=== PATIENT | female | born 1995 | race Hispanic/Latino ===

== ENCOUNTER 2024-04-19 07:22 | Emergency (ER) | payer OTHER ==
[2024-04-19] MEDS: ONDANSETRON 4MG INJ ONE (07:49)
[2024-04-19 08:11] LABS: APPEARANCE,URINE CLEAR (CLEAR); BILIRUBIN,URINE NEGATIVE (NEGATIVE); COLOR,URINE YELLOW (YELLOW); GLUCOSE, URINE (UA) NEGATIVE (NEGATIVE); HCG,QUALITATIVE URINE NEGATIVE (NEGATIVE); KETONES,URINE NEGATIVE (NEGATIVE); LEUKOCYTE ESTERASE ,URINE NEGATIVE Leu/uL (NEGATIVE); NITRATE,URINE NEGATIVE (NEGATIVE); OCCULT BLOOD,URINE SMALL (NEGATIVE); PH,URINE 5.5 (5.0-8.0); PROTEIN,URINE 30 mg/dL (NEGATIVE); UROBILINOGEN,URINE 0.2 mg/dL (0.2-1.0)
[2024-04-19 08:16] LABS: BASOPHILS # (AUTO) 0.08 K/uL (0.00-0.20); BASOPHILS % (AUTO) 0.7 % (0.0-5.0); EOSINOPHILS # (AUTO) 0.52 K/uL (0.00-0.70); EOSINOPHILS % (AUTO) 4.3 % (0.0-8.0); HEMATOCRIT 41.9 % (36-48); IMMATURE GRANULOCYTE ABSOLUTE 0.04 K/uL (0-1); LYMPHOCYTES # (AUTO) 1.6 K/uL (1.0-4.8); LYMPHOCYTES % (AUTO) 13.1 % (21.0-51.0); MEAN CORPUSCULAR HEMOGLOBIN 32.1 pg (27.0-33.0); MEAN CORPUSCULAR HGB CONC 33.9 g/dL (32.0-36.0); MEAN CORPUSCULAR VOLUME 94.6 fL (79-99); MONOCYTES # (AUTO) 0.7 K/uL (0.1-1.0); MONOCYTES % (AUTO) 5.4 % (3.0-13.0); NEUTROPHILS # (AUTO) 9.2 K/uL (1.8-7.7); NEUTROPHILS % (AUTO) 76.2 % (40.0-77.0); PLATELET COUNT (AUTO) 231 K/uL (130-400); RED BLOOD CELL COUNT(AUTO) 4.43 MIL/uL (4.00-5.50); RED CELL DISTRIBUTION WIDTH 12.2 % (11.0-15.5)
[2024-04-19] MEDS: ONDANSETRON 4MG INJ IVP ONE (08:16)
[2024-04-19 08:17] LABS: ADD UA MICROSCOPIC YES
[2024-04-19 08:20] LABS: AMPHET/METH SCREEN,URINE NEGATIVE (NEGATIVE); BACTERIA,URINE FEW /HPF (None Seen); BARBITURATE SCREEN, URINE NEGATIVE (NEGATIVE); BENZODIAZEPINES SCREEN,URINE NEGATIVE (NEGATIVE); CANNABINOID SCREEN,URINE POSITIVE (NEGATIVE); COCAINE SCREEN,URINE NEGATIVE (NEGATIVE); MUCUS,URINE RARE LPF (None Seen); OPIATE SCREEN,URINE NEGATIVE (NEGATIVE); OTHER CASTS, URINE 6 /LPF (None Seen); PHENCYCLIDINE SCREEN,URINE NEGATIVE (NEGATIVE); SQUAMOUS EPITHELIAL CELL,UR FEW /HPF (0-2)
[2024-04-19 08:26] LABS: POTASSIUM 4.1 mmol/L (3.5-5.1)
[2024-04-19 08:35] LABS: ALBUMIN 3.6 g/dL (3.5-5.0); BILIRUBIN,TOTAL 0.3 mg/dL (0.2-1.0); TOTAL PROTEIN, SERUM 7.3 g/dL (6.0-8.3)
[2024-04-19] MEDS: LACTATED RINGERS 1000ML 1,000 ML IV ONE (09:21)
[2024-04-19 11:23] LABS: ACETAMINOPHEN 1 mcg/mL (10-30); SALICYLATE < 2.8 mg/dL (2.8-20.0)
[2024-04-19 15:51] VITALS: BP 110/70; PULSE 60; RESP 18; O2SAT 100
== END 2024-04-19 16:01 | disposition home or self-care (01) ==
LOC: EDH 07:22
DX: F12.929 Cannabis use, unspecified with intoxication, unspecified (principal)
CPT/HCPCS: 99285; 96374; 70450; 96361; 80053; 80305; 85025; 81025; 36415; 93005; 81001; G0481; J7120; J2405

== ENCOUNTER → 2024-09-10 | Outpatient (CLI) | payer OTHER | END | disposition home or self-care (01) | LOC: LAB 13:36 | PROVIDERS: ATTEND Hospitalist | DX: Z20.822 Contact with and (suspected) exposure to COVID-19 (principal); B97.29 Other coronavirus as the cause of diseases classified elsewhere | CPT/HCPCS: 87426 ==

== ENCOUNTER 2024-10-12 11:29 | Inpatient (IN) | payer OTHER, MEDICAID ==
--- NOTE | 2005-10-16 19:22 | NUR ---
please disregard note from sw 09/16 at 1100. wrong chart
[~2024-10-12] VITALS: Ht 162.6 cm; Wt 117.9 kg
--- NOTE | 2024-10-12 11:41 | NUR ---
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
[2024-10-12] MEDS: LACTATED RINGERS 1000ML 1,000 ML IV SCH (12:10)
[2024-10-12 12:17] LABS: BILIRUBIN,URINE NEGATIVE (NEGATIVE); COLOR,URINE LIGHT-YELLOW (YELLOW); GLUCOSE, URINE (UA) NEGATIVE (NEGATIVE); KETONES,URINE NEGATIVE (NEGATIVE); LEUKOCYTE ESTERASE ,URINE 500 Leu/uL (NEGATIVE); NITRATE,URINE NEGATIVE (NEGATIVE); OCCULT BLOOD,URINE SMALL (NEGATIVE); PH,URINE 6.5 (5.0-8.0); PROTEIN,URINE NEGATIVE (NEGATIVE); UROBILINOGEN,URINE 0.2 mg/dL (0.2-1.0)
[2024-10-12 12:22] LABS: APPEARANCE,URINE HAZY (CLEAR)
[2024-10-12 12:23] LABS: ADD UA MICROSCOPIC YES
[2024-10-12 12:24] LABS: BACTERIA,URINE FEW /HPF (None Seen); MUCUS,URINE RARE LPF (None Seen); SQUAMOUS EPITHELIAL CELL,UR MOD /HPF (0-2); WBC,URINE 51-100 /HPF (0-1)
--- NOTE | 2024-10-12 14:14 | HMCIMG ---
US OB >14 WEEKS REASON: WELL BEING COMPARISON: None TECHNIQUE: Routine OB sonogram was performed. FINDINGS: There is a single fetus in cephalic presentation with positive motion and heartbeat, 131 BPM. Estimated age is 18 weeks 0 days. Placenta is fundal and grade one. Amniotic fluid volume is 0. Estimated weight is 225 g. anatomy exam is limited by the absence of amniotic fluid. IMPRESSION: 1. Single fetus cephalic presentation composite gestational age 18 weeks 0 days. 2. Amniotic fluid volume is 0 consistent with premature rupture of membranes.
[2024-10-12] MEDS ORDERED: AMPICILLIN 2GM VIAL IV SCH (15:30)
[2024-10-12] MEDS: acetaMINOPHEN 500 MG TABLET PO PRN (15:53)
[2024-10-12 16:23] LABS: HEMATOCRIT 35.6 % (36-48); MEAN CORPUSCULAR HEMOGLOBIN 31.2 pg (27.0-33.0); MEAN CORPUSCULAR HGB CONC 33.4 g/dL (32.0-36.0); MEAN CORPUSCULAR VOLUME 93.2 fL (79-99); RED BLOOD CELL COUNT(AUTO) 3.82 MIL/uL (4.00-5.50); RED CELL DISTRIBUTION WIDTH 12.8 % (11.0-15.5); WHITE BLOOD COUNT (AUTO) 8.3 K/uL (4.8-10.8)
[2024-10-12 16:31] LABS: AMPHET/METH SCREEN,URINE NEGATIVE (NEGATIVE); BARBITURATE SCREEN, URINE NEGATIVE (NEGATIVE); BENZODIAZEPINES SCREEN,URINE NEGATIVE (NEGATIVE); CANNABINOID SCREEN,URINE NEGATIVE (NEGATIVE); COCAINE SCREEN,URINE NEGATIVE (NEGATIVE); OPIATE SCREEN,URINE NEGATIVE (NEGATIVE); PHENCYCLIDINE SCREEN,URINE NEGATIVE (NEGATIVE)
[2024-10-12] MEDS: AMPICILLIN 2GM VIAL IV SCH (16:31)
[2024-10-12] MEDS: ERYTHROMYCIN LACTOBIONATE 250 MG in 0.9%NACL 100ML 100 ML IV SCH (17:15)
[2024-10-12 18:27] LABS: HIV 1&2 ANTIBODY Non-Reactive (Negative); HIV-1 p24 Antigen Non-Reactive (Negative)
[2024-10-12] MEDS: PROMETHAZINE HCL 25 MG/ML 1ML AMPULE IM ONE (20:20)
[2024-10-12] MEDS: MEPERIDINE-PF 50 MG/ML SYG IVP ONE (20:21)
[2024-10-12] MEDS: AMPICILLIN 2GM+NS 100ML 100 ML IV ONE ×2 (20:29→22:39)
[2024-10-12] MEDS ORDERED: COMPOUND IV REFRIGERATED 1 EACH IVSOLN MISC PRN (23:30)
[2024-10-13 07:30] VITALS: BP 122/61; PULSE 89; RESP 18; TEMP 98.2
--- NOTE | 2024-10-13 08:45 | HMCIMG ---
US OB >14 WEEKS HISTORY: KINDRA COMPARISON: None TECHNIQUE: ultrasound study was performed. FINDINGS: There is single intrauterine gestation with estimated gestational age of 18 weeks. heart rate is 145 beats per minute. The fetus is in cephalic presentation with longitudinal lie. head appears be low-lying near cervix. weight is estimated to be 239 grams. Amniotic fluid volume is decreased at almost 0 centimeter. The placenta is located posteriorly. No evidence of placenta previa is seen. There is no evidence of nuchal cord. IMPRESSION: 1. There is single intrauterine gestation with estimated gestational age of 18 weeks. heart rate is 145 beats per minute. head is low lying near cervix. KINDRA is decreased .
[2024-10-13] MEDS: AMPICILLIN 2GM+NS 100ML 100 ML IV SCH (11:06)
[2024-10-13 11:11] VITALS: BP 124/70; PULSE 85; RESP 20; TEMP 97.9
[2024-10-13 13:23] LABS: RAPID PLASMA REAGIN NONREACTIVE (NONREACTIVE)
[2024-10-13] MEDS: MEPERIDINE-PF 50 MG/ML SYG IM ONE (14:32)
[2024-10-13] MEDS: PROMETHAZINE HCL 25 MG/ML 1ML AMPULE IM ONE (14:33)
[2024-10-13 15:45] VITALS: BP 99/49; PULSE 75; RESP 20; TEMP 97.9
--- NOTE | 2024-10-13 19:40 | NUR ---
after numerous attempts to try for fht, ultrasound called, fhr at 131 , with a tiny ammount of fluid.
[2024-10-13 19:54] VITALS: BP 120/65; PULSE 98; RESP 20; TEMP 98.7
--- NOTE | 2024-10-13 20:53 | HMCIMG ---
ULTRASOUND OB LIMITED INDICATION: Unable to find heart tones with Doppler or ultrasound transducer. TECHNIQUE: Real-time transabdominal approach ultrasound examination of the pelvis was performed by the restaurant crew, and images subsequently made available for review. COMPARISON: None FINDINGS/IMPRESSION: heart rate = 131 beats per minute. KINDRA = 0.6 cm.
[2024-10-13] MEDS ORDERED: MEPERIDINE-PF 50 MG/ML SYG IM PRN (22:30)
[2024-10-13 23:24] VITALS: BP 125/68; PULSE 93; RESP 20; TEMP 98.8
[2024-10-14] VITALS (20 sets, daily range): BP systolic 92–133; BP diastolic 44–91; PULSE 80–121; RESP 18–37; TEMP 98.4–100.5; O2SAT 98–99
[2024-10-14] MEDS: PROMETHAZINE HCL 25 MG/ML 1ML AMPULE IM PRN (00:58)
--- NOTE | 2024-10-14 01:08 | NUR ---
/Patient verbalizing pain / to abdomen dem/phen 50 mg /25 mg given IM pt tolerated well.
--- NOTE | 2024-10-14 03:22 | NUR ---
Sono done fhr 134 , approximately 3 mls of fluid, cervix closed.
--- NOTE | 2024-10-14 03:40 | NUR ---
pt with nausea vomiting pain to abdomen demerol 50 mg and phenergan 25 mg IM given for pain and nausea and vomiting.
[2024-10-14] MEDS: MEPERIDINE-PF 50 MG/ML SYG IM PRN (03:41)
--- NOTE | 2024-10-14 07:58 | HMCIMG ---
US OB KINDRA/POSITION HISTORY: KINDRA COMPARISON: None TECHNIQUE: Limited ultrasound study was performed. FINDINGS: There is single intrauterine gestation with heart rate of 134 bpm. KINDRA is decreased at 3 mm. Fetus is in cephalic presentation with longitudinal lie. Cervix appears to be closed on translabial ultrasound study. IMPRESSION: 1. There is single intrauterine gestation with heart rate of 134 bpm. KINDRA is decreased at 3 mm.
--- NOTE | 2024-10-14 08:34 | NUR ---
DR AYALA RETURNED CALL. INFORMED OF PTS C/O NAUSEA WITH VOMITING PRESENT. PROVIDER VERBALIZED UNDERSTANDING. ORDERS RECEIVED FOR SCHEDULE IV ANTIEMETICS. ORDERS READ BACK AND CORRECT.
[2024-10-14] MEDS: ondanSETRON 4MG INJ IVP SCH (08:39)
--- NOTE | 2024-10-14 09:00 | NUR ---
DR AYALA AT BEDSIDE DR AYALA AT BEDSIDE TO ASSESS PT AND DISCUSS PLAN OF CARE. PO ANTIBIOTICS WILL START TODAY PREVIOUSLY ORDERED. PT MAY SHOWER AND SIT IN CHAIR AT BEDSIDE TOLERATED DUE TO ULTRASOUND FINDINGS OF CLOSE AND THICK CERVIX. PT CONTENT WITH PLAN OF CARE. QUESTIONS INVITED TO PT AND S/O. QUESTIONS ANSWERED.
--- NOTE | 2024-10-14 09:23 | HMCIMG ---
US OB KINDRA/POSITION HISTORY: KINDRA COMPARISON: Same day ultrasound study TECHNIQUE: Limited ultrasound study was performed. FINDINGS: There is single intrauterine gestation with heart rate of 155 bpm. KINDRA is decreased at 1 cm. Cervix is closed measuring 4.2 cm. IMPRESSION: 1. There is single intrauterine gestation with heart rate of 155 bpm. KINDRA is decreased at 1 cm worse from previous study.
--- NOTE | 2024-10-14 10:30 | NUR ---
SHOWER PT ASSISTED TO BR BY NURSE AND TECHNICAL CLERK TO SHOWER PER PTS REQUEST. PT SHOWERED WITH NO ASSISTANCE. BED LINEN CHANGED. PT GIVEN NEW GOWN. PT TOLERATED SHOWER WELL. NO S/S OF DISTRESS. PT ASSISTED TO CHAIR AT BEDSIDE PER PTS REQUEST. CALL LIGHT IN REACH. S/O AT BEDSIDE.
[2024-10-14] MEDS: AMPICILLIN 2GM+NS 100ML 100 ML IV ONE (12:14)
--- NOTE | 2024-10-14 14:45 | NUR ---
BEDSIDE SONO IN PROGRESS
--- NOTE | 2024-10-14 15:55 | NUR ---
REPORT TO DR LUCY AYALA CALLED TO GIVE REPORT ON SONO. Addendum: 10/14/24 at 1741 by TREVON BURROWS RN RN INFORMED OF KINDRA 0. FHTS NOTED IN 106 BPM. CERVIX APPEARS TO BE OPEN. CERVICAL LENGTH DECREASED FROM 4.2 CM TO 2.4 CM. PROVIDER VERBALIZED UNDERSTANDING. ORDERS RECEIVED FOR EPIDURAL PRN. TRANSFER PT TO L&D. ORDERS READ BACK AND CORRECT.
--- NOTE | 2024-10-14 16:02 | HMCIMG ---
US OB KINDRA/POSITION HISTORY: KINDRA, CERVICAL LENGTH, TO DETERMINE IF FHTS ARE PRESENT COMPARISON: 11/03/2024 FINDINGS: Again demonstrated is a diaz intrauterine gestation. There is positive heart tones measuring 106 bpm and activity. There is no identified measurable amniotic fluid. Cervical length measures 2.4 cm and appears open. IMPRESSION: Diaz intrauterine gestation with positive heart tones, cephalic presentation minimal amniotic fluid and a open cervix with a cervical length 2.4 cm.
--- NOTE | 2024-10-14 16:08 | NUR ---
PT MOVED TO L&D ROOM 104
[2024-10-14] MEDS: FENTanyl CITRate PF 50 MCG/1 ML 2ML VIAL ONE ×2 (16:30→21:20)
[2024-10-14] MEDS: MIDAZOLAM HCL 1 MG/ML 2ML VIAL ONE (16:32)
[2024-10-14] MEDS ORDERED: ePHEDrine SULFate 50 MG/ML AMPULE IVP PRN (18:00)
[2024-10-14] MEDS ORDERED: LACTATED RINGERS 500 ML 500 ML IV PRN (18:00)
[2024-10-14] MEDS ORDERED: NALoxone HCL 0.4 MG/1 ML ML IV PRN (18:00)
[2024-10-14] MEDS ORDERED: 0.9%NACL 50ML IV SCH (19:00)
[2024-10-14] MEDS: VANCOMYCIN KIT 1 GM/250 ML IV.KIT IV SCH (19:00)
[2024-10-14] MEDS: LACTATED RINGERS 1000ML 1,000 ML IV SCH (19:00)
[2024-10-14 19:45] LABS: HEMATOCRIT 32.4 % (36-48); MEAN CORPUSCULAR HEMOGLOBIN 31.8 pg (27.0-33.0); MEAN CORPUSCULAR VOLUME 93.6 fL (79-99); NUCLEATED RED BLOOD CELLS 0.7 % (0.0-0.19); PLATELET COUNT (AUTO) 89 K/uL (130-400); RED BLOOD CELL COUNT(AUTO) 3.46 MIL/uL (4.00-5.50); RED CELL DISTRIBUTION WIDTH 12.8 % (11.0-15.5)
[2024-10-14 19:54] LABS: CREATININE 1.1 mg/dL (0.5-1.0); POTASSIUM 3.3 mmol/L (3.5-5.1)
[2024-10-14 19:59] LABS: ALBUMIN 2.3 g/dL (3.5-5.0); BILIRUBIN,TOTAL 0.7 mg/dL (0.2-1.0); TOTAL PROTEIN, SERUM 5.5 g/dL (6.0-8.3)
--- NOTE | 2024-10-14 20:02 | HP ---
[facility] HISTORY AND PHYSICAL Date of Service: Oct 14, 2024 Time of Service: 20:01 HISTORY OF PRESENT ILLNESS: [ ] REVIEW OF SYSTEMS CONSTITUTIONAL: Denies fevers, chills, or night sweats. No unintentional weight loss reported. NEUROLOGICAL: Denies headache, amaurosis fugax, motor weakness, sensory deficit, vertigo/spinning sensation, gait abnormalities, or tremors. ENT: No hearing loss, otalgia, otorrhea, rhinitis, rhinorrhea, hoarseness, or sore throat. CARDIOVASCULAR: Denies any exertional angina, dyspnea on exertion, orthopnea, paroxysmal nocturnal dyspnea, palpitations, life-threatening arrhythmias, claudication. PULMONARY: Denies any shortness of breath, cough, phlegm/sputum, hemoptysis, pleuritic chest pain. SLEEP: Denies morning headaches, daytime somnolence or napping. Denies difficulty falling asleep, staying asleep, waking from sleep. Denies knowledge of snoring. GASTROINTESTINAL: Denies any type of dysphagia to either liquids or solids. Denies nausea, vomiting, pyrosis, early satiety, abdominal pain, diarrhea, constipation, or changes in stool consistency or caliber. Denies coffee-ground emesis, hematemesis, hematochezia, or melanotic stools. GENITOURINARY: Denies frequency, urgency, nocturia, hematuria or incontinence (Storage/Irritative symptoms.) Low urinary stream, straining to void, urinary intermittency or hesitancy, splitting of the voiding stream, terminal dribbling. ENDOCRINOLOGIC: Denies polyuria, polydipsia, polyphagia or heat/cold intolerances. HEMATOLOGIC: Denies thrombophilia/previous clots, or coagulopathy/bleeding disorders. ONCOLOGIC: Denies personal history of malignancy. DERMATOLOGIC: Denies rashes or pruritus. PSYCHIATRIC: Denies any suicidal or homicidal ideation. Denies hallucinations. PAST MEDICAL HISTORY: [ ] PAST SURGICAL HISTORY: [ ] PAST SOCIAL HISTORY: [ ] FAMILY HISTORY: [ ] Coded Allergies: No Known Drug Allergies (Unverified Allergy, Unknown, 04/19/24) PHYSICAL EXAM GENERAL APPEARANCE: The patient is awake, alert, and oriented, in no acute cardiopulmonary distress. NEUROLOGICAL: Cranial nerves II-XII grossly intact. Motor is 5/5 in bilateral upper and lower extremities proximal to distal. No sensory deficits. HEENT: Face is symmetric. Pupils are equal and reactive. Extraocular movements are intact. NECK: Supple. No JVD. No thyromegaly. No submental, submandibular, pre- /postauricular, occipital or supraclavicular lymphadenopathy. CHEST: Normal chest expansion. No Telemetry. LUNGS: Absence of any rales, rhonchi or any wheezing. CARDIOVASCULAR: Regular. S1 and S2 normal. No appreciable rubs, murmurs or gallops. ABDOMEN: Soft, nontender, and nondistended. There is no rebound, voluntary guarding, or rigidity. : Deferred. No Gonsalez. EXTREMITIES: Non-edematous and not cyanotic. No clubbing. Good capillary ref ill. SKIN: No skin breakdown. Vital Sign (Last 24 Hours) 10/14/24 10/14/24 12:00 17:19 Temp 100.6 Pulse 80 Resp 18 B/P (MAP) 125/76 Pulse Ox 98 O2 Delivery Room Air Intake & Output (last 24hrs) 10/13/24 10/13/24 10/14/24 15:00 23:00 07:00 Intake Total 150.0 ml 300.0 ml Output Total 900 ml 700 ml 900 ml Balance -900 ml -550.0 ml -600.0 ml LABS: Laboratory: Test 10/14/24 19:28 10/14/24 19:20 Range/Units White Blood Count 3.0 L 4.8-10.8 K/uL Red Blood Count 3.46 L 4.00-5.50 MIL/uL Hemoglobin 11.0 L 12.0-16.0 g/dL Hematocrit 32.4 L 36-48 % Mean Corpuscular Volume 93.6 79-99 fL Mean Corpuscular Hemoglobin 31.8 27.0-33.0 pg Mean Corpuscular Hemoglobin Concent 34.0 32.0-36.0 g/dL Red Cell Distribution Width 12.8 11.0-15.5 % Platelet Count 89 #L 130-400 K/uL Mean Platelet Volume 11.1 H 7.5-10.5 fL Nucleated Red Blood Cells 0.7 H 0.0-0.19 % Lactic Acid Level 4.7 H 0.8-2.5 mmol/L Sodium Level 136 136-145 mmol/L Potassium Level 3.3 L 3.5-5.1 mmol/L Chloride Level 102 101-111 mmol/L Carbon Dioxide Level 21 21-32 mmol/L Blood Urea Nitrogen 8 7-18 mg/dL Creatinine 1.1 H 0.5-1.0 mg/dL Glomerular Filtration Rate Calc 70 >90 mL/min Random Glucose 70 70-105 mg/dL Total Calcium 8.4 L 8.5-10.1 mg/dL Total Bilirubin 0.7 0.2-1.0 mg/dL Aspartate Amino Transf (AST/SGOT) 18 10-37 U/L Alanine Aminotransferase (ALT/SGPT) 14 12-78 U/L Alkaline Phosphatase 85 50-136 U/L Total Protein 5.5 L 6.0-8.3 g/dL Albumin 2.3 L 3.5-5.0 g/dL Current Medications Medications (Trade) Dose Ordered Sig/Rosendo Route PRN Reason Start Time Stop Time Status Last Admin Dose Admin Acetaminophen (TYLenol 500MG TAB) 1,000 mg Q6H PRN PO MILD PAIN (1-3) 10/12/24 15:30 11/11/24 15:29 10/14/24 17:19 1,000 MG Amoxicillin (Amoxicillin 250mg Cap) 250 mg Q8H PO 10/14/24 23:00 10/14/24 19:05 DC Ampicillin Sodium 100 ml @ 200 mls/hr Q6H IV 10/13/24 11:00 10/14/24 10:59 DC 10/14/24 12:13 200 MLS/HR Ampicillin Sodium (Ampicillin 2gm Vial) 2 gm Q6H IV 10/12/24 15:30 10/12/24 15:19 DC Ampicillin Sodium (Ampicillin 2gm Vial) 2 gm Q6H IV 10/12/24 15:30 10/13/24 06:20 DC 10/13/24 04:40 2 GM Ephedrine Sulfate (ePHEDrine SULFate 50 MG/ML AMPULE) 10 mg Q2M PRN IVP FOR SBP BELOW 90 10/14/24 18:00 11/13/24 17:59 Erythromycin (Erythromycin) 250 mg Q8H6 PO 10/14/24 23:30 10/19/24 23:30 Erythromycin Lactobionate 250 mg/Sodium Chloride 100 ml @ 100 mls/hr Q6H IV 10/12/24 15:30 10/14/24 15:29 DC 10/14/24 08:47 100 MLS/HR Lactated Ringer's 500 ml @ 1,000 mls/hr AD PRN IV EPIDURAL PROTOCOL 10/14/24 18:00 11/13/24 17:59 Lactated Ringer's 1,000 ml @ 0 mls/hr PROTOCOL IV 10/12/24 12:00 10/14/24 19:02 DC 10/14/24 07:36 125 MLS/HR Lactated Ringer's 1,000 ml @ 150 mls/hr Q6H40M IV 10/14/24 19:00 11/13/24 18:59 Meperidine HCl (Demerol-Pf) 50 mg Q4H PRN IM SEVERE PAIN (7-10) 10/13/24 22:30 10/13/24 22:23 DC Meperidine HCl (Demerol-Pf) 50 mg Q4H PRN IM SEVERE PAIN (7-10) 10/13/24 22:30 10/20/24 22:29 10/14/24 13:35 50 MG Morphine Sulfate (morPHINE 10MG SYG) 10 mg Q8H6 PRN IVP SEVERE PAIN (7-10) 10/13/24 22:00 10/13/24 22:13 DC Morphine Sulfate (morPHINE 10MG SYG) 10 mg QID PRN IVP SEVERE PAIN (7-10) 10/13/24 22:00 10/13/24 22:00 DC Naloxone HCl (NARcan 0.4mg/1 mL) 0.1 mg Q10M PRN IV ITCHING OR URINARY RETENTION 10/14/24 18:00 11/13/24 17:59 Ondansetron HCl (zoFRAN 4MG INJ) 4 mg Q6H IVP 10/14/24 08:35 11/13/24 08:34 10/14/24 14:27 4 MG Piperacillin Sod/ Tazobactam Sod (Zosyn 3.375gm+NS 50ml) 3.375 gm Q8H IVPB 10/14/24 19:00 10/24/24 18:59 Promethazine HCl (Phenergan) 25 mg Q6H PRN IM NAUSEA/VOMITING 10/13/24 22:00 11/12/24 21:59 10/14/24 13:35 25 MG Ropivacaine (NARopin) 200 mg PROTOCOL EP 10/14/24 18:00 10/24/24 17:59 Sodium Chloride (NS 50ml) 50 ml AD IV 10/14/24 19:00 10/14/24 19:03 DC Vancomycin HCl (Vancomycin 1g/ 250ml Kit) 1 gm Q12H IV 10/14/24 19:00 10/24/24 18:59 DIAGNOSTICS / RADIOLOGY: [ ] ASSESSMENT: [ ] PLAN: [ ] MICHELL MATSONP Oct 14, 2024 20:02
[2024-10-14] MEDS: NOREPINEPHRIN 4MG/NS 250ML 250 ML IV ONE (20:03)
--- NOTE | 2024-10-14 20:05 | NUR ---
TRANSFER PT. TRANSFERRED TO ROOM 214 VIA L/D BED ACCOMPANIED BY L/D NURSE X 2, PERINATAL TECH, AND HS. RECEIVED BY LOCAL COORDINATOR. SETTLED IN ROOM. MONITORS APPLIED. SIGNIFICANT OTHER AT BEDSIDE.
[2024-10-14 20:20] LABS: BAND NEUTROPHILS % (MANUAL) 34 % (0-2); LYMPHOCYTES % (MANUAL) 10 % (22-44); MAN.DIFF COMMENT-IMPRESSION MANUAL DIFFERENTIAL; MONOCYTES % (MANUAL) 2 % (2-9); SEGMENTED NEUTROPHILS % 54 % (40-70); TOTAL CELLS COUNTED 100
[2024-10-14] MEDS: NOREPINEPHRIN 4MG/NS 250ML 250 ML IV SCH (20:20)
[2024-10-14 20:22] LABS: PLATELET MORPHOLOGY COMMENT LARGE PLTS PRESENT
--- NOTE | 2024-10-14 20:22 | CONS ---
[facility] CONSULTATION NOTE Date of Service: Oct 14, 2024 Reason for Consultation: [ MEDICAL MANAGEMENT ] Requesting Physician: [ ] PCP: Dr. Pretty HISTORY OF PRESENT ILLNESS: This is a 29-year-old female currently 19 weeks and 2 days with no pertinent medical history with a surgical history of right inguinal repair and right ovarian cyst removal who was admitted on 10/12 2024 in Labor and Delivery for active cramping under the care of .Patient started having fever around 5 pm today and patient was already started on zosyn and Vancomycin and blood pressure started going down SBP in the 80's despite of IV fluid resuscitation . Hospitalist was consulted for medical management .Patient immed iately transferred to ICU while receiving IV fluid resuscitation and Levophed drip to be started in ICU for close monitoring. Seen and examined patient in room 214,awake,alert and coherent.Patient denies chest pain,palpitation,cough,nausea &vomiting.Patient complained of mild shortness of breath.An ABG result showed 7.45, CO2 22, PO2 77, bicarb 15, saturation 95.8, excess -6.9 and Chest Xray result revealed upper limits of normal heart size .Will closely follow the patient in ICU for close monitoring. Addendum:On 10/14/24, while in the ICU, abdominal cramping continued and patient had a spontaneous delivery of a demise at 20:38. Placenta was retained . Dr Edwards was notified per ICU staff ,came and delivered placenta at 2118.Patient remained in ICU on Levophed drip. REVIEW OF SYSTEMS CONSTITUTIONAL: Denies fevers, chills, or night sweats. No unintentional weight loss reported. NEUROLOGICAL: Denies headache, amaurosis fugax, motor weakness, sensory deficit, vertigo/spinning sensation, gait abnormalities, or tremors. ENT: No hearing loss, otalgia, otorrhea, rhinitis, rhinorrhea, hoarseness, or sore throat. CARDIOVASCULAR: Denies any exertional angina, dyspnea on exertion, orthopnea, paroxysmal nocturnal dyspnea, palpitations, life-threatening arrhythmias, claudication. PULMONARY: Denies any shortness of breath, cough, phlegm/sputum, hemoptysis, pleuritic chest pain. SLEEP: Denies morning headaches, daytime somnolence or napping. Denies difficulty falling asleep, staying asleep, waking from sleep. Denies knowledge of snoring. GASTROINTESTINAL: Denies any type of dysphagia to either liquids or solids. Denies nausea, vomiting, pyrosis, early satiety, abdominal pain, diarrhea, constipation, or changes in stool consistency or caliber. Denies coffee-ground emesis, hematemesis, hematochezia, or melanotic stools. GENITOURINARY: Denies frequency, urgency, nocturia, hematuria or incontinence (Storage/Irritative symptoms.) Low urinary stream, straining to void, urinary intermittency or hesitancy, splitting of the voiding stream, terminal dribbling. ENDOCRINOLOGIC: Denies polyuria, polydipsia, polyphagia or heat/cold intolerances. HEMATOLOGIC: Denies thrombophilia/previous clots, or coagulopathy/bleeding disorders. ONCOLOGIC: Denies personal history of malignancy. DERMATOLOGIC: Denies rashes or pruritus. PSYCHIATRIC: Denies any suicidal or homicidal ideation. Denies hallucinations. PAST MEDICAL HISTORY: [No pertinent medical history ] PAST SURGICAL HISTORY: [ Right inguinal hernia repair right ovarian cyst ] PAST SOCIAL HISTORY: [ Patient lives with . Patient denies alcohol tobacco and recreational drug use. Patient states she used to smoke seven cigarettes per day ] FAMILY HISTORY: [Hypertension and diabetes ] Coded Allergies: No Known Drug Allergies (Unverified Allergy, Unknown, 04/19/24) PHYSICAL EXAM GENERAL APPEARANCE: The patient is awake, alert, and oriented, in no acute cardiopulmonary distress. NEUROLOGICAL: Cranial nerves II-XII grossly intact. Motor is 5/5 in bilateral upper and lower extremities proximal to distal. No sensory deficits. HEENT: Face is symmetric. Pupils are equal and reactive. Extraocular movements are intact. NECK: Supple. No JVD. No thyromegaly. No submental, submandibular, pre- /postauricular, occipital or supraclavicular lymphadenopathy. CHEST: Normal chest expansion. No Telemetry. LUNGS: Diminished breath sounds bilaterally on auscultation Absence of any rales, rhonchi or any wheezing. CARDIOVASCULAR: Tachycardic Regular. S1 and S2 normal. No appreciable rubs, murmurs or gallops. ABDOMEN: Soft, nontender, and nondistended. There is no rebound, voluntary guarding, or rigidity. : Deferred. No Gonsalez. EXTREMITIES: Non-edematous and not cyanotic. No clubbing. Good capillary refill. SKIN: No skin breakdown. Vital Sign (Last 24 Hours) 10/14/24 10/14/24 12:00 17:19 Temp 100.6 Pulse 80 Resp 18 B/P (MAP) 125/76 Pulse Ox 98 O2 Delivery Room Air Intake & Output (last 24hrs) 10/13/24 10/13/24 10/14/24 15:00 23:00 07:00 Intake Total 150.0 ml 300.0 ml Output Total 900 ml 700 ml 900 ml Balance -900 ml -550.0 ml -600.0 ml LABS: Laboratory: Test 10/14/24 19:28 10/14/24 19:20 Range/Units White Blood Count 3.0 L 4.8-10.8 K/uL Red Blood Count 3.46 L 4.00-5.50 MIL/uL Hemoglobin 11.0 L 12.0-16.0 g/dL Hematocrit 32.4 L 36-48 % Mean Corpuscular Volume 93.6 79-99 fL Mean Corpuscular Hemoglobin 31.8 27.0-33.0 pg Mean Corpuscular Hemoglobin Concent 34.0 32.0-36.0 g/dL Red Cell Distribution Width 12.8 11.0-15.5 % Platelet Count 89 #L 130-400 K/uL Mean Platelet Volume 11.1 H 7.5-10.5 fL Nucleated Red Blood Cells 0.7 H 0.0-0.19 % Lactic Acid Level 4.7 H 0.8-2.5 mmol/L Procalcitonin 35.36 H 0.05-0.5 ng/mL Sodium Level 136 136-145 mmol/L Potassium Level 3.3 L 3.5-5.1 mmol/L Chloride Level 102 101-111 mmol/L Carbon Dioxide Level 21 21-32 mmol/L Blood Urea Nitrogen 8 7-18 mg/dL Creatinine 1.1 H 0.5-1.0 mg/dL Glomerular Filtration Rate Calc 70 >90 mL/min Random Glucose 70 70-105 mg/dL Total Calcium 8.4 L 8.5-10.1 mg/dL Total Bilirubin 0.7 0.2-1.0 mg/dL Aspartate Amino Transf (AST/SGOT) 18 10-37 U/L Alanine Aminotransferase (ALT/SGPT) 14 12-78 U/L Alkaline Phosphatase 85 50-136 U/L Total Protein 5.5 L 6.0-8.3 g/dL Albumin 2.3 L 3.5-5.0 g/dL DIAGNOSTICS / RADIOLOGY: [ ] ASSESSMENT: 19 weeks and two days on active uterine cramping POA S/P Miscarriage at 19 week gestation and two days not POA -s/p vaginal delivery of demise on 10/14/2024 at 2037 -s/p placenta retention after delivery Acute urinary tract infection POA Septic shock requiring Levophed drip not POA Acute respiratory failure not POA Hypokalemia POA PLAN: We will transfer patient to ICU Start on Levophed drip for BP support to keep mm AP above 65 mmHg Continue IV fluids Continue Zosyn IV and vancomycin IV for broad-spectrum coverage Follow-up blood culture and urine culture result We will start on famotidine 20 mg IV b.i.d. for GI prophylaxis We will replace electrolytes as needed per protocol We will add p.r.n. medication for pain fever nausea and vomiting We will seek critical care consultation for critical care management OBGYN closely monitoring the patient and will follow recommendations We will check labs in a.m. Further recommendations to follow depending upon hospitalization course Case discussed with the attending MD and came up with the above treatment and plan of care ADVANCED CARE PLANNING 1. Which of the following were discussed? Hospice Care - No Therapeutic options - Yes Advance Directives - No Other discussions - 2. Discussed with who? Patient 3. Voluntary nature of this service was explained to the patient? Yes 4. Amount of time spent - _22 5. Reviewed by Physician? (if this service was performed by NPP) Yes Patient seen and examined by me. Agree with note by CONTRACTING ANALYST SEE ADDITIONAL ORDERS PER CHART DISCUSSED WITH NURSING STAFF MICHELL MATSONP Oct 14, 2024 20:22
[2024-10-14 20:25] LABS: ABG BASE EXCESS -6.9 mmol/L (-2.0-3.0); ABG HCO3 15.1 mmol/L (21.0-28.0); ABG OXYGEN SATURATION 95.8 % (94.0-98.0); ABG PCO2 22 mmHg (32-45); ABG PH 7.459 (7.350-7.450); CARBON MONOXIDE 0.3 % (0.5-1.5); DEVICE COMMENT RR RN; HHb 4.2; PO2, ARTERIAL BG 77.8 mmHg (83.0-108.0); VENT MODE, BG RA (ROOM AIR)
[2024-10-14 20:40] LABS: ABG BASE EXCESS -7.8 mmol/L (-2.0-3.0); ABG HCO3 15.2 mmol/L (21.0-28.0); ABG OXYGEN SATURATION 99.4 % (94.0-98.0); ABG PCO2 25 mmHg (32-45); ABG PH 7.408 (7.350-7.450); CARBON MONOXIDE 0.2 % (0.5-1.5); DEVICE COMMENT LR; HHb 0.6; PO2, ARTERIAL BG 316.9 mmHg (83.0-108.0); VENT MODE, BG NRB (ROOM AIR)
--- NOTE | 2024-10-14 20:46 | NUR ---
REPORT GIVE TO DR LUCY AYALA CALLED TO UPDATE PROVIDER. INFORMED OF SPONTANEOUS VAGINAL DELIVERY OF AT 2037. PLACENTA UNDELIVERED. PROVIDER VERBALIZED UNDERSTANDING. ORDERS RECEIVED TO ADMINISTER CYTOTEC 1000 MCG GA NOW. PROVIDER ON HIS WAY TO ASSESS PT.
[2024-10-14] MEDS: MISOPROSTOL 200 MCG TABLET ONE (20:49)
--- NOTE | 2024-10-14 20:52 | CONS ---
[facility] CONSULTATION NOTE Date Patient Seen: Oct 14, 2024 Time of Visit: 20:51 Supervising Physician: Dr. Acosta Reason for Consultation: Critical Care management Primary Care Physician: Attending: NICK Fine Outpatient Specialists: Inpatient Consults: [facility] [place] Critical Care Team PROBLEM LIST: Acute sepsis with septic shock, not responsive to fluid resuscitation, requiring pressor support Acute hypoxemic respiratory failure, not POA Miscarriage at 19 week gestation and two days -s/p vaginal delivery of demise on 10/14/2024 at 2037 -s/p placenta retention after delivery Acute complicated cystitis, POA Electrolyte derangement (hyponatremia, hypomagnesemia, hypocalcemia) Anemia Lactic acidosis Morbid obesity, BMI 44.6 HPI: Mrs Florence is a 29-year-old female currently 19 weeks and 2 days with history of morbid obesity who was admitted on 10/12/2024 in Labor and Delivery for active cramping under the care of NICK Fine. Per report the patient started having fever around 5 pm today on 10/14/24 and was started on Zosyn and Vancomycin. Per chart review on 10/14/24 around 15:55 Dr. Edwards was informed of sono report. KINDRA ). FHTs 106 BPM. Cervix appeared open. Later it was report that there was no heart tones and that Dr. Edwards was informed. The patient became hypotensive, SBP in the 80's despite of IV fluid resusc itation. Hospitalist was consulted for medical management. Patient immediately transferred to ICU while receiving IV fluid resuscitation. Levophed drip was started in ICU. [facility] team consulted [facility] [place] Critical Care team. I went to assess the patient at bedside in 214. The patient was awake, alert, oriented X4. Uncomfortable with contractions. The patient denies chest pain, palpitation, cough, &vomiting, but reported being a little nauseated. Patient also complained of mild shortness of breath earlier and was place on NRB. An ABG result showed 7.45, CO2 22, PO2 77, bicarb 15, saturation 95.8, excess -6.9 and Chest X-ray result revealed clear lungs. Upper limits of normal heart size. I informed significant other and patient of hypotension and need for Levophed, IV fluids along with electrolyte replacement. I also updated significant other and patient of the plan of care. They verbalized understanding and are in agreement with the plan. Plan and assessment are listed below. L&D RNs delivered the demise at 20:38 on 10/14/24. Placenta was retained. Dr. Gary was called, he arrived, and delivered the placenta at around 2117. Dr. Edwards ordered that L&D nurses come to ICU and assess the patient every 2 hours and for excessive vaginal bleed. I assessed and reassessed the patient. Corrected electrolytes and administered IV fluid boluses during the night for hypotension and increasing WBCs and lactic acid. ABGs were done and address throughout the night. BIS team we will continue monitoring the patient closely alongside of OBGYN team. PAST MEDICAL HX: see above PAST SURGICAL HX: Right inguinal hernia repair, right ovarian cyst removal SOCIAL HISTORY: No tobacco, ETOH, or illicit drug use Coded Allergies: No Known Drug Allergies (Unverified Allergy, Unknown, 04/19/24) REVIEW OF SYSTEMS: 12 point ROS reviewed with patient. Pertinent positives mentioned above. Otherwise negative. PHYSICAL EXAM: GENERAL: Alert, weak, awake oriented x 3 HEENT: EOMI, Sclera non icteric, moist mucosa NECK: Supple, no JVD, trachea midline LUNGS: Breathing was even and unlabored. Clear breath sounds bilaterally. No wheezes HEART: Tachycardic. Regular rate and rhythm. Normal S1 and S2, without murmurs ABD: Abdomen soft, nontender. Bowel sounds present EXT: No clubbing cyanosis or edema NEURO: Alert and oriented x3, follows commands Vital Signs (last 8hr) Date Time Temp Pulse Resp B/P (MAP) Pulse Ox O2 Delivery O2 Flow Rate FiO2 10/14/24 17:19 100.6 LABS: Hematology Labs: Test 10/14/24 19:28 Range/Units White Blood Count 3.0 L 4.8-10.8 K/uL Red Blood Count 3.46 L 4.00-5.50 MIL/uL Hemoglobin 11.0 L 12.0-16.0 g/dL Hematocrit 32.4 L 36-48 % Mean Corpuscular Volume 93.6 79-99 fL Mean Corpuscular Hemoglobin 31.8 27.0-33.0 pg Mean Corpuscular Hemoglobin Concent 34.0 32.0-36.0 g/dL Red Cell Distribution Width 12.8 11.0-15.5 % Platelet Count 89 #L 130-400 K/uL Mean Platelet Volume 11.1 H 7.5-10.5 fL Segmented Neutrophils % 54 40-70 % Band Neutrophils % 34 H 0-2 % Lymphocytes % (Manual) 10 L 22-44 % Monocytes % (Manual) 2 2-9 % Nucleated Red Blood Cells 0.7 H 0.0-0.19 % Differential Comment MANUAL DIFFERENTIAL White Cell Morphology Comment Platelet Morphology Comment LARGE PLTS PRESENT Red Blood Cell Morphology See comments Chemistry Labs: Test 10/14/24 19:28 10/14/24 19:20 Range/Units Lactic Acid Level 4.7 H 0.8-2.5 mmol/L Procalcitonin 35.36 H 0.05-0.5 ng/mL Sodium Level 136 136-145 mmol/L Potassium Level 3.3 L 3.5-5.1 mmol/L Chloride Level 102 101-111 mmol/L Carbon Dioxide Level 21 21-32 mmol/L Blood Urea Nitrogen 8 7-18 mg/dL Creatinine 1.1 H 0.5-1.0 mg/dL Glomerular Filtration Rate Calc 70 >90 mL/min Random Glucose 70 70-105 mg/dL Total Calcium 8.4 L 8.5-10.1 mg/dL Total Bilirubin 0.7 0.2-1.0 mg/dL Aspartate Amino Transf (AST/SGOT) 18 10-37 U/L Alanine Aminotransferase (ALT/SGPT) 14 12-78 U/L Alkaline Phosphatase 85 50-136 U/L Total Protein 5.5 L 6.0-8.3 g/dL Albumin 2.3 L 3.5-5.0 g/dL DIAGNOSTICS / RADIOLOGY RESULTS: [ ] PLAN Transferred to ICU with continuous cardiac monitoring and pulse oximetry monitoring. Monitor respiratory status closely. Monitor ABGs and chest x-ray. Keep SpO2 equal to greater than 92%. Start Levophed IV drip, titrate to keep map above 65. Continue IV fluids at 100 mL an hour. Continue vancomycin IV per pharmacy protocol. Change Zosyn to cefepime IV q.8 hours. Monitor for fluid overload. Monitor electrolytes and treat accordingly. Monitor urine and renal function. DVT and GI prophylaxis. Strict I&Os. Vital signs per ICU. Unlabored and delivery RNs are to monitor patient's for excessive vaginal bleed. Fundal massage L&D per protocol. Follow Dr. Edwards's recommendations. NEURO: Minimize central acting medications as possible. Fall Precautions. Well lighted room through the day and minimize interruptions through the night to prevent acute delirium. PULMONARY: Supplemental 02 as needed Titrate Fio2 to keep Spo2 > or = 90% DuoNebs and CPT as needed IS hourly while awake for pulmonary hygiene Out of bed to chair as tolerated VAP Bundle CARDIOVASCULAR: Follow hemodynamics. Titrate vasopressor to keep MAP >65 or systolic blood pressure >95mmHg GI & NUTRITION: Continue nutritional support Aspirations precautions Prokinetic agents and laxatives as needed KIDNEYS & ELECTROLYTES: Strict monitoring of intake and output Daily weights Avoid nephrotoxic agents Monitor electrolytes and replace as needed Goal urine output of 30mL/hr or 0.5mL/kg/hr ENDOCRINE: Maintain blood glucose between 100-180 at all times. Insulin sliding scale for blood glucose management INFECTIOUS DISEASE: Trend temperature. Daniels-culture if febrile. HEMATOLOGY & COAGULATION: Monitor H&H. Keep Hgb > 7 Transfuse 1 unit of PRBC for Hgb < 7 Transfuse 1 pack of platelets of platelets < 20, 000 Watch for any signs and symptoms of bleeding SKIN: Pressure ulcer prevention per facility protocol Rehab: PT/OT Code Status: Full Resuscitation Disposition: [Transferred to ICU ] SAEID RUIZ Oct 14, 2024 20:52
[2024-10-14] MEDS ORDERED: PoTASSium chloRIDE 20MEQ/100ML 100 ML IV PRN (21:00)
[2024-10-14] MEDS ORDERED: GLUCAGON 1MG KIT 1 MG ML IM PRN (21:00)
[2024-10-14] MEDS ORDERED: DEXTROSE 50%-WATER 50 ML DISP.SYRIN IV PRN (21:00)
[2024-10-14] MEDS ORDERED: PoTASSium chloRIDE 10MEQ/100ML 100 ML IV PRN (21:00)
[2024-10-14] MEDS: LIDOCAINE HCL-MPF 2% 5ML VIAL ONE (21:20)
--- NOTE | 2024-10-14 21:20 | NUR ---
PLACENTA EVACUATION BY DR AYALA SUCCESSFUL PLACENTA DELIVERY BY DR AYALA, PATIENT STABLE, NO DISTRESS NOTED, STILL CONT ON LEVOPHED, AND OXYTOXIN, MINIMAL VAGINAL BLEEDING AT THIS TIME, VITAL SIGNS STABLE, WILL CONT TO MONITOR
[2024-10-14] MEDS: MISOPROSTOL 200 MCG TABLET PR ONE (21:34)
--- NOTE | 2024-10-14 21:39 | HMCIMG ---
CHEST 1VW CLINICAL HISTORY: SEPTIC SHOCK COMPARISON: None TECHNIQUE: Single view of the chest was obtained. FINDINGS: Lungs are clear. Cardiac size is normal The bony structures are within normal limits. IMPRESSION: Upper limits of normal heart size.
[2024-10-14 21:47] LABS: BASOPHILS # (AUTO) 0.03 K/uL (0.00-0.20); BASOPHILS % (AUTO) 0.3 % (0.0-5.0); HEMATOCRIT 32.3 % (36-48); IMMATURE GRANULOCYTE ABSOLUTE 0.08 K/uL (0-1); LYMPHOCYTES # (AUTO) 0.6 K/uL (1.0-4.8); MEAN CORPUSCULAR HEMOGLOBIN 31.8 pg (27.0-33.0); MEAN CORPUSCULAR HGB CONC 33.7 g/dL (32.0-36.0); MEAN CORPUSCULAR VOLUME 94.2 fL (79-99); MONOCYTES # (AUTO) 0.1 K/uL (0.1-1.0); MONOCYTES % (AUTO) 0.6 % (3.0-13.0); NEUTROPHILS # (AUTO) 9.4 K/uL (1.8-7.7); NEUTROPHILS % (AUTO) 92.3 % (40.0-77.0); NUCLEATED RED BLOOD CELLS 0.7 % (0.0-0.19); PLATELET COUNT (AUTO) 98 K/uL (130-400); RED BLOOD CELL COUNT(AUTO) 3.43 MIL/uL (4.00-5.50); RED CELL DISTRIBUTION WIDTH 12.9 % (11.0-15.5); WHITE BLOOD COUNT (AUTO) 10.2 K/uL (4.8-10.8)
--- NOTE | 2024-10-14 21:57 | HMCIMG ---
US OB KINDRA/POSITION HISTORY: KINDRA, CERVICAL LENGTH, TO DETERMINE IF FHTS ARE PRESENT COMPARISON: None FINDINGS: There is a sarabia intrauterine gestation with no identified activity or heart tones. IMPRESSION: Findings most consistent with demise.
[2024-10-14 21:58] LABS: POTASSIUM 3.2 mmol/L (3.5-5.1)
[2024-10-14 21:59] LABS: INR 1.11 (0.85-1.15); PROTHROMBIN TIME 11.9 SEC (9.6-11.6)
[2024-10-14 22:00] LABS: PARTIAL THROMBOPLASTIN TIME 33.8 SEC (26.3-35.5)
[2024-10-14] MEDS: MAGNESIUM 2GM PREMIX 50ML 50 ML IV PRN (22:27)
[2024-10-14] MEDS: 0.9%NACL 1000ML 1,000 ML IV SCH ×2 (22:47)
[2024-10-14] MEDS: SODIUM CHLORIDE IRRIG SOLUTION 1,000 ML IRRIG.SOLN IR ONE (22:48)
[2024-10-14] MEDS: ZOSYN 3.375GM +NS 50ML IVPB SCH (22:49)
[2024-10-14] MEDS ORDERED: AMOXICILLIN 250MG CAP PO SCH (23:00)
[2024-10-14] MEDS: POTASSIUM CHLORIDE 10 MEQ/100 ML IV ONE (23:13)
[2024-10-14] MEDS ORDERED: ERYTHROMYCIN BASE 250 MG TABLET PO SCH (23:30)
[2024-10-15] VITALS (110 sets, daily range): BP systolic 60–168; BP diastolic 30–87; PULSE 75–118; RESP 4–104; TEMP 98.1–98.7; O2SAT 97–99
[2024-10-15 00:20] LABS: ABG BASE EXCESS -9.9 mmol/L (-2.0-3.0); ABG HCO3 14.5 mmol/L (21.0-28.0); ABG OXYGEN SATURATION 94.5 % (94.0-98.0); ABG PCO2 28 mmHg (32-45); ABG PH 7.332 (7.350-7.450); CARBON MONOXIDE 0 % (0.5-1.5); DEVICE COMMENT RL; HHb 5.5; PO2, ARTERIAL BG 74.5 mmHg (83.0-108.0); VENT MODE, BG NC (ROOM AIR)
[2024-10-15] MEDS: acetaMINOPHEN 1,000 MG/100 ML VIAL IVPB ONE (00:47)
[2024-10-15] MEDS: MAGNESIUM 2GM PREMIX 50ML 50 ML IV SCH (00:55)
[2024-10-15] MEDS: PoTASSium chloRIDE 20MEQ ER 20 MEQ ERTAB PO PRN (00:59)
[2024-10-15] MEDS ORDERED: 0.9%NACL 1000ML 1,000 ML IV ONE (02:00)
[2024-10-15] MEDS: 0.9% NACL 500ML IV.SOLN 500 ML IV SCH (03:49)
[2024-10-15 05:30] LABS: BASOPHILS % (AUTO) 0.3 % (0.0-5.0); EOSINOPHILS # (AUTO) 0.06 K/uL (0.00-0.70); EOSINOPHILS % (AUTO) 0.2 % (0.0-8.0); HEMATOCRIT 33.6 % (36-48); IMMATURE GRANULOCYTE ABSOLUTE 1.62 K/uL (0-1); LYMPHOCYTES # (AUTO) 0.6 K/uL (1.0-4.8); MEAN CORPUSCULAR HEMOGLOBIN 31.4 pg (27.0-33.0); MEAN CORPUSCULAR HGB CONC 33.3 g/dL (32.0-36.0); MEAN CORPUSCULAR VOLUME 94.1 fL (79-99); MONOCYTES # (AUTO) 1.1 K/uL (0.1-1.0); MONOCYTES % (AUTO) 3.5 % (3.0-13.0); NEUTROPHILS # (AUTO) 28.2 K/uL (1.8-7.7); NEUTROPHILS % (AUTO) 88.9 % (40.0-77.0); NUCLEATED RED BLOOD CELLS 0.1 % (0.0-0.19); PLATELET COUNT (AUTO) 99 K/uL (130-400); RED BLOOD CELL COUNT(AUTO) 3.57 MIL/uL (4.00-5.50)
[2024-10-15 05:42] LABS: ALBUMIN 2.1 g/dL (3.5-5.0); BILIRUBIN,TOTAL 0.7 mg/dL (0.2-1.0); CREATININE 0.8 mg/dL (0.5-1.0); MAGNESIUM 2.4 mg/dL (1.80-2.40); POTASSIUM 3.4 mmol/L (3.5-5.1); TOTAL PROTEIN, SERUM 5.4 g/dL (6.0-8.3)
[2024-10-15 05:54] LABS: WHITE BLOOD COUNT (AUTO) 31.7 K/uL (4.8-10.8)
--- NOTE | 2024-10-15 06:00 | NUR ---
DIFFICULT ENCOUNTER WITH FAMILY MEMBER AFTER CHANGING PATIENT POSITION, AT AROUND 2100, NOTICED THAT HER BLOOD PRESSURE DROPPED WITH A MAP OF 45-50 AND NOT IMPROVING, CONT TO TITRATE UP T'IL GOOD BLOOD PRESSOR AND MAP WERE FOUND, AROUND THAT TIME , PATIENT FAMILY MEMBER JOANIE AWAD WHO PER THE PATIENT IS A NURSE PRACTITIONER FROM [employer] AND IMMEDIATELY START TO COMPLAIN ABOUT WHY THE PATIENT DOESN'T HAVE AN "A-LINE", AFTER SHE REQUESTED ONE EARLIER DURING DAYTIME. WHILE TRYING TO EXPLAIN TO HER THAT THE A-LINE WASN'T INSERTED BECAUSE SHE HAD A CENTRAL LINE INSERTED AND BECAUSE OF ALL THE STRESSES SHE WAS GOING THRU, THEY'LL RATHER WAIT FOR ANOTHER DAY, BUT SHE WASN'T HAVING IT, " I WANT TO TALK TO THE CORRECTIONS CORPORAL, I NEED THE NAME OF THE SOFTWARE ENGINEER ADVISOR, AND THE NAME OF THE CHARGE NURSE ." TRYING TO REASON WITH BOTH SISTERS PROVED VERY DIFFICULT, WHILE I AM TRYING TO TITRATE MEDICATION, THEY WERE PUTTING PRESSURE ON ME TO GET OUT OF THE ROOM AND CONTACT WHOMEVER I CAN FOUND TO COME AND TALK TO THEM, AND WERE ALSO MENACING THE STAFFS," I WILL REPORT ALL THIS TO THE CNO, AND THE HIGHER UP OF HOW THINGS ARE DONE HERE," WHEN I WAS FINALLY ABLE TO GET A GOOD READING ON THE BLOOD PRESSURE, WITH ONE OF THE READING SHOWING SYSTOLIC 160, IMMEDIATELY BOTH OF THE SISTERS ASSAILED ME VERBALLY" YOU SEE IS BECAUSE OF THE HIGH LEVOPHED THAT SHE IS HAVING ALL THIS HEADACHES, IF ANYTHING HAPPENS TO HER YOU'LL PAY FOR THIS." I TOLD THE SISTERS THAT SHE IS BEEN HAVING THIS HEADACHE INTERMITTENTLY EVEN BEFORE THE LEVOPHED WAS STARTED. ALSO COMPLAIN OF THE IV LINES NOT HAVING CAPS ON THEM. I DID GET SOFTWARE ENGINEER ADVISOR INVOLVED THAT HAVE TO EXPLAIN TO THEM THAT THE REASON WHY THE CORRECTIONS CORPORAL COULDN'T COME RIGHT AWAY WAS BECAUSE SHE HAS 17 ADMISSIONS AND IT WILL TAKE A WHILE TO MAKE THAT HAPPENS. DURING MY EXTENSIVE CONVERSATION WITH THE PATIENT, THE , THE TWO SISTERS ABOUT THE PATIENT HISTORY, ON CRUCIAL REVELATION AROSE THAT SHE DOES HAVE A HISTORY OF DEBILITATING MIGRAINE AND WAS PRESCRIBED TOPIRAMATE 25 MG PO BID, AND ALSO PROPANOLOL, WENT AHEAD AND RELAY THIS INFO TO THE NURSE PRACTITIONER. THE REST OF THE NIGHT STARTING AT AROUND 2 AM WAS MORE FRIENDLIER ENCOUNTER. WILL CONT TO MONITOR
[2024-10-15] MEDS: ceFEPime HCL 1 GM VIAL IVPB SCH (06:16)
[2024-10-15] MEDS: 0.9%NACL 1000ML 1,000 ML IV SCH (06:19)
--- NOTE | 2024-10-15 06:50 | NUR ---
GRAM NEGATIVE RODS REPORT GIVEN TO CATHERINE LEAVITT WILL NOTIFY AND CONT TO MONITOR
--- NOTE | 2024-10-15 07:16 | EKG ---
[facility] Test Date: 2024-10-15 Test Time: 06:49:46 Pat Name: ALEXANDR COTTRELL Department: 2CV Room: 206 Gender: F X Ray Consultant: [id number] : 1995 Requested By: MIHCELL MATSON Order Number: [id number] Reading MD: Dorita Snow Measurements Intervals Dale Rate: 87 P: -86 AL: 131 QRS: -7 QRSD: 97 T: 49 QT: 392 QTc: 473 Interpretive Statements Sinus or ectopic atrial rhythm Low voltage, precordial leads Compared to ECG 04/19/2024 08:58:38 Ectopic atrial rhythm now present Low QRS voltage now present Sinus rhythm no longer present Electronically Signed On 10-15-2024 13:14:49 ALL ROUND BUTCHER by Dorita Snow Please click the below link to view image of tracing.
--- NOTE | 2024-10-15 08:00 | NUR ---
URVASHI BONDS NP CALLED AND NOTIFIED OF ABG, LABS, CXR RESULT,. NEW ORDERS RECEIVED AND NOTED.
[2024-10-15 08:11] LABS: ABG BASE EXCESS -10.8 mmol/L (-2.0-3.0); ABG HCO3 13.9 mmol/L (21.0-28.0); ABG OXYGEN SATURATION 96.4 % (94.0-98.0); ABG PCO2 28 mmHg (32-45); ABG PH 7.312 (7.350-7.450); CARBON MONOXIDE 0.4 % (0.5-1.5); DEVICE COMMENT RAQUE RN RR; HHb 3.6; PO2, ARTERIAL BG 87.4 mmHg (83.0-108.0); VENT MODE, BG 4L NC (ROOM AIR)
[2024-10-15] MEDS: SODIUM BICARB 50MEQ 50ML VIAL IV STA (08:25)
[2024-10-15] MEDS ORDERED: MEROPENEM 1 GM in 0.9%NACL 100ML 100 ML IVPB SCH (08:30)
--- NOTE | 2024-10-15 08:54 | HMCIMG ---
CHEST 1VW HISTORY: Shortness of breath COMPARISON: 10/14/2024 FINDINGS: A frontal projection of the chest was obtained. There are bilateral pulmonary infiltrates suggestive of pulmonary vascular congestion with possible superimposed pneumonitis. The heart is borderline enlarged. No evidence of aortic calcification is seen. IMPRESSION: 1. Bilateral pulmonary infiltrates are seen suggestive of pulmonary vascular congestion with possible superimposed pneumonitis.
--- NOTE | 2024-10-15 09:00 | NUR ---
CVC CENTRAL LINE TO RIGHT IJ PLACED BYMel BONDS NP, PATIENT TOLERATED WELL. CXR REVIEWED BY MD WALDEN TO USE. PT CONTINUES ON LEVOPHED DRIPS NOTED IN EMR. COMPLAINING OF SOB, PLACED ON BIPAP BUT DID NOT TOLERATE, PT STARTED ON PRECEDEX AND OXYMIZER AT 6 L, TOLERATING WELL.
--- NOTE | 2024-10-15 09:04 | NUR ---
IVETTE RN, DELIVERY NURSE AT BEDSIDE HELPING IVETTE ZARATE RN, AT BEDSIDE, HELPING PATIENT POST DELIVERY WILL CONT TO MONITOR
--- NOTE | 2024-10-15 09:30 | NUR ---
DR. ARNOLD COVERING FOR DR. AYALA AT BEDSIDE, US PELVIS COMPLETED AND MD REVIEWED IMAGES. FAMILY UPDATED AND ALL QUESTIONS ANSWERED.
[2024-10-15] MEDS: MEROPENEM 1 GM VIAL IVPB SCH (10:31)
[2024-10-15] MEDS: FAMOTIDINE 20MG VIAL IV SCH (10:31)
--- NOTE | 2024-10-15 10:55 | PRN ---
This is a procedure note. Procedure performed: 1. Central line insertion. 2. Intraoperative Ultrasound. Site: _ R-Internal Jugular vein. Description of procedure: Consent obtained. Consent waived, procedure performed emergently. Hand hygiene. Time out done. Chlorhexidine was used to prepare the skin. Intraoperative US guidance was used during the procedure to localize vein and confirm placement of guidewire inside the vein prior to dilatation using sterile sheath to cover transducer to ensure sterility at all times. Regular triple lumen inserted with Seldinger technique on site specified above. Line secured at the hub. Patient tolerated procedure well. No immediate complications. Post procedure Chest x ray was ordered. Procedure was performed by Sadia Buckley NP, with myself assisting under the direct supervision of Dr. Acosta. DIALLO SUTBBS Oct 15, 2024 10:54
--- NOTE | 2024-10-15 11:05 | NUR ---
please disregard note from SW . wrong chart
--- NOTE | 2024-10-15 11:20 | HMCIMG ---
US PELVIC NON-OB COMP HISTORY: Retained products of conception COMPARISON: None TECHNIQUE: Transabdominal pelvic ultrasound study was performed. FINDINGS: The uterus measures 4.9 x 7.7 x 6.9 cm. The right ovary is not visualized. The left ovary measures 2.8 x 2.1 x 2.4 cm. Endometrial thickness is thick and heterogeneous with irregular posterior endometrial lining. Complex fluid collection is seen within the endometrial canal measuring 6.2 x 3.1 x 1.7 cm may be related to hematoma with region product of conception not completely excluded. Free fluid is seen in the cul-de-sac. IMPRESSION: 1. No adnexal mass is seen. Complex fluid is seen within the endometrial canal with irregular endometrial lining may be related to hematoma. Possibility of retained products of conception cannot be completely.
--- NOTE | 2024-10-15 11:24 | HMCIMG ---
CHEST 1VW HISTORY: Line placement COMPARISON: 10/15/2024 FINDINGS: A frontal projection of the chest was obtained. There are bilateral pulmonary infiltrates suggestive of pulmonary vascular congestion with possible superimposed pneumonitis. The heart is enlarged. Right venous catheter is seen with distal tip in the plane of the superior vena cava. Degenerative changes are seen. IMPRESSION: 1. Bilateral pulmonary infiltrates are seen suggestive of pulmonary vascular congestion with possible superimposed pneumonitis.
[2024-10-15] MEDS: morPHINE 2 MG SYG IVP PRN (11:25)
--- NOTE | 2024-10-15 11:30 | PN ---
[facility] PROGRESS NOTE Date Patient Seen: Oct 15, 2024 Time of Visit: 11:14 Supervising Physician: Dr. Kaiser Acosta Primary Care Physician: Hospitalist Outpatient Specialists: JOHNY Inpatient Consults: Dr. Acosta, Dr. Hager PROBLEM LIST: Acute sepsis with septic shock requiring Levophed drip Gram-negative bacteremia Acute hypoxic respiratory failure Miscarriage at 19wks 2days gestation on 10/14/24 Acute complicated cystitis POA Electrolyte derangement ( hypocalcemia, hyponatremia, hypomagnesemia) Anemia Lactic acidosis Elevated procalcitonin Morbid obesity BMI 44.6 INTERVAL HISTORY: Patient is a 29 yr old female who is at 19 weeks and 2 days IUP, with no significant past medical history who presented to the emergency room with a 1 day history progressively worsening symptoms including of abdominal cramping and vaginal bleeding. The abdominal cramps was located in the lower pelvic area, described as dull and constant, with no specific aggravating or relieving factors. There was associated nausea and vomiting , but no diarrhea. Patient also noted vaginal bleeding and leakage of fluid which initially she thought was just urine. Vaginal bleeding consisted of large blood clots. Denies any vaginal discharge, dysuria, frequency or flank pain. Denies any recent travel, sick contacts or exposure to known infections. For this reason she decided to come to the ER for evaluation and treatment. In the emergency room patient was febrile and was started to IV Vancomycin and Zosyn. Patient's BP started dropping with systolic BP in the 80's despite IV fluid resuscitation. She was then transferred to ICU for further evaluation and management. Fluid resuscitation was continued and patient was started on Levophed drip. On 10/14/24, while in the ICU, abdominal cramping continued and patient had a spontaneous delivery of the fetus at 20:38. Placenta was retained . Dr Edwards was notified. Delivered placenta at 2117. 10/15/24: Lying in bed at the time of evaluation, alert and oriented. Patient is maintaining oxygen at 97% on 2L of oxygen, though she requested for neb treatment Mucomyst and higher oxygen support. We placed her on Oxymizer and she felt better. We will also start patient on low dose of Lasix 20 mg IV Q 12 hours for two days. Vital signs with P 88, R. 20, BP 109/69. Labs from this morning WBC is elevated at 31.7, Hb 11.2, Hct 33.6, Neutrophil 88.9, potassium 3.4, Lactic acid 4.3 trending down from 5.7 yesterday and Procalcitonin 56.6 from 35.36 yesterday. Patient had a central line inserted this morning which was well tolerated. Patient continues on Levophed at 0.18 mcg. Continue to wean as tolerated to keep map greater than 65. Continue current antibiotic with Meropenem 1g q8h, discontinue cefepime. Continue Vancomycin 1g q12h. I spoke with patient's family who is a nurse practitioner in [place]. Updated on status and questions answered. Keep in the ICU given vasopressor requirement. REVIEW OF SYSTEMS: 12 point ROS reviewed with patient. Pertinent positives mentioned above. Otherwise negative. PHYSICAL EXAM: GENERAL: alert, weak, awake oriented x 3 HEENT: EOMI, Sclera non icteric, moist mucosa NECK: Supple, no JVD, trachea midline LUNGS: Diminished breath sounds bilaterally. No wheezes HEART: Regular rate and rhythm. Normal S1 and S2, without murmurs ABD: Abdomen soft, nontender. Bowel sounds present EXT: No clubbing cyanosis or edema NEURO: Alert and oriented to person, follows commands Vital Signs (last 8hr) Date Time Temp Pulse Resp B/P (MAP) Pulse Ox O2 Delivery O2 Flow Rate FiO2 10/15/24 06:33 88 28 109/69 (82) 97 10/15/24 06:27 87 20 N/Cannula Low lpm 4.0 36 10/15/24 06:17 90 27 130/78 (95) 97 10/15/24 06:00 90 21 102/61 (75) 97 10/15/24 05:48 88 13 94/64 (74) 97 10/15/24 05:33 90 15 105/61 (76) 97 10/15/24 05:30 90 15 105/61 (76) 97 10/15/24 05:18 103 30 94/53 (67) 96 10/15/24 05:00 98.8 90 25 112/66 (81) 96 10/15/24 04:48 90 25 97/48 (64) 96 10/15/24 04:33 90 21 98/51 (67) 96 10/15/24 04:18 97 21 94/47 (63) 96 10/15/24 04:00 89 20 102/63 (76) 96 10/15/24 04:00 98 Nasal Cannula* 4 36 10/15/24 04:00 98.8 10/15/24 03:48 91 23 108/62 (77) 97 10/15/24 03:33 89 25 110/72 (85) 96 LABS: Hematology Labs: Test 10/15/24 04:56 10/14/24 19:28 Range/Units White Blood Count 31.7 #*H 4.8-10.8 K/uL Red Blood Count 3.57 L 4.00-5.50 MIL/uL Hemoglobin 11.2 L 12.0-16.0 g/dL Hematocrit 33.6 L 36-48 % Mean Corpuscular Volume 94.1 79-99 fL Mean Corpuscular Hemoglobin 31.4 27.0-33.0 pg Mean Corpuscular Hemoglobin Concent 33.3 32.0-36.0 g/dL Red Cell Distribution Width 13.0 11.0-15.5 % Platelet Count 99 L 130-400 K/uL Mean Platelet Volume 12.1 H 7.5-10.5 fL Immature Granulocyte % (Auto) 5.1 H 0-1 % Neutrophils (%) (Auto) 88.9 H 40.0-77.0 % Lymphocytes (%) (Auto) 2.0 L 21.0-51.0 % Monocytes (%) (Auto) 3.5 3.0-13.0 % Eosinophils (%) (Auto) 0.2 0.0-8.0 % Basophils (%) (Auto) 0.3 0.0-5.0 % Neutrophils # (Auto) 28.2 H 1.8-7.7 K/uL Lymphocytes # (Auto) 0.6 L 1.0-4.8 K/uL Monocytes # (Auto) 1.1 H 0.1-1.0 K/uL Eosinophils # (Auto) 0.06 0.00-0.70 K/uL Basophils # (Auto) 0.10 0.00-0.20 K/uL Absolute Immature Granulocyte (auto 1.62 H 0-1 K/uL Nucleated Red Blood Cells 0.1 0.0-0.19 % Segmented Neutrophils % 54 40-70 % Band Neutrophils % 34 H 0-2 % Lymphocytes % (Manual) 10 L 22-44 % Monocytes % (Manual) 2 2-9 % Differential Comment MANUAL DIFFERENTIAL White Cell Morphology Comment Platelet Morphology Comment LARGE PLTS PRESENT Red Blood Cell Morphology See comments Chemistry Labs: Test 10/15/24 08:39 10/15/24 04:56 10/15/24 04:33 Range/Units Whole Blood Ketones Quantitative 0.3 0.0-0.6 mmol/L Sodium Level 140 136-145 mmol/L Potassium Level 3.4 L 3.5-5.1 mmol/L Chloride Level 106 101-111 mmol/L Carbon Dioxide Level 17 L 21-32 mmol/L Blood Urea Nitrogen 7 7-18 mg/dL Creatinine 0.8 0.5-1.0 mg/dL Glomerular Filtration Rate Calc 102 >90 mL/min Random Glucose 74 70-105 mg/dL Lactic Acid Level 4.3 H 0.8-2.5 mmol/L Total Calcium 8.2 L 8.5-10.1 mg/dL Magnesium Level 2.40 1.80-2.40 mg/dL Total Bilirubin 0.7 0.2-1.0 mg/dL Aspartate Amino Transf (AST/SGOT) 30 10-37 U/L Alanine Aminotransferase (ALT/SGPT) 13 12-78 U/L Alkaline Phosphatase 53 # 50-136 U/L Total Protein 5.4 L 6.0-8.3 g/dL Albumin 2.1 L 3.5-5.0 g/dL Procalcitonin 56.60 H 0.05-0.5 ng/mL Whole Blood Glucose 88 70-110 MG/DL Coagulation Labs: Test 10/14/24 21:33 Range/Units Prothrombin Time 11.9 H 9.6-11.6 SEC Prothromb Time International Ratio 1.11 0.85-1.15 Activated Partial Thromboplast Time 33.8 26.3-35.5 SEC DIAGNOSTICS / RADIOLOGY RESULTS: PATIENT: ALEXANDR COTTRELL MR#: [id number] : 1995 SEX: F AGE: 29 LOCATION: 2BH ORDER 1024 STATUS: ADM IN REPORT#: [id number] SERVICE 1023 REASON: central line placement ORDERING PHYSICIAN: MATIAS AGUAYO CNP PROCEDURE: CXR1VW - CHEST 1VW CHEST 1VW HISTORY: Line placement COMPARISON: 10/15/2024 FINDINGS: A frontal projection of the chest was obtained. There are bilateral pulmonary infiltrates suggestive of pulmonary vascular congestion with possible superimposed pneumonitis. The heart is enlarged. Right venous catheter is seen with distal tip in the plane of the superior vena cava. Degenerative changes are seen. IMPRESSION: 1. Bilateral pulmonary infiltrates are seen suggestive of pulmonary vascular congestion with possible superimposed pneumonitis. DICTATED BY: KHUSHBOO GABRIEL MD DATE: 10/15/241117 PATIENT: ALEXANDR COTTRELL MR#: [id number] : 1995 SEX: F AGE: 29 LOCATION: [facility] ORDER 1020 STATUS: ADM IN REPORT#: [id number] SERVICE 1016 REASON: chevk for any retained membrane/placenta ORDERING PHYSICIAN: DALTON HARRIS MD PROCEDURE: PELVCOMP - US PELVIC NON-OB COMP US PELVIC NON-OB COMP HISTORY: Retained products of conception COMPARISON: None TECHNIQUE: Transabdominal pelvic ultrasound study was performed. FINDINGS: The uterus measures 4.9 x 7.7 x 6.9 cm. The right ovary is not visualized. The left ovary measures 2.8 x 2.1 x 2.4 cm. Endometrial thickness is thick and heterogeneous with irregular posterior endometrial lining. Complex fluid collection is seen within the endometrial canal measuring 6.2 x 3.1 x 1.7 cm may be related to hematoma with region product of conception not completely excluded. Free fluid is seen in the cul-de-sac. IMPRESSION: 1. No adnexal mass is seen. Complex fluid is seen within the endometrial canal with irregular endometrial lining may be related to hematoma. Possibility of retained products of conception cannot be completely. DICTATED BY: KHUSHBOO GABRIEL MD DATE: 10/15/24 111 ELECTRONICALLY SIGNED BY: KHUSHBOO GABRIEL MD DATE: 10/15/24 112 ELECTRONICALLY SIGNED BY: KHUSHBOO GABRIEL MD DATE: 10/15/24 112 PLAN NEURO: Minimize central acting medications as possible. Fall Precautions. Well lighted room through the day and minimize interruptions through the night to prevent acute delirium. PULMONARY: Supplemental 02 as needed Titrate Fio2 to keep Spo2 > or = 90% DuoNebs and CPT as needed IS hourly while awake for pulmonary hygiene Out of bed to chair as tolerated CARDIOVASCULAR: Follow hemodynamics. Titrate vasopressor to keep MAP >65 or systolic blood pressure >95mmHg LINES: Central line inserted this morning GI & NUTRITION: Continue nutritional support Aspirations precautions Prokinetic agents and laxatives as needed KIDNEYS & ELECTROLYTES: Strict monitoring of intake and output Daily weights Avoid nephrotoxic agents Monitor electrolytes and replace as needed Goal urine output of 30mL/hr or 0.5mL/kg/hr Urine output: [ ] Fluid Balance: [ ] ENDOCRINE: Maintain blood glucose between 100-180 at all times. Insulin sliding scale for blood glucose management INFECTIOUS DISEASE: Trend temperature. Daniels-culture if febrile. Micro: Blood cultures x2 positive for Gram negative rods Antibiotics: Continue with Meropenem 1g q8h, Cefepime 1g q8h and Keaxztjcbi0c q12h as ordered HEMATOLOGY & COAGULATION: Monitor H&H. Keep Hgb > 7 Transfuse 1 unit of PRBC for Hgb < 7 Transfuse 1 pack of platelets of platelets < 20, 000 Watch for any signs and symptoms of bleeding SKIN: Pressure ulcer prevention per facility protocol Rehab: PT/OT Prophylaxis: GI: Famotidine 20mg bid DVT: SCD's Code Status: Full Resuscitation Disposition: [ ] Other: Total patient care time exceeds 35 minutes excluding all procedures. Case was discussed and seen with my supervising physician. The above plan was formulated and agreed upon. JO BRIGGS MD Oct 15, 2024 11:30 MATIAS AGUAYO CNP Oct 15, 2024 20:00
[2024-10-15] MEDS: dexmedeTOMIDine 400MCG/NS100ML IV SCH (11:50)
[2024-10-15] MEDS: IpraTROPium/alBUTERol SULFATE 3 ML SOLUTION IH SCH (12:22)
--- NOTE | 2024-10-15 12:34 | PN ---
[facility] PROGRESS NOTE Date of Service: Oct 15, 2024 Time of Service: 12:34 SUBJECTIVE: [ ] The patient has been seen and examined today during my rounding, she is alert and oriented x3, remains on Levophed for blood pressure support, also on Precedex. She is getting IV antibiotics. She remains on supplemental oxygen via nasal cannula 4 L, currently saturating 97%. Multiple family members at bedside during my visit. REVIEW OF SYSTEMS CONSTITUTIONAL: Denies fevers, chills, or night sweats. No unintentional weight loss reported. NEUROLOGICAL: Denies headache, amaurosis fugax, motor weakness, sensory deficit, vertigo/spinning sensation, gait abnormalities, or tremors. ENT: No hearing loss, otalgia, otorrhea, rhinitis, rhinorrhea, hoarseness, or sore throat. CARDIOVASCULAR: Denies any exertional angina, dyspnea on exertion, orthopnea, paroxysmal nocturnal dyspnea, palpitations, life-threatening arrhythmias, claudication. PULMONARY: Denies any shortness of breath, cough, phlegm/sputum, hemoptysis, pleuritic chest pain. SLEEP: Denies morning headaches, daytime somnolence or napping. Denies diff iculty falling asleep, staying asleep, waking from sleep. Denies knowledge of snoring. GASTROINTESTINAL: Denies any type of dysphagia to either liquids or solids. Denies nausea, vomiting, pyrosis, early satiety, abdominal pain, diarrhea, constipation, or changes in stool consistency or caliber. Denies coffee-ground emesis, hematemesis, hematochezia, or melanotic stools. GENITOURINARY: Denies frequency, urgency, nocturia, hematuria or incontinence (Storage/Irritative symptoms.) Low urinary stream, straining to void, urinary intermittency or hesitancy, splitting of the voiding stream, terminal dribbling. ENDOCRINOLOGIC: Denies polyuria, polydipsia, polyphagia or heat/cold in tolerances. HEMATOLOGIC: Denies thrombophilia/previous clots, or coagulopathy/bleeding disorders. ONCOLOGIC: Denies personal history of malignancy. DERMATOLOGIC: Denies rashes or pruritus. PSYCHIATRIC: Denies any suicidal or homicidal ideation. Denies hallucinations. PHYSICAL EXAM GENERAL APPEARANCE: The patient is awake, alert, and oriented, in no acute cardiopulmonary distress. NEUROLOGICAL: Cranial nerves II-XII grossly intact. Motor is 5/5 in bilateral upper and lower extremities proximal to distal. No sensory deficits. HEENT: Face is symmetric. Pupils are equal and reactive. Extraocular movements are intact. NECK: Supple. No JVD. No thyromegaly. No submental, submandibular, pre- /postauricular, occipital or supraclavicular lymphadenopathy. CHEST: Normal chest expansion. No Telemetry. LUNGS: Diminished breath sounds bilaterally on auscultation Absence of any rales, rhonchi or any wheezing. CARDIOVASCULAR: Tachycardic Regular. S1 and S2 normal. No appreciable rubs, murmurs or gallops. ABDOMEN: Soft, nontender, and nondistended. There is no rebound, voluntary guarding, or rigidity. : Deferred. No Gonsalez. EXTREMITIES: Non-edematous and not cyanotic. No clubbing. Good capillary refill. SKIN: No skin breakdown. Vital Signs (last 8hr) Date Time Temp Pulse Resp B/P (MAP) Pulse Ox O2 Delivery O2 Flow Rate FiO2 10/15/24 12:22 97 20 10/15/24 12:18 96 18 N/Cannula Oximizer Hi LPM 5.0 40 10/15/24 06:33 88 28 109/69 (82) 97 10/15/24 06:27 87 20 N/Cannula Low lpm 4.0 36 10/15/24 06:17 90 27 130/78 (95) 97 10/15/24 06:00 90 21 102/61 (75) 97 10/15/24 05:48 88 13 94/64 (74) 97 10/15/24 05:33 90 15 105/61 (76) 97 10/15/24 05:30 90 15 105/61 (76) 97 10/15/24 05:18 103 30 94/53 (67) 96 10/15/24 05:00 98.8 90 25 112/66 (81) 96 10/15/24 04:48 90 25 97/48 (64) 96 LABS: Laboratory: Test 10/15/24 08:39 10/15/24 08:08 10/15/24 04:56 10/15/24 04:33 Range/Units Whole Blood Ketones Quantitative 0.3 0.0-0.6 mmol/L Blood Gas Specimen Type Arterial Arterial Blood pH 7.312 L 7.350-7.450 Arterial Blood Partial Pressure CO2 28 L 32-45 mmHg Arterial Blood Partial Pressure O2 87.4 83.0-108.0 mmHg Arterial Blood HCO3 13.9 L 21.0-28.0 mmol/L Arterial Blood Oxygen Saturation 96.4 94.0-98.0 % Arterial Blood Base Excess -10.8 L -2.0-3.0 mmol/L Hemoglobin (Blood Gas) 12.1 12.0-16.0 g/dL Sodium (Blood Gas) 135 L 136-145 MMOL/L Bedside Potassium (Blood Gas) 3.6 3.4-4.5 MMOL/L Bedside Chloride (Blood Gas) 108 H 98-107 MMOL/L Bedside Glucose (Blood Gas) 97 H 65-95 MG/DL Bedside Ionized Calcium (Blood Gas) 1.17 1.15-1.33 MMOL/L Bedside Lactic Acid (Blood Gas) 4.66 *H 0.36-0.75 MMOL/L Blood Gas Temperature 37.0 35.5-37.0 CELSIUS Blood Gas Flow-by 4.00 0.00-15.00 L/min Blood Gas Vent Mode 4L NC ROOM AIR FiO2 36.0 % Blood Gas Specimen Comment NAKUL RN RR White Blood Count 31.7 #*H 4.8-10.8 K/uL Red Blood Count 3.57 L 4.00-5.50 MIL/uL Hemoglobin 11.2 L 12.0-16.0 g/dL Hematocrit 33.6 L 36-48 % Mean Corpuscular Volume 94.1 79-99 fL Mean Corpuscular Hemoglobin 31.4 27.0-33.0 pg Mean Corpuscular Hemoglobin Concent 33.3 32.0-36.0 g/dL Red Cell Distribution Width 13.0 11.0-15.5 % Platelet Count 99 L 130-400 K/uL Mean Platelet Volume 12.1 H 7.5-10.5 fL Immature Granulocyte % (Auto) 5.1 H 0-1 % Neutrophils (%) (Auto) 88.9 H 40.0-77.0 % Lymphocytes (%) (Auto) 2.0 L 21.0-51.0 % Monocytes (%) (Auto) 3.5 3.0-13.0 % Eosinophils (%) (Auto) 0.2 0.0-8.0 % Basophils (%) (Auto) 0.3 0.0-5.0 % Neutrophils # (Auto) 28.2 H 1.8-7.7 K/uL Lymphocytes # (Auto) 0.6 L 1.0-4.8 K/uL Monocytes # (Auto) 1.1 H 0.1-1.0 K/uL Eosinophils # (Auto) 0.06 0.00-0.70 K/uL Basophils # (Auto) 0.10 0.00-0.20 K/uL Absolute Immature Granulocyte (auto 1.62 H 0-1 K/uL Nucleated Red Blood Cells 0.1 0.0-0.19 % Sodium Level 140 136-145 mmol/L Potassium Level 3.4 L 3.5-5.1 mmol/L Chloride Level 106 101-111 mmol/L Carbon Dioxide Level 17 L 21-32 mmol/L Blood Urea Nitrogen 7 7-18 mg/dL Creatinine 0.8 0.5-1.0 mg/dL Glomerular Filtration Rate Calc 102 >90 mL/min Random Glucose 74 70-105 mg/dL Lactic Acid Level 4.3 H 0.8-2.5 mmol/L Total Calcium 8.2 L 8.5-10.1 mg/dL Magnesium Level 2.40 1.80-2.40 mg/dL Total Bilirubin 0.7 0.2-1.0 mg/dL Aspartate Amino Transf (AST/SGOT) 30 10-37 U/L Alanine Aminotransferase (ALT/SGPT) 13 12-78 U/L Alkaline Phosphatase 53 # 50-136 U/L Total Protein 5.4 L 6.0-8.3 g/dL Albumin 2.1 L 3.5-5.0 g/dL Procalcitonin 56.60 H 0.05-0.5 ng/mL Whole Blood Glucose 88 70-110 MG/DL Test 10/14/24 21:33 10/14/24 19:28 Range/Units Prothrombin Time 11.9 H 9.6-11.6 SEC Prothromb Time International Ratio 1.11 0.85-1.15 Activated Partial Thromboplast Time 33.8 26.3-35.5 SEC Segmented Neutrophils % 54 40-70 % Band Neutrophils % 34 H 0-2 % Lymphocytes % (Manual) 10 L 22-44 % Monocytes % (Manual) 2 2-9 % Differential Comment MANUAL DIFFERENTIAL White Cell Morphology Comment Platelet Morphology Comment LARGE PLTS PRESENT Red Blood Cell Morphology See comments Current Medications Medications (Trade) Dose Ordered Sig/Rosendo Route PRN Reason Start Time Stop Time Status Last Admin Dose Admin Acetaminophen (TYLenol 500MG TAB) 1,000 mg Q6H PRN PO MILD PAIN (1-3) 10/12/24 15:30 11/11/24 15:29 10/15/24 00:09 1,000 MG Albuterol (DUOneb) 1 udvial [id number] IH 10/15/24 12:00 11/14/24 11:59 10/15/24 12:22 1 UDVIAL Amoxicillin (Amoxicillin 250mg Cap) 250 mg Q8H PO 10/14/24 23:00 10/14/24 19:05 DC Ampicillin Sodium 100 ml @ 200 mls/hr Q6H IV 10/13/24 11:00 10/14/24 10:59 DC 10/14/24 12:13 200 MLS/HR Ampicillin Sodium (Ampicillin 2gm Vial) 2 gm Q6H IV 10/12/24 15:30 10/12/24 15:19 DC Ampicillin Sodium (Ampicillin 2gm Vial) 2 gm Q6H IV 10/12/24 15:30 10/13/24 06:20 DC 10/13/24 04:40 2 GM Cefepime HCl (MAXipime 1 GM vial) 1 gm Q8H IVPB 10/15/24 06:15 10/15/24 08:34 DC 10/15/24 06:16 1 GM Dexmedetomidine/ Sodium Chloride (PRECEdex 400MCG/ 100ML-NS) 400 mcg PROTOCOL IV 10/15/24 11:00 11/14/24 10:59 10/15/24 11:50 400 MCG Dextrose (D50w) 50 ml AD PRN IV HYPOGLYCEMIA PROTOCOL 10/14/24 21:00 11/13/24 20:59 Ephedrine Sulfate (ePHEDrine SULFate 50 MG/ML AMPULE) 10 mg Q2M PRN IVP FOR SBP BELOW 90 10/14/24 18:00 11/13/24 17:59 Erythromycin (Erythromycin) 250 mg Q8H6 PO 10/14/24 23:30 10/15/24 00:48 DC Erythromycin Lactobionate 250 mg/Sodium Chloride 100 ml @ 100 mls/hr Q6H IV 10/12/24 15:30 10/14/24 15:29 DC 10/14/24 08:47 100 MLS/HR Famotidine (Pepcid 20mg Vial) 20 mg BID IV 10/15/24 09:00 11/14/24 08:59 10/15/24 10:31 20 MG Glucagon (Glucagon 1mg Kit) 1 mg AD PRN IM HYPOGLYCEMIA PROTOCOL 10/14/24 21:00 11/13/24 20:59 Lactated Ringer's 500 ml @ 1,000 mls/hr AD PRN IV EPIDURAL PROTOCOL 10/14/24 18:00 11/13/24 17:59 Lactated Ringer's 1,000 ml @ 0 mls/hr PROTOCOL IV 10/12/24 12:00 10/14/24 19:02 DC 10/14/24 07:36 125 MLS/HR Lactated Ringer's 1,000 ml @ 150 mls/hr Q6H40M IV 10/14/24 19:00 11/13/24 18:59 10/15/24 10:31 150 MLS/HR Magnesium Sulfate 50 ml @ 0 mls/hr PROTOCOL IV 10/14/24 22:30 11/13/24 22:29 10/15/24 02:52 25 MLS/HR Magnesium Sulfate 50 ml @ 0 mls/hr PROTOCOL PRN IV OTHER [SEE ORDER COMMENTS] 10/14/24 21:00 10/14/24 22:38 DC 10/14/24 22:27 25 MLS/HR Meperidine HCl (Demerol-Pf) 50 mg Q4H PRN IM SEVERE PAIN (7-10) 10/13/24 22:30 10/13/24 22:23 DC Meperidine HCl (Demerol-Pf) 50 mg Q4H PRN IM SEVERE PAIN (7-10) 10/13/24 22:30 10/20/24 22:29 10/15/24 05:10 50 MG Meropenem (Merrem) 1 gm Q8H IVPB 10/15/24 09:00 10/25/24 08:59 10/15/24 10:31 1 GM Meropenem 1 gm/ Sodium Chloride 100 ml @ 33.333 mls/ hr Q8H IVPB 10/15/24 08:30 10/15/24 08:53 DC Morphine Sulfate (morPHINE 10MG SYG) 10 mg Q8H6 PRN IVP SEVERE PAIN (7-10) 10/13/24 22:00 10/13/24 22:13 DC Morphine Sulfate (morPHINE 10MG SYG) 10 mg QID PRN IVP SEVERE PAIN (7-10) 10/13/24 22:00 10/13/24 22:00 DC Morphine Sulfate (morPHINE 2MG SYG) 2 mg Q4H PRN IVP SEVERE PAIN (7-10) 10/15/24 11:00 10/22/24 10:59 10/15/24 11:25 2 MG Naloxone HCl (NARcan 0.4mg/1 mL) 0.1 mg Q10M PRN IV ITCHING OR URINARY RETENTION 10/14/24 18:00 11/13/24 17:59 Norepinephrine 250 ml @ 0 mls/hr PROTOCOL IV 10/14/24 20:00 11/13/24 19:59 10/15/24 07:12 88.5 MLS/HR Ondansetron HCl (zoFRAN 4MG INJ) 4 mg Q6H IVP 10/14/24 08:35 11/13/24 08:34 10/15/24 11:25 4 MG Oxytocin/Lactated Ringer's 500 ml @ 0 mls/hr AD IV 10/14/24 20:30 11/13/24 20:29 10/14/24 21:37 4 MLS/HR Piperacillin Sod/ Tazobactam Sod (Zosyn 3.375gm+NS 50ml) 3.375 gm Q8H IVPB 10/14/24 19:00 10/15/24 06:07 DC 10/15/24 06:02 3.375 GM Potassium Chloride 100 ml @ 50 mls/hr AD PRN IV POTASSIUM PROTOCOL 10/14/24 21:00 10/14/24 20:58 DC Potassium Chloride 100 ml @ 100 mls/hr AD PRN IV POTASSIUM PROTOCOL 10/14/24 21:00 11/13/24 20:59 Potassium Chloride (K-Dur/Klor-Con 20meq) 20 meq AD PRN PO POTASSIUM PROTOCOL 10/15/24 01:00 11/14/24 00:59 10/15/24 03:56 20 MEQ Potassium Chloride (KCl 10% Elixir 20meq/15ml) 20 meq AD PRN PO POTASSIUM PROTOCOL 10/15/24 01:00 11/14/24 00:59 Promethazine HCl (Phenergan) 25 mg Q6H PRN IM NAUSEA/VOMITING 10/13/24 22:00 11/12/24 21:59 10/14/24 13:35 25 MG Ropivacaine (NARopin) 200 mg PROTOCOL EP 10/14/24 18:00 10/24/24 17:59 Sodium Bicarbonate (Sodium Bicarb 50meq 50ml Vial) 150 meq ONCE STAT IV 10/15/24 08:14 10/15/24 09:10 DC 10/15/24 08:25 150 MEQ Sodium Chloride 500 ml @ 0 mls/hr Q0M IV 10/15/24 03:30 11/14/24 03:29 10/15/24 03:49 999 MLS/HR Sodium Chloride 1,000 ml @ 0 mls/hr Q0M IV 10/14/24 22:30 11/13/24 22:29 10/14/24 22:47 999 MLS/HR Sodium Chloride 1,000 ml @ 0 mls/hr Q0M IV 10/15/24 06:30 10/15/24 09:11 DC 10/15/24 06:19 999 MLS/HR Sodium Chloride 1,000 ml @ 100 mls/hr Q10H IV 10/14/24 22:30 11/13/24 22:29 10/14/24 22:47 100 MLS/HR Sodium Chloride (NS 50ml) 50 ml AD IV 10/14/24 19:00 10/14/24 19:03 DC Vancomycin HCl (Vancomycin 1g/ 250ml Kit) 1 gm Q12H IV 10/14/24 19:00 10/24/24 18:59 10/15/24 10:31 1 GM DIAGNOSTICS / RADIOLOGY: [ ] ASSESSMENT: 19 weeks and two days POA Acute cute urinary tract infection POA Septic shock requiring Levophed drip Acute respiratory failure Hypokalemia PLAN: Patient remains admitted to the ICU Continue on Levophed drip for BP support to keep mm AP above 65 mmHg Continue the patient on Precedex Critical care consultation requested, continue to follow input and recommendation We will request Infectious Disease consultation Continue IV fluids Continue Zosyn IV and vancomycin IV for broad-spectrum coverage Follow results of septic workup Continue on famotidine 20 mg IV b.i.d. for GI prophylaxis Continue to replace electrolytes as needed per protocol Continue p.r.n. medication for pain fever nausea and vomiting Follow a.m. labs Further recommendations to follow depending upon hospitalization course Plan of action discussed with the family members at bedside, all questions answered, agreed and understood the information provided Total ICU time spent greater than 30 minutes PATRICIA CRAWFORD MD Oct 15, 2024 12:34
[2024-10-15 12:40] LABS: CREATININE 0.9 mg/dL (0.5-1.0); POTASSIUM 4.2 mmol/L (3.5-5.1)
[2024-10-15] MEDS ORDERED: acetylCYSTeine10% 4ML VIAL IH SCH (13:00)
[2024-10-15] MEDS ORDERED: hydroMORPHone 1 MG INJ IVP PRN (15:00)
[2024-10-15] MEDS: furoSEMIDE 20MG VIAL IV SCH (15:16)
[2024-10-15] MEDS: hydroMORPHone 0.5 MG SYG (0.5MG/0.5ML) IVP PRN (17:44)
[2024-10-15 18:07] LABS: SARS-CoV-2, RNA, NAAT NEGATIVE SARS CoV-2 (NEGATIVE)
[2024-10-15 18:11] LABS: INFLUENZA TYPE A Negative For Type A (NEGATIVE); INFLUENZA TYPE B Negative For Type B (NEGATIVE)
[2024-10-15] MEDS: NOREPINEPHRINE BITARTRATE 32 MG in 0.9% NACL 250ML 250 ML IV SCH (19:47)
--- NOTE | 2024-10-15 20:02 | PN ---
[facility] PROGRESS NOTE Date Patient Seen: Oct 15, 2024 Time of Visit: 12:00 Supervising Physician: Dr. Kaiser Acosta Primary Care Physician: Hospitalist Outpatient Specialists: JOHNY Inpatient Consults: Dr. Acosta, Dr. Hager PROBLEM LIST: Acute sepsis with septic shock requiring Levophed drip Gram-negative bacteremia Acute hypoxic respiratory failure Miscarriage at 19wks 2days gestation on 10/14/24 Acute complicated cystitis POA Electrolyte derangement ( hypocalcemia, hyponatremia, hypomagnesemia) Anemia Lactic acidosis Elevated procalcitonin Morbid obesity BMI 44.6 INTERVAL HISTORY: Patient is a 29 yr old female who is at 19 weeks and 2 days IUP, with no significant past medical history who presented to the emergency room with a 1 day history progressively worsening symptoms including of abdominal cramping and vaginal bleeding. The abdominal cramps was located in the lower pelvic area, described as dull and constant, with no specific aggravating or relieving factors. There was associated nausea and vomiting , but no diarrhea. Patient also noted vaginal bleeding and leakage of fluid which initially she thought was just urine. Vaginal bleeding consisted of large blood clots. Denies any vaginal discharge, dysuria, frequency or flank pain. Denies any recent travel, sick contacts or exposure to known infections. For this reason she decided to come to the ER for evaluation and treatment. In the emergency room patient was febrile and was started to IV Vancomycin and Zosyn. Patient's BP started dropping with systolic BP in the 80's despite IV fluid resuscitation. She was then transferred to ICU for further evaluation and management. Fluid resuscitation was continued and patient was started on Levophed drip. On 10/14/24, while in the ICU, abdominal cramping continued and patient had a spontaneous delivery of the fetus at 20:38. Placenta was retained . Dr Edwards was notified. Delivered placenta at 2117. 10/15/24: Lying in bed at the time of evaluation, alert and oriented. Patient is maintaining oxygen at 97% on 2L of oxygen, though she requested for neb treatment Mucomyst and higher oxygen support. We placed her on Oxymizer and she felt better. We will also start patient on low dose of Lasix 20 mg IV Q 12 hours for two days. Vital signs with P 88, R. 20, BP 109/69. Labs from this morning WBC is elevated at 31.7, Hb 11.2, Hct 33.6, Neutrophil 88.9, potassium 3.4, Lactic acid 4.3 trending down from 5.7 yesterday and Procalcitonin 56.6 from 35.36 yesterday. Patient had a central line inserted this morning which was well tolerated. Patient continues on Levophed at 0.18 mcg. Continue to wean as tolerated to keep map greater than 65. Blood cultures with GN bacteremia. Continue current antibiotic with Meropenem 1g q8h, discontinue cefepime. Continue Vancomycin 1g q12h. I spoke with patient's family who is a nurse practitioner in [place]. Updated on status and questions answered. Keep in the ICU given vasopressor requirement. REVIEW OF SYSTEMS: 12 point ROS reviewed with patient. Pertinent positives mentioned above. Otherwise negative. PHYSICAL EXAM: GENERAL: Alert, weak, awake oriented x 3 HEENT: EOMI, Sclera non icteric, moist mucosa NECK: Supple, no JVD, trachea midline LUNGS: Breathing was even and unlabored. Clear breath sounds bilaterally. No wheezes HEART: Tachycardic. Regular rate and rhythm. Normal S1 and S2, without murmurs ABD: Abdomen soft, nontender. Bowel sounds present EXT: No clubbing cyanosis or edema NEURO: Alert and oriented x3, follows commands Vital Signs (last 8hr) Date Time Temp Pulse Resp B/P (MAP) Pulse Ox O2 Delivery O2 Flow Rate FiO2 10/15/24 18:30 98 26 96/41 (59) 98 10/15/24 18:15 99 26 95/42 (59) 98 10/15/24 18:00 99 26 97/39 (58) 98 10/15/24 17:45 93 26 95/38 (57) 98 10/15/24 17:30 102/62 10/15/24 17:30 90 28 102/50 (67) 99 10/15/24 17:15 94 23 95/49 (64) 97 10/15/24 17:00 95 16 96/44 (61) 98 10/15/24 16:45 98 16 101/50 (67) 99 10/15/24 16:30 92 4 95/42 (59) 99 10/15/24 16:15 100 26 93/43 (60) 98 10/15/24 16:00 98.6 98 104 99/56 (70) 98 10/15/24 15:45 93 22 98/49 (65) 98 10/15/24 15:30 97 30 107/59 (75) 97 10/15/24 15:15 99 33 102/57 (72) 98 10/15/24 15:00 99 32 107/61 (76) 99 10/15/24 14:45 92 34 109/56 (73) 98 10/15/24 14:30 95 33 109/57 (74) 98 10/15/24 14:15 93 25 112/61 (78) 98 10/15/24 14:10 110/62 10/15/24 14:00 93 29 115/65 (82) 98 10/15/24 13:48 103 34 95/43 (60) 97 10/15/24 13:45 103 34 99/43 (61) 97 10/15/24 13:30 95 28 116/68 (84) 99 10/15/24 13:15 93 30 116/70 (85) 98 10/15/24 13:00 94 26 119/71 (87) 99 10/15/24 12:45 93 25 119/70 (86) 99 10/15/24 12:30 95 34 125/76 (92) 98 10/15/24 12:22 97 20 10/15/24 12:18 96 18 N/Cannula Oximizer Hi LPM 5.0 40 10/15/24 12:15 97 25 90/49 (63) 99 LABS: Hematology Labs: Test 10/15/24 15:51 10/15/24 04:56 10/14/24 19:28 Range/Units Hemoglobin 11.6 L 12.0-16.0 g/dL Hematocrit 34.0 L 36-48 % White Blood Count 31.7 #*H 4.8-10.8 K/uL Red Blood Count 3.57 L 4.00-5.50 MIL/uL Mean Corpuscular Volume 94.1 79-99 fL Mean Corpuscular Hemoglobin 31.4 27.0-33.0 pg Mean Corpuscular Hemoglobin Concent 33.3 32.0-36.0 g/dL Red Cell Distribution Width 13.0 11.0-15.5 % Platelet Count 99 L 130-400 K/uL Mean Platelet Volume 12.1 H 7.5-10.5 fL Immature Granulocyte % (Auto) 5.1 H 0-1 % Neutrophils (%) (Auto) 88.9 H 40.0-77.0 % Lymphocytes (%) (Auto) 2.0 L 21.0-51.0 % Monocytes (%) (Auto) 3.5 3.0-13.0 % Eosinophils (%) (Auto) 0.2 0.0-8.0 % Basophils (%) (Auto) 0.3 0.0-5.0 % Neutrophils # (Auto) 28.2 H 1.8-7.7 K/uL Lymphocytes # (Auto) 0.6 L 1.0-4.8 K/uL Monocytes # (Auto) 1.1 H 0.1-1.0 K/uL Eosinophils # (Auto) 0.06 0.00-0.70 K/uL Basophils # (Auto) 0.10 0.00-0.20 K/uL Absolute Immature Granulocyte (auto 1.62 H 0-1 K/uL Nucleated Red Blood Cells 0.1 0.0-0.19 % Segmented Neutrophils % 54 40-70 % Band Neutrophils % 34 H 0-2 % Lymphocytes % (Manual) 10 L 22-44 % Monocytes % (Manual) 2 2-9 % Differential Comment MANUAL DIFFERENTIAL White Cell Morphology Comment Platelet Morphology Comment LARGE PLTS PRESENT Red Blood Cell Morphology See comments Chemistry Labs: Test 10/15/24 17:35 10/15/24 15:51 10/15/24 12:20 10/15/24 08:39 Range/Units Lactic Acid Level 3.2 H 0.8-2.5 mmol/L Potassium Level 4.4 3.5-5.1 mmol/L Sodium Level 140 136-145 mmol/L Chloride Level 108 101-111 mmol/L Carbon Dioxide Level 20 L 21-32 mmol/L Blood Urea Nitrogen 7 7-18 mg/dL Creatinine 0.9 0.5-1.0 mg/dL Glomerular Filtration Rate Calc 89 >90 mL/min Random Glucose 93 70-105 mg/dL Total Calcium 8.1 L 8.5-10.1 mg/dL Whole Blood Ketones Quantitative 0.3 0.0-0.6 mmol/L Test 10/15/24 04:56 10/15/24 04:33 Range/Units Magnesium Level 2.40 1.80-2.40 mg/dL Total Bilirubin 0.7 0.2-1.0 mg/dL Aspartate Amino Transf (AST/SGOT) 30 10-37 U/L Alanine Aminotransferase (ALT/SGPT) 13 12-78 U/L Alkaline Phosphatase 53 # 50-136 U/L Total Protein 5.4 L 6.0-8.3 g/dL Albumin 2.1 L 3.5-5.0 g/dL Procalcitonin 56.60 H 0.05-0.5 ng/mL Whole Blood Glucose 88 70-110 MG/DL Coagulation Labs: Test 10/14/24 21:33 Range/Units Prothrombin Time 11.9 H 9.6-11.6 SEC Prothromb Time International Ratio 1.11 0.85-1.15 Activated Partial Thromboplast Time 33.8 26.3-35.5 SEC DIAGNOSTICS / RADIOLOGY RESULTS: [ ] PLAN NEURO: Minimize central acting medications as possible. Fall Precautions. Well lighted room through the day and minimize interruptions through the night to prevent acute delirium. PULMONARY: Supplemental 02 as needed Titrate Fio2 to keep Spo2 > or = 90% DuoNebs and CPT as needed IS hourly while awake for pulmonary hygiene Out of bed to chair as tolerated CARDIOVASCULAR: Follow hemodynamics. Titrate vasopressor to keep MAP >65 or systolic blood pressure >95mmHg LINES: Central line 10/15 GI & NUTRITION: Continue nutritional support Aspirations precautions Prokinetic agents and laxatives as needed KIDNEYS & ELECTROLYTES: Strict monitoring of intake and output Daily weights Avoid nephrotoxic agents Monitor electrolytes and replace as needed Goal urine output of 30mL/hr or 0.5mL/kg/hr ENDOCRINE: Maintain blood glucose between 100-180 at all times. Insulin sliding scale for blood glucose management INFECTIOUS DISEASE: Trend temperature. Daniels-culture if febrile. Micro: Blood cultures x2 positive for Gram negative rods Antibiotics: Continue with Meropenem 1g q8h, Pkyrsnauxn5o q12h as ordered HEMATOLOGY & COAGULATION: Monitor H&H. Keep Hgb > 7 Transfuse 1 unit of PRBC for Hgb < 7 Transfuse 1 pack of platelets of platelets < 20, 000 Watch for any signs and symptoms of bleeding SKIN: Pressure ulcer prevention per facility protocol Rehab: PT/OT Prophylaxis: GI: Famotidine 20mg bid DVT: SCD's Code Status: Full Resuscitation Disposition: ICU Other: Total patient care time exceeds 35 minutes excluding all procedures. Case was discussed and seen with my supervising physician. The above plan was formulated and agreed upon. MATIAS AGUAYO EXPERIMENTAL P[employer]ICS FABRICATOR Oct 15, 2024 20:02
[2024-10-16] VITALS (131 sets, daily range): BP systolic 74–125; BP diastolic 25–76; PULSE 75–123; RESP 9–33; TEMP 98–100.5; O2SAT 96–99
[2024-10-16 00:54] LABS: BASOPHILS # (AUTO) 0.16 K/uL (0.00-0.20); BASOPHILS % (AUTO) 0.6 % (0.0-5.0); EOSINOPHILS # (AUTO) 0.02 K/uL (0.00-0.70); EOSINOPHILS % (AUTO) 0.1 % (0.0-8.0); HEMATOCRIT 32.2 % (36-48); IMMATURE GRANULOCYTE ABSOLUTE 3.07 K/uL (0-1); LYMPHOCYTES # (AUTO) 0.8 K/uL (1.0-4.8); LYMPHOCYTES % (AUTO) 2.8 % (21.0-51.0); MEAN CORPUSCULAR HEMOGLOBIN 32.1 pg (27.0-33.0); MEAN CORPUSCULAR HGB CONC 34.2 g/dL (32.0-36.0); MEAN CORPUSCULAR VOLUME 93.9 fL (79-99); MONOCYTES # (AUTO) 1.1 K/uL (0.1-1.0); NEUTROPHILS # (AUTO) 23.1 K/uL (1.8-7.7); NEUTROPHILS % (AUTO) 81.7 % (40.0-77.0); PLATELET COUNT (AUTO) 90 K/uL (130-400); RED BLOOD CELL COUNT(AUTO) 3.43 MIL/uL (4.00-5.50); RED CELL DISTRIBUTION WIDTH 13.6 % (11.0-15.5); WHITE BLOOD COUNT (AUTO) 28.3 K/uL (4.8-10.8)
[2024-10-16 01:09] LABS: ALBUMIN 2.2 g/dL (3.5-5.0); BILIRUBIN,TOTAL 0.5 mg/dL (0.2-1.0); CREATININE 0.8 mg/dL (0.5-1.0); POTASSIUM 3.9 mmol/L (3.5-5.1); TOTAL PROTEIN, SERUM 5.6 g/dL (6.0-8.3)
[2024-10-16] MEDS: MAGNESIUM 2GM PREMIX 50ML 50 ML IV ONE (01:11)
[2024-10-16] MEDS: BUTALB/ACETAMINOPHEN/CAFFEINE 1 EACH TABLET PO SCH (01:12)
[2024-10-16] MEDS ORDERED: PROP40TA7 PO (02:08)
[2024-10-16] MEDS ORDERED: TOPI25CA12 PO (02:08)
--- NOTE | 2024-10-16 02:34 | NUR ---
FAMILY SUMMONED BY STAFF TO PT.S' ROOM PER FAMILY MEMBER REQUEST. SPOKE TO THE SISTER EARLIER IN THE EVENING. 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 [employer]. SHE WANTED TO REPORT THINGS THAT WERE WRONG THE MINUTE SHE WALKED IN THE ROOM--[facility] CAPS WERE NOT ON THE IV TUBING PORTS AND THE NURSE PRACTITIONER "REFUSED" TO COME AND TALK TO THEM. SHE WANTED ACCESS TO THE PATIENT'S CHART, WANTED TO KNOW THE NAME OF THE CONCRETE BOOM PUMP OPERATOR ON [employer] AND THEIR CREDENTIALS, "DON'T YOU HAVE A LIST OF THEIR CREDENTIALS?" "IF SHE'S TOO BUSY, THEN WHO DO YOU CALL IF THERE IS AN EMERGENCY?" THE NURSES DON'T EVEN KNOW WHAT GROUP SHE IS WITH." "WHY IS SHE GETTING LASIX WHEN SHE DOESN'T HAVE ANY IV'S RUNNING?" "I PUT IN CENTRAL LINES, ART LINES AND INTUBATE PATIENTS." I AM GOING TO INFORM MY UNIT MANAGER RN OF ALL THE THINGS THAT ARE WRONG!" SHE WENT ON TO SAY THAT SHE HAS BEEN DISSATISFIED WITH MANY THINGS THAT ARE/ARE NOT BEING DONE. I SPENT 30 MINUTES WITH HER AT THIS TIME. SHE WAS VERY CALM. I PRINTED SOME OF THE LAB RESULTS FOR HER TO HAVE (THE PATIENT'S SIGNIFICANT OTHER WAS HERE AND BOTH HE AND THE PATIENT WANTED THIS SISTER TO HAVE ACCESS TO THE PATIENT'S INFORMATION). I REVIEWED THE PROGRESS NOTE, SHARED THE X'RAY RESULTS, AND RECOMMENDED THAT SHE BE HERE AT 0800 TO VISIT WITH THE FIRE ALARM DISPATCHER. FAR CREDENTIALS GO, SHE COULD TALK TO ADMINISTRATIVE STAFF IN THE MORNING. SHE WANT TO KNOW WHY SHE ISN'T RECEIVING MUCOMIST IF THEY ARE TO BE DOING CPT. PT. NEVER RECEIVED IS TO USE (WAS A RECOMMENDATION IN THE PROGRESS NOTE).
[2024-10-16] MEDS: topIRAMate 25 MG TABLET PO ONE (04:39)
[2024-10-16] MEDS ORDERED: BUTALB/ACETAMINOPHEN/CAFFEINE 1 EACH TABLET PO SCH (06:00)
[2024-10-16] MEDS: ketOROlac 15MG/ML VIAL (15MG/ML) IV STA (08:09)
[2024-10-16] MEDS: metoCLOPRAmide 10 MG TABLET PO STA (08:09)
--- NOTE | 2024-10-16 08:47 | PN ---
[facility] PROGRESS NOTE Date Patient Seen: Oct 16, 2024 Time of Visit: 08:47 Supervising Physician: Richard Gamino MD Primary Care Physician: Hospitalist Outpatient Specialists: JOHNY Inpatient Consults: Dr. Acosta, Dr. Hager PROBLEM LIST: Acute sepsis with septic shock requiring Levophed drip Escherichia coli bacteremia, POA Acute hypoxic respiratory failure Miscarriage at 19wks 2days gestation on 10/14/24 Acute complicated cystitis POA +Escherichia coli Chorioamnionitis Electrolyte derangement ( hypocalcemia, hyponatremia, hypomagnesemia) Anemia Lactic acidosis Elevated procalcitonin Morbid obesity BMI 44.6 Suspected JODY undiagnosed and untreated POA INTERVAL HISTORY: Patient is a 29 yr old female who is at 19 weeks and 2 days IUP, with no significant past medical history who presented to the emergency room with a 1 day history progressively worsening symptoms including of abdominal cramping and vaginal bleeding. The abdominal cramps was located in the lower pelvic area, described as dull and constant, with no specific aggravating or relieving factors. There was associated nausea and vomiting , but no diarrhea. Patient also noted vaginal bleeding and leakage of fluid which initially she thought was just urine. Vaginal bleeding consisted of large blood clots. Denies any vaginal discharge, dysuria, frequency or flank pain. Denies any recent travel, sick contacts or exposure to known infections. For this reason she decided to come to the ER for evaluation and treatment. In the emergency room patient was febrile and was started to IV Vancomycin and Zosyn. Patient's BP started dropping with systolic BP in the 80's despite IV fluid resuscitation. She was then transferred to ICU for further evaluation and management. Fluid resuscitation was continued and patient was started on Levophed drip. On 10/14/24, while in the ICU, abdominal cramping continued and patient had a spontaneous delivery of the fetus at 20:38. Placenta was retained . Dr Edwards was notified. Delivered placenta at 2117. 10/15/24: Lying in bed at the time of evaluation, alert and oriented. Patient is maintaining oxygen at 97% on 2L of oxygen, though she requested for neb treatment Mucomyst and higher oxygen support. We placed her on Oxymizer and she felt better. We will also start patient on low dose of Lasix 20 mg IV Q 12 hours for two days. Vital signs with P 88, R. 20, BP 109/69. Labs from this morning WBC is elevated at 31.7, Hb 11.2, Hct 33.6, Neutrophil 88.9, potassium 3.4, Lactic acid 4.3 trending down from 5.7 yesterday and Procalcitonin 56.6 from 35.36 yesterday. Patient had a central line inserted this morning which was well tolerated. Patient continues on Levophed at 0.18 mcg. Continue to wean as tolerated to keep map greater than 65. Blood cultures with GN bacteremia. Continue current antibiotic with Meropenem 1g q8h, discontinue cefepime. Continue Vancomycin 1g q12h. I spoke with patient's family who is a nurse practitioner in [place]. Updated on status and questions answered. Keep in the ICU given vasopressor requirement. 10/16/24: Patient is awake alert and oriented x3 accompanied by significant other currently on 5 L via Oxymizer nasal cannula of O2. Saturating well 93%. Patient is in no apparent distress with only complain of headache as per patient has a history of migraines. Due to thrombocytopenia and pt reported headache to be severe we will rule out ICH with a CT head without contrast. Blood pressure is marginal 116/51 with a map of 77 on Levophed at 0.1 mcg per kg per minute via central line to right IJ. Heart rate in the 90s. Urine output 3.6 L with a I&O balance of- 1.3L. WBCs trended down to 9028.3 H&H 11/32.2 [place] [address]. Neutrophils 81.7 trending down. Chemistry creatinine is 0.8 GFR is 102 kidneys are doing well. Potassium 3.9. Liver enzymes normal albumin is 2.2 procalcitonin trending down today 31.51 no fevers in the last 24 hours. Lactic acid today 2.3. Chest x-ray with slight decrease pulmonary vascular congestion. Spoke to patient and family including her sister who is in the medical field and updated on current clinical findings and plan of care. Answered all their questions and on in agreement with POC. Dr. Ennis rounded with me later in the afternoon to see patient and updated her on current findings as well as the plan of care. We have changed antibiotics from meropenem to Rocephin since E coli sensitive to ceftriaxone. Vancomycin was discontinued. We can stop Lasix as well. 2D echo done at bedside with the EF of 60-65% and left ventricular diastolic function is normal. There is no pericardial effusion in the IVC is normal in size and collapses greater than 50% with inspiration. Ultrasound venous Doppler negative for DVT to bilateral lower extremities. Chest x-ray shows bilateral pulmonary infiltrates suggestive of pulmonary vascular congestion with possible superimposed pneumonitis. Head CT shows no acute intracranial bleed seen. REVIEW OF SYSTEMS: Const: [no fever, fatigue, or weight changes] Eyes:[ no recent vision problems] ENT: [No congestion, ear pain, or sore throat] C/V: [no chest pain, palpitations or edema] Resp: [No cough, congestion, wheezing , or Shortness of breath] GI: [No abdominal pain, nausea, vomiting, constipation, or diarrhea] : [No incontinence of or dyuria] M/S: [No joint or pain swelling] Skin: [No rash] Neuro: Yes to headache, no focal numbness, or weakness, dizziness or seizures] Psych: [no depression or anxiety] Heme: [no abnormal bruising or bleeding] Lymph: [no swollen glands] PHYSICAL EXAM: GENERAL: Alert, weak, awake oriented x 3 HEENT: EOMI, Sclera non icteric, moist mucosa NECK: Supple, no JVD, trachea midline LUNGS: Breathing was even and unlabored. Clear breath sounds bilaterally. No wheezes HEART: Regular rate and rhythm. Normal S1 and S2, without murmurs ABD: Abdomen soft, nontender. Bowel sounds present EXT: No clubbing cyanosis or edema NEURO: Alert and oriented x3, follows commands Vital Signs (last 8hr) Date Time Temp Pulse Resp B/P (MAP) Pulse Ox O2 Delivery O2 Flow Rate FiO2 10/16/24 06:56 90 20 10/16/24 06:52 90 20 N/Cannula Oximizer Hi LPM 5.0 40 10/16/24 02:55 99.5 LABS: Hematology Labs: Test 10/16/24 00:21 10/15/24 04:56 10/14/24 19:28 Range/Units White Blood Count 28.3 H 4.8-10.8 K/uL Red Blood Count 3.43 L 4.00-5.50 MIL/uL Hemoglobin 11.0 L 12.0-16.0 g/dL Hematocrit 32.2 L 36-48 % Mean Corpuscular Volume 93.9 79-99 fL Mean Corpuscular Hemoglobin 32.1 27.0-33.0 pg Mean Corpuscular Hemoglobin Concent 34.2 32.0-36.0 g/dL Red Cell Distribution Width 13.6 11.0-15.5 % Platelet Count 90 L 130-400 K/uL Mean Platelet Volume 12.3 H 7.5-10.5 fL Immature Granulocyte % (Auto) 10.8 H 0-1 % Neutrophils (%) (Auto) 81.7 H 40.0-77.0 % Lymphocytes (%) (Auto) 2.8 L 21.0-51.0 % Monocytes (%) (Auto) 4.0 3.0-13.0 % Eosinophils (%) (Auto) 0.1 0.0-8.0 % Basophils (%) (Auto) 0.6 0.0-5.0 % Neutrophils # (Auto) 23.1 H 1.8-7.7 K/uL Lymphocytes # (Auto) 0.8 L 1.0-4.8 K/uL Monocytes # (Auto) 1.1 H 0.1-1.0 K/uL Eosinophils # (Auto) 0.02 0.00-0.70 K/uL Basophils # (Auto) 0.16 0.00-0.20 K/uL Absolute Immature Granulocyte (auto 3.07 H 0-1 K/uL Nucleated Red Blood Cells 0.0 0.0-0.19 % Segmented Neutrophils % 54 40-70 % Band Neutrophils % 34 H 0-2 % Lymphocytes % (Manual) 10 L 22-44 % Monocytes % (Manual) 2 2-9 % Differential Comment MANUAL DIFFERENTIAL White Cell Morphology Comment Platelet Morphology Comment LARGE PLTS PRESENT Red Blood Cell Morphology See comments Chemistry Labs: Test 10/16/24 06:40 10/16/24 06:01 10/16/24 00:21 10/15/24 08:39 Range/Units Lactic Acid Level 2.3 0.8-2.5 mmol/L Magnesium Level 2.10 1.80-2.40 mg/dL Whole Blood Glucose 75 70-110 MG/DL Sodium Level 139 136-145 mmol/L Potassium Level 3.9 3.5-5.1 mmol/L Chloride Level 108 101-111 mmol/L Carbon Dioxide Level 23 21-32 mmol/L Blood Urea Nitrogen 8 7-18 mg/dL Creatinine 0.8 0.5-1.0 mg/dL Glomerular Filtration Rate Calc 102 >90 mL/min Random Glucose 92 70-105 mg/dL Total Calcium 8.5 8.5-10.1 mg/dL Total Bilirubin 0.5 # 0.2-1.0 mg/dL Aspartate Amino Transf (AST/SGOT) 31 10-37 U/L Alanine Aminotransferase (ALT/SGPT) 18 # 12-78 U/L Alkaline Phosphatase 59 50-136 U/L Total Protein 5.6 L 6.0-8.3 g/dL Albumin 2.2 L 3.5-5.0 g/dL Procalcitonin 31.51 H 0.05-0.5 ng/mL Whole Blood Ketones Quantitative 0.3 0.0-0.6 mmol/L Coagulation Labs: Test 10/14/24 21:33 Range/Units Prothrombin Time 11.9 H 9.6-11.6 SEC Prothromb Time International Ratio 1.11 0.85-1.15 Activated Partial Thromboplast Time 33.8 26.3-35.5 SEC DIAGNOSTICS / RADIOLOGY RESULTS: IMAGING REPORT Signed PATIENT: ALEXANDR COTTRELL MR#: [id number] : 1995 SEX: F AGE: 29 LOCATION: [facility] ORDER 0 STATUS: ADM IN REPORT#: [id number] SERVICE [id number] REASON: migraines ORDERING PHYSICIAN: ERICA SINCLAIR PROCEDURE: HEAD WO - CT HEAD/BRAIN W/O CONTRAST CT HEAD/BRAIN W/O CONTRAST HISTORY: Migraine COMPARISON: None TECHNIQUE: Multiple sequential axial images of the head were obtained from the base of the skull through vertex. Patient was not given contrast through intravenous route. FINDINGS: The ventricles and extraventricular CSF spaces are nondilated for patient's age. There is no midline shift, mass effect or herniation. No acute intracranial bleed is seen. Visualized portion of the paranasal sinuses are grossly within normal limits. IMPRESSION: 1. No acute intracranial bleed is seen. CT was performed with one or more following dose reduction techniques: automated exposure control, adjustment of the mA and kv according to patient's size, or use of a iterative reconstruction technique. DICTATED BY: KHUSHBOO GABRIEL MD DATE: 10/16/24945 ELECTRONICALLY SIGNED BY: KHUSHBOO GABRIEL MD DATE: 10/16/24947 PLAN NEURO: Minimize central acting medications as possible. Fall Precautions. Well lighted room through the day and minimize interruptions through the night to prevent acute delirium. CT of the head neg for acute findings 10/16/24 PULMONARY: Supplemental 02 as needed Titrate Fio2 to keep Spo2 > or = 90% DuoNebs and CPT as needed IS hourly while awake for pulmonary hygiene Out of bed to chair as tolerated Mucomyst nebs duonebs Wean O2 as tolerated CARDIOVASCULAR: Follow hemodynamics. Titrate vasopressor to keep MAP >65 or systolic blood pressure >95mmHg Telemetry monitoring LINES: Central line 10/15 GI & NUTRITION: Continue nutritional support Aspirations precautions Prokinetic agents and laxatives as needed Advance diet to bland KIDNEYS & ELECTROLYTES: Strict monitoring of intake and output Daily weights Avoid nephrotoxic agents Monitor electrolytes and replace as needed Goal urine output of 30mL/hr or 0.5mL/kg/hr ENDOCRINE: Maintain blood glucose between 100-180 at all times. Insulin sliding scale for blood glucose management INFECTIOUS DISEASE: Trend temperature. Daniels-culture if febrile. Micro: Blood cultures x2 positive for Gram negative rods Antibiotics: -M-r-q-t-i-n-u-e- -w-i-t-h- -X-m-h-k-c-x-n-e-m- -1-g- -q-8-h-,- - -C-d-m-c-b-s-u-r-z-n-1-g- -q--1-2-h- -a-s- -h-o-v-e-r-e-d- 10/16/24- Rocephin 2g q24hrs HEMATOLOGY & COAGULATION: Monitor H&H. Keep Hgb > 7 Transfuse 1 unit of PRBC for Hgb < 7 Transfuse 1 pack of platelets of platelets < 20, 000 Watch for any signs and symptoms of bleeding Hematology consult for thrombocytopenia coag studies SKIN: Pressure ulcer prevention per facility protocol Rehab: PT/OT Prophylaxis: GI: Famotidine 20mg bid DVT: SCD's, Lovenox Code Status: Full Resuscitation Disposition: ICU Other: Total patient care time exceeds 60 minutes excluding all procedures. Case was discussed and seen with my supervising physician. The above plan was formulated and agreed upon. ERICA SINCLAIR FITTER HAND Oct 16, 2024 08:47
[2024-10-16 09:24] LABS: INR 1.15 (0.85-1.15); PROTHROMBIN TIME 12.3 SEC (9.6-11.6)
--- NOTE | 2024-10-16 09:39 | HMCIMG ---
CHEST 1VW HISTORY: Respiratory failure COMPARISON: 10/15/2024 FINDINGS: A frontal projection of the chest was obtained. There are bilateral pulmonary infiltrates suggestive of pulmonary vascular congestion with possible superimposed pneumonitis. The heart is borderline enlarged. All the lines and tubes are again seen in place. No evidence of aortic calcification is seen. IMPRESSION: 1. Bilateral pulmonary infiltrates are seen suggestive of pulmonary vascular congestion with possible superimposed pneumonitis. No interval change is seen.
--- NOTE | 2024-10-16 09:48 | HMCIMG ---
CT HEAD/BRAIN W/O CONTRAST HISTORY: Migraine COMPARISON: None TECHNIQUE: Multiple sequential axial images of the head were obtained from the base of the skull through vertex. Patient was not given contrast through intravenous route. FINDINGS: The ventricles and extraventricular CSF spaces are nondilated for patient's age. There is no midline shift, mass effect or herniation. No acute intracranial bleed is seen. Visualized portion of the paranasal sinuses are grossly within normal limits. IMPRESSION: 1. No acute intracranial bleed is seen. CT was performed with one or more following dose reduction techniques: automated exposure control, adjustment of the mA and kv according to patient's size, or use of a iterative reconstruction technique.
--- NOTE | 2024-10-16 09:55 | NUR ---
EMOTIONAL SUPPORT/ ARRANGEMENTS Desi met with pt,FOGlenn Ashvin, and pt's sister. Pt states they think they have made decision on Venessa Ramirez for cremation services. Pt states it will cost $600 for services. Pt requesting sister and FOB's mother to view baby before it is taken by home. Desi spoke to Government Teacher who states this can not be done here, due to other bodies in [facility] as well. Family can arrange viewing at home. Sw informed pt and family voiced understanding. FOB requesting other prices from other home. Desi spoke to Saroj Argueta at [facility]. Cost would be $50, since baby was under 350grams, no certificate needed. Mr Argueta states viewing not possible either.CHRISTOPHER will need to come to home and sign consent for cremation. Desi spoke to FOGlenn. He will speak to pt and will call Saroj Argueta with further questions. Desi called Venessa Ramirez to clarify if certificate needed/ can be done at family request.
[2024-10-16] MEDS ORDERED: acetylCYSTeine 20% 200MG/ML 4ML VIAL IH SCH (10:00)
[2024-10-16 10:16] LABS: D-DIMER > 10000 ng/mL (0-500)
--- NOTE | 2024-10-16 11:03 | NUR ---
15yro with hx of harm to self Sw met with pt and her BF Frankie Gan Voninearam(15). This is first child for couple, son Frankie Gan Jr. Pt states they are both 9th graders at [employer] in [place]. Pt is currently homebound until medically cleared. Pt to return to school once medically cleared. FOB continues with classes. Parents transport couple as needed. Prior to delivery, pt was living with her mother Theresa De La Cruz [phone], step father and 10yro brother in a duplex. FOB lives with his parents, 2 sisters and 1 brother in apt. Couple plan to have pt stay with his family at discharge. Pt states they have car seat and basic items for baby. NB to remain in NICU for 2-3 weeks related to his premature at 33 weeks. Couple states their parents will be transporting them daily to come see baby. Couple reports strong family support for them and NB and deny their ability to care for baby. Parents work and will assist financially as well. Pt describes herself as a "problematic kid" prior to . "Always getting into to trouble, smoking marijuana". Pt states her attempt to harm herself was "just to get attention" "I didn't really want to hurt my self". Pt states her school require counseling and she did it for 30 days, then quit. Pt states "it did actually help me." Pt denies and dx, or psych care. Pt denies any issues with ideations or attempts since. States she is in a good place now. Pt denied need for resource, referral of intervention at this time. Per nurses, no concerns, pt and BF very involved and willing to do what is needed for good of pt and baby. Sw to follow and assist as needed Addendum: 10/16/24 at 1119 by AC INGRAM Amended: Ariane added. Addendum: 10/16/24 at 1137 by AC ECHEVERRIA WRONG PATIENT.. PLEASE DISREGARD NOTE
[2024-10-16] MEDS: acetylCYSTeine 20% 200MG/ML 4ML VIAL IH SCH (11:05)
[2024-10-16] MEDS: acetylCYSTeine 20% 200MG/ML 4ML VIAL ONE (11:09)
[2024-10-16] MEDS: miDODRine HCL 5 MG TABLET PO SCH (11:36)
[2024-10-16] MEDS: ENOXAPARIN SODIUM 40 MG/0.4 ML SYRINGE SQ ONE (11:36)
--- NOTE | 2024-10-16 11:37 | NUR ---
Venessa Ramirez f/u PERRY called Venessa Ramirez for f/u. Manager Android still with family and will return call when able. PERRY spoke to pt's sister who will inform pt and FOB.
--- NOTE | 2024-10-16 12:03 | PN ---
[facility] PROGRESS NOTE Date of Service: Oct 16, 2024 Time of Service: 12:03 SUBJECTIVE: [ ] The patient has been seen and examined today during my rounding, she is alert and oriented x3, remains on Levophed for blood pressure support, also on Precedex. She is getting IV antibiotics. She remains on supplemental oxygen via nasal cannula 4 L, currently saturating 97%. Multiple family members at bedside during my visit. 10/16 the patient has been seen and examined today during my rounding, she remains comfortably in bed, on supplemental oxygen via nasal cannula at 3 L, saturating 98%. She is alert oriented x3, remains on low-dose Levophed, off Precedex. Denied chest pain, no shortness a breath, nausea, no vomiting. Multiple family members at bedside during my visit. Updated. REVIEW OF SYSTEMS CONSTITUTIONAL: Denies fevers, chills, or night sweats. No unintentional weight loss reported. NEUROLOGICAL: Denies headache, amaurosis fugax, motor weakness, sensory deficit, vertigo/spinning sensation, gait abnormalities, or tremors. ENT: No hearing loss, otalgia, otorrhea, rhinitis, rhinorrhea, hoarseness, or sore throat. CARDIOVASCULAR: Denies any exertional angina, dyspnea on exertion, orthopnea, paroxysmal nocturnal dyspnea, palpitations, life-threatening arrhythmias, alaina dication. PULMONARY: Denies any shortness of breath, cough, phlegm/sputum, hemoptysis, pleuritic chest pain. SLEEP: Denies morning headaches, daytime somnolence or napping. Denies difficulty falling asleep, staying asleep, waking from sleep. Denies knowledge of snoring. GASTROINTESTINAL: Denies any type of dysphagia to either liquids or solids. Denies nausea, vomiting, pyrosis, early satiety, abdominal pain, diarrhea, constipation, or changes in stool consistency or caliber. Denies coffee-ground emesis, hematemesis, hematochezia, or melanotic stools. GENITOURINARY: Denies frequency, urgency, nocturia, hematuria or incontinence (Storage/Irritative symptoms.) Low urinary stream, straining to void, urinary intermittency or hesitancy, splitting of the voiding stream, terminal dribbling. ENDOCRINOLOGIC: Denies polyuria, polydipsia, polyphagia or heat/cold intolerances. HEMATOLOGIC: Denies thrombophilia/previous clots, or coagulopathy/bleeding disorders. ONCOLOGIC: Denies personal history of malignancy. DERMATOLOGIC: Denies rashes or pruritus. PSYCHIATRIC: Denies any suicidal or homicidal ideation. Denies hallucinations. PHYSICAL EXAM GENERAL APPEARANCE: The patient is awake, alert, and oriented, in no acute cardiopulmonary distress. NEUROLOGICAL: Cranial nerves II-XII grossly intact. Motor is 5/5 in bilateral upper and lower extremities proximal to distal. No sensory deficits. HEENT: Face is symmetric. Pupils are equal and reactive. Extraocular movements are intact. NECK: Supple. No JVD. No thyromegaly. No submental, submandibular, pre- /postauricular, occipital or supraclavicular lymphadenopathy. CHEST: Normal chest expansion. No Telemetry. LUNGS: Clear lungs bilaterally, no wheezing, no rhonchi, no rales CARDIOVASCULAR: Tachycardic Regular. S1 and S2 normal. No appreciable rubs, murmurs or gallops. ABDOMEN: Soft, nontender, and nondistended. There is no rebound, voluntary guarding, or rigidity. : Deferred. No Gonsalez. EXTREMITIES: Non-edematous and not cyanotic. No clubbing. Good capillary refill. SKIN: No skin breakdown. Vital Signs (last 8hr) Date Time Temp Pulse Resp B/P (MAP) Pulse Ox O2 Delivery O2 Flow Rate FiO2 10/16/24 11:11 82 20 10/16/24 11:10 82 20 N/Cannula Low lpm 4.0 32 10/16/24 09:06 91 21 116/51 (72) 97 10/16/24 09:03 92 21 90/48 (62) 98 10/16/24 08:51 98.8 10/16/24 08:48 94 21 92/44 (60) 97 10/16/24 08:45 97 21 98 10/16/24 08:33 90 19 90/46 (61) 98 10/16/24 08:30 90 17 97 10/16/24 08:20 98 Nasal Cannula* 3 32 10/16/24 08:18 91 21 91/51 (64) 97 10/16/24 08:15 91 21 97 10/16/24 08:03 92 18 103/53 (70) 97 10/16/24 08:00 102 21 98 10/16/24 07:48 100 23 101/51 (68) 97 10/16/24 07:45 100 23 98 10/16/24 07:33 97 15 102/46 (64) 98 10/16/24 07:30 97 19 99 10/16/24 07:16 96 23 111/49 (69) 100 10/16/24 07:15 107 16 98 10/16/24 07:00 103 19 98 10/16/24 06:56 90 20 10/16/24 06:52 90 20 N/Cannula Oximizer Hi LPM 5.0 40 10/16/24 06:30 88 21 115/47 (69) 94 10/16/24 06:00 88 21 115/47 (69) 94 10/16/24 05:32 98.8 87 28 111/42 (65) 96 10/16/24 05:17 85 18 111/48 (69) 96 10/16/24 05:00 83 22 112/53 (72) 99 10/16/24 04:47 83 19 113/47 (69) 96 10/16/24 04:32 88 20 118/48 (71) 95 10/16/24 04:17 85 22 115/43 (67) 96 LABS: Laboratory: Test 10/16/24 06:40 10/16/24 06:37 10/16/24 06:01 10/16/24 00:21 Range/Units Lactic Acid Level 2.3 0.8-2.5 mmol/L Magnesium Level 2.10 1.80-2.40 mg/dL Vancomycin Level Trough 5.8 L 10.0-20.0 UG/ML Prothrombin Time 12.3 H 9.6-11.6 SEC Prothromb Time International Ratio 1.15 0.85-1.15 Fibrinogen 691 *H 180-350 mg/dL D-Dimer Quantitative (PE/DVT) > 82811 *H 0-500 ng/mL Whole Blood Glucose 75 70-110 MG/DL White Blood Count 28.3 H 4.8-10.8 K/uL Red Blood Count 3.43 L 4.00-5.50 MIL/uL Hemoglobin 11.0 L 12.0-16.0 g/dL Hematocrit 32.2 L 36-48 % Mean Corpuscular Volume 93.9 79-99 fL Mean Corpuscular Hemoglobin 32.1 27.0-33.0 pg Mean Corpuscular Hemoglobin Concent 34.2 32.0-36.0 g/dL Red Cell Distribution Width 13.6 11.0-15.5 % Platelet Count 90 L 130-400 K/uL Mean Platelet Volume 12.3 H 7.5-10.5 fL Immature Granulocyte % (Auto) 10.8 H 0-1 % Neutrophils (%) (Auto) 81.7 H 40.0-77.0 % Lymphocytes (%) (Auto) 2.8 L 21.0-51.0 % Monocytes (%) (Auto) 4.0 3.0-13.0 % Eosinophils (%) (Auto) 0.1 0.0-8.0 % Basophils (%) (Auto) 0.6 0.0-5.0 % Neutrophils # (Auto) 23.1 H 1.8-7.7 K/uL Lymphocytes # (Auto) 0.8 L 1.0-4.8 K/uL Monocytes # (Auto) 1.1 H 0.1-1.0 K/uL Eosinophils # (Auto) 0.02 0.00-0.70 K/uL Basophils # (Auto) 0.16 0.00-0.20 K/uL Absolute Immature Granulocyte (auto 3.07 H 0-1 K/uL Nucleated Red Blood Cells 0.0 0.0-0.19 % Sodium Level 139 136-145 mmol/L Potassium Level 3.9 3.5-5.1 mmol/L Chloride Level 108 101-111 mmol/L Carbon Dioxide Level 23 21-32 mmol/L Blood Urea Nitrogen 8 7-18 mg/dL Creatinine 0.8 0.5-1.0 mg/dL Glomerular Filtration Rate Calc 102 >90 mL/min Random Glucose 92 70-105 mg/dL Total Calcium 8.5 8.5-10.1 mg/dL Total Bilirubin 0.5 # 0.2-1.0 mg/dL Aspartate Amino Transf (AST/SGOT) 31 10-37 U/L Alanine Aminotransferase (ALT/SGPT) 18 # 12-78 U/L Alkaline Phosphatase 59 50-136 U/L Total Protein 5.6 L 6.0-8.3 g/dL Albumin 2.2 L 3.5-5.0 g/dL Procalcitonin 31.51 H 0.05-0.5 ng/mL Test 10/15/24 17:35 10/15/24 08:39 10/15/24 08:08 10/15/24 04:56 Range/Units Influenza Type A Antigen Negative For Type A NEGATIVE Influenza Type B Antigen Negative For Type B NEGATIVE SARS-CoV-2, RNA, NAAT NEGATIVE SARS CoV-2 NEGATIVE Whole Blood Ketones Quantitative 0.3 0.0-0.6 mmol/L Blood Gas Specimen Type Arterial Arterial Blood pH 7.312 L 7.350-7.450 Arterial Blood Partial Pressure CO2 28 L 32-45 mmHg Arterial Blood Partial Pressure O2 87.4 83.0-108.0 mmHg Arterial Blood HCO3 13.9 L 21.0-28.0 mmol/L Arterial Blood Oxygen Saturation 96.4 94.0-98.0 % Arterial Blood Base Excess -10.8 L -2.0-3.0 mmol/L Hemoglobin (Blood Gas) 12.1 12.0-16.0 g/dL Sodium (Blood Gas) 135 L 136-145 MMOL/L Bedside Potassium (Blood Gas) 3.6 3.4-4.5 MMOL/L Bedside Chloride (Blood Gas) 108 H 98-107 MMOL/L Bedside Glucose (Blood Gas) 97 H 65-95 MG/DL Bedside Ionized Calcium (Blood Gas) 1.17 1.15-1.33 MMOL/L Bedside Lactic Acid (Blood Gas) 4.66 *H 0.36-0.75 MMOL/L Blood Gas Temperature 37.0 35.5-37.0 CELSIUS Blood Gas Flow-by 4.00 0.00-15.00 L/min Blood Gas Vent Mode 4L NC ROOM AIR FiO2 36.0 % Blood Gas Specimen Comment NAKUL LEAVITT RR Differential Pathologist's Review SEE SEPARATE REPORT Test 10/14/24 21:33 10/14/24 19:28 Range/Units Activated Partial Thromboplast Time 33.8 26.3-35.5 SEC Segmented Neutrophils % 54 40-70 % Band Neutrophils % 34 H 0-2 % Lymphocytes % (Manual) 10 L 22-44 % Monocytes % (Manual) 2 2-9 % Differential Comment MANUAL DIFFERENTIAL White Cell Morphology Comment Platelet Morphology Comment LARGE PLTS PRESENT Red Blood Cell Morphology See comments Current Medications Medications (Trade) Dose Ordered Sig/Rosendo Route PRN Reason Start Time Stop Time Status Last Admin Dose Admin Acetaminophen (TYLenol 500MG TAB) 1,000 mg Q6H PRN PO MILD PAIN (1-3) 10/12/24 15:30 11/11/24 15:29 10/16/24 04:20 1,000 MG Acetaminophen/ Butalbital/ Caffeine (Gedekyux-Tflbfqbrhspox-Exod Tb) 1 each Q6H PO 10/16/24 01:30 11/15/24 01:29 10/16/24 08:08 1 EACH Acetaminophen/ Butalbital/ Caffeine (Slsrywca-Ujgtbtcmpzrjc-Ebdq Tb) 1 each Q6H6 PO 10/16/24 06:00 10/16/24 01:06 DC Acetylcysteine (MUComyst 10% 4ML) 400 mg BID IH 10/15/24 13:00 10/15/24 14:54 DC Acetylcysteine (MUComyst 20% 4ML) 600mg = 3ml [id number] IH 10/16/24 10:00 10/16/24 10:29 DC Acetylcysteine (MUComyst 20% 4ML) 600mg = 3ml [id number] IH 10/16/24 12:00 11/15/24 09:59 10/16/24 11:05 800 MG Albuterol (DUOneb) 1 udvial [id number] IH 10/15/24 12:00 11/14/24 11:59 10/16/24 11:05 1 UDVIAL Amoxicillin (Amoxicillin 250mg Cap) 250 mg Q8H PO 10/14/24 23:00 10/14/24 19:05 DC Ampicillin Sodium 100 ml @ 200 mls/hr Q6H IV 10/13/24 11:00 10/14/24 10:59 DC 10/14/24 12:13 200 MLS/HR Ampicillin Sodium (Ampicillin 2gm Vial) 2 gm Q6H IV 10/12/24 15:30 10/12/24 15:19 DC Ampicillin Sodium (Ampicillin 2gm Vial) 2 gm Q6H IV 10/12/24 15:30 10/13/24 06:20 DC 10/13/24 04:40 2 GM Cefepime HCl (MAXipime 1 GM vial) 1 gm Q8H IVPB 10/15/24 06:15 10/15/24 08:34 DC 10/15/24 06:16 1 GM Dexmedetomidine/ Sodium Chloride (PRECEdex 400MCG/ 100ML-NS) 400 mcg PROTOCOL IV 10/15/24 11:00 10/16/24 08:46 DC 10/15/24 11:50 400 MCG Dextrose (D50w) 50 ml AD PRN IV HYPOGLYCEMIA PROTOCOL 10/14/24 21:00 11/13/24 20:59 Enoxaparin Sodium (Lovenox) 40 mg BID SQ 10/16/24 21:00 11/15/24 20:59 Ephedrine Sulfate (ePHEDrine SULFate 50 MG/ML AMPULE) 10 mg Q2M PRN IVP FOR SBP BELOW 90 10/14/24 18:00 11/13/24 17:59 Erythromycin (Erythromycin) 250 mg Q8H6 PO 10/14/24 23:30 10/15/24 00:48 DC Erythromycin Lactobionate 250 mg/Sodium Chloride 100 ml @ 100 mls/hr Q6H IV 10/12/24 15:30 10/14/24 15:29 DC 10/14/24 08:47 100 MLS/HR Famotidine (Pepcid 20mg Vial) 20 mg BID IV 10/15/24 09:00 11/14/24 08:59 10/16/24 08:08 20 MG Furosemide (LASix 20MG VIAL) 20 mg Q12H IV 10/15/24 15:00 10/17/24 14:59 10/16/24 02:01 20 MG Glucagon (Glucagon 1mg Kit) 1 mg AD PRN IM HYPOGLYCEMIA PROTOCOL 10/14/24 21:00 11/13/24 20:59 Hydromorphone HCl (DiLAUDid 0.5MG INJ) 0.5 mg Q4H PRN IVP SEVERE PAIN (7-10) 10/15/24 15:00 10/20/24 14:59 10/16/24 05:04 0.5 MG Hydromorphone HCl (DiLAUDid 1MG INJ) 1 mg Q4H PRN IVP SEVERE PAIN (7-10) 10/15/24 15:00 10/15/24 14:55 DC Ketorolac Tromethamine (toRADol) 15 mg ONCE STAT IV 10/16/24 07:51 10/16/24 07:59 DC 10/16/24 08:09 15 MG Lactated Ringer's 500 ml @ 1,000 mls/hr AD PRN IV EPIDURAL PROTOCOL 10/14/24 18:00 11/13/24 17:59 Lactated Ringer's 1,000 ml @ 0 mls/hr PROTOCOL IV 10/12/24 12:00 10/14/24 19:02 DC 10/14/24 07:36 125 MLS/HR Lactated Ringer's 1,000 ml @ 150 mls/hr Q6H40M IV 10/14/24 19:00 10/15/24 14:53 DC 10/15/24 10:31 150 MLS/HR Magnesium Sulfate 50 ml @ 0 mls/hr PROTOCOL IV 10/14/24 22:30 11/13/24 22:29 10/15/24 02:52 25 MLS/HR Magnesium Sulfate 50 ml @ 0 mls/hr PROTOCOL PRN IV OTHER [SEE ORDER COMMENTS] 10/14/24 21:00 10/14/24 22:38 DC 10/14/24 22:27 25 MLS/HR Meperidine HCl (Demerol-Pf) 50 mg Q4H PRN IM SEVERE PAIN (7-10) 10/13/24 22:30 10/13/24 22:23 DC Meperidine HCl (Demerol-Pf) 50 mg Q4H PRN IM SEVERE PAIN (7-10) 10/13/24 22:30 10/15/24 14:55 DC 10/15/24 05:10 50 MG Meropenem (Merrem) 1 gm Q8H IVPB 10/15/24 09:00 10/25/24 08:59 10/16/24 11:36 1 GM Meropenem 1 gm/ Sodium Chloride 100 ml @ 33.333 mls/ hr Q8H IVPB 10/15/24 08:30 10/15/24 08:53 DC Metoclopramide HCl (regLAN 10 MG TAB) 10 mg ONCE STAT PO 10/16/24 07:51 10/16/24 07:59 DC 10/16/24 08:09 10 MG Midodrine (PROAMatine 5 MG TABLET) 10 mg TID PO 10/16/24 11:00 11/15/24 10:59 10/16/24 11:36 10 MG Morphine Sulfate (morPHINE 10MG SYG) 10 mg Q8H6 PRN IVP SEVERE PAIN (7-10) 10/13/24 22:00 10/13/24 22:13 DC Morphine Sulfate (morPHINE 10MG SYG) 10 mg QID PRN IVP SEVERE PAIN (7-10) 10/13/24 22:00 10/13/24 22:00 DC Morphine Sulfate (morPHINE 2MG SYG) 2 mg Q4H PRN IVP MODERATE PAIN (4-6) 10/15/24 11:00 10/15/24 20:34 DC 10/15/24 20:08 2 MG Naloxone HCl (NARcan 0.4mg/1 mL) 0.1 mg Q10M PRN IV ITCHING OR URINARY RETENTION 10/14/24 18:00 11/13/24 17:59 Norepinephrine 250 ml @ 0 mls/hr PROTOCOL IV 10/14/24 20:00 10/15/24 18:20 DC 10/15/24 17:30 45 MLS/HR Norepinephrine Bitartrate 32 mg/ Sodium Chloride 250 ml @ 0 mls/hr PROTOCOL IV 10/15/24 18:30 11/14/24 18:29 10/15/24 19:47 11.05 MLS/HR Ondansetron HCl (zoFRAN 4MG INJ) 4 mg Q6H IVP 10/14/24 08:35 11/13/24 08:34 10/16/24 08:08 4 MG Oxytocin/Lactated Ringer's 500 ml @ 0 mls/hr AD IV 10/14/24 20:30 11/13/24 20:29 10/14/24 21:37 4 MLS/HR Piperacillin Sod/ Tazobactam Sod (Zosyn 3.375gm+NS 50ml) 3.375 gm Q8H IVPB 10/14/24 19:00 10/15/24 06:07 DC 10/15/24 06:02 3.375 GM Potassium Chloride 100 ml @ 50 mls/hr AD PRN IV POTASSIUM PROTOCOL 10/14/24 21:00 10/14/24 20:58 DC Potassium Chloride 100 ml @ 100 mls/hr AD PRN IV POTASSIUM PROTOCOL 10/14/24 21:00 11/13/24 20:59 Potassium Chloride (K-Dur/Klor-Con 20meq) 20 meq AD PRN PO POTASSIUM PROTOCOL 10/15/24 01:00 11/14/24 00:59 10/15/24 03:56 20 MEQ Potassium Chloride (KCl 10% Elixir 20meq/15ml) 20 meq AD PRN PO POTASSIUM PROTOCOL 10/15/24 01:00 11/14/24 00:59 Promethazine HCl (Phenergan) 25 mg Q6H PRN IM NAUSEA/VOMITING 10/13/24 22:00 11/12/24 21:59 10/15/24 21:34 25 MG Ropivacaine (NARopin) 200 mg PROTOCOL EP 10/14/24 18:00 10/24/24 17:59 Sodium Bicarbonate (Sodium Bicarb 50meq 50ml Vial) 150 meq ONCE STAT IV 10/15/24 08:14 10/15/24 09:10 DC 10/15/24 08:25 150 MEQ Sodium Chloride 500 ml @ 0 mls/hr Q0M IV 10/15/24 03:30 10/15/24 14:53 DC 10/15/24 03:49 999 MLS/HR Sodium Chloride 1,000 ml @ 0 mls/hr Q0M IV 10/14/24 22:30 11/13/24 22:29 10/14/24 22:47 999 MLS/HR Sodium Chloride 1,000 ml @ 0 mls/hr Q0M IV 10/15/24 06:30 10/15/24 09:11 DC 10/15/24 06:19 999 MLS/HR Sodium Chloride 1,000 ml @ 100 mls/hr Q10H IV 10/14/24 22:30 10/15/24 14:53 DC 10/14/24 22:47 100 MLS/HR Sodium Chloride (NS 50ml) 50 ml AD IV 10/14/24 19:00 10/14/24 19:03 DC Vancomycin HCl 250 ml @ 125 mls/hr Q12H IV 10/16/24 21:00 10/26/24 20:59 Vancomycin HCl (Vancomycin 1g/ 250ml Kit) 1 gm Q12H IV 10/14/24 19:00 10/16/24 08:07 DC 10/15/24 17:32 1 GM DIAGNOSTICS / RADIOLOGY: [ ] US VENOUS DOPPLER BILATERAL HISTORY: Swelling COMPARISON: None TECHNIQUE: Bilateral lower extremity venous Doppler ultrasound study was performed. FINDINGS: The common femoral, femoral, popliteal, and posterior tibial veins are visualized. Normal flow with augmentation and compressibilities are demonstrated. The greater saphenous veins are also seen and grossly patent. IMPRESSION: 1. No evidence of deep venous thrombosis is seen. ASSESSMENT: Septic shock, POA Gram-negative bacteremia, POA Acute hypoxemic respiratory failure, POA S/P Miscarriage at 19 week gestation and two days on 10/14/24 s/p vaginal delivery of demise on 10/14/2024 at 8 s/p placenta retention after delivery Acute urinary tract infection POA Hypokalemia POA Hypocalcemia Hypomagnesemia Hyponatremia Anemia Lactic acidosis Elevated procalcitonin level Elevated D-dimer Morbid obesity with BMI 44.6 Elevated fibrinogen level Thrombocytopenia PLAN: Patient remains admitted to the ICU Continue the patient on supplemental oxygen via nasal cannula 3 L to keep O2 sat greater than 92%, wean as tolerated Continue to follow critical care input and recommendation Continue the patient on Levophed, wean as tolerated Continue the patient on broad-spectrum IV antibiotics Infectious disease consultation requested, follow input and recommendation Results of ultrasound of the pelvis reviewed, discussed with the family members. Follow with industrial cafeteria manager input recommendation. Patient with the elevated D-dimer, Doppler of the lower extremities negative for DVT Echocardiogram ordered to evaluate ejection fraction Patient noted to have elevated fibrinogen and low platelet count, hematocrit consultation requested, follow input and recommendation Continue supportive care with IV fluids Replace electrolytes IV per protocol GI and DVT prophylaxis Plan of action discussed in detail with the patient and family members at bedside, all questions answered, agreed and understood the information provided. Total ICU time spent greater than 30 minutes. PATRICIA CRAWFORD MD Oct 16, 2024 12:03
--- NOTE | 2024-10-16 12:39 | NUR ---
D/C PLAN COBY performed chart review. Patient lives with nicholas. Plan to home. Patient remains on vasopressors. ID consulted for bacteremia and pending recs. Also pending hematology consult for thrombocytopenia. CM to f/u for any possible ocean transportation intermediary IV abx needs. Addendum: 10/16/24 at 1241 by KRISTY GILMORE CM Amended: Links added.
[2024-10-16 12:50] LABS: ABG BASE EXCESS -1.8 mmol/L (-2.0-3.0); ABG HCO3 22.1 mmol/L (21.0-28.0); ABG OXYGEN SATURATION 94.9 % (94.0-98.0); ABG PCO2 36 mmHg (32-45); ABG PH 7.413 (7.350-7.450); DEVICE COMMENT LR CARLA; PO2, ARTERIAL BG 72.8 mmHg (83.0-108.0); VENT MODE, BG 3LNC (ROOM AIR)
--- NOTE | 2024-10-16 13:19 | HMCIMG ---
US VENOUS DOPPLER BILATERAL HISTORY: Swelling COMPARISON: None TECHNIQUE: Bilateral lower extremity venous Doppler ultrasound study was performed. FINDINGS: The common femoral, femoral, popliteal, and posterior tibial veins are visualized. Normal flow with augmentation and compressibilities are demonstrated. The greater saphenous veins are also seen and grossly patent. IMPRESSION: 1. No evidence of deep venous thrombosis is seen.
--- NOTE | 2024-10-16 13:33 | NUR ---
pt aaox3. no distress noted, vitals as charted. report and care given to opal worrell. all questions answered.
[2024-10-16] MEDS ORDERED: levoFLOXacin 750 MG/D5W 150ML BAG IV SCH (14:00)
--- NOTE | 2024-10-16 15:25 | NUR ---
PT eval completed with Kwaku MORGAN present and 2 family members present. Per nurse maribel patient EOB and see how BP responds. Pt able to sit EOB and do ankle pumps and SAQ. Pt on room air for duration of treatments 02 sats 94-99%. Pt requests to stand. Pt stood with min assist x1 and stable BP. Bed was changed by myself and family. Pt sat EOBto rest. Pt wants to get up to recliner. Pt up to recliner, vitals stable. PT to follow for gait as vitals stabilize. Pt and family agreeable to plan of care.
[2024-10-16] MEDS: CEFTRIAXONE 2GM VIAL IVPB SCH (15:27)
--- NOTE | 2024-10-16 16:28 | NUR ---
SS f/u Sw re visited with pt and informed, I have still not recd call from Venessa Ramirez. Pt's family to contact home and see if they can get answers to their questions.
--- NOTE | 2024-10-16 18:39 | HMCSR ---
APPROVED REPORT EXAM: Two-dimensional and M-mode echocardiogram with Doppler and color Doppler. INDICATION ICD: Shortness of breath R06.02 2D Dimensions RVDd4.2 cmLVEF(%)48.6 (>50%)LVED Vol(simp.)131.0 mL IVSd0.8 (0.7-1.1cm)FS(%)25 %LVES Vol(simp.)49.6 mL LVDd4.9 (3.8-5.6cm)LA (2D)4.3 (1.6-4.0cm)LVEF(%, simp.)62 % PWd1.1 (0.7-1.1cm)Ao Root(2D)2.7 (2.0-3.7cm)LA ESV INDEX (4CH)29.50 mL/m2 IVSs1.0 cmLVOT diam2.2 (1.8-2.4cm)LA ESV INDEX (2CH)34.50 mL/m2 LVDs3.7 (2.5-4.0cm)LA ESV INDEX (BP)33.60 mL/m2 PWs1.5 cm M-Mode Dimensions EPSS0.8 cm LA (MM)4.3 (1.6-4.0cm) Ao Root(MM)2.7 (2.0-3.7cm) Aortic Valve AoV VTI0.3 mAo Mean GR6.0 mmHgLVOT VTI0.19 m HEATHER (VMAX)2.2 cm2AVA (VTI) 2.2 cm2 Mitral Valve MV E Vmax93.1 cm/sDECEL Gcmw976 ms MV A Vmax58.2 cm/sP 1/2 T45 ms E/A ratio1.6MVA (PHT)4.9 cm2 TDI E/E' Mcjhaz80.7E/E' Lateral9.6 Medial E' Peak V8.70 cm/sLateral E' Peak V9.70 cm/s Pulmonary Valve PV VTI0.22 mPV Mean GR3 mmHg Tricuspid Valve TR Vmax2.2 m/s TR Peak GR19.8 mmHg Left Ventricle Left ventricular cavity size is normal. There is normal LV segmental wall motion. There is normal lef t ventricular wall thickness. LVEF is 60-65%. The left ventricular diastolic function is normal. Right Ventricle The right ventricle is at upper normal in size 4.2 cm (normal to 4.1 cm). The right ventricular systo lic function is normal. Atria The left atrium size is normal with an LA ESV index of 34 mL/m. The right atrium size is normal. Aortic Valve The aortic valve is normal in structure. No aortic regurgitation is present. There is no aortic valvu lar stenosis. Mitral Valve The mitral valve is normal in structure. There is no mitral valve regurgitation noted. There is no mi tral valve stenosis. Tricuspid Valve The tricuspid valve is normal in structure. There is mild tricuspid valve regurgitation noted. Pulmonic Valve The pulmonary valve is normal in structure. There is no pulmonic valvular regurgitation. Great Vessels The aortic root is normal in size. The IVC is normal in size and collapses >50% with inspiration. Pericardium There is no pericardial effusion. Conclusion The left atrium size is normal with an LA ESV index of 34 mL/m. Left ventricular cavity size is normal. There is normal left ventricular wall thickness. There is normal LV segmental wall motion. LVEF is 60-65%. The left ventricular diastolic function is normal. The right ventricle is at upper normal in size 4.2 cm (normal to 4.1 cm). The aortic valve is normal in structure. There is no pericardial effusion.
[2024-10-16] MEDS: ENOXAPARIN SODIUM 30 MG/0.3 ML SQ SCH (20:02)
[2024-10-16] MEDS ORDERED: VANCOMYCIN 1.25 GM/250 ML BAG 250 ML IV SCH (21:00)
[2024-10-16] MEDS ORDERED: ENOXAPARIN SODIUM 40 MG/0.4 ML SYRINGE SQ SCH (21:00)
--- NOTE | 2024-10-16 21:45 | CONS ---
DATE OF SERVICE: 10/16/2024. INFECTIOUS DISEASE CONSULTATION NOTE REQUESTING PHYSICIAN: Dr. Morris. REASON FOR CONSULTATION: E. coli, sepsis. HISTORY OF PRESENT ILLNESS: This is a 29-year-old female with obesity, was admitted with sudden onset abdominal pain and cramping. The patient was 19 weeks . The patient found with spontaneous expulsion of fetus. The patient also found with fever, septic shock, was admitted to ICU. Blood culture grew E. coli. Vaginal drainage also grew E. coli. The patient at present on multiple antibiotics with meropenem and vancomycin. No cough, no hemoptysis or pleuritic pain. No rashes or itchiness. Procalcitonin was elevated. PAST MEDICAL HISTORY: Obesity. PAST SURGICAL HISTORY: * Right inguinal hernia repair. * Right ____ cystectomy. ALLERGIES: No known drug allergy. CURRENT MEDICATIONS: Reviewed, include: * Vancomycin. * Meropenem. * Tylenol. * IV fluids. * Zofran. SOCIAL HISTORY: No alcohol, tobacco or illicit drug use. FAMILY HISTORY: Positive for breast cancer in mother. REVIEW OF SYSTEMS: Greater than 10 systems were reviewed, negative except as documented above. PHYSICAL EXAMINATION: GENERAL: Young female, awake. VITAL SIGNS: Temperature 98.8, pulse 90, respiratory rate 20, and BP 110/62. EYES: No icterus. Pupils equal and reactive. HENT: No oral thrush seen. Dry oral mucosa. NECK: Supple, no JVD or thyromegaly. LUNGS: Good air entry. No rales, no rhonchi. CARDIOVASCULAR: S1, S2 regular. No murmur heard. ABDOMEN: Obese, soft, and nontender. Bowel sounds present. CENTRAL NERVOUS SYSTEM: Awake, alert and oriented x 3. No focal deficits. SKIN: No rashes, no itchiness. LYMPHATIC: No peripheral lymphadenopathy. BACK: No deformity, no pressure ulcer. HEMATOLOGIC: No bleeding or petechial lesions seen. MUSCULOSKELETAL: No joint swelling, erythema or tenderness. LABORATORY DATA: Procalcitonin 31.5. Sodium 135, potassium 3.9, BUN 8, and creatinine 0.8. WBC 20.3, hemoglobin 11.0, and platelet ____. Influenza antigen negative. Blood culture grew E. coli and urine culture grew E. coli. ASSESSMENT: A 29-year-old female admitted with fever, chills, and weakness. CURRENT PROBLEMS: Include: * Septic shock. * Escherichia coli bacteremia. * Chorioamnionitis. * Obesity. * Leukocytosis. PLAN: * Discontinue vancomycin. * Discontinue meropenem. * Start the patient on ceftriaxone. * Blood culture will be repeated. * Continue critical care support. * Continue pain management. * Monitor electrolytes. * The patient will follow up closely. Thank you for allowing me to participate in the care of this patient. TID: [id number] RECEIPT: [id number]
--- NOTE | 2024-10-16 21:59 | CONS ---
CONSULT NOTE: This is a 29-year-old female with obesity, was admitted with sudden onset abdominal pain and cramping. The patient was 19 weeks . The patient found with spontaneous expulsion of fetus. The patient also found with fever, septic shock, was admitted to ICU. Blood culture grew E. coli. Vaginal drainage also grew E. coli. The patient at present on multiple antibiotics with meropenem and vancomycin. No cough, no hemoptysis or pleuritic pain. No rashes or itchiness. Procalcitonin was elevated. I was consulted because this patient have leukocytosis, thrombocytopenia. Patient doing well. Patient feeling better now. PAST MEDICAL HISTORY: Obesity. PAST SURGICAL HISTORY: * Right inguinal hernia repair. * Right cystectomy. ALLERGIES: No known drug allergy. CURRENT MEDICATIONS: Reviewed, include: * Vancomycin. * Meropenem. * Tylenol. * IV fluids. * Zofran. SOCIAL HISTORY: No alcohol, tobacco or illicit drug use. FAMILY HISTORY: Positive for breast cancer in mother. REVIEW OF SYSTEMS: Greater than 10 systems were reviewed, negative except as documented above. PHYSICAL EXAMINATION: GENERAL: Young female, awake. VITAL SIGNS: Temperature 98.8, pulse 90, respiratory rate 20, and BP 110/62. EYES: No icterus. Pupils equal and reactive. HENT: No oral thrush seen. Dry oral mucosa. NECK: Supple, no JVD or thyromegaly. LUNGS: Good air entry. No rales, no rhonchi. CARDIOVASCULAR: S1, S2 regular. No murmur heard. ABDOMEN: Obese, soft, and nontender. Bowel sounds present. CENTRAL NERVOUS SYSTEM: Awake, alert and oriented x 3. No focal deficits. SKIN: No rashes, no itchiness. LYMPHATIC: No peripheral lymphadenopathy. BACK: No deformity, no pressure ulcer. HEMATOLOGIC: No bleeding or petechial lesions seen. MUSCULOSKELETAL: No joint swelling, erythema or tenderness. LABORATORY DATA: Influenza antigen negative. Blood culture grew E. coli and urine culture grew E. coli. ASSESSMENT: 1. Thrombocytopenia 2. Anemia 3. Leukocytosis 4. Septic shock. 5. Chorioamnionitis 6. Patient had probably bacteremia PLAN: 1. Peripheral blood smear showed red blood cells to be normocytic normochromic. There was no fragment cell or schistocyte. There is no teardrop cell. There is no rouleaux phenomena. There is no pelger-Huet cell. White blood cell with no blasts. Manual platelet count within normal. 2. There was hypersegmented neutrophils. This patient to be started on folic acid 1 mg p.o. daily and vitamin B12 1000 mcg p.o. daily. 3. The patient have increased neutrophils, bands with vacuolation consistent with infection. 4. Peripheral blood smear did not show any schistocytes or fragment cell. So this patient does not have TTP or DIC. 5. This patient will need oral iron every other day LAB RESULTS 10/16/24 12:48: Blood Gas Specimen Type Arterial, Arterial Blood pH 7.413, Arterial Blood Partial Pressure CO2 36, Arterial Blood Partial Pressure O2 72.8L, Arterial Blood HCO3 22.1, Arterial Blood Oxygen Saturation 94.9, Arterial Blood Base Excess -1.8, Blood Gas Temperature 37.0, Blood Gas Flow-by 3.00, Blood Gas Vent Mode 3LNC, FiO2 32.0, Blood Gas Specimen Comment LR DAE 10/16/24 06:40: Lactic Acid Level 2.3, Magnesium Level 2.10, Vancomycin Level Trough 5.8L 10/16/24 06:37: Prothrombin Time 12.3H, Prothromb Time International Ratio 1.15, Fibrinogen 691*H, D-Dimer Quantitative (PE/DVT) > 59127*H, VT-Okz-G-Type Natriuretic Peptide 3636H 10/16/24 06:01: Whole Blood Glucose 75 10/16/24 00:21: White Blood Count 28.3H, Red Blood Count 3.43L, Hemoglobin 11.0L, Hematocrit 32.2L, Mean Corpuscular Volume 93.9, Mean Corpuscular Hemoglobin 32.1, Mean Corpuscular Hemoglobin Concent 34.2, Red Cell Distribution Width 13.6, Platelet Count 90L, Mean Platelet Volume 12.3H, Immature Granulocyte % (Auto) 10.8H, Neutrophils (%) (Auto) 81.7H, Lymphocytes (%) (Auto) 2.8L, Monocytes (%) (Auto) 4.0, Eosinophils (%) (Auto) 0.1, Basophils (%) (Auto) 0.6, Neutrophils # (Auto) 23.1H, Lymphocytes # (Auto) 0.8L, Monocytes # (Auto) 1.1H, Eosinophils # (Auto) 0.02, Basophils # (Auto) 0.16, Absolute Immature Granulocyte (auto 3.07H, Nucleated Red Blood Cells 0.0, Sodium Level 139, Potassium Level 3.9, Chloride Level 108, Carbon Dioxide Level 23, Blood Urea Nitrogen 8, Creatinine 0.8, Glomerular Filtration Rate Calc 102, Random Glucose 92, Total Calcium 8.5, Total Bilirubin 0.5#, Aspartate Amino Transf (AST/SGOT) 31, Alanine Aminotransferase (ALT/SGPT) 18#, Alkaline Phosphatase 59, Total Protein 5.6L, Albumin 2.2L, Procalcitonin 31.51H 10/15/24 17:35: Influenza Type A Antigen Negative For Type A, Influenza Type B Antigen Negative For Type B, SARS-CoV-2, RNA, NAAT NEGATIVE SARS CoV-2 10/15/24 08:39: Whole Blood Ketones Quantitative 0.3 10/15/24 08:08: Hemoglobin (Blood Gas) 12.1, Sodium (Blood Gas) 135L, Bedside Potassium (Blood Gas) 3.6, Bedside Chloride (Blood Gas) 108H, Bedside Glucose (Blood Gas) 97H, Bedside Ionized Calcium (Blood Gas) 1.17, Bedside Lactic Acid (Blood Gas) 4.66*H 10/15/24 04:56: Differential Pathologist's Review SEE SEPARATE REPORT KAVITHA FLEMING MD Oct 16, 2024 21:59
[2024-10-17] VITALS (49 sets, daily range): BP systolic 95–126; BP diastolic 37–68; PULSE 68–110; RESP 8–31; TEMP 97.8–99.4; O2SAT 96–99
[2024-10-17] MEDS: 0.9%NACL 1000ML 1,000 ML IV SCH (00:02)
[2024-10-17 05:12] LABS: BASOPHILS # (AUTO) 0.13 K/uL (0.00-0.20); BASOPHILS % (AUTO) 0.5 % (0.0-5.0); EOSINOPHILS % (AUTO) 0.8 % (0.0-8.0); HEMATOCRIT 31.4 % (36-48); IMMATURE GRANULOCYTE ABSOLUTE 0.28 K/uL (0-1); LYMPHOCYTES # (AUTO) 2.2 K/uL (1.0-4.8); LYMPHOCYTES % (AUTO) 8.7 % (21.0-51.0); MEAN CORPUSCULAR HEMOGLOBIN 31.2 pg (27.0-33.0); MEAN CORPUSCULAR HGB CONC 33.1 g/dL (32.0-36.0); MEAN CORPUSCULAR VOLUME 94.3 fL (79-99); MONOCYTES # (AUTO) 0.9 K/uL (0.1-1.0); MONOCYTES % (AUTO) 3.7 % (3.0-13.0); NEUTROPHILS # (AUTO) 21.9 K/uL (1.8-7.7); NEUTROPHILS % (AUTO) 85.2 % (40.0-77.0); PLATELET COUNT (AUTO) 117 K/uL (130-400); RED BLOOD CELL COUNT(AUTO) 3.33 MIL/uL (4.00-5.50); RED CELL DISTRIBUTION WIDTH 13.3 % (11.0-15.5); WHITE BLOOD COUNT (AUTO) 25.6 K/uL (4.8-10.8)
[2024-10-17 05:56] LABS: ALBUMIN 2.2 g/dL (3.5-5.0); BILIRUBIN,TOTAL 0.2 mg/dL (0.2-1.0); CREATININE 0.8 mg/dL (0.5-1.0); POTASSIUM 3.5 mmol/L (3.5-5.1); TOTAL PROTEIN, SERUM 5.4 g/dL (6.0-8.3)
[2024-10-17] MEDS: PoTASSium chl 10% ELIXIR 20MEQ 20 MEQ/15 ML UDCUP PO PRN (09:36)
--- NOTE | 2024-10-17 09:39 | HMCIMG ---
US ABDOMINAL RUQ\E\LTD HISTORY: Elevated liver enzymes COMPARISON: None TECHNIQUE: Right upper quadrant abdominal ultrasound study was performed. FINDINGS: There is right pleural effusion. Liver measures 17 cm. The visualized portion of the pancreas is within normal limits. Liver is echogenic consistent with liver parenchymal disease. No gallstone is seen. Common duct measures 4 mm. No evidence of gallbladder wall thickening is seen. Right kidney measures 11 x 5 x 5 cm. No hydronephrosis is seen of the right kidney. IMPRESSION: 1. No gallstones or ductal dilatation is seen. Right pleural effusion. 2. No hydronephrosis is seen.
--- NOTE | 2024-10-17 10:24 | PN ---
[facility] PROGRESS NOTE Date Patient Seen: Oct 17, 2024 Time of Visit: 10:24 Supervising Physician: Glenn Richards MD Primary Care Physician: Hospitalist Outpatient Specialists: [facility] Inpatient Consults: Dr. Acosta, Dr. Hager PROBLEM LIST: Acute sepsis with septic shock requiring Levophed drip, resolved Escherichia coli bacteremia, POA Acute hypoxic respiratory failure, resolved Miscarriage at 19wks 2days gestation on 10/14/24 Acute complicated cystitis POA +Escherichia coli Chorioamnionitis Electrolyte derangement ( hypocalcemia, hyponatremia, hypomagnesemia) Anemia Lactic acidosis Elevated procalcitonin Morbid obesity BMI 44.6 Suspected JODY undiagnosed and untreated POA INTERVAL HISTORY: Patient is a 29 yr old female who is at 19 weeks and 2 days IUP, with no significant past medical history who presented to the emergency room with a 1 day history progressively worsening symptoms including of abdominal cramping a nd vaginal bleeding. The abdominal cramps was located in the lower pelvic area, described as dull and constant, with no specific aggravating or relieving factors. There was associated nausea and vomiting , but no diarrhea. Patient al so noted vaginal bleeding and leakage of fluid which initially she thought was just urine. Vaginal bleeding consisted of large blood clots. Denies any vaginal discharge, dysuria, frequency or flank pain. Denies any recent travel, sick contacts or exposure to known infections. For this reason she decided to come to the ER for evaluation and treatment. In the emergency room patient was febrile and was started to IV Vancomycin and Zosyn. Patient's BP started dropping with systolic BP in the 80's despite IV fluid resuscitation. She was then transferred to ICU for further evaluation and management. Fluid resuscitation was continued and patient was started on Levophed drip. On 10/14/24, while in the ICU, abdominal cramping continued and patient had a spontaneous delivery of the fetus at 20:38. Placenta was retained . Dr Edwards was notified. Delivered placenta at 2117. 10/15/24: Lying in bed at the time of evaluation, alert and oriented. Patient is maintaining oxygen at 97% on 2L of oxygen, though she requested for neb treatment Mucomyst and higher oxygen support. We placed her on Oxymizer and she felt better. We will also start patient on low dose of Lasix 20 mg IV Q 12 hours for two days. Vital signs with P 88, R. 20, BP 109/69. Labs from this morning WBC is elevated at 31.7, Hb 11.2, Hct 33.6, Neutrophil 88.9, potassium 3.4, Lactic acid 4.3 trending down from 5.7 yesterday and Procalcitonin 56.6 from 35.36 yesterday. Patient had a central line inserted this morning which was well tolerated. Patient continues on Levophed at 0.18 mcg. Continue to wean as tolerated to keep map greater than 65. Blood cultures with GN bacteremia. Continue current antibiotic with Meropenem 1g q8h, discontinue cefepime. Continue Vancomycin 1g q12h. I spoke with patient's family who is a nurse practitioner in [place]. U pdated on status and questions answered. Keep in the ICU given vasopressor requirement. 10/16/24: Patient is awake alert and oriented x3 accompanied by significant other currently on 5 L via Oxymizer nasal cannula of O2. Saturating well 93%. Patient is in no apparent distress with only complain of headache as per patient has a history of migraines. Due to thrombocytopenia and pt reported headache to be severe we will rule out ICH with a CT head without contrast. Blood pressure is marginal 116/51 with a map of 77 on Levophed at 0.1 mcg per kg per minute via central line to right IJ. Heart rate in the 90s. Urine output 3.6 L with a I&O balance of- 1.3L. WBCs trended down to 9028.3 H&H 11/32.[place] [address]. Neutrophils 81.7 trending down. Chemistry creatinine is 0.8 GFR is 102 kidneys are doing well. Potassium 3.9. Liver enzymes normal albumin is 2.2 procalcitonin trending down today 31.51 no fevers in the last 24 hours. Lactic acid today 2.3. Chest x-ray with slight decrease pulmonary vascular congestion. Spoke to patient and family including her sister who is in the medical field and updated on current clinical findings and plan of care. Answered all their questions and on in agreement with POC. Dr. Ennis rounded with me later in the afternoon to see patient and updated her on current findings as well as the plan of care. We have changed antibiotics from meropenem to Rocephin since E coli sensitive to ceftriaxone. Vancomycin was discontinued. We can stop Lasix as well. 2D echo done at bedside with the EF of 60-65% and left ventricular diastolic function is normal. There is no pericardial effusion in the IVC is normal in size and collapses greater than 50% with inspiration. Ultrasound venous Doppler negative for DVT to bilateral lower extremities. Chest x-ray shows bilateral pulmonary infiltrates suggestive of pulmonary vascular congestion with possible superimposed pneumonitis. Head CT shows no acute intracranial bleed seen. 10/17/24- Pt awake alert and oriented x3 she has been off Levophed since nine in the morning. Blood pressure currently 110/65 and a monitor with a heart rate in the 70s respiratory rate of 18 and unlabored saturating 93% on room air. Patient has a T-max of 100.6 last night. Per patient she states she was under the covers and was keeping warm does not believe visits through fever due to did not experience any chills or the other symptoms. She reports feeling improvement. Urine output 3.6 L in the last 24 hours, with a balance of-1 L. White count is 25.6 this morning trending down H&H is 10.4/31.4 platelet count is 818616 improving neutrophils 85.2 similar to yesterday. Chemistry kidneys are doing very well creatinine 0.8 GFR is 102 total protein 5.4 and albumin is 2.2 procalcitonin 33.9 similar to yesterday but slightly higher. Antibiotics per ID who is following. Patient is stable to be downgraded to the PCCU unit. From pulmonary standpoint patient is stable at this time. We will sign off. Patient will need to follow-up with pulmonary service of choice 2 weeks postdischarge. Fos sleep study. Please reach to us should the need arise. On behalf of [facility] we are thankful for your team to let us participate in the care of this patient. We will be available if assistance in pulmonary critical care needed. REVIEW OF SYSTEMS: Const: [no fever, fatigue, or weight changes] Eyes:[ no recent vision problems] ENT: [No congestion, ear pain, or sore throat] C/V: [no chest pain, palpitations or edema] Resp: [No cough, congestion, wheezing , or Shortness of breath] GI: [No abdominal pain, nausea, vomiting, constipation, or diarrhea] : [No incontinence of or dyuria] M/S: [No joint or pain swelling] Skin: [No rash] Neuro: no headache, no focal numbness, or weakness, dizziness or seizures] Psych: [no depression or anxiety] Heme: [no abnormal bruising or bleeding] Lymph: [no swollen glands] PHYSICAL EXAM: GENERAL: Alert, weak, awake oriented x 3 HEENT: EOMI, Sclera non icteric, moist mucosa NECK: Supple, no JVD, trachea midline LUNGS: Breathing was even and unlabored. Clear breath sounds bilaterally. No wheezes HEART: Regular rate and rhythm. Normal S1 and S2, without murmurs ABD: Abdomen soft, nontender. Bowel sounds present EXT: No clubbing cyanosis or edema NEURO: Alert and oriented x3, follows commands Vital Signs (last 8hr) Date Time Temp Pulse Resp B/P (MAP) Pulse Ox O2 Delivery O2 Flow Rate FiO2 10/17/24 06:59 90 20 N/A Room Air 21 10/17/24 06:56 100 20 10/17/24 06:33 86 24 107/58 96 10/17/24 06:18 88 28 100/55 96 10/17/24 06:03 111/56 10/17/24 05:48 68 21 100/65 96 10/17/24 05:33 87 13 111/53 93 10/17/24 05:18 77 31 107/57 93 10/17/24 05:04 77 25 106/63 89 10/17/24 04:48 76 8 95/56 94 10/17/24 04:33 74 20 114/66 94 10/17/24 04:18 88 23 117/63 96 10/17/24 04:03 73 20 115/67 95 10/17/24 04:00 99 Room Air* 0 21 10/17/24 04:00 98.2 10/17/24 03:48 85 22 111/56 93 10/17/24 03:33 78 18 106/57 93 10/17/24 03:18 89 21 97/37 92 10/17/24 03:03 80 20 104/61 94 10/17/24 02:48 77 16 123/65 94 10/17/24 02:33 86 23 108/52 94 10/17/24 02:33 86 23 108/52 (70) 94 LABS: Hematology Labs: Test 10/17/24 04:50 Range/Units White Blood Count 25.6 H 4.8-10.8 K/uL Red Blood Count 3.33 L 4.00-5.50 MIL/uL Hemoglobin 10.4 L 12.0-16.0 g/dL Hematocrit 31.4 L 36-48 % Mean Corpuscular Volume 94.3 79-99 fL Mean Corpuscular Hemoglobin 31.2 27.0-33.0 pg Mean Corpuscular Hemoglobin Concent 33.1 32.0-36.0 g/dL Red Cell Distribution Width 13.3 11.0-15.5 % Platelet Count 117 #L 130-400 K/uL Mean Platelet Volume 12.0 H 7.5-10.5 fL Immature Granulocyte % (Auto) 1.1 H 0-1 % Neutrophils (%) (Auto) 85.2 H 40.0-77.0 % Lymphocytes (%) (Auto) 8.7 L 21.0-51.0 % Monocytes (%) (Auto) 3.7 3.0-13.0 % Eosinophils (%) (Auto) 0.8 0.0-8.0 % Basophils (%) (Auto) 0.5 0.0-5.0 % Neutrophils # (Auto) 21.9 H 1.8-7.7 K/uL Lymphocytes # (Auto) 2.2 1.0-4.8 K/uL Monocytes # (Auto) 0.9 0.1-1.0 K/uL Eosinophils # (Auto) 0.20 0.00-0.70 K/uL Basophils # (Auto) 0.13 0.00-0.20 K/uL Absolute Immature Granulocyte (auto 0.28 0-1 K/uL Nucleated Red Blood Cells 0.0 0.0-0.19 % Chemistry Labs: Test 10/17/24 04:50 10/16/24 06:40 10/16/24 06:37 10/16/24 06:01 Range/Units Sodium Level 143 136-145 mmol/L Potassium Level 3.5 3.5-5.1 mmol/L Chloride Level 108 101-111 mmol/L Carbon Dioxide Level 25 21-32 mmol/L Blood Urea Nitrogen 9 7-18 mg/dL Creatinine 0.8 0.5-1.0 mg/dL Glomerular Filtration Rate Calc 102 >90 mL/min Random Glucose 74 70-105 mg/dL Total Calcium 8.6 8.5-10.1 mg/dL Total Bilirubin 0.2 0.2-1.0 mg/dL Aspartate Amino Transf (AST/SGOT) 31 10-37 U/L Alanine Aminotransferase (ALT/SGPT) 28 12-78 U/L Alkaline Phosphatase 90 50-136 U/L Total Protein 5.4 L 6.0-8.3 g/dL Albumin 2.2 L 3.5-5.0 g/dL Procalcitonin 33.98 H 0.05-0.5 ng/mL Lactic Acid Level 2.3 0.8-2.5 mmol/L Magnesium Level 2.10 1.80-2.40 mg/dL ET-Ixn-J-Type Natriuretic Peptide 3636 H 0-125 pg/mL Whole Blood Glucose 75 70-110 MG/DL Coagulation Labs: Test 10/16/24 06:37 Range/Units Prothrombin Time 12.3 H 9.6-11.6 SEC Prothromb Time International Ratio 1.15 0.85-1.15 Fibrinogen 691 *H 180-350 mg/dL D-Dimer Quantitative (PE/DVT) > 82852 *H 0-500 ng/mL DIAGNOSTICS / RADIOLOGY RESULTS: [ ] PLAN -Arrange outpatient pulmonology referral for sleep study, PFT and follow-up management upon discharge NEURO: Minimize central acting medications as possible. Fall Precautions. Well lighted room through the day and minimize interruptions through the night to prevent acute delirium. CT of the head neg for acute findings 10/16/24 PULMONARY: Supplemental 02 as needed Titrate Fio2 to keep Spo2 > or = 90% DuoNebs and CPT as needed IS hourly while awake for pulmonary hygiene Out of bed to chair as tolerated Mucomyst nebs duonebs Wean O2 as tolerated CARDIOVASCULAR: Follow hemodynamics. Titrate vasopressor to keep MAP >65 or systolic blood pressure >95mmHg Telemetry monitoring LINES: Central line 10/15 GI & NUTRITION: Continue nutritional support Aspirations precautions Prokinetic agents and laxatives as needed Advance diet to bland KIDNEYS & ELECTROLYTES: Strict monitoring of intake and output Daily weights Avoid nephrotoxic agents Monitor electrolytes and replace as needed Goal urine output of 30mL/hr or 0.5mL/kg/hr ENDOCRINE: Maintain blood glucose between 100-180 at all times. Insulin sliding scale for blood glucose management INFECTIOUS DISEASE: Trend temperature. Daniels-culture if febrile. Micro: Blood cultures x2 positive for Gram negative rods Antibiotics: -U-h-w-t-i-n-u-e- -w-i-t-h- -R-y-a-d-q-w-n-e-m- -1-g- -q-8-h-,- - -B-e-f-h-m-p-r-j-u-n-1-g- -q-1-2-h- -a-s- -f-u-g-e-r-e-d- 10/16/24- Rocephin 2g q24hrs HEMATOLOGY & COAGULATION: Monitor H&H. Keep Hgb > 7 Transfuse 1 unit of PRBC for Hgb < 7 Transfuse 1 pack of platelets of platelets < 20, 000 Watch for any signs and symptoms of bleeding Hematology consult for thrombocytopenia coag studies SKIN: Pressure ulcer prevention per facility protocol Rehab: PT/OT Prophylaxis: GI: Famotidine 20mg bid DVT: SCD's, Lovenox Code Status: Full Resuscitation Disposition: ICU Other: Total patient care time exceeds 60 minutes excluding all procedures. Case was discussed and seen with my supervising physician. The above plan was formulated and agreed upon. ERICA SINCLAIR DAT[employer]ASE ADMINISTRATION MANAGER Oct 17, 2024 10:24
--- NOTE | 2024-10-17 10:43 | PN ---
[facility] PROGRESS NOTE Date of Service: Oct 17, 2024 Time of Service: 10:42 SUBJECTIVE: [ ] The patient has been seen and examined today during my rounding, she is alert and oriented x3, remains on Levophed for blood pressure support, also on Precedex. She is getting IV antibiotics. She remains on supplemental oxygen via nasal cannula 4 L, currently saturating 97%. Multiple family members at bedside during my visit. 10/16 the patient has been seen and examined today during my rounding, she remains comfortably in bed, on supplemental oxygen via nasal cannula at 3 L, saturating 98%. She is alert oriented x3, remains on low-dose Levophed, off Precedex. Denied chest pain, no shortness a breath, nausea, no vomiting. Multiple family members at bedside during my visit. Updated. REVIEW OF SYSTEMS CONSTITUTIONAL: Denies fevers, chills, or night sweats. No unintentional weight loss reported. NEUROLOGICAL: Denies headache, amaurosis fugax, motor weakness, sensory deficit, vertigo/spinning sensation, gait abnormalities, or tremors. ENT: No hearing loss, otalgia, otorrhea, rhinitis, rhinorrhea, hoarseness, or sore throat. CARDIOVASCULAR: Denies any exertional angina, dyspnea on exertion, orthopnea, paroxysmal nocturnal dyspnea, palpitations, life-threatening arrhythmias, alaina dication. PULMONARY: Denies any shortness of breath, cough, phlegm/sputum, hemoptysis, pleuritic chest pain. SLEEP: Denies morning headaches, daytime somnolence or napping. Denies difficulty falling asleep, staying asleep, waking from sleep. Denies knowledge of snoring. GASTROINTESTINAL: Denies any type of dysphagia to either liquids or solids. Denies nausea, vomiting, pyrosis, early satiety, abdominal pain, diarrhea, constipation, or changes in stool consistency or caliber. Denies coffee-ground emesis, hematemesis, hematochezia, or melanotic stools. GENITOURINARY: Denies frequency, urgency, nocturia, hematuria or incontinence (Storage/Irritative symptoms.) Low urinary stream, straining to void, urinary intermittency or hesitancy, splitting of the voiding stream, terminal dribbling. ENDOCRINOLOGIC: Denies polyuria, polydipsia, polyphagia or heat/cold intolerances. HEMATOLOGIC: Denies thrombophilia/previous clots, or coagulopathy/bleeding disorders. ONCOLOGIC: Denies personal history of malignancy. DERMATOLOGIC: Denies rashes or pruritus. PSYCHIATRIC: Denies any suicidal or homicidal ideation. Denies hallucinations. PHYSICAL EXAM GENERAL APPEARANCE: The patient is awake, alert, and oriented, in no acute cardiopulmonary distress. NEUROLOGICAL: Cranial nerves II-XII grossly intact. Motor is 5/5 in bilateral upper and lower extremities proximal to distal. No sensory deficits. HEENT: Face is symmetric. Pupils are equal and reactive. Extraocular movements are intact. NECK: Supple. No JVD. No thyromegaly. No submental, submandibular, pre- /postauricular, occipital or supraclavicular lymphadenopathy. CHEST: Normal chest expansion. No Telemetry. LUNGS: Clear lungs bilaterally, no wheezing, no rhonchi, no rales CARDIOVASCULAR: Tachycardic Regular. S1 and S2 normal. No appreciable rubs, murmurs or gallops. ABDOMEN: Soft, nontender, and nondistended. There is no rebound, voluntary guarding, or rigidity. : Deferred. No Gonsalez. EXTREMITIES: Non-edematous and not cyanotic. No clubbing. Good capillary refill. SKIN: No skin breakdown. Vital Signs (last 8hr) Date Time Temp Pulse Resp B/P (MAP) Pulse Ox O2 Delivery O2 Flow Rate FiO2 10/17/24 09:33 74 27 97/57 (70) 92 10/17/24 09:03 86 27 100/64 (76) 93 10/17/24 08:34 97 29 111/68 (82) 96 10/17/24 08:01 104 28 108/66 (80) 96 10/17/24 07:33 97.9 100 28 104/54 (71) 96 10/17/24 07:04 104 15 110/52 (71) 95 10/17/24 06:59 90 20 N/A Room Air 21 10/17/24 06:56 100 20 10/17/24 06:33 86 24 107/58 96 10/17/24 06:18 88 28 100/55 96 10/17/24 06:03 111/56 10/17/24 05:48 68 21 100/65 96 10/17/24 05:33 87 13 111/53 93 10/17/24 05:18 77 31 107/57 93 10/17/24 05:04 77 25 106/63 89 10/17/24 04:48 76 8 95/56 94 10/17/24 04:33 74 20 114/66 94 10/17/24 04:18 88 23 117/63 96 10/17/24 04:03 73 20 115/67 95 10/17/24 04:00 99 Room Air* 0 21 10/17/24 04:00 98.2 10/17/24 03:48 85 22 111/56 93 10/17/24 03:33 78 18 106/57 93 10/17/24 03:18 89 21 97/37 92 10/17/24 03:03 80 20 104/61 94 10/17/24 02:48 77 16 123/65 94 LABS: Laboratory: Test 10/17/24 04:50 10/16/24 12:48 10/16/24 06:40 10/16/24 06:37 Range/Units White Blood Count 25.6 H 4.8-10.8 K/uL Red Blood Count 3.33 L 4.00-5.50 MIL/uL Hemoglobin 10.4 L 12.0-16.0 g/dL Hematocrit 31.4 L 36-48 % Mean Corpuscular Volume 94.3 79-99 fL Mean Corpuscular Hemoglobin 31.2 27.0-33.0 pg Mean Corpuscular Hemoglobin Concent 33.1 32.0-36.0 g/dL Red Cell Distribution Width 13.3 11.0-15.5 % Platelet Count 117 #L 130-400 K/uL Mean Platelet Volume 12.0 H 7.5-10.5 fL Immature Granulocyte % (Auto) 1.1 H 0-1 % Neutrophils (%) (Auto) 85.2 H 40.0-77.0 % Lymphocytes (%) (Auto) 8.7 L 21.0-51.0 % Monocytes (%) (Auto) 3.7 3.0-13.0 % Eosinophils (%) (Auto) 0.8 0.0-8.0 % Basophils (%) (Auto) 0.5 0.0-5.0 % Neutrophils # (Auto) 21.9 H 1.8-7.7 K/uL Lymphocytes # (Auto) 2.2 1.0-4.8 K/uL Monocytes # (Auto) 0.9 0.1-1.0 K/uL Eosinophils # (Auto) 0.20 0.00-0.70 K/uL Basophils # (Auto) 0.13 0.00-0.20 K/uL Absolute Immature Granulocyte (auto 0.28 0-1 K/uL Nucleated Red Blood Cells 0.0 0.0-0.19 % Sodium Level 143 136-145 mmol/L Potassium Level 3.5 3.5-5.1 mmol/L Chloride Level 108 101-111 mmol/L Carbon Dioxide Level 25 21-32 mmol/L Blood Urea Nitrogen 9 7-18 mg/dL Creatinine 0.8 0.5-1.0 mg/dL Glomerular Filtration Rate Calc 102 >90 mL/min Random Glucose 74 70-105 mg/dL Total Calcium 8.6 8.5-10.1 mg/dL Total Bilirubin 0.2 0.2-1.0 mg/dL Aspartate Amino Transf (AST/SGOT) 31 10-37 U/L Alanine Aminotransferase (ALT/SGPT) 28 12-78 U/L Alkaline Phosphatase 90 50-136 U/L Total Protein 5.4 L 6.0-8.3 g/dL Albumin 2.2 L 3.5-5.0 g/dL Procalcitonin 33.98 H 0.05-0.5 ng/mL Blood Gas Specimen Type Arterial Arterial Blood pH 7.413 7.350-7.450 Arterial Blood Partial Pressure CO2 36 32-45 mmHg Arterial Blood Partial Pressure O2 72.8 L 83.0-108.0 mmHg Arterial Blood HCO3 22.1 21.0-28.0 mmol/L Arterial Blood Oxygen Saturation 94.9 94.0-98.0 % Arterial Blood Base Excess -1.8 -2.0-3.0 mmol/L Blood Gas Temperature 37.0 35.5-37.0 CELSIUS Blood Gas Flow-by 3.00 0.00-15.00 L/min Blood Gas Vent Mode 3LNC ROOM AIR FiO2 32.0 % Blood Gas Specimen Comment LR DAE Lactic Acid Level 2.3 0.8-2.5 mmol/L Magnesium Level 2.10 1.80-2.40 mg/dL Vancomycin Level Trough 5.8 L 10.0-20.0 UG/ML Prothrombin Time 12.3 H 9.6-11.6 SEC Prothromb Time International Ratio 1.15 0.85-1.15 Fibrinogen 691 *H 180-350 mg/dL D-Dimer Quantitative (PE/DVT) > 63108 *H 0-500 ng/mL SL-[id number]-Type Natriuretic Peptide 3636 H 0-125 pg/mL Test 10/16/24 06:01 10/15/24 17:35 Range/Units Whole Blood Glucose 75 70-110 MG/DL Influenza Type A Antigen Negative For Type A NEGATIVE Influenza Type B Antigen Negative For Type B NEGATIVE SARS-CoV-2, RNA, NAAT NEGATIVE SARS CoV-2 NEGATIVE Current Medications Medications (Trade) Dose Ordered Sig/Rosendo Route PRN Reason Start Time Stop Time Status Last Admin Dose Admin Acetaminophen (TYLenol 500MG TAB) 1,000 mg Q6H PRN PO MILD PAIN (1-3) 10/12/24 15:30 11/11/24 15:29 10/17/24 00:40 1,000 MG Acetaminophen/ Butalbital/ Caffeine (Jjikghtn-Nqthminhfbtmo-Tqhq Tb) 1 each Q6H PO 10/16/24 01:30 11/15/24 01:29 10/17/24 08:11 1 EACH Acetaminophen/ Butalbital/ Caffeine (Bfosferk-Oaftsdgsgxgjk-Yseo Tb) 1 each Q6H6 PO 10/16/24 06:00 10/16/24 01:06 DC Acetylcysteine (MUComyst 10% 4ML) 400 mg BID 10/15/24 13:00 10/15/24 14:54 DC Acetylcysteine (MUComyst 20% 4ML) 600mg = 3ml [id number] IH 10/16/24 10:00 10/16/24 10:29 DC Acetylcysteine (MUComyst 20% 4ML) 600mg = 3ml [id number] IH 10/16/24 12:00 11/15/24 09:59 10/16/24 19:14 800 MG Albuterol (DUOneb) 1 udvial [id number] IH 10/15/24 12:00 11/14/24 11:59 10/17/24 06:56 1 UDVIAL Amoxicillin (Amoxicillin 250mg Cap) 250 mg Q8H PO 10/14/24 23:00 10/14/24 19:05 DC Ampicillin Sodium 100 ml @ 200 mls/hr Q6H IV 10/13/24 11:00 10/14/24 10:59 DC 10/14/24 12:13 200 MLS/HR Ampicillin Sodium (Ampicillin 2gm Vial) 2 gm Q6H IV 10/12/24 15:30 10/12/24 15:19 DC Ampicillin Sodium (Ampicillin 2gm Vial) 2 gm Q6H IV 10/12/24 15:30 10/13/24 06:20 DC 10/13/24 04:40 2 GM Cefepime HCl (MAXipime 1 GM vial) 1 gm Q8H IVPB 10/15/24 06:15 10/15/24 08:34 DC 10/15/24 06:16 1 GM Ceftriaxone Sodium (Rocephin 2gm Inj) 2 gm Q24H IVPB 10/16/24 15:00 10/26/24 14:59 10/16/24 15:27 2 GM Dexmedetomidine/ Sodium Chloride (PRECEdex 400MCG/ 100ML-NS) 400 mcg PROTOCOL IV 10/15/24 11:00 10/16/24 08:46 DC 10/15/24 11:50 400 MCG Dextrose (D50w) 50 ml AD PRN IV HYPOGLYCEMIA PROTOCOL 10/14/24 21:00 11/13/24 20:59 Enoxaparin Sodium (Lovenox) 30 mg BID SQ 10/16/24 21:00 11/15/24 20:59 10/17/24 08:10 30 MG Enoxaparin Sodium (Lovenox) 40 mg BID SQ 10/16/24 21:00 10/16/24 13:55 DC Ephedrine Sulfate (ePHEDrine SULFate 50 MG/ML AMPULE) 10 mg Q2M PRN IVP FOR SBP BELOW 90 10/14/24 18:00 11/13/24 17:59 Erythromycin (Erythromycin) 250 mg Q8H6 PO 10/14/24 23:30 10/15/24 00:48 DC Erythromycin Lactobionate 250 mg/Sodium Chloride 100 ml @ 100 mls/hr Q6H IV 10/12/24 15:30 10/14/24 15:29 DC 10/14/24 08:47 100 MLS/HR Famotidine (Pepcid 20mg Vial) 20 mg BID IV 10/15/24 09:00 11/14/24 08:59 10/17/24 08:10 20 MG Furosemide (LASix 20MG VIAL) 20 mg Q12H IV 10/15/24 15:00 10/16/24 13:54 DC 10/16/24 02:01 20 MG Glucagon (Glucagon 1mg Kit) 1 mg AD PRN IM HYPOGLYCEMIA PROTOCOL 10/14/24 21:00 11/13/24 20:59 Hydromorphone HCl (DiLAUDid 0.5MG INJ) 0.5 mg Q4H PRN IVP SEVERE PAIN (7-10) 10/15/24 15:00 10/20/24 14:59 10/16/24 21:54 0.5 MG Hydromorphone HCl (DiLAUDid 1MG INJ) 1 mg Q4H PRN IVP SEVERE PAIN (7-10) 10/15/24 15:00 10/15/24 14:55 DC Ketorolac Tromethamine (toRADol) 15 mg ONCE STAT IV 10/16/24 07:51 10/16/24 07:59 DC 10/16/24 08:09 15 MG Lactated Ringer's 500 ml @ 1,000 mls/hr AD PRN IV EPIDURAL PROTOCOL 10/14/24 18:00 11/13/24 17:59 Lactated Ringer's 1,000 ml @ 0 mls/hr PROTOCOL IV 10/12/24 12:00 10/14/24 19:02 DC 10/14/24 07:36 125 MLS/HR Lactated Ringer's 1,000 ml @ 150 mls/hr Q6H40M IV 10/14/24 19:00 10/15/24 14:53 DC 10/15/24 10:31 150 MLS/HR Levofloxacin/ Dextrose (LEvaquIN 750 MG/ D5W 150 ML) 750 mg Q24H IV 10/16/24 14:00 10/16/24 14:47 DC Magnesium Sulfate 50 ml @ 0 mls/hr PROTOCOL IV 10/14/24 22:30 11/13/24 22:29 10/15/24 02:52 25 MLS/HR Magnesium Sulfate 50 ml @ 0 mls/hr PROTOCOL PRN IV OTHER [SEE ORDER COMMENTS] 10/14/24 21:00 10/14/24 22:38 DC 10/14/24 22:27 25 MLS/HR Meperidine HCl (Demerol-Pf) 50 mg Q4H PRN IM SEVERE PAIN (7-10) 10/13/24 22:30 10/13/24 22:23 DC Meperidine HCl (Demerol-Pf) 50 mg Q4H PRN IM SEVERE PAIN (7-10) 10/13/24 22:30 10/15/24 14:55 DC 10/15/24 05:10 50 MG Meropenem (Merrem) 1 gm Q8H IVPB 10/15/24 09:00 10/16/24 13:54 DC 10/16/24 11:36 1 GM Meropenem 1 gm/ Sodium Chloride 100 ml @ 33.333 mls/ hr Q8H IVPB 10/15/24 08:30 10/15/24 08:53 DC Metoclopramide HCl (regLAN 10 MG TAB) 10 mg ONCE STAT PO 10/16/24 07:51 10/16/24 07:59 DC 10/16/24 08:09 10 MG Midodrine (PROAMatine 5 MG TABLET) 10 mg TID PO 10/16/24 11:00 11/15/24 10:59 10/17/24 08:11 10 MG Morphine Sulfate (morPHINE 10MG SYG) 10 mg Q8H6 PRN IVP SEVERE PAIN (7-10) 10/13/24 22:00 10/13/24 22:13 DC Morphine Sulfate (morPHINE 10MG SYG) 10 mg QID PRN IVP SEVERE PAIN (7-10) 10/13/24 22:00 10/13/24 22:00 DC Morphine Sulfate (morPHINE 2MG SYG) 2 mg Q4H PRN IVP MODERATE PAIN (4-6) 10/15/24 11:00 10/15/24 20:34 DC 10/15/24 20:08 2 MG Naloxone HCl (NARcan 0.4mg/1 mL) 0.1 mg Q10M PRN IV ITCHING OR URINARY RETENTION 10/14/24 18:00 11/13/24 17:59 Norepinephrine 250 ml @ 0 mls/hr PROTOCOL IV 10/14/24 20:00 10/15/24 18:20 DC 10/15/24 17:30 45 MLS/HR Norepinephrine Bitartrate 32 mg/ Sodium Chloride 250 ml @ 0 mls/hr PROTOCOL IV 10/15/24 18:30 11/14/24 18:29 10/15/24 19:47 11.05 MLS/HR Ondansetron HCl (zoFRAN 4MG INJ) 4 mg Q6H IVP 10/14/24 08:35 11/13/24 08:34 10/17/24 08:11 4 MG Oxytocin/Lactated Ringer's 500 ml @ 0 mls/hr AD IV 10/14/24 20:30 11/13/24 20:29 10/14/24 21:37 4 MLS/HR Piperacillin Sod/ Tazobactam Sod (Zosyn 3.375gm+NS 50ml) 3.375 gm Q8H IVPB 10/14/24 19:00 10/15/24 06:07 DC 10/15/24 06:02 3.375 GM Potassium Chloride 100 ml @ 50 mls/hr AD PRN IV POTASSIUM PROTOCOL 10/14/24 21:00 10/14/24 20:58 DC Potassium Chloride 100 ml @ 100 mls/hr AD PRN IV POTASSIUM PROTOCOL 10/14/24 21:00 11/13/24 20:59 Potassium Chloride (K-Dur/Klor-Con 20meq) 20 meq AD PRN PO POTASSIUM PROTOCOL 10/15/24 01:00 11/14/24 00:59 10/17/24 08:10 20 MEQ Potassium Chloride (KCl 10% Elixir 20meq/15ml) 20 meq AD PRN PO POTASSIUM PROTOCOL 10/15/24 01:00 11/14/24 00:59 10/17/24 09:36 20 MEQ Promethazine HCl (Phenergan) 25 mg Q6H PRN IM NAUSEA/VOMITING 10/13/24 22:00 11/12/24 21:59 10/15/24 21:34 25 MG Ropivacaine (NARopin) 200 mg PROTOCOL EP 10/14/24 18:00 10/24/24 17:59 Sodium Bicarbonate (Sodium Bicarb 50meq 50ml Vial) 150 meq ONCE STAT IV 10/15/24 08:14 10/15/24 09:10 DC 10/15/24 08:25 150 MEQ Sodium Chloride 500 ml @ 0 mls/hr Q0M IV 10/15/24 03:30 10/15/24 14:53 DC 10/15/24 03:49 999 MLS/HR Sodium Chloride 1,000 ml @ 0 mls/hr Q0M IV 10/14/24 22:30 10/16/24 22:53 DC 10/14/24 22:47 999 MLS/HR Sodium Chloride 1,000 ml @ 0 mls/hr Q0M IV 10/15/24 06:30 10/15/24 09:11 DC 10/15/24 06:19 999 MLS/HR Sodium Chloride 1,000 ml @ 75 mls/hr [id number] IV 10/16/24 23:00 10/17/24 10:23 DC 10/17/24 00:02 75 MLS/HR Sodium Chloride 1,000 ml @ 100 mls/hr Q10H IV 10/14/24 22:30 10/15/24 14:53 DC 10/14/24 22:47 100 MLS/HR Sodium Chloride (NS 50ml) 50 ml AD IV 10/14/24 19:00 10/14/24 19:03 DC Vancomycin HCl 250 ml @ 125 mls/hr Q12H IV 10/16/24 21:00 10/16/24 13:54 DC Vancomycin HCl (Vancomycin 1g/ 250ml Kit) 1 gm Q12H IV 10/14/24 19:00 10/16/24 08:07 DC 10/15/24 17:32 1 GM DIAGNOSTICS / RADIOLOGY: [ ] ASSESSMENT: Septic shock, POA Gram-negative bacteremia, POA Acute hypoxemic respiratory failure, POA S/P Miscarriage at 19 week gestation and two days on 10/14/24 s/p vaginal delivery of demise on 10/14/2024 at 2038 s/p placenta retention after delivery Acute urinary tract infection POA Hypokalemia POA Hypocalcemia Hypomagnesemia Hyponatremia Anemia Lactic acidosis Elevated procalcitonin level Elevated D-dimer Morbid obesity with BMI 44.6 Elevated fibrinogen level Thrombocytopenia PLAN: Patient remains admitted to the ICU Continue the patient on supplemental oxygen via nasal cannula 3 L to keep O2 sat greater than 92%, wean as tolerated Continue to follow critical care input and recommendation Continue the patient on Levophed, wean as tolerated Continue the patient on broad-spectrum IV antibiotics Infectious disease consultation requested, follow input and recommendation Results of ultrasound of the pelvis reviewed, discussed with the family members. Follow with furnace combustion tester input recommendation. Patient with the elevated D-dimer, Doppler of the lower extremities negative for DVT Echocardiogram ordered to evaluate ejection fraction Patient noted to have elevated fibrinogen and low platelet count, hematocrit consultation requested, follow input and recommendation Continue supportive care with IV fluids Replace electrolytes IV per protocol GI and DVT prophylaxis Plan of action discussed in detail with the patient and family members at bedside, all questions answered, agreed and understood the information provided. Total ICU time spent greater than 30 minutes. PATRICIA CRAWFORD MD Oct 17, 2024 10:42
--- NOTE | 2024-10-17 14:48 | PN ---
INFECTIOUS DISEASE PROGRESS NOTE Date of Service: Oct 17, 2024 SUBJECTIVE: This is a 29-year-old female patient who was admitted to the hospital for active abdominal cramping. An obstetrics ultrasound showed single fetus gestational age of 18 weeks and no amniotic fluid present which is consistent with premature rupture of membranes. On 10/14/2024 Patient developed fever and hypotension and was transferred to the ICU. Patient was started on vancomycin and Zosyn IV. An obstetric ultrasound was repeated with findings of demise. Today patient was seen and examined at bedside in room 206. Patient is awake, alert and oriented x 3. Patient is sitting up to the bedside chair. No difficulty breathing observe and saturating 92-96% on room air. Low-grade fever of 100.6 reported throughout the night but is afebrile this morning with temperature of 97.9. The WBC has trended down to 25.6 today from 28.3 yesterday. Patient was started on ceftriaxone 2 g IV every 24 hours yesterday. Patient is currently on oral midodrine and last BP reading was 97/57. Per report patient will remain in the ICU for observation for 24 more hours. Will continue to follow patient's care. PHYSICAL EXAM EYES: Anicteric. Pupils equal and reactive. HENT: No oral thrush seen, moist Oral mucosa. NECK: Supple, no JVD or thyromegaly. LUNGS: Good air entry. No rales, no rhonchi. CARDIOVASCULAR: S1, S2 regular. No murmur heard. ABDOMEN: Soft, non tender, bowel sounds present, no organomegaly. CENTRAL NERVOUS SYSTEM: Awake, alert, oriented x 3. SKIN: No rashes, no swelling. LYMPHATICS: No peripheral lymphadenopathy. MUSCULOSKELETAL: No joint swelling, erythema or tenderness. EXTREMITIES: No cyanosis or clubbing. BACK: No deformity, no pressure ulcer. GENITOURINARY: No dysuria or hematuria. Vital Sign (Last 12 Hours) 10/17/24 10/17/24 10/17/24 10/17/24 02:33 02:33 02:48 03:03 Pulse 86 86 77 80 Resp 23 23 16 20 B/P (MAP) 108/52 (70) 108/52 123/65 104/61 Pulse Ox 94 94 94 94 10/17/24 10/17/24 10/17/24 10/17/24 03:18 03:33 03:48 04:00 Temp 98.2 Pulse 89 78 85 Resp 21 18 22 B/P (MAP) 97/37 106/57 111/56 Pulse Ox 92 93 93 10/17/24 10/17/24 10/17/24 10/17/24 04:00 04:03 04:18 04:33 Pulse 73 88 74 Resp 20 23 20 B/P (MAP) 115/67 117/63 114/66 Pulse Ox 99 95 96 94 O2 Delivery Room Air* O2 Flow Rate 0 FiO2 21 10/17/24 10/17/24 10/17/24 10/17/24 04:48 05:04 05:18 05:33 Pulse 76 77 77 87 Resp 8 25 31 13 B/P (MAP) 95/56 106/63 107/57 111/53 Pulse Ox 94 89 93 93 10/17/24 10/17/24 10/17/24 10/17/24 05:48 06:03 06:18 06:33 Pulse 68 88 86 Resp 28 24 B/P (MAP) 100/65 111/56 100/55 107/58 Pulse Ox 96 96 96 10/17/24 10/17/24 10/17/24 10/17/24 06:56 06:59 07:04 07:33 Temp 97.9 Pulse 100 90 104 100 Resp 20 20 15 28 B/P (MAP) 110/52 (71) 104/54 (71) Pulse Ox 95 96 O2 Delivery N/A Room Air FiO2 21 10/17/24 10/17/24 10/17/24 10/17/24 08:01 08:34 09:03 09:33 Pulse 104 97 86 74 Resp 28 29 27 27 B/P (MAP) 108/66 (80) 111/68 (82) 100/64 (76) 97/57 (70) Pulse Ox 96 96 93 92 10/17/24 10/17/24 11:54 11:55 Pulse 75 70 Resp 18 20 Intake & Output (last 24hrs) 10/16/24 10/16/24 10/17/24 15:00 23:00 07:00 Intake Total 656.0 ml 1137.0 ml 765.0 ml Output Total 100 ml 2100 ml 1400 ml Balance 556.0 ml -963.0 ml -635.0 ml LABS: Laboratory: Test 10/17/24 04:50 12/3/24 12:48 10/16/24 06:40 10/16/24 06:37 Range/Units White Blood Count 25.6 H 4.8-10.8 K/uL Red Blood Count 3.33 L 4.00-5.50 MIL/uL Hemoglobin 10.4 L 12.0-16.0 g/dL Hematocrit 31.4 L 36-48 % Mean Corpuscular Volume 94.3 79-99 fL Mean Corpuscular Hemoglobin 31.2 27.0-33.0 pg Mean Corpuscular Hemoglobin Concent 33.1 32.0-36.0 g/dL Red Cell Distribution Width 13.3 11.0-15.5 % Platelet Count 117 #L 130-400 K/uL Mean Platelet Volume 12.0 H 7.5-10.5 fL Immature Granulocyte % (Auto) 1.1 H 0-1 % Neutrophils (%) (Auto) 85.2 H 40.0-77.0 % Lymphocytes (%) (Auto) 8.7 L 21.0-51.0 % Monocytes (%) (Auto) 3.7 3.0-13.0 % Eosinophils (%) (Auto) 0.8 0.0-8.0 % Basophils (%) (Auto) 0.5 0.0-5.0 % Neutrophils # (Auto) 21.9 H 1.8-7.7 K/uL Lymphocytes # (Auto) 2.2 1.0-4.8 K/uL Monocytes # (Auto) 0.9 0.1-1.0 K/uL Eosinophils # (Auto) 0.20 0.00-0.70 K/uL Basophils # (Auto) 0.13 0.00-0.20 K/uL Absolute Immature Granulocyte (auto 0.28 0-1 K/uL Nucleated Red Blood Cells 0.0 0.0-0.19 % Sodium Level 143 136-145 mmol/L Potassium Level 3.5 3.5-5.1 mmol/L Chloride Level 108 101-111 mmol/L Carbon Dioxide Level 25 21-32 mmol/L Blood Urea Nitrogen 9 7-18 mg/dL Creatinine 0.8 0.5-1.0 mg/dL Glomerular Filtration Rate Calc 102 >90 mL/min Random Glucose 74 70-105 mg/dL Total Calcium 8.6 8.5-10.1 mg/dL Total Bilirubin 0.2 0.2-1.0 mg/dL Aspartate Amino Transf (AST/SGOT) 31 10-37 U/L Alanine Aminotransferase (ALT/SGPT) 28 12-78 U/L Alkaline Phosphatase 90 50-136 U/L Total Protein 5.4 L 6.0-8.3 g/dL Albumin 2.2 L 3.5-5.0 g/dL Procalcitonin 33.98 H 0.05-0.5 ng/mL Blood Gas Specimen Type Arterial Arterial Blood pH 7.413 7.350-7.450 Arterial Blood Partial Pressure CO2 36 32-45 mmHg Arterial Blood Partial Pressure O2 72.8 L 83.0-108.0 mmHg Arterial Blood HCO3 22.1 21.0-28.0 mmol/L Arterial Blood Oxygen Saturation 94.9 94.0-98.0 % Arterial Blood Base Excess -1.8 -2.0-3.0 mmol/L Blood Gas Temperature 37.0 35.5-37.0 CELSIUS Blood Gas Flow-by 3.00 0.00-15.00 L/min Blood Gas Vent Mode 3LNC ROOM AIR FiO2 32.0 % Blood Gas Specimen Comment LR DAE Lactic Acid Level 2.3 0.8-2.5 mmol/L Magnesium Level 2.10 1.80-2.40 mg/dL Vancomycin Level Trough 5.8 L 10.0-20.0 UG/ML Prothrombin Time 12.3 H 9.6-11.6 SEC Prothromb Time International Ratio 1.15 0.85-1.15 Fibrinogen 691 *H 180-350 mg/dL D-Dimer Quantitative (PE/DVT) > 97077 *H 0-500 ng/mL [id number]-Type Natriuretic Peptide 3636 H 0-125 pg/mL Test 10/16/24 06:01 10/15/24 17:35 Range/Units Whole Blood Glucose 75 70-110 MG/DL Influenza Type A Antigen Negative For Type A NEGATIVE Influenza Type B Antigen Negative For Type B NEGATIVE SARS-CoV-2, RNA, NAAT NEGATIVE SARS CoV-2 NEGATIVE ASSESSMENT: E coli bacteremia. Chorioamnionitis. Septic shock. Leukocytosis. Miscarriage at 19 wks gestation on 10/14/24 PLAN: Continue ceftriaxone IV. Continue GI prophylaxis. Continue pain management. Continue with vasopressor support. We will monitor electrolytes. This case was reviewed and discussed with my supervising physician and the above assessment and plan was formulated and agreed upon. ATTESTATION BY PHYSICIAN I have seen and examined the patient. I reviewed the documentation, medical decision making, and treatment plan as noted by the mid-level provider above. I agree with the findings and plan of care. MARISEL RAZA MD, [facility] Oct 17, 2024 14:48
--- NOTE | 2024-10-17 14:55 | NUR ---
REPORT RECEIVED FROM DAGMAR HERRERA. PATIENT IS STABLE AND DENIES PAIN AT THIS TIME. SHE IS RESTING IN BED COMFORTABLY. CALL LIGHT WITHIN REACH.
[2024-10-17] MEDS: CYANOCOBALAMIN (VITAMIN B-12) 1,000 MCG TABLET PO SCH (15:39)
[2024-10-17] MEDS: FOLic ACID 1 MG TABLET PO SCH (15:39)
[2024-10-17] MEDS: CEFTRIAXONE 2GM VIAL IVPB SCH (16:49)
--- NOTE | 2024-10-17 19:57 | HMCIMG ---
CHEST 1VW HISTORY: Respiratory failure COMPARISON: 10/16/2024 FINDINGS: A frontal projection of the chest was obtained. Mild bilateral pulmonary infiltrates are seen may be related to mild pulmonary vascular congestion with possible superimposed pneumonitis. The heart is borderline enlarged. Right venous catheter is seen with distal tip in the plane of the superior vena cava. No evidence of aortic calcification is seen. IMPRESSION: 1. Mild bilateral pulmonary infiltrates are seen may be related to mild pulmonary vascular congestion with possible superimposed pneumonitis.
--- NOTE | 2024-10-17 22:33 | NUR ---
MIDLINE PLACEMENT 5FR 2 LUMEN MIDLINE LINE PLACED ON LEFT UPPER ARM BASILIC VEIN WITH ULTRASOUND GUIDANCE UNDER STERILE TECHNIQUE. PATIENT TOLERATED PROCEDURE WELL. CATHETER LEFT UNTRIMMED. INTERNAL LENGTH 14 CM, EXTERNAL LENGTH 1 CM. ARM CIRCUMFERENCE 35 CM. BLOOD RETURNED OBTAINED FROM BOTH LUMENS. MIDLINE CARE PERFORM HAND HYGIENE, DON GLOVES, SCRUB EACH HUB WITH ALCOHOL PREP PAD FOR 15 SECONDS EACH BEFORE EVERY ACCESS. FLUSH EACH PORT WITH 10 ML NS FLUSH, IF LINE IS NOT IN USE, AND CLAMP AFTER EACH ACCESS. CHANGE MIDLINE DRESSING EVERY 7 DAYS AND/OR PRN IF SOILED OR PEELING OFF USING STERILE TECHNIQUE. MIDLINE NOT FOR TPN USE.
[2024-10-18] VITALS (12 sets, daily range): BP systolic 109–124; BP diastolic 52–77; PULSE 76–95; RESP 16–20; TEMP 98.2–99.2; O2SAT 96–98
[2024-10-18 03:42] LABS: MEAN CORPUSCULAR HEMOGLOBIN 31.1 pg (27.0-33.0); MEAN CORPUSCULAR HGB CONC 32.8 g/dL (32.0-36.0); MEAN CORPUSCULAR VOLUME 94.7 fL (79-99); RED BLOOD CELL COUNT(AUTO) 3.38 MIL/uL (4.00-5.50); RED CELL DISTRIBUTION WIDTH 13.6 % (11.0-15.5); WHITE BLOOD COUNT (AUTO) 19.4 K/uL (4.8-10.8)
[2024-10-18 03:50] LABS: INR 0.96 (0.85-1.15); PROTHROMBIN TIME 10.4 SEC (9.6-11.6)
[2024-10-18 03:52] LABS: PARTIAL THROMBOPLASTIN TIME 30.5 SEC (26.3-35.5)
[2024-10-18 06:25] LABS: CREATININE 0.8 mg/dL (0.5-1.0); POTASSIUM 3.8 mmol/L (3.5-5.1)
--- NOTE | 2024-10-18 08:35 | PN ---
[facility] PROGRESS NOTE Date of Service: Oct 18, 2024 Time of Service: 08:35 SUBJECTIVE: [ ] The patient has been seen and examined today during my rounding, she is alert and oriented x3, remains on Levophed for blood pressure support, also on Precedex. She is getting IV antibiotics. She remains on supplemental oxygen via nasal cannula 4 L, currently saturating 97%. Multiple family members at bedside during my visit. 10/16 the patient has been seen and examined today during my rounding, she remains comfortably in bed, on supplemental oxygen via nasal cannula at 3 L, saturating 98%. She is alert oriented x3, remains on low-dose Levophed, off Precedex. Denied chest pain, no shortness a breath, nausea, no vomiting. Multiple family members at bedside during my visit. Updated. 10/18 the patient has been seen and examined during my rounding, successfully downgraded to the progressive care unit from the ICU, during my visit she is comfortably in bed, alert oriented x3, hemodynamically stable, afebrile, she is saturating normal on room air. Denied chest pain, shortness shortness for breath, no nausea, no vomiting, no abdominal discomfort. Patient has been updated on results of blood test. Family members bedside. REVIEW OF SYSTEMS CONSTITUTIONAL: Denies fevers, chills, or night sweats. No unintentional weight loss reported. NEUROLOGICAL: Denies headache, amaurosis fugax, motor weakness, sensory deficit, vertigo/spinning sensation, gait abnormalities, or tremors. ENT: No hearing loss, otalgia, otorrhea, rhinitis, rhinorrhea, hoarseness, or sore throat. CARDIOVASCULAR: Denies any exertional angina, dyspnea on exertion, orthopnea, paroxysmal nocturnal dyspnea, palpitations, life-threatening arrhythmias, claudication. PULMONARY: Denies any shortness of breath, cough, phlegm/sputum, hemoptysis, pleuritic chest pain. SLEEP: Denies morning headaches, daytime somnolence or napping. Denies difficulty falling asleep, staying asleep, waking from sleep. Denies knowledge of snoring. GASTROINTESTINAL: Denies any type of dysphagia to either liquids or solids. Denies nausea, vomiting, pyrosis, early satiety, abdominal pain, diarrhea, constipation, or changes in stool consistency or caliber. Denies coffee-ground emesis, hematemesis, hematochezia, or melanotic stools. GENITOURINARY: Denies frequency, urgency, nocturia, hematuria or incontinence (Storage/Irritative symptoms.) Low urinary stream, straining to void, urinary intermittency or hesitancy, splitting of the voiding stream, terminal dribbling. ENDOCRINOLOGIC: Denies polyuria, polydipsia, polyphagia or heat/cold intolerances. HEMATOLOGIC: Denies thrombophilia/previous clots, or coagulopathy/bleeding disorders. ONCOLOGIC: Denies personal history of malignancy. DERMATOLOGIC: Denies rashes or pruritus. PSYCHIATRIC: Denies any suicidal or homicidal ideation. Denies hallucinations. PHYSICAL EXAM GENERAL APPEARANCE: The patient is awake, alert, and oriented, in no acute cardiopulmonary distress. NEUROLOGICAL: Cranial nerves II-XII grossly intact. Motor is 5/5 in bilateral upper and lower extremities proximal to distal. No sensory deficits. HEENT: Face is symmetric. Pupils are equal and reactive. Extraocular movements are intact. NECK: Supple. No JVD. No thyromegaly. No submental, submandibular, pre-/ postauricular, occipital or supraclavicular lymphadenopathy. CHEST: Normal chest expansion. No Telemetry. LUNGS: Clear lungs bilaterally, no wheezing, no rhonchi, no rales CARDIOVASCULAR: Tachycardic Regular. S1 and S2 normal. No appreciable rubs, murmurs or gallops. ABDOMEN: Soft, nontender, and nondistended. There is no rebound, voluntary guarding, or rigidity. : Deferred. No Gonsalez. EXTREMITIES: Non-edematous and not cyanotic. No clubbing. Good capillary refill. SKIN: No skin breakdown. Vital Signs (last 8hr) Date Time Temp Pulse Resp B/P (MAP) Pulse Ox O2 Delivery O2 Flow Rate FiO2 10/18/24 06:30 85 18 10/18/24 03:36 98.8 76 18 112/52 96 Room Air LABS: Laboratory: Test 10/18/24 03:15 10/17/24 04:50 10/16/24 12:48 Range/Units White Blood Count 19.4 H 4.8-10.8 K/uL Red Blood Count 3.38 L 4.00-5.50 MIL/uL Hemoglobin 10.5 L 12.0-16.0 g/dL Hematocrit 32.0 L 36-48 % Mean Corpuscular Volume 94.7 79-99 fL Mean Corpuscular Hemoglobin 31.1 27.0-33.0 pg Mean Corpuscular Hemoglobin Concent 32.8 32.0-36.0 g/dL Red Cell Distribution Width 13.6 11.0-15.5 % Platelet Count 142 130-400 K/uL Mean Platelet Volume 11.1 H 7.5-10.5 fL Nucleated Red Blood Cells 0.0 0.0-0.19 % Prothrombin Time 10.4 9.6-11.6 SEC Prothromb Time International Ratio 0.96 0.85-1.15 Activated Partial Thromboplast Time 30.5 26.3-35.5 SEC Sodium Level 141 136-145 mmol/L Potassium Level 3.8 3.5-5.1 mmol/L Chloride Level 107 101-111 mmol/L Carbon Dioxide Level 22 21-32 mmol/L Blood Urea Nitrogen 9 7-18 mg/dL Creatinine 0.8 0.5-1.0 mg/dL Glomerular Filtration Rate Calc 102 >90 mL/min Random Glucose 60 L 70-105 mg/dL Total Calcium 8.8 8.5-10.1 mg/dL Procalcitonin 22.51 H 0.05-0.5 ng/mL Immature Granulocyte % (Auto) 1.1 H 0-1 % Neutrophils (%) (Auto) 85.2 H 40.0-77.0 % Lymphocytes (%) (Auto) 8.7 L 21.0-51.0 % Monocytes (%) (Auto) 3.7 3.0-13.0 % Eosinophils (%) (Auto) 0.8 0.0-8.0 % Basophils (%) (Auto) 0.5 0.0-5.0 % Neutrophils # (Auto) 21.9 H 1.8-7.7 K/uL Lymphocytes # (Auto) 2.2 1.0-4.8 K/uL Monocytes # (Auto) 0.9 0.1-1.0 K/uL Eosinophils # (Auto) 0.20 0.00-0.70 K/uL Basophils # (Auto) 0.13 0.00-0.20 K/uL Absolute Immature Granulocyte (auto 0.28 0-1 K/uL Total Bilirubin 0.2 0.2-1.0 mg/dL Aspartate Amino Transf (AST/SGOT) 31 10-37 U/L Alanine Aminotransferase (ALT/SGPT) 28 12-78 U/L Alkaline Phosphatase 90 50-136 U/L Total Protein 5.4 L 6.0-8.3 g/dL Albumin 2.2 L 3.5-5.0 g/dL Blood Gas Specimen Type Arterial Arterial Blood pH 7.413 7.350-7.450 Arterial Blood Partial Pressure CO2 36 32-45 mmHg Arterial Blood Partial Pressure O2 72.8 L 83.0-108.0 mmHg Arterial Blood HCO3 22.1 21.0-28.0 mmol/L Arterial Blood Oxygen Saturation 94.9 94.0-98.0 % Arterial Blood Base Excess -1.8 -2.0-3.0 mmol/L Blood Gas Temperature 37.0 35.5-37.0 CELSIUS Blood Gas Flow-by 3.00 0.00-15.00 L/min Blood Gas Vent Mode 3LNC ROOM AIR FiO2 32.0 % Blood Gas Specimen Comment LR DAE Current Medications Medications (Trade) Dose Ordered Sig/Rosendo Route PRN Reason Start Time Stop Time Status Last Admin Dose Admin Acetaminophen (TYLenol 500MG TAB) 1,000 mg Q6H PRN PO MILD PAIN (1-3) 10/12/24 15:30 11/11/24 15:29 10/17/24 00:40 1,000 MG Acetaminophen/ Butalbital/ Caffeine (Elxwfmcg-Qzezwvnelvpdl-Ffhz Tb) 1 each Q6H PO 10/16/24 01:30 11/15/24 01:29 10/17/24 19:25 1 EACH Acetaminophen/ Butalbital/ Caffeine (Ycrnjkvp-Staajkfptvavd-Ujtn Tb) 1 each Q6H6 PO 10/16/24 06:00 10/16/24 01:06 DC Acetylcysteine (MUComyst 10% 4ML) 400 mg BID IH 10/15/24 13:00 10/15/24 14:54 DC Acetylcysteine (MUComyst 20% 4ML) 600mg = 3ml [id number] IH 10/16/24 10:00 10/16/24 10:29 DC Acetylcysteine (MUComyst 20% 4ML) 600mg = 3ml [id number] IH 10/16/24 12:00 11/15/24 09:59 10/18/24 06:37 800 MG Albuterol (DUOneb) 1 udvial [id number] IH 10/15/24 12:00 11/14/24 11:59 10/18/24 06:37 1 UDVIAL Amoxicillin (Amoxicillin 250mg Cap) 250 mg Q8H PO 10/14/24 23:00 10/14/24 19:05 DC Ampicillin Sodium 100 ml @ 200 mls/hr Q6H IV 10/13/24 11:00 10/14/24 10:59 DC 10/14/24 12:13 200 MLS/HR Ampicillin Sodium (Ampicillin 2gm Vial) 2 gm Q6H IV 10/12/24 15:30 10/12/24 15:19 DC Ampicillin Sodium (Ampicillin 2gm Vial) 2 gm Q6H IV 10/12/24 15:30 10/13/24 06:20 DC 10/13/24 04:40 2 GM Cefepime HCl (MAXipime 1 GM vial) 1 gm Q8H IVPB 10/15/24 06:15 10/15/24 08:34 DC 10/15/24 06:16 1 GM Ceftriaxone Sodium (Rocephin 2gm Inj) 2 gm Q24H IVPB 10/16/24 15:00 10/17/24 15:52 DC 10/16/24 15:27 2 GM Ceftriaxone Sodium (Rocephin 2gm Inj) 2 gm Q24H IVPB 10/17/24 17:00 10/27/24 16:59 10/17/24 16:49 2 GM Dexmedetomidine/ Sodium Chloride (PRECEdex 400MCG/ 100ML-NS) 400 mcg PROTOCOL IV 10/15/24 11:00 10/16/24 08:46 DC 10/15/24 11:50 400 MCG Dextrose (D50w) 50 ml AD PRN IV HYPOGLYCEMIA PROTOCOL 10/14/24 21:00 11/13/24 20:59 Enoxaparin Sodium (Lovenox) 30 mg BID SQ 10/16/24 21:00 11/15/24 20:59 10/17/24 20:44 30 MG Enoxaparin Sodium (Lovenox) 40 mg BID SQ 10/16/24 21:00 10/16/24 13:55 DC Ephedrine Sulfate (ePHEDrine SULFate 50 MG/ML AMPULE) 10 mg Q2M PRN IVP FOR SBP BELOW 90 10/14/24 18:00 11/13/24 17:59 Erythromycin (Erythromycin) 250 mg Q8H6 PO 10/14/24 23:30 10/15/24 00:48 DC Erythromycin Lactobionate 250 mg/Sodium Chloride 100 ml @ 100 mls/hr Q6H IV 10/12/24 15:30 10/14/24 15:29 DC 10/14/24 08:47 100 MLS/HR Famotidine (Pepcid 20mg Vial) 20 mg BID IV 10/15/24 09:00 11/14/24 08:59 10/17/24 20:44 20 MG Folic Acid (FOLic ACID 1 MG TABLET) 1 mg DAILY PO 10/17/24 11:30 11/16/24 11:29 10/17/24 15:39 1 MG Furosemide (LASix 20MG VIAL) 20 mg Q12H IV 10/15/24 15:00 10/16/24 13:54 DC 10/16/24 02:01 20 MG Glucagon (Glucagon 1mg Kit) 1 mg AD PRN IM HYPOGLYCEMIA PROTOCOL 10/14/24 21:00 11/13/24 20:59 Hydromorphone HCl (DiLAUDid 0.5MG INJ) 0.5 mg Q4H PRN IVP SEVERE PAIN (7-10) 10/15/24 15:00 10/20/24 14:59 10/17/24 22:11 0.5 MG Hydromorphone HCl (DiLAUDid 1MG INJ) 1 mg Q4H PRN IVP SEVERE PAIN (7-10) 10/15/24 15:00 10/15/24 14:55 DC Ketorolac Tromethamine (toRADol) 15 mg ONCE STAT IV 10/16/24 07:51 10/16/24 07:59 DC 10/16/24 08:09 15 MG Lactated Ringer's 500 ml @ 1,000 mls/hr AD PRN IV EPIDURAL PROTOCOL 10/14/24 18:00 11/13/24 17:59 Lactated Ringer's 1,000 ml @ 0 mls/hr PROTOCOL IV 10/12/24 12:00 10/14/24 19:02 DC 10/14/24 07:36 125 MLS/HR Lactated Ringer's 1,000 ml @ 150 mls/hr Q6H40M IV 10/14/24 19:00 10/15/24 14:53 DC 10/15/24 10:31 150 MLS/HR Levofloxacin/ Dextrose (LEvaquIN 750 MG/ D5W 150 ML) 750 mg Q24H IV 10/16/24 14:00 10/16/24 14:47 DC Magnesium Sulfate 50 ml @ 0 mls/hr PROTOCOL IV 10/14/24 22:30 11/13/24 22:29 10/15/24 02:52 25 MLS/HR Magnesium Sulfate 50 ml @ 0 mls/hr PROTOCOL PRN IV OTHER [SEE ORDER COMMENTS] 10/14/24 21:00 10/14/24 22:38 DC 10/14/24 22:27 25 MLS/HR Meperidine HCl (Demerol-Pf) 50 mg Q4H PRN IM SEVERE PAIN (7-10) 10/13/24 22:30 10/13/24 22:23 DC Meperidine HCl (Demerol-Pf) 50 mg Q4H PRN IM SEVERE PAIN (7-10) 10/13/24 22:30 10/15/24 14:55 DC 10/15/24 05:10 50 MG Meropenem (Merrem) 1 gm Q8H IVPB 10/15/24 09:00 10/16/24 13:54 DC 10/16/24 11:36 1 GM Meropenem 1 gm/ Sodium Chloride 100 ml @ 33.333 mls/ hr Q8H IVPB 10/15/24 08:30 10/15/24 08:53 DC Metoclopramide HCl (regLAN 10 MG TAB) 10 mg ONCE STAT PO 10/16/24 07:51 10/16/24 07:59 DC 10/16/24 08:09 10 MG Midodrine (PROAMatine 5 MG TABLET) 10 mg TID PO 10/16/24 11:00 11/15/24 10:59 10/17/24 20:44 10 MG Morphine Sulfate (morPHINE 10MG SYG) 10 mg Q8H6 PRN IVP SEVERE PAIN (7-10) 10/13/24 22:00 10/13/24 22:13 DC Morphine Sulfate (morPHINE 10MG SYG) 10 mg QID PRN IVP SEVERE PAIN (7-10) 10/13/24 22:00 10/13/24 22:00 DC Morphine Sulfate (morPHINE 2MG SYG) 2 mg Q4H PRN IVP MODERATE PAIN (4-6) 10/15/24 11:00 10/15/24 20:34 DC 10/15/24 20:08 2 MG Naloxone HCl (NARcan 0.4mg/1 mL) 0.1 mg Q10M PRN IV ITCHING OR URINARY RETENTION 10/14/24 18:00 11/13/24 17:59 Norepinephrine 250 ml @ 0 mls/hr PROTOCOL IV 10/14/24 20:00 10/15/24 18:20 DC 10/15/24 17:30 45 MLS/HR Norepinephrine Bitartrate 32 mg/ Sodium Chloride 250 ml @ 0 mls/hr PROTOCOL IV 10/15/24 18:30 11/14/24 18:29 10/15/24 19:47 11.05 MLS/HR Ondansetron HCl (zoFRAN 4MG INJ) 4 mg Q6H IVP 10/14/24 08:35 11/13/24 08:34 10/18/24 06:09 4 MG Oxytocin/Lactated Ringer's 500 ml @ 0 mls/hr AD IV 10/14/24 20:30 11/13/24 20:29 10/14/24 21:37 4 MLS/HR Piperacillin Sod/ Tazobactam Sod (Zosyn 3.375gm+NS 50ml) 3.375 gm Q8H IVPB 10/14/24 19:00 10/15/24 06:07 DC 10/15/24 06:02 3.375 GM Potassium Chloride 100 ml @ 50 mls/hr AD PRN IV POTASSIUM PROTOCOL 10/14/24 21:00 10/14/24 20:58 DC Potassium Chloride 100 ml @ 100 mls/hr AD PRN IV POTASSIUM PROTOCOL 10/14/24 21:00 11/13/24 20:59 Potassium Chloride (K-Dur/Klor-Con 20meq) 20 meq AD PRN PO POTASSIUM PROTOCOL 10/15/24 01:00 11/14/24 00:59 10/17/24 08:10 20 MEQ Potassium Chloride (KCl 10% Elixir 20meq/15ml) 20 meq AD PRN PO POTASSIUM PROTOCOL 10/15/24 01:00 11/14/24 00:59 10/18/24 06:41 20 MEQ Promethazine HCl (Phenergan) 25 mg Q6H PRN IM NAUSEA/VOMITING 10/13/24 22:00 11/12/24 21:59 10/15/24 21:34 25 MG Ropivacaine (NARopin) 200 mg PROTOCOL EP 10/14/24 18:00 10/24/24 17:59 Simethicone (Mylicon) 80 mg PCHS PRN PO GI GAS 10/17/24 20:00 11/16/24 19:59 Sodium Bicarbonate (Sodium Bicarb 50meq 50ml Vial) 150 meq ONCE STAT IV 10/15/24 08:14 10/15/24 09:10 DC 10/15/24 08:25 150 MEQ Sodium Chloride 500 ml @ 0 mls/hr Q0M IV 10/15/24 03:30 10/15/24 14:53 DC 10/15/24 03:49 999 MLS/HR Sodium Chloride 1,000 ml @ 0 mls/hr Q0M IV 10/14/24 22:30 10/16/24 22:53 DC 10/14/24 22:47 999 MLS/HR Sodium Chloride 1,000 ml @ 0 mls/hr Q0M IV 10/15/24 06:30 10/15/24 09:11 DC 10/15/24 06:19 999 MLS/HR Sodium Chloride 1,000 ml @ 75 mls/hr [id number] IV 10/16/24 23:00 10/17/24 10:23 DC 10/17/24 00:02 75 MLS/HR Sodium Chloride 1,000 ml @ 100 mls/hr Q10H IV 10/14/24 22:30 10/15/24 14:53 DC 10/14/24 22:47 100 MLS/HR Sodium Chloride (NS 50ml) 50 ml AD IV 10/14/24 19:00 10/14/24 19:03 DC Vancomycin HCl 250 ml @ 125 mls/hr Q12H IV 10/16/24 21:00 10/16/24 13:54 DC Vancomycin HCl (Vancomycin 1g/ 250ml Kit) 1 gm Q12H IV 10/14/24 19:00 10/16/24 08:07 DC 10/15/24 17:32 1 GM Vitamin B Complex (Vitamin B-12) 1,000 mcg DAILY PO 10/17/24 11:30 11/16/24 11:29 10/17/24 15:39 1,000 MCG DIAGNOSTICS / RADIOLOGY: [ ] ASSESSMENT: Septic shock, POA Gram-negative bacteremia secondary to E coli, POA Acute hypoxemic respiratory failure, POA S/P Miscarriage at 19 week gestation and two days on 10/14/24 s/p vaginal delivery of demise on 10/14/2024 at 2037 s/p placenta retention after delivery Acute urinary tract infection POA Hypokalemia POA Hypocalcemia Hypomagnesemia Hyponatremia Anemia Lactic acidosis Elevated procalcitonin level Elevated D-dimer Morbid obesity with BMI 44.6 Elevated fibrinogen level Thrombocytopenia PLAN: Patient to be downgraded to the medical floor Continue the patient on broad-spectrum IV antibiotics Continue to follow infectious disease input and recommendation Continue to monitor WBC in a.m. Continue to follow CBC and transfuse as needed Continue to monitor platelet count in a.m. Continue to follow Hematology input and recommendation Continue folic acid 1 mg p.o. daily and vitamin B12 1000 mcg p.o. daily Continue to follow up procalcitonin level in a.m. Replace electrolytes IV per protocol Follow a.m. labs GI and DVT prophylaxis Disposition: Overall the patient is doing better, the patient to be downgraded to the medical floor. WBCs currently trending down, hemoglobin remains stable, platelet count back to normal level. Continue to follow Pulmonary, Infectious Disease and Hematology input and recommendations. Continue the patient on broad-spectrum IV antibiotics. Blood cultures 10/14/2024 positive for E coli, follow repeat two sets of blood cultures. Plan of action discussed with the patient, all questions answered, agreed and understood the information provided Total PCU time spent greater than 30 minutes. PATRICIA CRAWFORD MD Oct 18, 2024 08:35
--- NOTE | 2024-10-18 10:59 | PN ---
INFECTIOUS DISEASE PROGRESS NOTE Date of Service: Oct 18, 2024 SUBJECTIVE: This is a 29-year-old female patient who was admitted to the hospital for active abdominal cramping. An obstetrics ultrasound showed single fetus gestational age of 18 weeks and no amniotic fluid present which is consistent with premature rupture of membranes. On 10/14/2024 Patient developed fever and hypotension and was transferred to the ICU. Patient was started on vancomycin and Zosyn IV. An obstetric ultrasound was repeated with findings of demise. Patient was downgraded to PCCU and was seen and examined at bedside in room 221. Patient is awake, alert and oriented x 3. Patient is resting comfortable. The WBC has trended down to 19.4 Today from 25.6 yesterday. Platelet level improved to 142. No fever reported throughout the night, current temperature is 99.0. Continues on ceftriaxone 2 g IV. Family member visiting at bedside. Will continue to follow patient's care. PHYSICAL EXAM EYES: Anicteric. Pupils equal and reactive. HENT: No oral thrush seen, moist Oral mucosa. NECK: Supple, no JVD or thyromegaly. LUNGS: Good air entry. No rales, no rhonchi. CARDIOVASCULAR: S1, S2 regular. No murmur heard. ABDOMEN: Soft, non tender, bowel sounds present, no organomegaly. CENTRAL NERVOUS SYSTEM: Awake, alert, oriented x 3. SKIN: No rashes, no swelling. LYMPHATICS: No peripheral lymphadenopathy. MUSCULOSKELETAL: No joint swelling, erythema or tenderness. EXTREMITIES: No cyanosis or clubbing. BACK: No deformity, no pressure ulcer. GENITOURINARY: No dysuria or hematuria. Vital Sign (Last 12 Hours) 10/17/24 10/17/24 10/18/24 10/18/24 23:39 23:40 03:36 06:30 Temp 98.8 98.8 Pulse 96 97 76 85 Resp 18 18 18 18 B/P (MAP) 126/62 112/52 Pulse Ox 97 96 O2 Delivery Room Air Room Air 10/18/24 08:00 Temp 99.0 Pulse 86 Resp 16 B/P (MAP) 117/67 Pulse Ox 96 O2 Delivery Room Air Intake & Output (last 24hrs) 10/17/24 10/17/24 10/18/24 15:00 23:00 07:00 Intake Total 170.0 ml Output Total 200 ml 1400 ml Balance -30.0 ml -1400 ml LABS: Laboratory: Test 10/18/24 03:15 10/17/24 04:50 10/16/24 12:48 Range/Units White Blood Count 19.4 H 4.8-10.8 K/uL Red Blood Count 3.38 L 4.00-5.50 MIL/uL Hemoglobin 10.5 L 12.0-16.0 g/dL Hematocrit 32.0 L 36-48 % Mean Corpuscular Volume 94.7 79-99 fL Mean Corpuscular Hemoglobin 31.1 27.0-33.0 pg Mean Corpuscular Hemoglobin Concent 32.8 32.0-36.0 g/dL Red Cell Distribution Width 13.6 11.0-15.5 % Platelet Count 142 130-400 K/uL Mean Platelet Volume 11.1 H 7.5-10.5 fL Nucleated Red Blood Cells 0.0 0.0-0.19 % Prothrombin Time 10.4 9.6-11.6 SEC Prothromb Time International Ratio 0.96 0.85-1.15 Activated Partial Thromboplast Time 30.5 26.3-35.5 SEC Sodium Level 141 136-145 mmol/L Potassium Level 3.8 3.5-5.1 mmol/L Chloride Level 107 101-111 mmol/L Carbon Dioxide Level 22 21-32 mmol/L Blood Urea Nitrogen 9 7-18 mg/dL Creatinine 0.8 0.5-1.0 mg/dL Glomerular Filtration Rate Calc 102 >90 mL/min Random Glucose 60 L 70-105 mg/dL Total Calcium 8.8 8.5-10.1 mg/dL Procalcitonin 22.51 H 0.05-0.5 ng/mL Immature Granulocyte % (Auto) 1.1 H 0-1 % Neutrophils (%) (Auto) 85.2 H 40.0-77.0 % Lymphocytes (%) (Auto) 8.7 L 21.0-51.0 % Monocytes (%) (Auto) 3.7 3.0-13.0 % Eosinophils (%) (Auto) 0.8 0.0-8.0 % Basophils (%) (Auto) 0.5 0.0-5.0 % Neutrophils # (Auto) 21.9 H 1.8-7.7 K/uL Lymphocytes # (Auto) 2.2 1.0-4.8 K/uL Monocytes # (Auto) 0.9 0.1-1.0 K/uL Eosinophils # (Auto) 0.20 0.00-0.70 K/uL Basophils # (Auto) 0.13 0.00-0.20 K/uL Absolute Immature Granulocyte (auto 0.28 0-1 K/uL Total Bilirubin 0.2 0.2-1.0 mg/dL Aspartate Amino Transf (AST/SGOT) 31 10-37 U/L Alanine Aminotransferase (ALT/SGPT) 28 12-78 U/L Alkaline Phosphatase 90 50-136 U/L Total Protein 5.4 L 6.0-8.3 g/dL Albumin 2.2 L 3.5-5.0 g/dL Blood Gas Specimen Type Arterial Arterial Blood pH 7.413 7.350-7.450 Arterial Blood Partial Pressure CO2 36 32-45 mmHg Arterial Blood Partial Pressure O2 72.8 L 83.0-108.0 mmHg Arterial Blood HCO3 22.1 21.0-28.0 mmol/L Arterial Blood Oxygen Saturation 94.9 94.0-98.0 % Arterial Blood Base Excess -1.8 -2.0-3.0 mmol/L Blood Gas Temperature 37.0 35.5-37.0 CELSIUS Blood Gas Flow-by 3.00 0.00-15.00 L/min Blood Gas Vent Mode 3LNC ROOM AIR FiO2 32.0 % Blood Gas Specimen Comment LR DAE ASSESSMENT: E coli bacteremia. Chorioamnionitis. Septic shock. Leukocytosis. Miscarriage at 19 wks gestation on 10/14/24 PLAN: Continue ceftriaxone IV. Continue GI prophylaxis. Continue pain management. Continue with oral vasopressor support. We will monitor electrolytes. This case was reviewed and discussed with my supervising physician and the above assessment and plan was formulated and agreed upon. ATTESTATION BY PHYSICIAN I have seen and examined the patient. I reviewed the documentation, medical decision making, and treatment plan as noted by the mid-level provider above. I agree with the findings and plan of care. MARISEL RAZA MD, [facility] Oct 18, 2024 10:59
--- NOTE | 2024-10-18 13:50 | NUR ---
NOTE REPORT CALLED TO NURSE ARZATE. PATIENT AND FAMILY UPDATED AND TRANSFERRED WITH PATIENT TO 3RD FLOOR ROOM 319.
--- NOTE | 2024-10-18 14:00 | NUR ---
PATIENT INTO ROOM 319, ACCOMPANIED BY FAMILY. PATIENT STATES SHE FEELS PAIN TO CHAUNCEY LOWER EXTREMITIES, TYLENOL HAS BEEN ADMINISTERED AND PRIMARY TEAM HAS BEEN MADE AWARE. NEW ORDER FOR CHAUNCEY LOWER EXTREMITY ULTRASOUND. FAMILY AT HAD SOME CONCERNS ABOUT PATIENT'S SOB, PRIMARY TEAM MADE AWARE, NEW ORDERS FOR CHEST XRAY. PATIENT ALSO VOICED CONCERNS ABOUT HER URINE HAVING A LIGHT RED COLOR. PAGED DR SANTAMARIA WHO WAS COVERING FOR DR HARRIS, LET DR SANTAMARIA KNOW ABOUT PATIENT'S CONCERNS, DR STATED BLOOD IN URINE IS NORMAL AND PATIENT SHOULD REST. PATIENT HAS BEEN MADE AWARE AND VERBALIZES UNDERSTANDING. PLAN OF CARE ON GOING.
[2024-10-18 15:37] LABS: MEAN CORPUSCULAR HEMOGLOBIN 31.3 pg (27.0-33.0); MEAN CORPUSCULAR HGB CONC 33.4 g/dL (32.0-36.0); MEAN CORPUSCULAR VOLUME 93.6 fL (79-99); PLATELET COUNT (AUTO) 131 K/uL (130-400); RED BLOOD CELL COUNT(AUTO) 3.74 MIL/uL (4.00-5.50); RED CELL DISTRIBUTION WIDTH 13.6 % (11.0-15.5); WHITE BLOOD COUNT (AUTO) 15.9 K/uL (4.8-10.8)
--- NOTE | 2024-10-18 15:44 | HMCIMG ---
CHEST 1VW HISTORY: Shortness of breath COMPARISON: 10/17/2024 FINDINGS: A frontal projection of the chest was obtained. Mild bilateral pulmonary infiltrates are seen may be related to mild pulmonary vascular congestion with possible superimposed pneumonitis. The heart is normal in size. Degenerative changes are seen. No evidence of aortic calcification is seen. IMPRESSION: 1. Mild bilateral pulmonary infiltrates are seen may be related to mild pulmonary vascular congestion with possible superimposed pneumonitis.
[2024-10-18 15:45] LABS: CREATININE 0.8 mg/dL (0.5-1.0)
[2024-10-18 15:49] LABS: ALBUMIN 2.6 g/dL (3.5-5.0); BILIRUBIN,TOTAL 0.2 mg/dL (0.2-1.0); MAGNESIUM 1.6 mg/dL (1.80-2.40); TOTAL PROTEIN, SERUM 6.4 g/dL (6.0-8.3)
[2024-10-18] MEDS: HYDROcodone/APAP 5/325 1 TAB TABLET PO PRN (15:55)
[2024-10-18 16:01] LABS: BASOPHILS # (AUTO) 0.04 K/uL (0.00-0.20); BASOPHILS % (AUTO) 0.3 % (0.0-5.0); EOSINOPHILS # (AUTO) 0.32 K/uL (0.00-0.70); IMMATURE GRANULOCYTE ABSOLUTE 2.27 K/uL (0-1); LYMPHOCYTES # (AUTO) 2.4 K/uL (1.0-4.8); LYMPHOCYTES % (AUTO) 14.9 % (21.0-51.0); MONOCYTES # (AUTO) 1.1 K/uL (0.1-1.0); MONOCYTES % (AUTO) 6.6 % (3.0-13.0); NEUTROPHILS # (AUTO) 9.8 K/uL (1.8-7.7); NEUTROPHILS % (AUTO) 61.8 % (40.0-77.0)
[2024-10-18] MEDS: MAGNESIUM 2GM PREMIX 50ML 50 ML IV ONE (16:19)
[2024-10-18] MEDS: MAGNESIUM 2GM PREMIX 50ML 50 ML IV PRN (16:25)
--- NOTE | 2024-10-18 17:11 | PN ---
This is a 29-year-old female with obesity, was admitted with sudden onset abdominal pain and cramping. The patient was 19 weeks . The patient found with spontaneous expulsion of fetus. The patient also found with fever, septic shock, was admitted to ICU. Blood culture grew E. coli. Vaginal drainage also grew E. coli. The patient at present on multiple antibiotics with meropenem and vancomycin. No cough, no hemoptysis or pleuritic pain. No rashes or itchiness. Procalcitonin was elevated. I was consulted because this patient have leukocytosis, thrombocytopenia. Patient also with anemia. Her hemoglobin is 10.5 g/deciliter. Platelet count 1 42K. PHYSICAL EXAMINATION: GENERAL: Young female, awake. VITAL SIGNS: Temperature 98.8, pulse 90, respiratory rate 20, and BP 110/62. EYES: No icterus. Pupils equal and reactive. HENT: No oral thrush seen. Dry oral mucosa. NECK: Supple, no JVD or thyromegaly. LUNGS: Good air entry. No rales, no rhonchi. CARDIOVASCULAR: S1, S2 regular. No murmur heard. ABDOMEN: Obese, soft, and nontender. Bowel sounds present. CENTRAL NERVOUS SYSTEM: Awake, alert and oriented x 3. No focal deficits. SKIN: No rashes, no itchiness. LYMPHATIC: No peripheral lymphadenopathy. BACK: No deformity, no pressure ulcer. HEMATOLOGIC: No bleeding or petechial lesions seen. MUSCULOSKELETAL: No joint swelling, erythema or tenderness. ASSESSMENT: 1. Thrombocytopenia. Platelet count 1 42K. 2. Anemia. Hemoglobin level 10.5 g/deciliter 3. Leukocytosis 4. Septic shock. 5. Chorioamnionitis 6. Patient had probably bacteremia PLAN: 1. Peripheral blood smear showed red blood cells to be normocytic normochromic. There was no fragment cell or schistocyte. There is no teardrop cell. There is no rouleaux phenomena. There is no pelger-Huet cell. White blood cell with no blasts. Manual platelet count within normal. 2. There was hypersegmented neutrophils. This patient to be started on folic acid 1 mg p.o. daily and vitamin B12 1000 mcg p.o. daily. 3. The patient have increased neutrophils, bands with vacuolation consistent with infection.Continue antibiotic treatment as per infectious disease specialist 4. Peripheral blood smear did not show any schistocytes or fragment cell. So this patient does not have TTP or DIC. 5. This patient will need oral iron every other day For at least 6 months. This patient stable from my point review. With the patient could be discharged to follow-up with me in 6 weeks Vitals/Labs Vital Signs Date Time Temp Pulse Resp B/P (MAP) Pulse Ox O2 Delivery O2 Flow Rate FiO2 10/18/24 16:00 98.2 76 18 120/64 98 10/18/24 12:17 Room Air 10/18/24 08:00 0 21 Laboratory Tests 10/18/24 03:15 10/18/24 15:33 Medications Current Medications Lactated Ringer's 1,000 ml @ 0 mls/hr PROTOCOL IV Last administered on 10/14/24at 07:36; Start 10/12/24 at 12:00; Stop 10/14/24 at 19:02; Status DC Ampicillin Sodium 2 gm Q6H IV; Start 10/12/24 at 15:30; Stop 10/12/24 at 15:19; Status DC Erythromycin Lactobionate 250 mg/Sodium Chloride 100 ml @ 100 mls/hr Q6H IV Last administered on 10/14/24at 08:47; Start 10/12/24 at 15:30; Stop 10/14/24 at 15:29; Status DC Morphine Sulfate 10 mg ONCE ONCE SQ Last administered on 10/12/24at 16:02; Start 10/12/24 at 15:30; Stop 10/12/24 at 15:31; Status DC Acetaminophen 1,000 mg Q6H PRN PO Last administered on 10/18/24at 14:54; Start 10/12/24 at 15:30; Stop 11/11/24 at 15:29 Ampicillin Sodium 2 gm Q6H IV Last administered on 10/13/24at 04:40; Start 10/12/24 at 15:30; Stop 10/13/24 at 06:20; Status DC Ampicillin Sodium 100 ml @ As Directed STK-MED ONCE IV; Start 10/12/24 at 16:29; Stop 10/12/24 at 16:30; Status DC Meperidine HCl 50 mg ONCE ONCE IVP Last administered on 10/12/24at 20:21; Start 10/12/24 at 20:00; Stop 10/12/24 at 20:02; Status DC Promethazine HCl 25 mg ONCE ONCE IM Last administered on 10/12/24at 20:20; Start 10/12/24 at 20:00; Stop 10/12/24 at 20:02; Status DC Morphine Sulfate 10 mg ONCE ONCE SQ Last administered on 10/13/24at 08:52; Start 10/13/24 at 00:00; Stop 10/13/24 at 00:01; Status DC Ampicillin Sodium 100 ml @ As Directed STK-MED ONCE IV; Start 10/12/24 at 22:34; Stop 10/12/24 at 22:35; Status DC Ampicillin Sodium 100 ml @ 200 mls/hr Q6H IV Last administered on 10/14/24at 12:13; Start 10/13/24 at 11:00; Stop 10/14/24 at 10:59; Status DC Morphine Sulfate 10 mg STK-MED ONCE .ROUTE; Start 10/13/24 at 08:45; Stop 10/13/24 at 08:45; Status DC Erythromycin 250 mg Q8H6 PO; Start 10/14/24 at 23:30; Stop 10/15/24 at 00:48; Status DC Amoxicillin 250 mg Q8H PO; Start 10/14/24 at 23:00; Stop 10/14/24 at 19:05; Status DC Meperidine HCl 50 mg ONCE ONCE IM Last administered on 10/13/24at 14:32; Start 10/13/24 at 14:30; Stop 10/13/24 at 14:31; Status DC Promethazine HCl 25 mg ONCE ONCE IM Last administered on 10/13/24at 14:33; Start 10/13/24 at 14:30; Stop 10/13/24 at 14:31; Status DC Morphine Sulfate 10 mg ONCE ONCE IM; Start 10/13/24 at 19:00; Stop 10/13/24 at 19:01; Status DC Morphine Sulfate 10 mg STK-MED ONCE .ROUTE Last administered on 10/13/24at 18:57; Start 10/13/24 at 18:53; Stop 10/13/24 at 18:53; Status DC Promethazine HCl 25 mg Q6H PRN IM Last administered on 10/15/24at 21:34; Start 10/13/24 at 22:00; Stop 11/12/24 at 21:59 Morphine Sulfate 10 mg QID PRN IVP; Start 10/13/24 at 22:00; Stop 10/13/24 at 22:00; Status DC Morphine Sulfate 10 mg Q8H6 PRN IVP; Start 10/13/24 at 22:00; Stop 10/13/24 at 22:13; Status DC Meperidine HCl 50 mg Q4H PRN IM Last administered on 10/15/24at 05:10; Start 10/13/24 at 22:30; Stop 10/15/24 at 14:55; Status DC Meperidine HCl 50 mg Q4H PRN IM; Start 10/13/24 at 22:30; Stop 10/13/24 at 22:23; Status DC Ondansetron HCl 4 mg Q6H IVP Last administered on 10/18/24at 06:09; Start 10/14/24 at 08:35; Stop 11/13/24 at 08:34 Ampicillin Sodium 100 ml @ As Directed STK-MED ONCE IV; Start 10/14/24 at 12:11; Stop 10/14/24 at 12:12; Status DC Fentanyl Citrate 100 mcg STK-MED ONCE .ROUTE; Start 10/14/24 at 16:30; Stop 10/14/24 at 16:30; Status DC Midazolam HCl 2 mg STK-MED ONCE .ROUTE; Start 10/14/24 at 16:32; Stop 10/14/24 at 16:32; Status DC Ephedrine Sulfate 10 mg Q2M PRN IVP; Start 10/14/24 at 18:00; Stop 11/13/24 at 17:59 Lactated Ringer's 500 ml @ 1,000 mls/hr AD PRN IV; Start 10/14/24 at 18:00; Stop 11/13/24 at 17:59 Naloxone HCl 0.1 mg Q10M PRN IV; Start 10/14/24 at 18:00; Stop 11/13/24 at 17:59 Ropivacaine 200 mg PROTOCOL EP; Start 10/14/24 at 18:00; Stop 10/24/24 at 17:59 Lactated Ringer's 1,000 ml @ 150 mls/hr Q6H40M IV Last administered on 10/15/24at 10:31; Start 10/14/24 at 19:00; Stop 10/15/24 at 14:53; Status DC Piperacillin Sod/ Tazobactam Sod 3.375 gm Q8H IVPB Last administered on 10/15/24at 06:02; Start 10/14/24 at 19:00; Stop 10/15/24 at 06:07; Status DC Sodium Chloride 50 ml AD IV; Start 10/14/24 at 19:00; Stop 10/14/24 at 19:03; Status DC Vancomycin HCl 1 gm Q12H IV Last administered on 10/15/24at 17:32; Start 10/14/24 at 19:00; Stop 10/16/24 at 08:07; Status DC Norepinephrine 250 ml @ 0 mls/hr PROTOCOL IV Last administered on 10/15/24at 17:30; Start 10/14/24 at 20:00; Stop 10/15/24 at 18:20; Status DC Norepinephrine 250 ml @ As Directed STK-MED ONCE IV; Start 10/14/24 at 20:03; Stop 10/14/24 at 20:04; Status DC Oxytocin/Lactated Ringer's 500 ml @ 0 mls/hr AD IV Last administered on 10/14/24at 21:37; Start 10/14/24 at 20:30; Stop 11/13/24 at 20:29 Oxytocin/Lactated Ringer's 500 ml @ As Directed STK-MED ONCE IV Last administered on 10/14/24at 23:11; Start 10/14/24 at 20:05; Stop 10/14/24 at 20:06; Status DC Magnesium Sulfate 50 ml @ 0 mls/hr PROTOCOL PRN IV Last administered on 10/14/24at 22:27; Start 10/14/24 at 21:00; Stop 10/14/24 at 22:38; Status DC Potassium Chloride 100 ml @ 50 mls/hr AD PRN IV; Start 10/14/24 at 21:00; Stop 10/14/24 at 20:58; Status DC Potassium Chloride 200 ml @ As Directed STK-MED ONCE IV Last administered on 10/14/24at 23:13; Start 10/14/24 at 20:47; Stop 10/14/24 at 20:47; Status DC Misoprostol 200 mcg STK-MED ONCE .ROUTE; Start 10/14/24 at 20:49; Stop 10/14/24 at 20:49; Status DC Dextrose 50 ml AD PRN IV; Start 10/14/24 at 21:00; Stop 11/13/24 at 20:59 Glucagon 1 mg AD PRN IM; Start 10/14/24 at 21:00; Stop 11/13/24 at 20:59 Potassium Chloride 100 ml @ 100 mls/hr AD PRN IV; Start 10/14/24 at 21:00; Stop 11/13/24 at 20:59 Misoprostol 1,000 mcg STAT ONCE LA Last administered on 10/14/24at 21:34; Start 10/14/24 at 21:30; Stop 10/14/24 at 21:31; Status DC Fentanyl Citrate 100 mcg STK-MED ONCE .ROUTE Last administered on 10/14/24at 21:20; Start 10/14/24 at 21:14; Stop 10/14/24 at 21:14; Status DC Lidocaine HCl 1 ml STK-MED ONCE .ROUTE Last administered on 10/14/24at 21:20; Start 10/14/24 at 21:16; Stop 10/14/24 at 21:16; Status DC Sodium Chloride 1,000 ml ONCE ONCE IR; Start 10/14/24 at 22:00; Stop 10/14/24 at 22:05; Status DC Sodium Chloride 1,000 ml @ 100 mls/hr Q10H IV Last administered on 10/14/24at 22:47; Start 10/14/24 at 22:30; Stop 10/15/24 at 14:53; Status DC Sodium Chloride 1,000 ml @ 0 mls/hr Q0M IV Last administered on 10/14/24at 22:47; Start 10/14/24 at 22:30; Stop 10/16/24 at 22:53; Status DC Famotidine 20 mg BID IV Last administered on 10/18/24at 09:30; Start 10/15/24 at 09:00; Stop 11/14/24 at 08:59 Magnesium Sulfate 50 ml @ 0 mls/hr PROTOCOL IV Last administered on 10/15/24at 02:52; Start 10/14/24 at 22:30; Stop 10/18/24 at 16:18; Status DC Acetaminophen 1,000 mg ONCE ONCE IVPB Last administered on 10/15/24at 00:47; Start 10/15/24 at 01:00; Stop 10/15/24 at 09:10; Status DC Potassium Chloride 20 meq AD PRN PO Last administered on 10/18/24at 06:41; Start 10/15/24 at 01:00; Stop 11/14/24 at 00:59 Potassium Chloride 20 meq AD PRN PO Last administered on 10/17/24at 08:10; Start 10/15/24 at 01:00; Stop 11/14/24 at 00:59 Sodium Chloride 1,000 ml @ 0 mls/hr Q0M ONCE IV; Start 10/15/24 at 02:00; Stop 10/15/24 at 02:56; Status DC Sodium Chloride 500 ml @ 0 mls/hr Q0M IV Last administered on 10/15/24at 03:49; Start 10/15/24 at 03:30; Stop 10/15/24 at 14:53; Status DC Cefepime HCl 1 gm Q8H IVPB Last administered on 10/15/24at 06:16; Start 10/15/24 at 06:15; Stop 10/15/24 at 08:34; Status DC Sodium Chloride 1,000 ml @ 0 mls/hr Q0M IV Last administered on 10/15/24at 06:19; Start 10/15/24 at 06:30; Stop 10/15/24 at 09:11; Status DC Sodium Bicarbonate 150 meq ONCE STAT IV Last administered on 10/15/24at 08:25; Start 10/15/24 at 08:14; Stop 10/15/24 at 09:10; Status DC Meropenem 1 gm/ Sodium Chloride 100 ml @ 33.333 mls/ hr Q8H IVPB; Start 10/15/24 at 08:30; Stop 10/15/24 at 08:53; Status DC Albuterol 1 udvial [id number] IH Last administered on 10/18/24at 11:18; Start 10/15/24 at 12:00; Stop 11/14/24 at 11:59 Meropenem 1 gm Q8H IVPB Last administered on 10/16/24at 11:36; Start 10/15/24 at 09:00; Stop 10/16/24 at 13:54; Status DC Morphine Sulfate 2 mg Q4H PRN IVP Last administered on 10/15/24at 20:08; Start 10/15/24 at 11:00; Stop 10/15/24 at 20:34; Status DC Dexmedetomidine/ Sodium Chloride 400 mcg PROTOCOL IV Last administered on 10/15/24at 11:50; Start 10/15/24 at 11:00; Stop 10/16/24 at 08:46; Status DC Acetylcysteine 400 mg BID IH; Start 10/15/24 at 13:00; Stop 10/15/24 at 14:54; Status DC Furosemide 20 mg Q12H IV Last administered on 10/16/24at 02:01; Start 10/15/24 at 15:00; Stop 10/16/24 at 13:54; Status DC Hydromorphone HCl 1 mg Q4H PRN IVP; Start 10/15/24 at 15:00; Stop 10/15/24 at 14:55; Status DC Hydromorphone HCl 0.5 mg Q4H PRN IVP Last administered on 10/17/24at 22:11; Start 10/15/24 at 15:00; Stop 10/20/24 at 14:59 Norepinephrine Bitartrate 32 mg/ Sodium Chloride 250 ml @ 0 mls/hr PROTOCOL IV Last administered on 10/15/24at 19:47; Start 10/15/24 at 18:30; Stop 11/14/24 at 18:29 Acetaminophen/ Butalbital/ Caffeine 1 each Q6H6 PO; Start 10/16/24 at 06:00; Stop 10/16/24 at 01:06; Status DC Magnesium Sulfate 50 ml @ 0 mls/hr PROTOCOL ONCE IV Last administered on 10/16/24at 01:11; Start 10/16/24 at 01:00; Stop 10/16/24 at 01:02; Status DC Acetaminophen/ Butalbital/ Caffeine 1 each Q6H PO Last administered on 10/17/24at 19:25; Start 10/16/24 at 01:30; Stop 11/15/24 at 01:29 Topiramate 25 mg ONCE ONCE PO Last administered on 10/16/24at 04:39; Start 10/16/24 at 05:00; Stop 10/16/24 at 05:01; Status DC Ketorolac Tromethamine 15 mg ONCE STAT IV Last administered on 10/16/24at 08:09; Start 10/16/24 at 07:51; Stop 10/16/24 at 07:59; Status DC Metoclopramide HCl 10 mg ONCE STAT PO Last administered on 10/16/24at 08:09; Start 10/16/24 at 07:51; Stop 10/16/24 at 07:59; Status DC Vancomycin HCl 250 ml @ 125 mls/hr Q12H IV; Start 10/16/24 at 21:00; Stop 10/16/24 at 13:54; Status DC Acetylcysteine 600mg = 3ml [id number] IH; Start 10/16/24 at 10:00; Stop 10/16/24 at 10:29; Status DC Acetylcysteine 600mg = 3ml [id number] IH Last administered on 10/18/24at 11:18; Start 10/16/24 at 12:00; Stop 11/15/24 at 09:59 Acetylcysteine 800 mg STK-MED ONCE .ROUTE; Start 10/16/24 at 10:50; Stop 10/16/24 at 10:51; Status DC Enoxaparin Sodium 40 mg BID SQ; Start 10/16/24 at 21:00; Stop 10/16/24 at 13:55; Status DC Enoxaparin Sodium 40 mg ONCE ONCE SQ Last administered on 10/16/24at 11:36; Start 10/16/24 at 11:00; Stop 10/16/24 at 11:01; Status DC Midodrine 10 mg TID PO Last administered on 10/18/24at 09:32; Start 10/16/24 at 11:00; Stop 11/15/24 at 10:59 Levofloxacin/ Dextrose 750 mg Q24H IV; Start 10/16/24 at 14:00; Stop 10/16/24 at 14:47; Status DC Enoxaparin Sodium 30 mg BID SQ Last administered on 10/18/24at 09:35; Start 10/16/24 at 21:00; Stop 11/15/24 at 20:59 Ceftriaxone Sodium 2 gm Q24H IVPB Last administered on 10/16/24at 15:27; Start 10/16/24 at 15:00; Stop 10/17/24 at 15:52; Status DC Sodium Chloride 1,000 ml @ 75 mls/hr [id number] IV Last administered on 10/17/24at 00:02; Start 10/16/24 at 23:00; Stop 10/17/24 at 10:23; Status DC Vitamin B Complex 1,000 mcg DAILY PO Last administered on 10/18/24at 09:34; Start 10/17/24 at 11:30; Stop 11/16/24 at 11:29 Folic Acid 1 mg DAILY PO Last administered on 10/18/24at 09:33; Start 10/17/24 at 11:30; Stop 11/16/24 at 11:29 Ceftriaxone Sodium 2 gm Q24H IVPB Last administered on 10/17/24at 16:49; Start 10/17/24 at 17:00; Stop 10/27/24 at 16:59 Simethicone 80 mg PCHS PRN PO; Start 10/17/24 at 20:00; Stop 11/16/24 at 19:59 Acetaminophen/ Hydrocodone Bitart 1 tab Q4H PRN PO Last administered on 10/18/24at 15:55; Start 10/18/24 at 15:30; Stop 10/23/24 at 15:29 Magnesium Sulfate 50 ml @ As Directed STK-MED ONCE IV; Start 10/18/24 at 16:14; Stop 10/18/24 at 16:14; Status DC Magnesium Sulfate 50 ml @ 0 mls/hr PROTOCOL PRN IV Last administered on 10/18/24at 16:25; Start 10/18/24 at 16:30; Stop 11/17/24 at 16:29 KAVITHA FLEMING MD Oct 18, 2024 17:11
[2024-10-18] MEDS: LIDOCAINE 4% ADH..PATCH TP ONE (21:35)
[2024-10-18] MEDS: SIMETHICONE 80 MG TAB.CHEW PO PRN (21:59)
--- NOTE | 2024-10-18 22:00 | NUR ---
PAIN Patient states aches and pain to bilateral legs. Order received from Taylor manzo NP for lidocaine patch to bilateral legs. Lidocaine patches applied to bilateral lower legs.
--- NOTE | 2024-10-18 22:21 | HMCIMG ---
US VENOUS DOPPLER BILATERAL HISTORY: Leg pain COMPARISON: None TECHNIQUE: Bilateral lower extremity venous Doppler ultrasound study was performed. FINDINGS: The common femoral, femoral, popliteal, and posterior tibial veins are visualized. Normal flow with augmentation and compressibilities are demonstrated. The greater saphenous veins are also seen and grossly patent. IMPRESSION: 1. No evidence of deep venous thrombosis is seen.
[2024-10-19] VITALS (8 sets, daily range): BP systolic 91–131; BP diastolic 43–67; PULSE 69–88; RESP 16–19; TEMP 97.7–98.7; O2SAT 93–98
--- NOTE | 2024-10-19 | NUR ---
Patient reports a small blood clot passed vaginally. Labor & delivery nurse Chana in to assess. No other bleeding reported by patient.
--- NOTE | 2024-10-19 03:00 | NUR ---
MEDS Scheduled pain medication and antiemetic not administered. Denies nausea. States only nauseated in the mornings and rarely having headaches anymore.
[2024-10-19 05:28] LABS: HEMATOCRIT 33.6 % (36-48); MEAN CORPUSCULAR HEMOGLOBIN 30.8 pg (27.0-33.0); MEAN CORPUSCULAR HGB CONC 32.4 g/dL (32.0-36.0); MEAN CORPUSCULAR VOLUME 94.9 fL (79-99); NUCLEATED RED BLOOD CELLS 0.4 % (0.0-0.19); RED BLOOD CELL COUNT(AUTO) 3.54 MIL/uL (4.00-5.50); RED CELL DISTRIBUTION WIDTH 13.5 % (11.0-15.5)
[2024-10-19 05:49] LABS: ALBUMIN 2.4 g/dL (3.5-5.0); BILIRUBIN,TOTAL 0.2 mg/dL (0.2-1.0); CREATININE 0.8 mg/dL (0.5-1.0); MAGNESIUM 1.6 mg/dL (1.80-2.40); POTASSIUM 3.6 mmol/L (3.5-5.1); TOTAL PROTEIN, SERUM 5.8 g/dL (6.0-8.3)
--- NOTE | 2024-10-19 09:10 | NUR ---
AM MEDS: ADMINISTER MEDS, PT COMPLIANT, SISTER AT BEDSIDE ASKING FOR LAB RESULTS, SHE MENTION IF WBCS DOWN FROM YEST RESULT WHICH WAS XYZ, NURSE INFORMED YES, SHE WANTED A #, NURSE PROVIDE INFORMATION ASKING PT AT BEDSIDE IF OK TO PROVIDE RESULTS SINCE PT PRESENT, PT OK TO GIVE RESULTS TO SISTER AT BEDSIDE; FATHER OF PT ALSO PRESENT.
--- NOTE | 2024-10-19 10:25 | PN ---
[facility] PROGRESS NOTE Date of Service: Oct 19, 2024 Time of Service: 10:25 SUBJECTIVE: [ ] The patient has been seen and examined today during my rounding, she is alert and oriented x3, remains on Levophed for blood pressure support, also on Precedex. She is getting IV antibiotics. She remains on supplemental oxygen via nasal cannula 4 L, currently saturating 97%. Multiple family members at bedside during my visit. 10/16 the patient has been seen and examined today during my rounding, she remains comfortably in bed, on supplemental oxygen via nasal cannula at 3 L, saturating 98%. She is alert oriented x3, remains on low-dose Levophed, off Precedex. Denied chest pain, no shortness a breath, nausea, no vomiting. Multiple family members at bedside during my visit. Updated. 10/18 the patient has been seen and examined during my rounding, successfully downgraded to the progressive care unit from the ICU, during my visit she is comfortably in bed, alert oriented x3, hemodynamically stable, afebrile, she is saturating normal on room air. Denied chest pain, shortness shortness for breath, no nausea, no vomiting, no abdominal discomfort. Patient has been updated on results of blood test. Family members bedside. 10/19 the patient has been seen and examined during my rounding, downgraded to the medical floor, during my visit she is sitting comfortable in the bed, hemodynamically stable, alert oriented x3, saturating normal on room air. Patient was having bloody vaginal spotting yesterday, she past a few cm blood c lot yesterday. No more spotting after that. Denies nausea, no vomiting, no abdominal pain. Tolerating diet. Family at bedside, updated. All questions answered. REVIEW OF SYSTEMS CONSTITUTIONAL: Denies fevers, chills, or night sweats. No unintentional weight loss reported. NEUROLOGICAL: Denies headache, amaurosis fugax, motor weakness, sensory deficit, vertigo/spinning sensation, gait abnormalities, or tremors. ENT: No hearing loss, otalgia, otorrhea, rhinitis, rhinorrhea, hoarseness, or sore throat. CARDIOVASCULAR: Denies any exertional angina, dyspnea on exertion, orthopnea, paroxysmal nocturnal dyspnea, palpitations, life-threatening arrhythmias, claudication. PULMONARY: Denies any shortness of breath, cough, phlegm/sputum, hemoptysis, pleuritic chest pain. SLEEP: Denies morning headaches, daytime somnolence or napping. Denies di fficulty falling asleep, staying asleep, waking from sleep. Denies knowledge of snoring. GASTROINTESTINAL: Denies any type of dysphagia to either liquids or solids. Denies nausea, vomiting, pyrosis, early satiety, abdominal pain, diarrhea, constipation, or changes in stool consistency or caliber. Denies coffee-ground emesis, hematemesis, hematochezia, or melanotic stools. GENITOURINARY: Denies frequency, urgency, nocturia, hematuria or incontinence (Storage/Irritative symptoms.) Low urinary stream, straining to void, urinary intermittency or hesitancy, splitting of the voiding stream, terminal dribbling. ENDOCRINOLOGIC: Denies polyuria, polydipsia, polyphagia or heat/cold intolerances. HEMATOLOGIC: Denies thrombophilia/previous clots, or coagulopathy/bleeding disorders. ONCOLOGIC: Denies personal history of malignancy. DERMATOLOGIC: Denies rashes or pruritus. PSYCHIATRIC: Denies any suicidal or homicidal ideation. Denies hallucinations. PHYSICAL EXAM GENERAL APPEARANCE: The patient is awake, alert, and oriented, in no acute cardiopulmonary distress. NEUROLOGICAL: Cranial nerves II-XII grossly intact. Motor is 5/5 in bilateral upper and lower extremities proximal to distal. No sensory deficits. HEENT: Face is symmetric. Pupils are equal and reactive. Extraocular movements are intact. NECK: Supple. No JVD. No thyromegaly. No submental, submandibular, pre- /postauricular, occipital or supraclavicular lymphadenopathy. CHEST: Normal chest expansion. No Telemetry. LUNGS: Clear lungs bilaterally, no wheezing, no rhonchi, no rales CARDIOVASCULAR: Tachycardic Regular. S1 and S2 normal. No appreciable rubs, murmurs or gallops. ABDOMEN: Soft, nontender, and nondistended. There is no rebound, voluntary guarding, or rigidity. : Deferred. No Gonsalez. EXTREMITIES: Non-edematous and not cyanotic. No clubbing. Good capillary refill. SKIN: No skin breakdown. Vital Signs (last 8hr) Date Time Temp Pulse Resp B/P (MAP) Pulse Ox O2 Delivery O2 Flow Rate FiO2 10/19/24 08:44 98.1 69 16 91/45 93 10/19/24 07:20 88 19 N/A Room Air 21 10/19/24 04:00 98.6 82 18 123/64 94 Room Air LABS: Laboratory: Test 10/19/24 05:17 10/19/24 05:09 10/18/24 15:33 10/18/24 03:15 Range/Units White Blood Count 12.0 H 4.8-10.8 K/uL Red Blood Count 3.54 L 4.00-5.50 MIL/uL Hemoglobin 10.9 L 12.0-16.0 g/dL Hematocrit 33.6 L 36-48 % Mean Corpuscular Volume 94.9 79-99 fL Mean Corpuscular Hemoglobin 30.8 27.0-33.0 pg Mean Corpuscular Hemoglobin Concent 32.4 32.0-36.0 g/dL Red Cell Distribution Width 13.5 11.0-15.5 % Platelet Count 141 130-400 K/uL Mean Platelet Volume 11.0 H 7.5-10.5 fL Nucleated Red Blood Cells 0.4 H 0.0-0.19 % Sodium Level 144 136-145 mmol/L Potassium Level 3.6 3.5-5.1 mmol/L Chloride Level 108 101-111 mmol/L Carbon Dioxide Level 26 21-32 mmol/L Blood Urea Nitrogen 12 7-18 mg/dL Creatinine 0.8 0.5-1.0 mg/dL Glomerular Filtration Rate Calc 102 >90 mL/min Random Glucose 81 70-105 mg/dL Total Calcium 8.7 8.5-10.1 mg/dL Magnesium Level 1.60 L 1.80-2.40 mg/dL Total Bilirubin 0.2 0.2-1.0 mg/dL Aspartate Amino Transf (AST/SGOT) 18 10-37 U/L Alanine Aminotransferase (ALT/SGPT) 31 12-78 U/L Alkaline Phosphatase 102 50-136 U/L Total Protein 5.8 L 6.0-8.3 g/dL Albumin 2.4 L 3.5-5.0 g/dL Whole Blood Glucose 75 70-110 MG/DL Immature Granulocyte % (Auto) 14.4 H 0-1 % Neutrophils (%) (Auto) 61.8 40.0-77.0 % Lymphocytes (%) (Auto) 14.9 L 21.0-51.0 % Monocytes (%) (Auto) 6.6 3.0-13.0 % Eosinophils (%) (Auto) 2.0 0.0-8.0 % Basophils (%) (Auto) 0.3 0.0-5.0 % Neutrophils # (Auto) 9.8 H 1.8-7.7 K/uL Lymphocytes # (Auto) 2.4 1.0-4.8 K/uL Monocytes # (Auto) 1.1 H 0.1-1.0 K/uL Eosinophils # (Auto) 0.32 0.00-0.70 K/uL Basophils # (Auto) 0.04 0.00-0.20 K/uL Absolute Immature Granulocyte (auto 2.27 H 0-1 K/uL Prothrombin Time 10.4 9.6-11.6 SEC Prothromb Time International Ratio 0.96 0.85-1.15 Activated Partial Thromboplast Time 30.5 26.3-35.5 SEC Procalcitonin 22.51 H 0.05-0.5 ng/mL Current Medications Medications (Trade) Dose Ordered Sig/Rosendo Route PRN Reason Start Time Stop Time Status Last Admin Dose Admin Acetaminophen (TYLenol 500MG TAB) 1,000 mg Q6H PRN PO MILD PAIN (1-3) 10/12/24 15:30 11/11/24 15:29 10/18/24 14:54 1,000 MG Acetaminophen/ Butalbital/ Caffeine (Aumefmnl-Nmaykuofbpdic-Jkfc Tb) 1 each Q6H PO 10/16/24 01:30 11/15/24 01:29 10/19/24 05:28 1 EACH Acetaminophen/ Butalbital/ Caffeine (Akzmdguq-Abrlcibrxldpa-Ciru Tb) 1 each Q6H6 PO 10/16/24 06:00 10/16/24 01:06 DC Acetaminophen/ Hydrocodone Bitart (NORco 5/325MG) 1 tab Q4H PRN PO MODERATE PAIN (4-6) 10/18/24 15:30 10/23/24 15:29 10/18/24 15:55 1 TAB Acetylcysteine (MUComyst 10% 4ML) 400 mg BID IH 10/15/24 13:00 10/15/24 14:54 DC Acetylcysteine (MUComyst 20% 4ML) 600mg = 3ml [id number] IH 10/16/24 10:00 10/16/24 10:29 DC Acetylcysteine (MUComyst 20% 4ML) 600mg = 3ml [id number] IH 10/16/24 12:00 11/15/24 09:59 10/18/24 18:22 800 MG Albuterol (DUOneb) 1 udvial [id number] IH 10/15/24 12:00 11/14/24 11:59 10/18/24 18:23 1 UDVIAL Amoxicillin (Amoxicillin 250mg Cap) 250 mg Q8H PO 10/14/24 23:00 10/14/24 19:05 DC Ampicillin Sodium 100 ml @ 200 mls/hr Q6H IV 10/13/24 11:00 10/14/24 10:59 DC 10/14/24 12:13 200 MLS/HR Ampicillin Sodium (Ampicillin 2gm Vial) 2 gm Q6H IV 10/12/24 15:30 10/12/24 15:19 DC Ampicillin Sodium (Ampicillin 2gm Vial) 2 gm Q6H IV 10/12/24 15:30 10/13/24 06:20 DC 10/13/24 04:40 2 GM Cefepime HCl (MAXipime 1 GM vial) 1 gm Q8H IVPB 10/15/24 06:15 10/15/24 08:34 DC 10/15/24 06:16 1 GM Ceftriaxone Sodium (Rocephin 2gm Inj) 2 gm Q24H IVPB 10/16/24 15:00 10/17/24 15:52 DC 10/16/24 15:27 2 GM Ceftriaxone Sodium (Rocephin 2gm Inj) 2 gm Q24H IVPB 10/17/24 17:00 10/27/24 16:59 10/18/24 17:41 2 GM Dexmedetomidine/ Sodium Chloride (PRECEdex 400MCG/ 100ML-NS) 400 mcg PROTOCOL IV 10/15/24 11:00 10/16/24 08:46 DC 10/15/24 11:50 400 MCG Dextrose (D50w) 50 ml AD PRN IV HYPOGLYCEMIA PROTOCOL 10/14/24 21:00 11/13/24 20:59 Enoxaparin Sodium (Lovenox) 30 mg BID SQ 10/16/24 21:00 11/15/24 20:59 10/19/24 09:05 30 MG Enoxaparin Sodium (Lovenox) 40 mg BID SQ 10/16/24 21:00 10/16/24 13:55 DC Ephedrine Sulfate (ePHEDrine SULFate 50 MG/ML AMPULE) 10 mg Q2M PRN IVP FOR SBP BELOW 90 10/14/24 18:00 11/13/24 17:59 Erythromycin (Erythromycin) 250 mg Q8H6 PO 10/14/24 23:30 10/15/24 00:48 DC Erythromycin Lactobionate 250 mg/Sodium Chloride 100 ml @ 100 mls/hr Q6H IV 10/12/24 15:30 10/14/24 15:29 DC 10/14/24 08:47 100 MLS/HR Famotidine (Pepcid 20mg Vial) 20 mg BID IV 10/15/24 09:00 11/14/24 08:59 10/19/24 09:05 20 MG Folic Acid (FOLic ACID 1 MG TABLET) 1 mg DAILY PO 10/17/24 11:30 11/16/24 11:29 10/19/24 09:05 1 MG Furosemide (LASix 20MG VIAL) 20 mg Q12H IV 10/15/24 15:00 10/16/24 13:54 DC 10/16/24 02:01 20 MG Glucagon (Glucagon 1mg Kit) 1 mg AD PRN IM HYPOGLYCEMIA PROTOCOL 10/14/24 21:00 11/13/24 20:59 Hydromorphone HCl (DiLAUDid 0.5MG INJ) 0.5 mg Q4H PRN IVP SEVERE PAIN (7-10) 10/15/24 15:00 10/20/24 14:59 10/19/24 06:20 0.5 MG Hydromorphone HCl (DiLAUDid 1MG INJ) 1 mg Q4H PRN IVP SEVERE PAIN (7-10) 10/15/24 15:00 10/15/24 14:55 DC Ketorolac Tromethamine (toRADol) 15 mg ONCE STAT IV 10/16/24 07:51 10/16/24 07:59 DC 10/16/24 08:09 15 MG Lactated Ringer's 500 ml @ 1,000 mls/hr AD PRN IV EPIDURAL PROTOCOL 10/14/24 18:00 11/13/24 17:59 Lactated Ringer's 1,000 ml @ 0 mls/hr PROTOCOL IV 10/12/24 12:00 10/14/24 19:02 DC 10/14/24 07:36 125 MLS/HR Lactated Ringer's 1,000 ml @ 150 mls/hr Q6H40M IV 10/14/24 19:00 10/15/24 14:53 DC 10/15/24 10:31 150 MLS/HR Levofloxacin/ Dextrose (LEvaquIN 750 MG/ D5W 150 ML) 750 mg Q24H IV 10/16/24 14:00 10/16/24 14:47 DC Magnesium Sulfate 50 ml @ 0 mls/hr PROTOCOL IV 10/14/24 22:30 10/18/24 16:18 DC 10/15/24 02:52 25 MLS/HR Magnesium Sulfate 50 ml @ 0 mls/hr PROTOCOL PRN IV OTHER [SEE ORDER COMMENTS] 10/14/24 21:00 10/14/24 22:38 DC 10/14/24 22:27 25 MLS/HR Magnesium Sulfate 50 ml @ 0 mls/hr PROTOCOL PRN IV MAGNESIUM 10/18/24 16:30 11/17/24 16:29 10/19/24 06:07 25 MLS/HR Meperidine HCl (Demerol-Pf) 50 mg Q4H PRN IM SEVERE PAIN (7-10) 10/13/24 22:30 10/13/24 22:23 DC Meperidine HCl (Demerol-Pf) 50 mg Q4H PRN IM SEVERE PAIN (7-10) 10/13/24 22:30 10/15/24 14:55 DC 10/15/24 05:10 50 MG Meropenem (Merrem) 1 gm Q8H IVPB 10/15/24 09:00 10/16/24 13:54 DC 10/16/24 11:36 1 GM Meropenem 1 gm/ Sodium Chloride 100 ml @ 33.333 mls/ hr Q8H IVPB 10/15/24 08:30 10/15/24 08:53 DC Metoclopramide HCl (regLAN 10 MG TAB) 10 mg ONCE STAT PO 10/16/24 07:51 10/16/24 07:59 DC 10/16/24 08:09 10 MG Midodrine (PROAMatine 5 MG TABLET) 10 mg TID PO 10/16/24 11:00 11/15/24 10:59 10/19/24 09:04 10 MG Morphine Sulfate (morPHINE 10MG SYG) 10 mg Q8H6 PRN IVP SEVERE PAIN (7-10) 10/13/24 22:00 10/13/24 22:13 DC Morphine Sulfate (morPHINE 10MG SYG) 10 mg QID PRN IVP SEVERE PAIN (7-10) 10/13/24 22:00 10/13/24 22:00 DC Morphine Sulfate (morPHINE 2MG SYG) 2 mg Q4H PRN IVP MODERATE PAIN (4-6) 10/15/24 11:00 10/15/24 20:34 DC 10/15/24 20:08 2 MG Naloxone HCl (NARcan 0.4mg/1 mL) 0.1 mg Q10M PRN IV ITCHING OR URINARY RETENTION 10/14/24 18:00 11/13/24 17:59 Norepinephrine 250 ml @ 0 mls/hr PROTOCOL IV 10/14/24 20:00 10/15/24 18:20 DC 10/15/24 17:30 45 MLS/HR Norepinephrine Bitartrate 32 mg/ Sodium Chloride 250 ml @ 0 mls/hr PROTOCOL IV 10/15/24 18:30 11/14/24 18:29 10/15/24 19:47 11.05 MLS/HR Ondansetron HCl (zoFRAN 4MG INJ) 4 mg Q6H IVP 10/14/24 08:35 11/13/24 08:34 10/19/24 06:06 4 MG Oxytocin/Lactated Ringer's 500 ml @ 0 mls/hr AD IV 10/14/24 20:30 11/13/24 20:29 10/14/24 21:37 4 MLS/HR Piperacillin Sod/ Tazobactam Sod (Zosyn 3.375gm+NS 50ml) 3.375 gm Q8H IVPB 10/14/24 19:00 10/15/24 06:07 DC 10/15/24 06:02 3.375 GM Potassium Chloride 100 ml @ 50 mls/hr AD PRN IV POTASSIUM PROTOCOL 10/14/24 21:00 10/14/24 20:58 DC Potassium Chloride 100 ml @ 100 mls/hr AD PRN IV POTASSIUM PROTOCOL 10/14/24 21:00 11/13/24 20:59 Potassium Chloride (K-Dur/Klor-Con 20meq) 20 meq AD PRN PO POTASSIUM PROTOCOL 10/15/24 01:00 11/14/24 00:59 10/17/24 08:10 20 MEQ Potassium Chloride (KCl 10% Elixir 20meq/15ml) 20 meq AD PRN PO POTASSIUM PROTOCOL 10/15/24 01:00 11/14/24 00:59 10/19/24 06:06 20 MEQ Promethazine HCl (Phenergan) 25 mg Q6H PRN IM NAUSEA/VOMITING 10/13/24 22:00 11/12/24 21:59 10/15/24 21:34 25 MG Ropivacaine (NARopin) 200 mg PROTOCOL EP 10/14/24 18:00 10/24/24 17:59 Simethicone (Mylicon) 80 mg PCHS PRN PO GI GAS 10/17/24 20:00 11/16/24 19:59 10/18/24 21:59 80 MG Sodium Bicarbonate (Sodium Bicarb 50meq 50ml Vial) 150 meq ONCE STAT IV 10/15/24 08:14 10/15/24 09:10 DC 10/15/24 08:25 150 MEQ Sodium Chloride 500 ml @ 0 mls/hr Q0M IV 10/15/24 03:30 10/15/24 14:53 DC 10/15/24 03:49 999 MLS/HR Sodium Chloride 1,000 ml @ 0 mls/hr Q0M IV 10/14/24 22:30 10/16/24 22:53 DC 10/14/24 22:47 999 MLS/HR Sodium Chloride 1,000 ml @ 0 mls/hr Q0M IV 10/15/24 06:30 10/15/24 09:11 DC 10/15/24 06:19 999 MLS/HR Sodium Chloride 1,000 ml @ 75 mls/hr [id number] IV 10/16/24 23:00 10/17/24 10:23 DC 10/17/24 00:02 75 MLS/HR Sodium Chloride 1,000 ml @ 100 mls/hr Q10H IV 10/14/24 22:30 10/15/24 14:53 DC 10/14/24 22:47 100 MLS/HR Sodium Chloride (NS 50ml) 50 ml AD IV 10/14/24 19:00 10/14/24 19:03 DC Vancomycin HCl 250 ml @ 125 mls/hr Q12H IV 10/16/24 21:00 10/16/24 13:54 DC Vancomycin HCl (Vancomycin 1g/ 250ml Kit) 1 gm Q12H IV 10/14/24 19:00 10/16/24 08:07 DC 10/15/24 17:32 1 GM Vitamin B Complex (Vitamin B-12) 1,000 mcg DAILY PO 10/17/24 11:30 11/16/24 11:29 10/19/24 09:05 1,000 MCG DIAGNOSTICS / RADIOLOGY: [ ] ASSESSMENT: Septic shock, POA Gram-negative bacteremia secondary to E coli, POA Acute hypoxemic respiratory failure, POA S/P Miscarriage at 19 week gestation and two days on 10/14/24 s/p vaginal delivery of demise on 10/14/2024 at 2038 s/p placenta retention after delivery Acute urinary tract infection POA Hypokalemia POA Hypocalcemia Hypomagnesemia Hyponatremia Anemia Lactic acidosis Elevated procalcitonin level Elevated D-dimer Morbid obesity with BMI 44.6 Elevated fibrinogen level Thrombocytopenia PLAN: Patient has been downgraded to the medical floor Continue the patient on broad-spectrum IV antibiotics Continue to follow infectious disease input and recommendation Continue to monitor WBC in a.m. Continue to follow CBC and transfuse as needed Continue to monitor platelet count in a.m. Continue to follow Hematology input and recommendation Continue folic acid 1 mg p.o. daily and vitamin B12 1000 mcg p.o. daily Continue to follow up procalcitonin level in a.m. Replace electrolytes IV per protocol Follow a.m. labs GI and DVT prophylaxis Disposition: Patient doing well, downgraded to the medical floor. Remains on midodrine. Encouraged to ambulate once electrolytes corrected, to taper down m idodrine. Continue antibiotics and monitor WBC in a.m.. Continue current antibiotics, follow ID input and recommendations. Repeat blood culture so far negative. Continue to follow CBC transfuse as needed, monitor platelet count, Hematology input noted and appreciated. Home once off midodrine and blood pressure stable. 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 We will check phosphorus, replace accordingly per protocols, we will recheck electrolytes again once they are replaced. Plan of action discussed with the patient, all questions answered, agreed and understood the information provided Total time spent greater than 30 minutes. PATRICIA CRAWFORD MD Oct 19, 2024 10:25
[2024-10-19] MEDS ORDERED: TOPI50CA5 PO (12:40)
--- NOTE | 2024-10-19 13:34 | PN ---
This is a 29-year-old female with obesity, was admitted with sudden onset abdominal pain and cramping. The patient was 19 weeks . The patient found with spontaneous expulsion of fetus. The patient also found with fever, septic shock, was admitted to ICU. Blood culture grew E. coli. Vaginal drainage also grew E. coli. The patient at present on multiple antibiotics with meropenem and vancomycin. No cough, no hemoptysis or pleuritic pain. No rashes or itchiness. Procalcitonin was elevated. I was consulted because this patient have leukocytosis, thrombocytopenia. Patient also with anemia. Her hemoglobin is 10.9 g/deciliter. Platelet count 1 42K. PHYSICAL EXAMINATION: GENERAL: Young female, awake. VITAL SIGNS: Temperature 98.8, pulse 90, respiratory rate 20, and BP 110/62. EYES: No icterus. Pupils equal and reactive. HENT: No oral thrush seen. Dry oral mucosa. NECK: Supple, no JVD or thyromegaly. LUNGS: Good air entry. No rales, no rhonchi. CARDIOVASCULAR: S1, S2 regular. No murmur heard. ABDOMEN: Obese, soft, and nontender. Bowel sounds present. CENTRAL NERVOUS SYSTEM: Awake, alert and oriented x 3. No focal deficits. SKIN: No rashes, no itchiness. LYMPHATIC: No peripheral lymphadenopathy. BACK: No deformity, no pressure ulcer. HEMATOLOGIC: No bleeding or petechial lesions seen. MUSCULOSKELETAL: No joint swelling, erythema or tenderness. ASSESSMENT: 1. Thrombocytopenia. Platelet count 1 42K. 2. Anemia. Hemoglobin level 10.9 g/deciliter 3. Leukocytosis 4. Septic shock. 5. Chorioamnionitis 6. Patient had probably bacteremia PLAN: 1. Peripheral blood smear showed red blood cells to be normocytic normochromic. There was no fragment cell or schistocyte. There is no teardrop cell. There is no rouleaux phenomena. There is no pelger-Huet cell. White blood cell with no blasts. Manual platelet count within normal. 2. There was hypersegmented neutrophils. This patient to be started on folic acid 1 mg p.o. daily and vitamin B12 1000 mcg p.o. daily. 3. The patient have increased neutrophils, bands with vacuolation consistent with infection.Continue antibiotic treatment as per infectious disease specialist 4. Peripheral blood smear did not show any schistocytes or fragment cell. So this patient does not have TTP or DIC. 5. This patient will need oral iron every other day For at least 6 months. This patient stable from my point review. With the patient could be discharged to follow-up with me in 6 weeks I will sign off this case at this time Vitals/Labs Vital Signs Date Time Temp Pulse Resp B/P (MAP) Pulse Ox O2 Delivery O2 Flow Rate FiO2 10/19/24 12:23 97.7 79 16 109/67 98 10/19/24 07:20 N/A Room Air 21 10/18/24 21:00 0 Laboratory Tests 10/18/24 15:33 10/19/24 05:17 Medications Current Medications Lactated Ringer's 1,000 ml @ 0 mls/hr PROTOCOL IV Last administered on 10/14/24at 07:36; Start 10/12/24 at 12:00; Stop 10/14/24 at 19:02; Status DC Ampicillin Sodium 2 gm Q6H IV; Start 10/12/24 at 15:30; Stop 10/12/24 at 15:19; Status DC Erythromycin Lactobionate 250 mg/Sodium Chloride 100 ml @ 100 mls/hr Q6H IV Last administered on 10/14/24at 08:47; Start 10/12/24 at 15:30; Stop 10/14/24 at 15:29; Status DC Morphine Sulfate 10 mg ONCE ONCE SQ Last administered on 10/12/24at 16:02; Start 10/12/24 at 15:30; Stop 10/12/24 at 15:31; Status DC Acetaminophen 1,000 mg Q6H PRN PO Last administered on 10/18/24at 14:54; Start 10/12/24 at 15:30; Stop 10/19/24 at 12:41; Status DC Ampicillin Sodium 2 gm Q6H IV Last administered on 10/13/24at 04:40; Start 10/12/24 at 15:30; Stop 10/13/24 at 06:20; Status DC Ampicillin Sodium 100 ml @ As Directed STK-MED ONCE IV; Start 10/12/24 at 16:29; Stop 10/12/24 at 16:30; Status DC Meperidine HCl 50 mg ONCE ONCE IVP Last administered on 10/12/24at 20:21; Start 10/12/24 at 20:00; Stop 10/12/24 at 20:02; Status DC Promethazine HCl 25 mg ONCE ONCE IM Last administered on 10/12/24at 20:20; Start 10/12/24 at 20:00; Stop 10/12/24 at 20:02; Status DC Morphine Sulfate 10 mg ONCE ONCE SQ Last administered on 10/13/24at 08:52; Start 10/13/24 at 00:00; Stop 10/13/24 at 00:01; Status DC Ampicillin Sodium 100 ml @ As Directed STK-MED ONCE IV; Start 10/12/24 at 22:34; Stop 10/12/24 at 22:35; Status DC Ampicillin Sodium 100 ml @ 200 mls/hr Q6H IV Last administered on 10/14/24at 12:13; Start 10/13/24 at 11:00; Stop 10/14/24 at 10:59; Status DC Morphine Sulfate 10 mg STK-MED ONCE .ROUTE; Start 10/13/24 at 08:45; Stop 10/13/24 at 08:45; Status DC Erythromycin 250 mg Q8H6 PO; Start 10/14/24 at 23:30; Stop 10/15/24 at 00:48; Status DC Amoxicillin 250 mg Q8H PO; Start 10/14/24 at 23:00; Stop 10/14/24 at 19:05; Status DC Meperidine HCl 50 mg ONCE ONCE IM Last administered on 10/13/24at 14:32; Start 10/13/24 at 14:30; Stop 10/13/24 at 14:31; Status DC Promethazine HCl 25 mg ONCE ONCE IM Last administered on 10/13/24at 14:33; Start 10/13/24 at 14:30; Stop 10/13/24 at 14:31; Status DC Morphine Sulfate 10 mg ONCE ONCE IM; Start 10/13/24 at 19:00; Stop 10/13/24 at 19:01; Status DC Morphine Sulfate 10 mg STK-MED ONCE .ROUTE Last administered on 10/13/24at 18:57; Start 10/13/24 at 18:53; Stop 10/13/24 at 18:53; Status DC Promethazine HCl 25 mg Q6H PRN IM Last administered on 10/15/24at 21:34; Start 10/13/24 at 22:00; Stop 11/12/24 at 21:59 Morphine Sulfate 10 mg QID PRN IVP; Start 10/13/24 at 22:00; Stop 10/13/24 at 22:00; Status DC Morphine Sulfate 10 mg Q8H6 PRN IVP; Start 10/13/24 at 22:00; Stop 10/13/24 at 22:13; Status DC Meperidine HCl 50 mg Q4H PRN IM Last administered on 10/15/24at 05:10; Start 10/13/24 at 22:30; Stop 10/15/24 at 14:55; Status DC Meperidine HCl 50 mg Q4H PRN IM; Start 10/13/24 at 22:30; Stop 10/13/24 at 22:23; Status DC Ondansetron HCl 4 mg Q6H IVP Last administered on 10/19/24at 13:02; Start 10/14/24 at 08:35; Stop 11/13/24 at 08:34 Ampicillin Sodium 100 ml @ As Directed STK-MED ONCE IV; Start 10/14/24 at 12:11; Stop 10/14/24 at 12:12; Status DC Fentanyl Citrate 100 mcg STK-MED ONCE .ROUTE; Start 10/14/24 at 16:30; Stop 10/14/24 at 16:30; Status DC Midazolam HCl 2 mg STK-MED ONCE .ROUTE; Start 10/14/24 at 16:32; Stop 10/14/24 at 16:32; Status DC Ephedrine Sulfate 10 mg Q2M PRN IVP; Start 10/14/24 at 18:00; Stop 10/19/24 at 12:41; Status DC Lactated Ringer's 500 ml @ 1,000 mls/hr AD PRN IV; Start 10/14/24 at 18:00; Stop 10/19/24 at 12:41; Status DC Naloxone HCl 0.1 mg Q10M PRN IV; Start 10/14/24 at 18:00; Stop 10/19/24 at 12:41; Status DC Ropivacaine 200 mg PROTOCOL EP; Start 10/14/24 at 18:00; Stop 10/19/24 at 12:41; Status DC Lactated Ringer's 1,000 ml @ 150 mls/hr Q6H40M IV Last administered on 10/15/24at 10:31; Start 10/14/24 at 19:00; Stop 10/15/24 at 14:53; Status DC Piperacillin Sod/ Tazobactam Sod 3.375 gm Q8H IVPB Last administered on 10/15/24at 06:02; Start 10/14/24 at 19:00; Stop 10/15/24 at 06:07; Status DC Sodium Chloride 50 ml AD IV; Start 10/14/24 at 19:00; Stop 10/14/24 at 19:03; Status DC Vancomycin HCl 1 gm Q12H IV Last administered on 10/15/24at 17:32; Start 10/14/24 at 19:00; Stop 10/16/24 at 08:07; Status DC Norepinephrine 250 ml @ 0 mls/hr PROTOCOL IV Last administered on 10/15/24at 17:30; Start 10/14/24 at 20:00; Stop 10/15/24 at 18:20; Status DC Norepinephrine 250 ml @ As Directed STK-MED ONCE IV; Start 10/14/24 at 20:03; Stop 10/14/24 at 20:04; Status DC Oxytocin/Lactated Ringer's 500 ml @ 0 mls/hr AD IV Last administered on 10/14/24at 21:37; Start 10/14/24 at 20:30; Stop 10/19/24 at 12:41; Status DC Oxytocin/Lactated Ringer's 500 ml @ As Directed STK-MED ONCE IV Last administered on 10/14/24at 23:11; Start 10/14/24 at 20:05; Stop 10/14/24 at 20:06; Status DC Magnesium Sulfate 50 ml @ 0 mls/hr PROTOCOL PRN IV Last administered on 10/14/24at 22:27; Start 10/14/24 at 21:00; Stop 10/14/24 at 22:38; Status DC Potassium Chloride 100 ml @ 50 mls/hr AD PRN IV; Start 10/14/24 at 21:00; Stop 10/14/24 at 20:58; Status DC Potassium Chloride 200 ml @ As Directed STK-MED ONCE IV Last administered on 10/14/24at 23:13; Start 10/14/24 at 20:47; Stop 10/14/24 at 20:47; Status DC Misoprostol 200 mcg STK-MED ONCE .ROUTE; Start 10/14/24 at 20:49; Stop 10/14/24 at 20:49; Status DC Dextrose 50 ml AD PRN IV; Start 10/14/24 at 21:00; Stop 11/13/24 at 20:59 Glucagon 1 mg AD PRN IM; Start 10/14/24 at 21:00; Stop 11/13/24 at 20:59 Potassium Chloride 100 ml @ 100 mls/hr AD PRN IV; Start 10/14/24 at 21:00; Stop 11/13/24 at 20:59 Misoprostol 1,000 mcg STAT ONCE WI Last administered on 10/14/24at 21:34; Start 10/14/24 at 21:30; Stop 10/14/24 at 21:31; Status DC Fentanyl Citrate 100 mcg STK-MED ONCE .ROUTE Last administered on 10/14/24at 21:20; Start 10/14/24 at 21:14; Stop 10/14/24 at 21:14; Status DC Lidocaine HCl 1 ml STK-MED ONCE .ROUTE Last administered on 10/14/24at 21:20; Start 10/14/24 at 21:16; Stop 10/14/24 at 21:16; Status DC Sodium Chloride 1,000 ml ONCE ONCE IR; Start 10/14/24 at 22:00; Stop 10/14/24 at 22:05; Status DC Sodium Chloride 1,000 ml @ 100 mls/hr Q10H IV Last administered on 10/14/24at 22:47; Start 10/14/24 at 22:30; Stop 10/15/24 at 14:53; Status DC Sodium Chloride 1,000 ml @ 0 mls/hr Q0M IV Last administered on 10/14/24at 22:47; Start 10/14/24 at 22:30; Stop 10/16/24 at 22:53; Status DC Famotidine 20 mg BID IV Last administered on 10/19/24at 09:05; Start 10/15/24 at 09:00; Stop 10/19/24 at 12:41; Status DC Magnesium Sulfate 50 ml @ 0 mls/hr PROTOCOL IV Last administered on 10/15/24at 02:52; Start 10/14/24 at 22:30; Stop 10/18/24 at 16:18; Status DC Acetaminophen 1,000 mg ONCE ONCE IVPB Last administered on 10/15/24at 00:47; Start 10/15/24 at 01:00; Stop 10/15/24 at 09:10; Status DC Potassium Chloride 20 meq AD PRN PO Last administered on 10/19/24at 06:06; Start 10/15/24 at 01:00; Stop 11/14/24 at 00:59 Potassium Chloride 20 meq AD PRN PO Last administered on 10/17/24at 08:10; Start 10/15/24 at 01:00; Stop 11/14/24 at 00:59 Sodium Chloride 1,000 ml @ 0 mls/hr Q0M ONCE IV; Start 10/15/24 at 02:00; Stop 10/15/24 at 02:56; Status DC Sodium Chloride 500 ml @ 0 mls/hr Q0M IV Last administered on 10/15/24at 03:49; Start 10/15/24 at 03:30; Stop 10/15/24 at 14:53; Status DC Cefepime HCl 1 gm Q8H IVPB Last administered on 10/15/24at 06:16; Start 10/15/24 at 06:15; Stop 10/15/24 at 08:34; Status DC Sodium Chloride 1,000 ml @ 0 mls/hr Q0M IV Last administered on 10/15/24at 06:19; Start 10/15/24 at 06:30; Stop 10/15/24 at 09:11; Status DC Sodium Bicarbonate 150 meq ONCE STAT IV Last administered on 10/15/24at 08:25; Start 10/15/24 at 08:14; Stop 10/15/24 at 09:10; Status DC Meropenem 1 gm/ Sodium Chloride 100 ml @ 33.333 mls/ hr Q8H IVPB; Start 10/15/24 at 08:30; Stop 10/15/24 at 08:53; Status DC Albuterol 1 udvial [id number] IH Last administered on 10/18/24at 18:23; Start 10/15/24 at 12:00; Stop 11/14/24 at 11:59 Meropenem 1 gm Q8H IVPB Last administered on 10/16/24at 11:36; Start 10/15/24 at 09:00; Stop 10/16/24 at 13:54; Status DC Morphine Sulfate 2 mg Q4H PRN IVP Last administered on 10/15/24at 20:08; Start 10/15/24 at 11:00; Stop 10/15/24 at 20:34; Status DC Dexmedetomidine/ Sodium Chloride 400 mcg PROTOCOL IV Last administered on 10/15/24at 11:50; Start 10/15/24 at 11:00; Stop 10/16/24 at 08:46; Status DC Acetylcysteine 400 mg BID IH; Start 10/15/24 at 13:00; Stop 10/15/24 at 14:54; Status DC Furosemide 20 mg Q12H IV Last administered on 10/16/24at 02:01; Start 10/15/24 at 15:00; Stop 10/16/24 at 13:54; Status DC Hydromorphone HCl 1 mg Q4H PRN IVP; Start 10/15/24 at 15:00; Stop 10/15/24 at 14:55; Status DC Hydromorphone HCl 0.5 mg Q4H PRN IVP Last administered on 10/19/24at 06:20; Start 10/15/24 at 15:00; Stop 10/19/24 at 12:41; Status DC Norepinephrine Bitartrate 32 mg/ Sodium Chloride 250 ml @ 0 mls/hr PROTOCOL IV Last administered on 10/15/24at 19:47; Start 10/15/24 at 18:30; Stop 10/19/24 at 12:41; Status DC Acetaminophen/ Butalbital/ Caffeine 1 each Q6H6 PO; Start 10/16/24 at 06:00; Stop 10/16/24 at 01:06; Status DC Magnesium Sulfate 50 ml @ 0 mls/hr PROTOCOL ONCE IV Last administered on 10/16/24at 01:11; Start 10/16/24 at 01:00; Stop 10/16/24 at 01:02; Status DC Acetaminophen/ Butalbital/ Caffeine 1 each Q6H PO Last administered on 10/19/24at 05:28; Start 10/16/24 at 01:30; Stop 10/19/24 at 12:41; Status DC Topiramate 25 mg ONCE ONCE PO Last administered on 10/16/24at 04:39; Start 10/16/24 at 05:00; Stop 10/16/24 at 05:01; Status DC Ketorolac Tromethamine 15 mg ONCE STAT IV Last administered on 10/16/24at 08:09; Start 10/16/24 at 07:51; Stop 10/16/24 at 07:59; Status DC Metoclopramide HCl 10 mg ONCE STAT PO Last administered on 10/16/24at 08:09; Start 10/16/24 at 07:51; Stop 10/16/24 at 07:59; Status DC Vancomycin HCl 250 ml @ 125 mls/hr Q12H IV; Start 10/16/24 at 21:00; Stop 10/16/24 at 13:54; Status DC Acetylcysteine 600mg = 3ml [id number] IH; Start 10/16/24 at 10:00; Stop 10/16/24 at 10:29; Status DC Acetylcysteine 600mg = 3ml [id number] IH Last administered on 10/18/24at 18:22; Start 10/16/24 at 12:00; Stop 11/15/24 at 09:59 Acetylcysteine 800 mg STK-MED ONCE .ROUTE; Start 10/16/24 at 10:50; Stop 10/16/24 at 10:51; Status DC Enoxaparin Sodium 40 mg BID SQ; Start 10/16/24 at 21:00; Stop 10/16/24 at 13:55; Status DC Enoxaparin Sodium 40 mg ONCE ONCE SQ Last administered on 10/16/24at 11:36; Start 10/16/24 at 11:00; Stop 10/16/24 at 11:01; Status DC Midodrine 10 mg TID PO Last administered on 10/19/24at 13:02; Start 10/16/24 at 11:00; Stop 11/15/24 at 10:59 Levofloxacin/ Dextrose 750 mg Q24H IV; Start 10/16/24 at 14:00; Stop 10/16/24 at 14:47; Status DC Enoxaparin Sodium 30 mg BID SQ Last administered on 10/19/24at 09:05; Start 10/16/24 at 21:00; Stop 11/15/24 at 20:59 Ceftriaxone Sodium 2 gm Q24H IVPB Last administered on 10/16/24at 15:27; Start 10/16/24 at 15:00; Stop 10/17/24 at 15:52; Status DC Sodium Chloride 1,000 ml @ 75 mls/hr [id number] IV Last administered on 10/17/24at 00:02; Start 10/16/24 at 23:00; Stop 10/17/24 at 10:23; Status DC Vitamin B Complex 1,000 mcg DAILY PO Last administered on 10/19/24at 09:05; Start 10/17/24 at 11:30; Stop 11/16/24 at 11:29 Folic Acid 1 mg DAILY PO Last administered on 10/19/24at 09:05; Start 10/17/24 at 11:30; Stop 11/16/24 at 11:29 Ceftriaxone Sodium 2 gm Q24H IVPB Last administered on 10/18/24at 17:41; Start 10/17/24 at 17:00; Stop 10/27/24 at 16:59 Simethicone 80 mg PCHS PRN PO Last administered on 10/18/24at 21:59; Start 10/17/24 at 20:00; Stop 11/16/24 at 19:59 Acetaminophen/ Hydrocodone Bitart 1 tab Q4H PRN PO Last administered on 10/18/24at 15:55; Start 10/18/24 at 15:30; Stop 10/19/24 at 12:41; Status DC Magnesium Sulfate 50 ml @ As Directed STK-MED ONCE IV; Start 10/18/24 at 16:14; Stop 10/18/24 at 16:14; Status DC Magnesium Sulfate 50 ml @ 0 mls/hr PROTOCOL PRN IV Last administered on 10/19/24at 12:54; Start 10/18/24 at 16:30; Stop 11/17/24 at 16:29 Lidocaine 1 each ONCE ONCE TP Last administered on 10/18/24at 21:35; Start 10/18/24 at 21:30; Stop 10/18/24 at 21:31; Status DC Topiramate 25 mg BID PO; Start 10/19/24 at 21:00; Stop 11/18/24 at 20:59 Home Med (Topiramate (Topiramate ER) 50 MG) BID PO; Start 10/19/24 at 21:00; Stop 1/5/25 at 20:59 KAVITHA FLEMING MD Oct 19, 2024 13:34
--- NOTE | 2024-10-19 15:59 | NUR ---
patient is up showering on her own with family present. she walks with no assist or AD with no LOB. Patient is cleared by PT she has been endorsed to nursing Addendum: 10/19/24 at 1601 by WAYLON STEARNS PTA PT Amended: Links added.
--- NOTE | 2024-10-19 18:00 | NUR ---
SISTER UPSET: SISTER UPSET DUE TO DEMANDING RESULTS FOR LABS DRAWN PREVIOUS, SISTER ASKING FOR INFORMATION IN HALLWAY. NURSE INFORMED SISTER CAN NOT GIVE RESULTS UNTIL MD DISCUSS INFORMATION, ALSO DUE TO OTHER PEOPLE PRESENT & PT WAS NOT PRESENT OUTSIDE OF HALLWAY, PT IN BED IN ROOM. SISTER UPSET STATE WILL REPORT DUE TO HIPPA VIOLATION DUE TO NURSE PROVIDE INFO PREVIOUSLY ON WBC AND REFUSE TO PROVIDE NEW LAB VALUES. NURSE WENT INSIDE ROOM, ASK THE SISTER TO CALM, WILL PROVIDE INFO IF PT APPROVES IN ROOM AT BEDSIDE WITH DOOR CLOSE. PT GAVE PERMISSION TO PROVIDE INFORMATION TO SISTER .... PLEASE ASK PT IF OK TO GIVE INFORMATION TO SISTER AT BEGINNING OF SHIFT, IF APPLICABLE.
[2024-10-19] MEDS: topIRAMate 25 MG TABLET PO ONE (18:11)
[2024-10-19] MEDS ORDERED: PoTASSium chloRIDE 20MEQ ER 20 MEQ ERTAB PO ONE (20:00)
[2024-10-19] MEDS: PoTASSium chl 10% ELIXIR 20MEQ 20 MEQ/15 ML UDCUP PO ONE (20:01)
--- NOTE | 2024-10-19 20:23 | PN ---
INFECTIOUS DISEASE PROGRESS NOTE Date of Service: Oct 19, 2024 SUBJECTIVE: This is a 29-year-old female patient who was admitted to the hospital for active abdominal cramping. An obstetrics ultrasound showed single fetus gestational age of 18 weeks and no amniotic fluid present which is consistent with premature rupture of membranes. On 10/14/2024 Patient developed fever and hypotension and was transferred to the ICU. Patient was started on vancomycin and Zosyn IV. An obstetric ultrasound was repeated with findings of demise. Patient was downgraded to PCCU and was seen and examined at bedside in room 221. Patient is awake, alert and oriented x 3. The WBC has trended down to 12.0 today. No fever Continues on ceftriaxone 2 g IV. Family member visiting at bedside. Will continue to follow patient's care. PHYSICAL EXAM EYES: Anicteric. Pupils equal and reactive. HENT: No oral thrush seen, moist Oral mucosa. NECK: Supple, no JVD or thyromegaly. LUNGS: Good air entry. No rales, no rhonchi. CARDIOVASCULAR: S1, S2 regular. No murmur heard. ABDOMEN: Soft, non tender, bowel sounds present, no organomegaly. CENTRAL NERVOUS SYSTEM: Awake, alert, oriented x 3. SKIN: No rashes, no swelling. LYMPHATICS: No peripheral lymphadenopathy. MUSCULOSKELETAL: No joint swelling, erythema or tenderness. EXTREMITIES: No cyanosis or clubbing. BACK: No deformity, no pressure ulcer. GENITOURINARY: No dysuria or hematuria. Vital Sign (Last 12 Hours) 10/19/24 10/19/24 10/19/24 10/19/24 08:44 12:23 16:00 18:54 Temp 98.1 97.7 98.8 Pulse 69 79 83 78 Resp 16 16 18 19 B/P (MAP) 91/45 109/67 131/43 Pulse Ox 93 98 96 O2 Delivery N/A Room Air FiO2 21 LABS: Laboratory: Test 10/19/24 19:39 10/19/24 05:17 10/18/24 15:33 10/18/24 03:15 Range/Units Whole Blood Glucose 72 70-110 MG/DL White Blood Count 12.0 H 4.8-10.8 K/uL Red Blood Count 3.54 L 4.00-5.50 MIL/uL Hemoglobin 10.9 L 12.0-16.0 g/dL Hematocrit 33.6 L 36-48 % Mean Corpuscular Volume 94.9 79-99 fL Mean Corpuscular Hemoglobin 30.8 27.0-33.0 pg Mean Corpuscular Hemoglobin Concent 32.4 32.0-36.0 g/dL Red Cell Distribution Width 13.5 11.0-15.5 % Platelet Count 141 130-400 K/uL Mean Platelet Volume 11.0 H 7.5-10.5 fL Nucleated Red Blood Cells 0.4 H 0.0-0.19 % Sodium Level 144 136-145 mmol/L Potassium Level 3.6 3.5-5.1 mmol/L Chloride Level 108 101-111 mmol/L Carbon Dioxide Level 26 21-32 mmol/L Blood Urea Nitrogen 12 7-18 mg/dL Creatinine 0.8 0.5-1.0 mg/dL Glomerular Filtration Rate Calc 102 >90 mL/min Random Glucose 81 70-105 mg/dL Total Calcium 8.7 8.5-10.1 mg/dL Phosphorus Level 7.1 H 2.5-4.9 mg/dL Magnesium Level 1.60 L 1.80-2.40 mg/dL Total Bilirubin 0.2 0.2-1.0 mg/dL Aspartate Amino Transf (AST/SGOT) 18 10-37 U/L Alanine Aminotransferase (ALT/SGPT) 31 12-78 U/L Alkaline Phosphatase 102 50-136 U/L Total Protein 5.8 L 6.0-8.3 g/dL Albumin 2.4 L 3.5-5.0 g/dL Immature Granulocyte % (Auto) 14.4 H 0-1 % Neutrophils (%) (Auto) 61.8 40.0-77.0 % Lymphocytes (%) (Auto) 14.9 L 21.0-51.0 % Monocytes (%) (Auto) 6.6 3.0-13.0 % Eosinophils (%) (Auto) 2.0 0.0-8.0 % Basophils (%) (Auto) 0.3 0.0-5.0 % Neutrophils # (Auto) 9.8 H 1.8-7.7 K/uL Lymphocytes # (Auto) 2.4 1.0-4.8 K/uL Monocytes # (Auto) 1.1 H 0.1-1.0 K/uL Eosinophils # (Auto) 0.32 0.00-0.70 K/uL Basophils # (Auto) 0.04 0.00-0.20 K/uL Absolute Immature Granulocyte (auto 2.27 H 0-1 K/uL Prothrombin Time 10.4 9.6-11.6 SEC Prothromb Time International Ratio 0.96 0.85-1.15 Activated Partial Thromboplast Time 30.5 26.3-35.5 SEC Procalcitonin 22.51 H 0.05-0.5 ng/mL ASSESSMENT: E coli bacteremia. Chorioamnionitis. Septic shock. Leukocytosis. Miscarriage at 19 wks gestation on 10/14/24 PLAN: Continue ceftriaxone IV. Continue GI prophylaxis. Continue pain management. Continue with oral vasopressor support. We will monitor electrolytes. This case was reviewed and discussed with my supervising physician and the above assessment and plan was formulated and agreed upon. ATTESTATION BY PHYSICIAN I have seen and examined the patient. I reviewed the documentation, medical decision making, and treatment plan as noted by the mid-level provider above. I agree with the findings and plan of care. MARISEL RAZA MD, M[facility] Oct 19, 2024 20:23
[2024-10-19] MEDS: TOPIRAMATE 50 MG PO SCH (21:00)
[2024-10-19] MEDS: topIRAMate 25 MG TABLET PO SCH (21:00)
[2024-10-19] MEDS: acetaMINOPHEN WITH coDEINE 1 TAB TAB PO ONE (21:45)
[2024-10-19 22:54] LABS: MAGNESIUM 2.1 mg/dL (1.80-2.40); POTASSIUM 4.7 mmol/L (3.5-5.1)
[2024-10-20] VITALS (10 sets, daily range): BP systolic 97–124; BP diastolic 50–79; PULSE 62–85; RESP 16–20; TEMP 97.9–98.6; O2SAT 95–98
[2024-10-20 05:02] LABS: HEMATOCRIT 37.3 % (36-48); MEAN CORPUSCULAR HEMOGLOBIN 31.1 pg (27.0-33.0); MEAN CORPUSCULAR VOLUME 94.4 fL (79-99); NUCLEATED RED BLOOD CELLS 0.6 % (0.0-0.19); RED BLOOD CELL COUNT(AUTO) 3.95 MIL/uL (4.00-5.50); RED CELL DISTRIBUTION WIDTH 13.2 % (11.0-15.5); WHITE BLOOD COUNT (AUTO) 13.8 K/uL (4.8-10.8)
[2024-10-20 05:29] LABS: ALBUMIN 2.9 g/dL (3.5-5.0); BILIRUBIN,TOTAL 0.2 mg/dL (0.2-1.0); CREATININE 0.8 mg/dL (0.5-1.0); MAGNESIUM 1.9 mg/dL (1.80-2.40); POTASSIUM 4.4 mmol/L (3.5-5.1); TOTAL PROTEIN, SERUM 6.8 g/dL (6.0-8.3)
--- NOTE | 2024-10-20 09:07 | PN ---
[facility] PROGRESS NOTE Date of Service: Oct 20, 2024 Time of Service: 09:06 SUBJECTIVE: [ ] The patient has been seen and examined today during my rounding, she is alert and oriented x3, remains on Levophed for blood pressure support, also on Precedex. She is getting IV antibiotics. She remains on supplemental oxygen via nasal cannula 4 L, currently saturating 97%. Multiple family members at bedside during my visit. 10/16 the patient has been seen and examined today during my rounding, she remains comfortably in bed, on supplemental oxygen via nasal cannula at 3 L, saturating 98%. She is alert oriented x3, remains on low-dose Levophed, off Precedex. Denied chest pain, no shortness a breath, nausea, no vomiting. Multiple family members at bedside during my visit. Updated. 10/18 the patient has been seen and examined during my rounding, successfully downgraded to the progressive care unit from the ICU, during my visit she is comfortably in bed, alert oriented x3, hemodynamically stable, afebrile, she is saturating normal on room air. Denied chest pain, shortness shortness for breath, no nausea, no vomiting, no abdominal discomfort. Patient has been updated on results of blood test. Family members bedside. 10/19 the patient has been seen and examined during my rounding, downgraded to the medical floor, during my visit she is sitting comfortable in the bed, hemodynamically stable, alert oriented x3, saturating normal on room air. Patient was having bloody vaginal spotting yesterday, she past a few cm blood c lot yesterday. No more spotting after that. Denies nausea, no vomiting, no abdominal pain. Tolerating diet. Family at bedside, updated. All questions answered. 10/20 patient has been seen and examined earlier this morning during my rounding, eating breakfast, tolerating well, no nausea, vomiting, no abdominal discomfort, BP 101/63, afebrile, saturating normal on room air, denied chest, no shortness a breath. Results of blood work reviewed, discussed in detail with the patient. No family members bedside during my visit. REVIEW OF SYSTEMS CONSTITUTIONAL: Denies fevers, chills, or night sweats. No unintentional weight loss reported. NEUROLOGICAL: Denies headache, amaurosis fugax, motor weakness, sensory deficit, vertigo/spinning sensation, gait abnormalities, or tremors. ENT: No hearing loss, otalgia, otorrhea, rhinitis, rhinorrhea, hoarseness, or sore throat. CARDIOVASCULAR: Denies any exertional angina, dyspnea on exertion, orthopnea, paroxysmal nocturnal dyspnea, palpitations, life-threatening arrhythmias, c laudication. PULMONARY: Denies any shortness of breath, cough, phlegm/sputum, hemoptysis, pleuritic chest pain. SLEEP: Denies morning headaches, daytime somnolence or napping. Denies difficulty falling asleep, staying asleep, waking from sleep. Denies knowledge of snoring. GASTROINTESTINAL: Denies any type of dysphagia to either liquids or solids. Denies nausea, vomiting, pyrosis, early satiety, abdominal pain, diarrhea, cons tipation, or changes in stool consistency or caliber. Denies coffee-ground emesis, hematemesis, hematochezia, or melanotic stools. GENITOURINARY: Denies frequency, urgency, nocturia, hematuria or incontinence (Storage/Irritative symptoms.) Low urinary stream, straining to void, urinary intermittency or hesitancy, splitting of the voiding stream, terminal dribbling. ENDOCRINOLOGIC: Denies polyuria, polydipsia, polyphagia or heat/cold intolerances. HEMATOLOGIC: Denies thrombophilia/previous clots, or coagulopathy/bleeding disorders. ONCOLOGIC: Denies personal history of malignancy. DERMATOLOGIC: Denies rashes or pruritus. PSYCHIATRIC: Denies any suicidal or homicidal ideation. Denies hallucinations. PHYSICAL EXAM GENERAL APPEARANCE: The patient is awake, alert, and oriented, in no acute cardiopulmonary distress. NEUROLOGICAL: Cranial nerves II-XII grossly intact. Motor is 5/5 in bilateral upper and lower extremities proximal to distal. No sensory deficits. HEENT: Face is symmetric. Pupils are equal and reactive. Extraocular movements are intact. NECK: Supple. No JVD. No thyromegaly. No submental, submandibular, pre- /postauricular, occipital or supraclavicular lymphadenopathy. CHEST: Normal chest expansion. No Telemetry. LUNGS: Clear lungs bilaterally, no wheezing, no rhonchi, no rales CARDIOVASCULAR: Tachycardic Regular. S1 and S2 normal. No appreciable rubs, murmurs or gallops. ABDOMEN: Soft, nontender, and nondistended. There is no rebound, voluntary guarding, or rigidity. : Deferred. No Gonsalez. EXTREMITIES: Non-edematous and not cyanotic. No clubbing. Good capillary refill. SKIN: No skin breakdown. Vital Signs (last 8hr) Date Time Temp Pulse Resp B/P (MAP) Pulse Ox O2 Delivery O2 Flow Rate FiO2 10/20/24 08:00 98.2 78 16 101/63 95 Room Air 10/20/24 07:51 79 19 N/A Room Air 10/20/24 04:45 82 18 96 Room Air 10/20/24 04:00 97.9 75 18 97/54 90 Room Air LABS: Laboratory: Test 10/20/24 05:28 10/20/24 04:43 10/19/24 22:32 10/18/24 15:33 Range/Units Whole Blood Glucose 78 70-110 MG/DL White Blood Count 13.8 H 4.8-10.8 K/uL Red Blood Count 3.95 L 4.00-5.50 MIL/uL Hemoglobin 12.3 12.0-16.0 g/dL Hematocrit 37.3 36-48 % Mean Corpuscular Volume 94.4 79-99 fL Mean Corpuscular Hemoglobin 31.1 27.0-33.0 pg Mean Corpuscular Hemoglobin Concent 33.0 32.0-36.0 g/dL Red Cell Distribution Width 13.2 11.0-15.5 % Platelet Count 177 # 130-400 K/uL Mean Platelet Volume 11.0 H 7.5-10.5 fL Nucleated Red Blood Cells 0.6 H 0.0-0.19 % Sodium Level 141 136-145 mmol/L Potassium Level 4.4 3.5-5.1 mmol/L Chloride Level 107 101-111 mmol/L Carbon Dioxide Level 23 21-32 mmol/L Blood Urea Nitrogen 14 7-18 mg/dL Creatinine 0.8 0.5-1.0 mg/dL Glomerular Filtration Rate Calc 102 >90 mL/min Random Glucose 74 70-105 mg/dL Total Calcium 8.9 8.5-10.1 mg/dL Magnesium Level 1.90 1.80-2.40 mg/dL Total Bilirubin 0.2 0.2-1.0 mg/dL Aspartate Amino Transf (AST/SGOT) 34 10-37 U/L Alanine Aminotransferase (ALT/SGPT) 38 # 12-78 U/L Alkaline Phosphatase 98 50-136 U/L Total Protein 6.8 6.0-8.3 g/dL Albumin 2.9 #L 3.5-5.0 g/dL Phosphorus Level 5.0 #H 2.5-4.9 mg/dL Immature Granulocyte % (Auto) 14.4 H 0-1 % Neutrophils (%) (Auto) 61.8 40.0-77.0 % Lymphocytes (%) (Auto) 14.9 L 21.0-51.0 % Monocytes (%) (Auto) 6.6 3.0-13.0 % Eosinophils (%) (Auto) 2.0 0.0-8.0 % Basophils (%) (Auto) 0.3 0.0-5.0 % Neutrophils # (Auto) 9.8 H 1.8-7.7 K/uL Lymphocytes # (Auto) 2.4 1.0-4.8 K/uL Monocytes # (Auto) 1.1 H 0.1-1.0 K/uL Eosinophils # (Auto) 0.32 0.00-0.70 K/uL Basophils # (Auto) 0.04 0.00-0.20 K/uL Absolute Immature Granulocyte (auto 2.27 H 0-1 K/uL Current Medications Medications (Trade) Dose Ordered Sig/Rosendo Route PRN Reason Start Time Stop Time Status Last Admin Dose Admin Acetaminophen (TYLenol 500MG TAB) 1,000 mg Q6H PRN PO MILD PAIN (1-3) 10/12/24 15:30 10/19/24 12:41 DC 10/18/24 14:54 1,000 MG Acetaminophen/ Butalbital/ Caffeine (Yakzssmu-Kqfkseufjxetn-Puuw Tb) 1 each Q6H PO 10/16/24 01:30 10/19/24 12:41 DC 10/19/24 05:28 1 EACH Acetaminophen/ Butalbital/ Caffeine (Qncxwimu-Lmdznlssdktbh-Knby Tb) 1 each Q6H6 PO 10/16/24 06:00 10/16/24 01:06 DC Acetaminophen/ Codeine Phosphate (TYLenol-coDEINE TAB) 1 tab Q4H PRN PO MODERATE PAIN (4-6) 10/20/24 08:30 11/19/24 08:29 Acetaminophen/ Hydrocodone Bitart (NORco 5/325MG) 1 tab Q4H PRN PO MODERATE PAIN (4-6) 10/18/24 15:30 10/19/24 12:41 DC 10/18/24 15:55 1 TAB Acetylcysteine (MUComyst 10% 4ML) 400 mg BID IH 10/15/24 13:00 10/15/24 14:54 DC Acetylcysteine (MUComyst 20% 4ML) 600mg = 3ml [id number] IH 10/16/24 10:00 10/16/24 10:29 DC Acetylcysteine (MUComyst 20% 4ML) 600mg = 3ml [id number] IH 10/16/24 12:00 10/20/24 08:19 DC 10/18/24 18:22 800 MG Albuterol (DUOneb) 1 udvial [id number] IH 10/15/24 12:00 10/20/24 08:19 DC 10/18/24 18:23 1 UDVIAL Amoxicillin (Amoxicillin 250mg Cap) 250 mg Q8H PO 10/14/24 23:00 10/14/24 19:05 DC Ampicillin Sodium 100 ml @ 200 mls/hr Q6H IV 10/13/24 11:00 10/14/24 10:59 DC 10/14/24 12:13 200 MLS/HR Ampicillin Sodium (Ampicillin 2gm Vial) 2 gm Q6H IV 10/12/24 15:30 10/12/24 15:19 DC Ampicillin Sodium (Ampicillin 2gm Vial) 2 gm Q6H IV 10/12/24 15:30 10/13/24 06:20 DC 10/13/24 04:40 2 GM Cefepime HCl (MAXipime 1 GM vial) 1 gm Q8H IVPB 10/15/24 06:15 10/15/24 08:34 DC 10/15/24 06:16 1 GM Ceftriaxone Sodium (Rocephin 2gm Inj) 2 gm Q24H IVPB 10/16/24 15:00 10/17/24 15:52 DC 10/16/24 15:27 2 GM Ceftriaxone Sodium (Rocephin 2gm Inj) 2 gm Q24H IVPB 10/17/24 17:00 10/27/24 16:59 10/19/24 18:11 2 GM Dexmedetomidine/ Sodium Chloride (PRECEdex 400MCG/ 100ML-NS) 400 mcg PROTOCOL IV 10/15/24 11:00 10/16/24 08:46 DC 10/15/24 11:50 400 MCG Dextrose (D50w) 50 ml AD PRN IV HYPOGLYCEMIA PROTOCOL 10/14/24 21:00 11/13/24 20:59 Enoxaparin Sodium (Lovenox) 30 mg BID SQ 10/16/24 21:00 11/15/24 20:59 10/19/24 21:45 30 MG Enoxaparin Sodium (Lovenox) 40 mg BID SQ 10/16/24 21:00 10/16/24 13:55 DC Ephedrine Sulfate (ePHEDrine SULFate 50 MG/ML AMPULE) 10 mg Q2M PRN IVP FOR SBP BELOW 90 10/14/24 18:00 10/19/24 12:41 DC Erythromycin (Erythromycin) 250 mg Q8H6 PO 10/14/24 23:30 10/15/24 00:48 DC Erythromycin Lactobionate 250 mg/Sodium Chloride 100 ml @ 100 mls/hr Q6H IV 10/12/24 15:30 10/14/24 15:29 DC 10/14/24 08:47 100 MLS/HR Famotidine (Pepcid 20mg Vial) 20 mg BID IV 10/15/24 09:00 10/19/24 12:41 DC 10/19/24 09:05 20 MG Folic Acid (FOLic ACID 1 MG TABLET) 1 mg DAILY PO 10/17/24 11:30 11/16/24 11:29 10/19/24 09:05 1 MG Furosemide (LASix 20MG VIAL) 20 mg Q12H IV 10/15/24 15:00 10/16/24 13:54 DC 10/16/24 02:01 20 MG Glucagon (Glucagon 1mg Kit) 1 mg AD PRN IM HYPOGLYCEMIA PROTOCOL 10/14/24 21:00 11/13/24 20:59 Home Med (Home Medication) (Topiramate (Topiramate ER) 50 MG) BID PO 10/19/24 21:00 10/20/24 08:09 DC Hydromorphone HCl (DiLAUDid 0.5MG INJ) 0.5 mg Q4H PRN IVP SEVERE PAIN (7-10) 10/15/24 15:00 10/19/24 12:41 DC 10/19/24 06:20 0.5 MG Hydromorphone HCl (DiLAUDid 1MG INJ) 1 mg Q4H PRN IVP SEVERE PAIN (7-10) 10/15/24 15:00 10/15/24 14:55 DC Ketorolac Tromethamine (toRADol) 15 mg ONCE STAT IV 10/16/24 07:51 10/16/24 07:59 DC 10/16/24 08:09 15 MG Lactated Ringer's 500 ml @ 1,000 mls/hr AD PRN IV EPIDURAL PROTOCOL 10/14/24 18:00 10/19/24 12:41 DC Lactated Ringer's 1,000 ml @ 0 mls/hr PROTOCOL IV 10/12/24 12:00 10/14/24 19:02 DC 10/14/24 07:36 125 MLS/HR Lactated Ringer's 1,000 ml @ 150 mls/hr Q6H40M IV 10/14/24 19:00 10/15/24 14:53 DC 10/15/24 10:31 150 MLS/HR Levofloxacin/ Dextrose (LEvaquIN 750 MG/ D5W 150 ML) 750 mg Q24H IV 10/16/24 14:00 10/16/24 14:47 DC Magnesium Sulfate 50 ml @ 0 mls/hr PROTOCOL IV 10/14/24 22:30 10/18/24 16:18 DC 10/15/24 02:52 25 MLS/HR Magnesium Sulfate 50 ml @ 0 mls/hr PROTOCOL PRN IV OTHER [SEE ORDER COMMENTS] 10/14/24 21:00 10/14/24 22:38 DC 10/14/24 22:27 25 MLS/HR Magnesium Sulfate 50 ml @ 0 mls/hr PROTOCOL PRN IV MAGNESIUM 10/18/24 16:30 11/17/24 16:29 10/19/24 12:54 25 MLS/HR Meperidine HCl (Demerol-Pf) 50 mg Q4H PRN IM SEVERE PAIN (7-10) 10/13/24 22:30 10/13/24 22:23 DC Meperidine HCl (Demerol-Pf) 50 mg Q4H PRN IM SEVERE PAIN (7-10) 10/13/24 22:30 10/15/24 14:55 DC 10/15/24 05:10 50 MG Meropenem (Merrem) 1 gm Q8H IVPB 10/15/24 09:00 10/16/24 13:54 DC 10/16/24 11:36 1 GM Meropenem 1 gm/ Sodium Chloride 100 ml @ 33.333 mls/ hr Q8H IVPB 10/15/24 08:30 10/15/24 08:53 DC Metoclopramide HCl (regLAN 10 MG TAB) 10 mg ONCE STAT PO 10/16/24 07:51 10/16/24 07:59 DC 10/16/24 08:09 10 MG Midodrine (PROAMatine 5 MG TABLET) 10 mg TID PO 10/16/24 11:00 11/15/24 10:59 10/19/24 21:45 10 MG Morphine Sulfate (morPHINE 10MG SYG) 10 mg Q8H6 PRN IVP SEVERE PAIN (7-10) 10/13/24 22:00 10/13/24 22:13 DC Morphine Sulfate (morPHINE 10MG SYG) 10 mg QID PRN IVP SEVERE PAIN (7-10) 10/13/24 22:00 10/13/24 22:00 DC Morphine Sulfate (morPHINE 2MG SYG) 2 mg Q4H PRN IVP MODERATE PAIN (4-6) 10/15/24 11:00 10/15/24 20:34 DC 10/15/24 20:08 2 MG Naloxone HCl (NARcan 0.4mg/1 mL) 0.1 mg Q10M PRN IV ITCHING OR URINARY RETENTION 10/14/24 18:00 10/19/24 12:41 DC Norepinephrine 250 ml @ 0 mls/hr PROTOCOL IV 10/14/24 20:00 10/15/24 18:20 DC 10/15/24 17:30 45 MLS/HR Norepinephrine Bitartrate 32 mg/ Sodium Chloride 250 ml @ 0 mls/hr PROTOCOL IV 10/15/24 18:30 10/19/24 12:41 DC 10/15/24 19:47 11.05 MLS/HR Ondansetron HCl (zoFRAN 4MG INJ) 4 mg Q6H IVP 10/14/24 08:35 11/13/24 08:34 10/19/24 18:12 4 MG Oxytocin/Lactated Ringer's 500 ml @ 0 mls/hr AD IV 10/14/24 20:30 10/19/24 12:41 DC 10/14/24 21:37 4 MLS/HR Piperacillin Sod/ Tazobactam Sod (Zosyn 3.375gm+NS 50ml) 3.375 gm Q8H IVPB 10/14/24 19:00 10/15/24 06:07 DC 10/15/24 06:02 3.375 GM Potassium Chloride 100 ml @ 50 mls/hr AD PRN IV POTASSIUM PROTOCOL 10/14/24 21:00 10/14/24 20:58 DC Potassium Chloride 100 ml @ 100 mls/hr AD PRN IV POTASSIUM PROTOCOL 10/14/24 21:00 11/13/24 20:59 Potassium Chloride (K-Dur/Klor-Con 20meq) 20 meq AD PRN PO POTASSIUM PROTOCOL 10/15/24 01:00 11/14/24 00:59 10/17/24 08:10 20 MEQ Potassium Chloride (KCl 10% Elixir 20meq/15ml) 20 meq AD PRN PO POTASSIUM PROTOCOL 10/15/24 01:00 11/14/24 00:59 10/19/24 06:06 20 MEQ Promethazine HCl (Phenergan) 25 mg Q6H PRN IM NAUSEA/VOMITING 10/13/24 22:00 11/12/24 21:59 10/15/24 21:34 25 MG Ropivacaine (NARopin) 200 mg PROTOCOL EP 10/14/24 18:00 10/19/24 12:41 DC Simethicone (Mylicon) 80 mg PCHS PRN PO GI GAS 10/17/24 20:00 11/16/24 19:59 10/18/24 21:59 80 MG Sodium Bicarbonate (Sodium Bicarb 50meq 50ml Vial) 150 meq ONCE STAT IV 10/15/24 08:14 10/15/24 09:10 DC 10/15/24 08:25 150 MEQ Sodium Chloride 500 ml @ 0 mls/hr Q0M IV 10/15/24 03:30 10/15/24 14:53 DC 10/15/24 03:49 999 MLS/HR Sodium Chloride 1,000 ml @ 0 mls/hr Q0M IV 10/14/24 22:30 10/16/24 22:53 DC 10/14/24 22:47 999 MLS/HR Sodium Chloride 1,000 ml @ 0 mls/hr Q0M IV 10/15/24 06:30 10/15/24 09:11 DC 10/15/24 06:19 999 MLS/HR Sodium Chloride 1,000 ml @ 75 mls/hr [id number] IV 10/16/24 23:00 10/17/24 10:23 DC 10/17/24 00:02 75 MLS/HR Sodium Chloride 1,000 ml @ 100 mls/hr Q10H IV 10/14/24 22:30 10/15/24 14:53 DC 10/14/24 22:47 100 MLS/HR Sodium Chloride (NS 50ml) 50 ml AD IV 10/14/24 19:00 10/14/24 19:03 DC Topiramate (TopaMAX) 25 mg BID PO 10/19/24 21:00 10/20/24 08:09 DC Topiramate (TopaMAX) 50 mg BID PO 10/20/24 09:00 11/19/24 08:59 Vancomycin HCl 250 ml @ 125 mls/hr Q12H IV 10/16/24 21:00 10/16/24 13:54 DC Vancomycin HCl (Vancomycin 1g/ 250ml Kit) 1 gm Q12H IV 10/14/24 19:00 10/16/24 08:07 DC 10/15/24 17:32 1 GM Vitamin B Complex (Vitamin B-12) 1,000 mcg DAILY PO 10/17/24 11:30 11/16/24 11:29 10/19/24 09:05 1,000 MCG DIAGNOSTICS / RADIOLOGY: [ ] ASSESSMENT: Septic shock, POA Gram-negative bacteremia secondary to E coli, POA Acute hypoxemic respiratory failure, POA S/P Miscarriage at 19 week gestation and two days on 10/14/24 s/p vaginal delivery of demise on 10/14/2024 at 2038 s/p placenta retention after delivery Acute urinary tract infection POA Hypokalemia POA Hypocalcemia Hypomagnesemia Hyponatremia Anemia Lactic acidosis Elevated procalcitonin level Elevated D-dimer Morbid obesity with BMI 44.6 Elevated fibrinogen level Thrombocytopenia PLAN: Patient has been downgraded to the medical floor Continue the patient on broad-spectrum IV antibiotics Continue to follow infectious disease input and recommendation Continue to monitor WBC in a.m. Continue to follow CBC and transfuse as needed Continue to monitor platelet count in a.m. Continue to follow Hematology input and recommendation Continue folic acid 1 mg p.o. daily and vitamin B12 1000 mcg p.o. daily Continue to follow up procalcitonin level in a.m. Replace electrolytes IV per protocol Follow a.m. labs GI and DVT prophylaxis Disposition: Patient doing well, downgraded to the medical floor. Remains on midodrine. Encouraged to ambulate once electrolytes corrected, to taper down midodrine. Continue antibiotics and monitor WBC in a.m.. Continue current antibiotics, follow ID input and recommendations. Repeat blood culture so far negative. Continue to follow CBC transfuse as needed, monitor platelet count, Hematology input noted and appreciated. Home once off midodrine and blood pressure stable. Plan of action discussed with the patient, all questions answered, agreed and understood the information provided Total time spent greater than 30 minutes. PATRICIA CRAWFORD MD Oct 20, 2024 09:07
[2024-10-20] MEDS: topIRAMate 25 MG TABLET PO SCH (09:40)
[2024-10-20] MEDS: acetaMINOPHEN WITH coDEINE 1 TAB TAB PO PRN (10:55)
[2024-10-20 17:33] LABS: MAGNESIUM 1.8 mg/dL (1.80-2.40); POTASSIUM 4.2 mmol/L (3.5-5.1)
[2024-10-20] MEDS: MAGNESIUM OXIDE 400 MG TABLET PO ONE (19:39)
--- NOTE | 2024-10-20 19:58 | NUR ---
BLOOD CLOTS: PT STATE AT 1830, SHE HAD PASS A LARGE BLOOD CLOT SIZE ABOUT 2 IN WIDE. NURSE ASK IF THIS WAS THE 1ST TIME, PT STATE IN THE LAST 24 HOUR. NURSE ASKED WHEN LAST BLOOD CLOT WAS. PT STATE PASS ONE BLOOD CLOT 30 MIN AGO AND 2ND BLOOD CLOT, JUST NOW. CALLED, PAGED & SEND MESSAGE TO TO INFORMED PT PASS TWO BLOOD CLOTS IN THE PAST 24 HOURS. PT STATE ALSO, AFTER AMBULATION HER LEGS STARTED SHAKING. CONTACTED , LABS ORDERED K+, MAG, PHOS. ALSO ORDER ONE TIME DOSE OF MAG OX 400MG, MED ADMINISTER. NO REPLACEMENT FOR K+ OR MAG ORDERED AT THE MOMENT.
--- NOTE | 2024-10-20 22:47 | PN ---
DATE OF SERVICE: 10/20/2024. INFECTIOUS DISEASE FOLLOWUP NOTE SUBJECTIVE: The patient has no fever and chills. No nausea or vomiting. No sore throat or rhinorrhea. No headache. No depression. No suicidal or joint pain. No bleeding tendency. No dysuria or hematuria. No neck pain or neck swelling. Repeat blood cultures showed no growth for 48 hours. PHYSICAL EXAMINATION: VITAL SIGNS: Temperature 98.4. EYES: No icterus. Pupils equal and reactive. HENT: No oral thrush seen. Moist oral mucosa. NECK: Supple, no JVD or thyromegaly. LUNGS: Good air entry. No rales, no rhonchi. CARDIOVASCULAR: S1, S2 regular. No murmur heard. ABDOMEN: Obese, soft, and nontender. Bowel sounds present. CENTRAL NERVOUS SYSTEM: Awake, alert, and oriented x 3. No focal deficits. SKIN: No rashes, no itchiness. LYMPHATIC: No peripheral lymphadenopathy. BACK: No deformity, no pressure ulcer. ASSESSMENT: An unfortunate 29-year-old female admitted with abdominal pain. CURRENT PROBLEMS: Include: * Septic shock, which has resolved. * Chorioamnionitis. * Gram-negative sepsis. * Escherichia coli bacteremia. * Obesity. PLAN: * Continue ceftriaxone. * Correct electrolyte imbalance. * Follow up cultures. * Continue pain management. * Continue antiemetic. * Continue nutritional support. TID: [id number] RECEIPT: [id number] [facility]
--- NOTE | 2024-10-20 23:42 | NUR ---
NURSING NOTE LATE ENTRY: 2004 PRESCRIPTION BENEFIT SPECIALIST PHYSICIAN MAKING ROUNDS ON UNIT INFORMED HER THAT BOTH NURSING STAFF WERE PRESENT IN PATIENT BEDROOM DOING BEDSIDE ROUNDS AND ASKED PATIENT CLARIFY ABOUT THE PASSING OF BLOOD CLOTS AND THAT PATIENT STATED SO FAR ON THE MEDICAL SURGICAL UNIT SHE HAS PASSED 2 BLOOD CLOTS. THE FIRST BEING ABOUT 3 INCHES ON 10/19/24 AT CHANGE OF SHIFT AND THE 2ND BEING ABOUT 2 INCHES THIS EVENING ALSO AT CHANGE OF SHIFT. PRESCRIPTION BENEFIT SPECIALIST PHYSICIAN RECOMMENDING TO MONITOR FOR NOW NO NEW ORDERS RECEIVED. ALSO INFORMED HER ABOUT PATIENT'S BP BEING 124/[address] CRAWFORD'S RECOMMENDATION TO TRY AND WEAN PATIENT OFF OF MIDODRINE. PRESCRIPTION BENEFIT SPECIALIST PHYSICIAN RECOMMENDED TO HOLD MIDODRINE FOR NOW AND REEVALUATE PATIENT BP ON NEXT SET OF VS CHECKS
--- NOTE | 2024-10-20 23:49 | NUR ---
NURSING NOTE LATE ENTRY: 2126 PAIN MEDICATION ADMINISTERED REQUESTED BY PATIENT 2226 PATIENT LYING IN BED AWAKE WATCHING TV, SIGNIFICANT OTHER AT BEDSIDE, REACCESSED PATIENT'S PAIN LEVEL, PATIENT WITHOUT ANY PAIN AT THIS TIME. ASKED IF PATIENT HAS PASSED ANY MORE BLOOD CLOTS THIS EVENING, PATIENT DENIES HAVING PASSED ANY MORE BLOOD CLOTS AT THIS TIME.
--- NOTE | 2024-10-20 23:53 | NUR ---
BEDSIDE ROUNDS 2334 ROUNDS MADE WITH RN QUALITY FOR UNIT VS CHECKS, PATIENT AWAKE ALERT AND ORIENTED X 3, NO NAUSEA NOR VOMITING (N/V) AT THIS TIME, PATIENT LYING IN BED WATCHING TV, SIGNIFICANT OTHER REMAINS AT BEDSIDE, BP NOTED TO DECREASE, MIDODRINE ADMINISTERED, ASKED PATIENT IF SHE PASSED ANY NEW BLOOD CLOTS, PATIENT DENIED HAVING PASSED ANY NEW BLOOD CLOTS AT THIS TIME, ALSO REEVALUATED PATIENT'S PAIN AT THIS TIME, PATIENT DENIES HAVING ANY PAIN, INFORMED PATIENT OF 0230 DOSE OF SCHEDULED ZOFRAN FOR N/V PATIENT REQUESTED TO SKIP DOSE AND LET HER REST COMFORTABLY IN ROOM. BED LOCKED IN LOWEST POSITION, SIDE RAILS UP X 2, CALL LIGHT AND PATIENT BELONGINGS LEFT WITHIN REACH
[2024-10-21 03:39] VITALS: BP 95/52; PULSE 79; RESP 18; TEMP 98.1
--- NOTE | 2024-10-21 04:20 | NUR ---
BEDSIDE ROUNDS 0339 ROUNDS MADE WITH MOLD MACHINE OPERATOR FOR UNIT VS CHECKS, PATIENT AWAKE ALERT AND ORIENTED X 3, NO PAIN NOR NAUSEA NOR VOMITING (N/V) AT THIS TIME, WHEN ASKED IF PATIENT HAD ANY MORE PASSING OF BLOOD CLOTS, PATIENT DENIED, INFORMED PATIENT TO LET NURSING STAFF KNOW WHEN AND IF SHE HAS ANY MORE PASSING OF BLOOD CLOTS, PATIENT VERBALIZED UNDERSTANDING, BED LOCKED IN LOWEST POSITION, SIDE RAILS UP X 2, CALL LIGHT LEFT WITHIN REACH
[2024-10-21 04:56] LABS: HEMATOCRIT 39.2 % (36-48); MEAN CORPUSCULAR HEMOGLOBIN 31.2 pg (27.0-33.0); MEAN CORPUSCULAR HGB CONC 33.4 g/dL (32.0-36.0); MEAN CORPUSCULAR VOLUME 93.3 fL (79-99); NUCLEATED RED BLOOD CELLS 0.2 % (0.0-0.19); RED BLOOD CELL COUNT(AUTO) 4.2 MIL/uL (4.00-5.50); RED CELL DISTRIBUTION WIDTH 13.1 % (11.0-15.5); WHITE BLOOD COUNT (AUTO) 12.3 K/uL (4.8-10.8)
[2024-10-21 05:39] LABS: ALBUMIN 3.1 g/dL (3.5-5.0); BILIRUBIN,TOTAL 0.2 mg/dL (0.2-1.0); CREATININE 0.9 mg/dL (0.5-1.0); MAGNESIUM 1.9 mg/dL (1.80-2.40); POTASSIUM 3.9 mmol/L (3.5-5.1); TOTAL PROTEIN, SERUM 7.2 g/dL (6.0-8.3)
[2024-10-21 08:10] VITALS: BP 107/57; PULSE 70; RESP 18; TEMP 98.7
[2024-10-21 12:13] VITALS: BP 112/63; PULSE 71; RESP 16; TEMP 98.1
--- NOTE | 2024-10-21 13:17 | HMCIMG ---
CHEST 1VW CLINICAL HISTORY: sob COMPARISON: 10/18/2024 TECHNIQUE: Single view of the chest was obtained. FINDINGS: Lungs are clear. The cardiac size and mediastinum are unremarkable. The bony structures are within normal limits. IMPRESSION: No acute cardiopulmonary process identified.
--- NOTE | 2024-10-21 13:18 | PN ---
[facility] PROGRESS NOTE Date of Service: Oct 21, 2024 Time of Service: 13:17 SUBJECTIVE: [ ] The patient has been seen and examined today during my rounding, she is alert and oriented x3, remains on Levophed for blood pressure support, also on Precedex. She is getting IV antibiotics. She remains on supplemental oxygen via nasal cannula 4 L, currently saturating 97%. Multiple family members at bedside during my visit. 10/16 the patient has been seen and examined today during my rounding, she remains comfortably in bed, on supplemental oxygen via nasal cannula at 3 L, saturating 98%. She is alert oriented x3, remains on low-dose Levophed, off Precedex. Denied chest pain, no shortness a breath, nausea, no vomiting. Multiple family members at bedside during my visit. Updated. 10/18 the patient has been seen and examined during my rounding, successfully downgraded to the progressive care unit from the ICU, during my visit she is comfortably in bed, alert oriented x3, hemodynamically stable, afebrile, she is saturating normal on room air. Denied chest pain, shortness shortness for breath, no nausea, no vomiting, no abdominal discomfort. Patient has been updated on results of blood test. Family members bedside. 10/19 the patient has been seen and examined during my rounding, downgraded to the medical floor, during my visit she is sitting comfortable in the bed, hemodynamically stable, alert oriented x3, saturating normal on room air. Patient was having bloody vaginal spotting yesterday, she past a few cm blood c lot yesterday. No more spotting after that. Denies nausea, no vomiting, no abdominal pain. Tolerating diet. Family at bedside, updated. All questions answered. 10/20 patient has been seen and examined earlier this morning during my rounding, eating breakfast, tolerating well, no nausea, vomiting, no abdominal discomfort, BP 101/63, afebrile, saturating normal on room air, denied chest, no shortness a breath. Results of blood work reviewed, discussed in detail with the patient. No family members bedside during my visit. 10/21/24 patient was seen and examined. Case discussed with RN and family by the bedside. Patient was sitting up in chair slightly feeling better. She was concerned about feeling feverish at night times with sweating. He is concerned about retained products from her loosing the baby. She also some cough. We will order pelvic ultrasound as well as a chest x-ray REVIEW OF SYSTEMS CONSTITUTIONAL: Denies fevers, chills, or night sweats. No unintentional weight loss reported. NEUROLOGICAL: Denies headache, amaurosis fugax, motor weakness, sensory deficit, vertigo/spinning sensation, gait abnormalities, or tremors. ENT: No hearing loss, otalgia, otorrhea, rhinitis, rhinorrhea, hoarseness, or sore throat. CARDIOVASCULAR: Denies any exertional angina, dyspnea on exertion, orthopnea, paroxysmal nocturnal dyspnea, palpitations, life-threatening arrhythmias, claudication. PULMONARY: Denies any shortness of breath, cough, phlegm/sputum, hemoptysis, pleuritic chest pain. SLEEP: Denies morning headaches, daytime somnolence or napping. Denies difficulty falling asleep, staying asleep, waking from sleep. Denies knowledge of snoring. GASTROINTESTINAL: Denies any type of dysphagia to either liquids or solids. Denies nausea, vomiting, pyrosis, early satiety, abdominal pain, diarrhea, constipation, or changes in stool consistency or caliber. Denies coffee-ground emesis, hematemesis, hematochezia, or melanotic stools. GENITOURINARY: Denies frequency, urgency, nocturia, hematuria or incontinence (Storage/Irritative symptoms.) Low urinary stream, straining to void, urinary intermittency or hesitancy, splitting of the voiding stream, terminal dribbling. ENDOCRINOLOGIC: Denies polyuria, polydipsia, polyphagia or heat/cold intolerances. HEMATOLOGIC: Denies thrombophilia/previous clots, or coagulopathy/bleeding disorders. ONCOLOGIC: Denies personal history of malignancy. DERMATOLOGIC: Denies rashes or pruritus. PSYCHIATRIC: Denies any suicidal or homicidal ideation. Denies hallucinations. PHYSICAL EXAM GENERAL APPEARANCE: The patient is awake, alert, and oriented, in no acute cardiopulmonary distress. NEUROLOGICAL: Cranial nerves II-XII grossly intact. Motor is 5/5 in bilateral upper and lower extremities proximal to distal. No sensory deficits. HEENT: Face is symmetric. Pupils are equal and reactive. Extraocular movements are intact. NECK: Supple. No JVD. No thyromegaly. No submental, submandibular, pre- /postauricular, occipital or supraclavicular lymphadenopathy. CHEST: Normal chest expansion. No Telemetry. LUNGS: Clear lungs bilaterally, no wheezing, no rhonchi, no rales CARDIOVASCULAR: Tachycardic Regular. S1 and S2 normal. No appreciable rubs, murmurs or gallops. ABDOMEN: Soft, nontender, and nondistended. There is no rebound, voluntary guarding, or rigidity. : Deferred. No Gonsalez. EXTREMITIES: Non-edematous and not cyanotic. No clubbing. Good capillary refill. SKIN: No skin breakdown. Vital Signs (last 8hr) Date Time Temp Pulse Resp B/P (MAP) Pulse Ox O2 Delivery O2 Flow Rate FiO2 10/21/24 12:13 98.1 71 16 112/63 86 10/21/24 08:10 98.8 70 18 107/57 95 LABS: Laboratory: Test 10/21/24 11:09 10/21/24 04:37 10/20/24 17:15 Range/Units Whole Blood Glucose 86 70-110 MG/DL White Blood Count 12.3 H 4.8-10.8 K/uL Red Blood Count 4.20 4.00-5.50 MIL/uL Hemoglobin 13.1 12.0-16.0 g/dL Hematocrit 39.2 36-48 % Mean Corpuscular Volume 93.3 79-99 fL Mean Corpuscular Hemoglobin 31.2 27.0-33.0 pg Mean Corpuscular Hemoglobin Concent 33.4 32.0-36.0 g/dL Red Cell Distribution Width 13.1 11.0-15.5 % Platelet Count 201 130-400 K/uL Mean Platelet Volume 10.9 H 7.5-10.5 fL Nucleated Red Blood Cells 0.2 H 0.0-0.19 % Sodium Level 138 136-145 mmol/L Potassium Level 3.9 3.5-5.1 mmol/L Chloride Level 104 101-111 mmol/L Carbon Dioxide Level 23 21-32 mmol/L Blood Urea Nitrogen 18 7-18 mg/dL Creatinine 0.9 0.5-1.0 mg/dL Glomerular Filtration Rate Calc 89 >90 mL/min Random Glucose 79 70-105 mg/dL Total Calcium 9.5 8.5-10.1 mg/dL Magnesium Level 1.90 1.80-2.40 mg/dL Total Bilirubin 0.2 0.2-1.0 mg/dL Aspartate Amino Transf (AST/SGOT) 44 H 10-37 U/L Alanine Aminotransferase (ALT/SGPT) 49 # 12-78 U/L Alkaline Phosphatase 99 50-136 U/L Total Protein 7.2 6.0-8.3 g/dL Albumin 3.1 L 3.5-5.0 g/dL Phosphorus Level 5.0 H 2.5-4.9 mg/dL Current Medications Medications (Trade) Dose Ordered Sig/Rosendo Route PRN Reason Start Time Stop Time Status Last Admin Dose Admin Acetaminophen (TYLenol 500MG TAB) 1,000 mg Q6H PRN PO MILD PAIN (1-3) 10/12/24 15:30 10/19/24 12:41 DC 10/18/24 14:54 1,000 MG Acetaminophen/ Butalbital/ Caffeine (Jbvmvlhi-Accnwucxqrtiv-Eluu Tb) 1 each Q6H PO 10/16/24 01:30 10/19/24 12:41 DC 10/19/24 05:28 1 EACH Acetaminophen/ Butalbital/ Caffeine (Yvnpwupu-Bglxjekipbutb-Lxtt Tb) 1 each Q6H6 PO 10/16/24 06:00 10/16/24 01:06 DC Acetaminophen/ Codeine Phosphate (TYLenol-coDEINE TAB) 1 tab Q4H PRN PO MODERATE PAIN (4-6) 10/20/24 08:30 11/19/24 08:29 10/20/24 21:27 1 TAB Acetaminophen/ Hydrocodone Bitart (NORco 5/325MG) 1 tab Q4H PRN PO MODERATE PAIN (4-6) 10/18/24 15:30 10/19/24 12:41 DC 10/18/24 15:55 1 TAB Acetylcysteine (MUComyst 10% 4ML) 400 mg BID 10/15/24 13:00 10/15/24 14:54 DC Acetylcysteine (MUComyst 20% 4ML) 600mg = 3ml [id number] IH 10/16/24 10:00 10/16/24 10:29 DC Acetylcysteine (MUComyst 20% 4ML) 600mg = 3ml [id number] IH 10/16/24 12:00 10/20/24 08:19 DC 10/18/24 18:22 800 MG Albuterol (DUOneb) 1 udvial [id number] IH 10/15/24 12:00 10/20/24 08:19 DC 10/18/24 18:23 1 UDVIAL Amoxicillin (Amoxicillin 250mg Cap) 250 mg Q8H PO 10/14/24 23:00 10/14/24 19:05 DC Ampicillin Sodium 100 ml @ 200 mls/hr Q6H IV 10/13/24 11:00 10/14/24 10:59 DC 10/14/24 12:13 200 MLS/HR Ampicillin Sodium (Ampicillin 2gm Vial) 2 gm Q6H IV 10/12/24 15:30 10/12/24 15:19 DC Ampicillin Sodium (Ampicillin 2gm Vial) 2 gm Q6H IV 10/12/24 15:30 10/13/24 06:20 DC 10/13/24 04:40 2 GM Cefepime HCl (MAXipime 1 GM vial) 1 gm Q8H IVPB 10/15/24 06:15 10/15/24 08:34 DC 10/15/24 06:16 1 GM Ceftriaxone Sodium (Rocephin 2gm Inj) 2 gm Q24H IVPB 10/16/24 15:00 10/17/24 15:52 DC 10/16/24 15:27 2 GM Ceftriaxone Sodium (Rocephin 2gm Inj) 2 gm Q24H IVPB 10/17/24 17:00 10/27/24 16:59 10/20/24 17:20 2 GM Dexmedetomidine/ Sodium Chloride (PRECEdex 400MCG/ 100ML-NS) 400 mcg PROTOCOL IV 10/15/24 11:00 10/16/24 08:46 DC 10/15/24 11:50 400 MCG Dextrose (D50w) 50 ml AD PRN IV HYPOGLYCEMIA PROTOCOL 10/14/24 21:00 11/13/24 20:59 Enoxaparin Sodium (Lovenox) 30 mg BID SQ 10/16/24 21:00 11/15/24 20:59 10/21/24 08:43 30 MG Enoxaparin Sodium (Lovenox) 40 mg BID SQ 10/16/24 21:00 10/16/24 13:55 DC Ephedrine Sulfate (ePHEDrine SULFate 50 MG/ML AMPULE) 10 mg Q2M PRN IVP FOR SBP BELOW 90 10/14/24 18:00 10/19/24 12:41 DC Erythromycin (Erythromycin) 250 mg Q8H6 PO 10/14/24 23:30 10/15/24 00:48 DC Erythromycin Lactobionate 250 mg/Sodium Chloride 100 ml @ 100 mls/hr Q6H IV 10/12/24 15:30 10/14/24 15:29 DC 10/14/24 08:47 100 MLS/HR Famotidine (Pepcid 20mg Vial) 20 mg BID IV 10/15/24 09:00 10/19/24 12:41 DC 10/19/24 09:05 20 MG Folic Acid (FOLic ACID 1 MG TABLET) 1 mg DAILY PO 10/17/24 11:30 11/16/24 11:29 10/21/24 08:42 1 MG Furosemide (LASix 20MG VIAL) 20 mg Q12H IV 10/15/24 15:00 10/16/24 13:54 DC 10/16/24 02:01 20 MG Glucagon (Glucagon 1mg Kit) 1 mg AD PRN IM HYPOGLYCEMIA PROTOCOL 10/14/24 21:00 11/13/24 20:59 Home Med (Home Medication) (Topiramate (Topiramate ER) 50 MG) BID PO 10/19/24 21:00 10/20/24 08:09 DC Hydromorphone HCl (DiLAUDid 0.5MG INJ) 0.5 mg Q4H PRN IVP SEVERE PAIN (7-10) 10/15/24 15:00 10/19/24 12:41 DC 10/19/24 06:20 0.5 MG Hydromorphone HCl (DiLAUDid 1MG INJ) 1 mg Q4H PRN IVP SEVERE PAIN (7-10) 10/15/24 15:00 10/15/24 14:55 DC Ketorolac Tromethamine (toRADol) 15 mg ONCE STAT IV 10/16/24 07:51 10/16/24 07:59 DC 10/16/24 08:09 15 MG Lactated Ringer's 500 ml @ 1,000 mls/hr AD PRN IV EPIDURAL PROTOCOL 10/14/24 18:00 10/19/24 12:41 DC Lactated Ringer's 1,000 ml @ 0 mls/hr PROTOCOL IV 10/12/24 12:00 10/14/24 19:02 DC 10/14/24 07:36 125 MLS/HR Lactated Ringer's 1,000 ml @ 150 mls/hr Q6H40M IV 10/14/24 19:00 10/15/24 14:53 DC 10/15/24 10:31 150 MLS/HR Levofloxacin/ Dextrose (LEvaquIN 750 MG/ D5W 150 ML) 750 mg Q24H IV 10/16/24 14:00 10/16/24 14:47 DC Magnesium Sulfate 50 ml @ 0 mls/hr PROTOCOL IV 10/14/24 22:30 10/18/24 16:18 DC 10/15/24 02:52 25 MLS/HR Magnesium Sulfate 50 ml @ 0 mls/hr PROTOCOL PRN IV OTHER [SEE ORDER COMMENTS] 10/14/24 21:00 10/14/24 22:38 DC 10/14/24 22:27 25 MLS/HR Magnesium Sulfate 50 ml @ 0 mls/hr PROTOCOL PRN IV MAGNESIUM 10/18/24 16:30 11/17/24 16:29 10/21/24 06:24 25 MLS/HR Meperidine HCl (Demerol-Pf) 50 mg Q4H PRN IM SEVERE PAIN (7-10) 10/13/24 22:30 10/13/24 22:23 DC Meperidine HCl (Demerol-Pf) 50 mg Q4H PRN IM SEVERE PAIN (7-10) 10/13/24 22:30 10/15/24 14:55 DC 10/15/24 05:10 50 MG Meropenem (Merrem) 1 gm Q8H IVPB 10/15/24 09:00 10/16/24 13:54 DC 10/16/24 11:36 1 GM Meropenem 1 gm/ Sodium Chloride 100 ml @ 33.333 mls/ hr Q8H IVPB 10/15/24 08:30 10/15/24 08:53 DC Metoclopramide HCl (regLAN 10 MG TAB) 10 mg ONCE STAT PO 10/16/24 07:51 10/16/24 07:59 DC 10/16/24 08:09 10 MG Midodrine (PROAMatine 5 MG TABLET) 10 mg TID PO 10/16/24 11:00 11/15/24 10:59 10/21/24 08:42 10 MG Morphine Sulfate (morPHINE 10MG SYG) 10 mg Q8H6 PRN IVP SEVERE PAIN (7-10) 10/13/24 22:00 10/13/24 22:13 DC Morphine Sulfate (morPHINE 10MG SYG) 10 mg QID PRN IVP SEVERE PAIN (7-10) 10/13/24 22:00 10/13/24 22:00 DC Morphine Sulfate (morPHINE 2MG SYG) 2 mg Q4H PRN IVP MODERATE PAIN (4-6) 10/15/24 11:00 10/15/24 20:34 DC 10/15/24 20:08 2 MG Naloxone HCl (NARcan 0.4mg/1 mL) 0.1 mg Q10M PRN IV ITCHING OR URINARY RETENTION 10/14/24 18:00 10/19/24 12:41 DC Norepinephrine 250 ml @ 0 mls/hr PROTOCOL IV 10/14/24 20:00 10/15/24 18:20 DC 10/15/24 17:30 45 MLS/HR Norepinephrine Bitartrate 32 mg/ Sodium Chloride 250 ml @ 0 mls/hr PROTOCOL IV 10/15/24 18:30 10/19/24 12:41 DC 10/15/24 19:47 11.05 MLS/HR Ondansetron HCl (zoFRAN 4MG INJ) 4 mg Q6H IVP 10/14/24 08:35 11/13/24 08:34 10/20/24 17:20 4 MG Oxytocin/Lactated Ringer's 500 ml @ 0 mls/hr AD IV 10/14/24 20:30 10/19/24 12:41 DC 10/14/24 21:37 4 MLS/HR Piperacillin Sod/ Tazobactam Sod (Zosyn 3.375gm+NS 50ml) 3.375 gm Q8H IVPB 10/14/24 19:00 10/15/24 06:07 DC 10/15/24 06:02 3.375 GM Potassium Chloride 100 ml @ 50 mls/hr AD PRN IV POTASSIUM PROTOCOL 10/14/24 21:00 10/14/24 20:58 DC Potassium Chloride 100 ml @ 100 mls/hr AD PRN IV POTASSIUM PROTOCOL 10/14/24 21:00 11/13/24 20:59 Potassium Chloride (K-Dur/Klor-Con 20meq) 20 meq AD PRN PO POTASSIUM PROTOCOL 10/15/24 01:00 11/14/24 00:59 10/17/24 08:10 20 MEQ Potassium Chloride (KCl 10% Elixir 20meq/15ml) 20 meq AD PRN PO POTASSIUM PROTOCOL 10/15/24 01:00 11/14/24 00:59 10/19/24 06:06 20 MEQ Promethazine HCl (Phenergan) 25 mg Q6H PRN IM NAUSEA/VOMITING 10/13/24 22:00 11/12/24 21:59 10/15/24 21:34 25 MG Ropivacaine (NARopin) 200 mg PROTOCOL EP 10/14/24 18:00 10/19/24 12:41 DC Simethicone (Mylicon) 80 mg PCHS PRN PO GI GAS 10/17/24 20:00 11/16/24 19:59 10/18/24 21:59 80 MG Sodium Bicarbonate (Sodium Bicarb 50meq 50ml Vial) 150 meq ONCE STAT IV 10/15/24 08:14 10/15/24 09:10 DC 10/15/24 08:25 150 MEQ Sodium Chloride 500 ml @ 0 mls/hr Q0M IV 10/15/24 03:30 10/15/24 14:53 DC 10/15/24 03:49 999 MLS/HR Sodium Chloride 1,000 ml @ 0 mls/hr Q0M IV 10/14/24 22:30 10/16/24 22:53 DC 10/14/24 22:47 999 MLS/HR Sodium Chloride 1,000 ml @ 0 mls/hr Q0M IV 10/15/24 06:30 10/15/24 09:11 DC 10/15/24 06:19 999 MLS/HR Sodium Chloride 1,000 ml @ 75 mls/hr [id number] IV 10/16/24 23:00 10/17/24 10:23 DC 10/17/24 00:02 75 MLS/HR Sodium Chloride 1,000 ml @ 100 mls/hr Q10H IV 10/14/24 22:30 10/15/24 14:53 DC 10/14/24 22:47 100 MLS/HR Sodium Chloride (NS 50ml) 50 ml AD IV 10/14/24 19:00 10/14/24 19:03 DC Topiramate (TopaMAX) 25 mg BID PO 10/19/24 21:00 10/20/24 08:09 DC Topiramate (TopaMAX) 50 mg BID PO 10/20/24 09:00 11/19/24 08:59 10/21/24 08:42 50 MG Vancomycin HCl 250 ml @ 125 mls/hr Q12H IV 10/16/24 21:00 10/16/24 13:54 DC Vancomycin HCl (Vancomycin 1g/ 250ml Kit) 1 gm Q12H IV 10/14/24 19:00 10/16/24 08:07 DC 10/15/24 17:32 1 GM Vitamin B Complex (Vitamin B-12) 1,000 mcg DAILY PO 10/17/24 11:30 11/16/24 11:29 10/21/24 08:42 1,000 MCG DIAGNOSTICS / RADIOLOGY: [ ] ASSESSMENT: Septic shock, POA Gram-negative bacteremia secondary to E coli, POA Acute hypoxemic respiratory failure, POA S/P Miscarriage at 19 week gestation and two days on 10/14/24 s/p vaginal delivery of demise on 10/14/2024 at 2038 s/p placenta retention after delivery Acute urinary tract infection POA Hypokalemia POA Hypocalcemia Hypomagnesemia Hyponatremia Anemia Lactic acidosis Elevated procalcitonin level Elevated D-dimer Morbid obesity with BMI 44.6 Elevated fibrinogen level Thrombocytopenia PLAN: Patient has been downgraded to the medical floor Continue the patient on broad-spectrum IV antibiotics Continue to follow infectious disease input and recommendation Continue to monitor WBC in a.m. Continue to follow CBC and transfuse as needed Continue to monitor platelet count in a.m. Continue to follow Hematology input and recommendation Continue folic acid 1 mg p.o. daily and vitamin B12 1000 mcg p.o. daily Continue to follow up procalcitonin level in a.m. Replace electrolytes IV per protocol Follow a.m. labs GI and DVT prophylaxis Disposition: Patient doing well, downgraded to the medical floor. Remains on midodrine. Encouraged to ambulate once electrolytes corrected, to taper down midodrine. Continue antibiotics and monitor WBC in a.m.. Continue current antibiotics, follow ID input and recommendations. Repeat blood culture so far negative. Continue to follow CBC transfuse as needed, monitor platelet count, Hematology input noted and appreciated. Home once off midodrine and blood pressure stable. Plan of action discussed with the patient, all questions answered, agreed and understood the information provided Total time spent greater than 30 minutes. ALEXANDRIA GREEN MD Oct 21, 2024 13:18
[2024-10-21 16:00] VITALS: BP 108/61; PULSE 75; RESP 18; TEMP 98.2
--- NOTE | 2024-10-21 17:45 | HMCIMG ---
US TRANSVAGINAL NON-OB REASON: post stillbirth COMPARISON: None TECHNIQUE: Transvaginal pelvic sonogram was performed. FINDINGS: Uterus is diffusely enlarged at 10.9 x 6.0 x 5.5 cm. There is some fluid in the endometrial canal which may be hemorrhage, 2.6 x 1.1 x 1.5 cm. Endometrial thickness is 9 mm. Ovaries appear normal. There are no adnexal masses. There is no free fluid in the cul-de-sac. IMPRESSION: 1. Small amount of fluid in the endometrium which may be hemorrhage, there is no convincing evidence of retained products of conception. 2. Otherwise normal exam.
--- NOTE | 2024-10-21 18:32 | NUR ---
note at this time patient reported to this write that she felt her midline was leaking at the assess point, assessed site, no sign erythema, or ecchymosis, with with assistance of charge nurse justin, 20 cc of NS flushed, no sign of leakage, pt states no pain or discomfort to area
[2024-10-21 19:10] VITALS: O2SAT 97
[2024-10-21 20:00] VITALS: BP 117/74; PULSE 92; RESP 16; TEMP 98.4
--- NOTE | 2024-10-21 20:40 | NUR ---
Nurse note Patient asked if she had nausea at this time. Verbalized she did not and did not want scheduled zofran at this time.
--- NOTE | 2024-10-21 20:56 | NUR ---
US Results Notified fire protection inspector hospitalist Nuzhat Curtis ENVIRONMENTAL SERVICES ASSISTANT regarding transvaginal US results, ENVIRONMENTAL SERVICES ASSISTANT stated to go ahead and re-consult OB dr to notify them of results. [id number] Notified fire protection inspector OB-SHELVER Dr Jovanny Argueta regarding trans vaginal US results, stated that these are non specific results, he stated to go ahead and have her primary OB Dr Pretty consulted in am. Primary nurse and I went to speak with family and informed them that we had notified night time fire protection inspector OB regarding results.
[2024-10-22] VITALS (24 sets, daily range): BP systolic 105–129; BP diastolic 54–78; PULSE 81–108; RESP 16–20; TEMP 97.9–98.4; O2SAT 96
--- NOTE | 2024-10-22 02:15 | NUR ---
Nurse note Patient noted resting in bed. Respirations even and unlabored. No signs or symptoms of distress noted. Zofran held at this time.
--- NOTE | 2024-10-22 12:46 | PN ---
This is a 29-year-old female with obesity, was admitted with sudden onset abdominal pain and cramping. The patient was 19 weeks . The patient found with spontaneous expulsion of fetus. The patient also found with fever, septic shock, was admitted to ICU. Blood culture grew E. coli. Vaginal drainage also grew E. coli. The patient at present on multiple antibiotics with meropenem and vancomycin. No cough, no hemoptysis or pleuritic pain. No rashes or itchiness. Procalcitonin was elevated. I was consulted because this patient have leukocytosis, thrombocytopenia. Patient also with anemia. Her hemoglobin is 13.1 g/deciliter. Platelet count 1 42K. PHYSICAL EXAMINATION: GENERAL: Young female, awake. VITAL SIGNS: Temperature 98.8, pulse 90, respiratory rate 20, and BP 110/62. EYES: No icterus. Pupils equal and reactive. HENT: No oral thrush seen. Dry oral mucosa. NECK: Supple, no JVD or thyromegaly. LUNGS: Good air entry. No rales, no rhonchi. CARDIOVASCULAR: S1, S2 regular. No murmur heard. ABDOMEN: Obese, soft, and nontender. Bowel sounds present. CENTRAL NERVOUS SYSTEM: Awake, alert and oriented x 3. No focal deficits. SKIN: No rashes, no itchiness. LYMPHATIC: No peripheral lymphadenopathy. BACK: No deformity, no pressure ulcer. HEMATOLOGIC: No bleeding or petechial lesions seen. MUSCULOSKELETAL: No joint swelling, erythema or tenderness. ASSESSMENT: 1. Thrombocytopenia. Platelet count 1 42K. 2. Anemia. Hemoglobin level 10.9 g/deciliter 3. Leukocytosis 4. Septic shock. 5. Chorioamnionitis 6. Patient had probably bacteremia PLAN: 1. Peripheral blood smear showed red blood cells to be normocytic normochromic. There was no fragment cell or schistocyte. There is no teardrop cell. There is no rouleaux phenomena. There is no pelger-Huet cell. White blood cell with no blasts. Manual platelet count within normal. 2. There was hypersegmented neutrophils. This patient to be started on folic acid 1 mg p.o. daily and vitamin B12 1000 mcg p.o. daily. 3. The patient have increased neutrophils, bands with vacuolation consistent with infection.Continue antibiotic treatment as per infectious disease specialist 4. Peripheral blood smear did not show any schistocytes or fragment cell. So this patient does not have TTP or DIC. 5. This patient will need oral iron every other day For at least 6 months. This patient stable from my point review. With the patient could be discharged to follow-up with me in 6 weeks I will sign off this case at this time Vitals/Labs Vital Signs Date Time Temp Pulse Resp B/P (MAP) Pulse Ox O2 Delivery O2 Flow Rate FiO2 10/22/24 08:00 98.4 93 18 119/72 96 Room Air 10/21/24 19:10 0 21 Medications Current Medications Lactated Ringer's 1,000 ml @ 0 mls/hr PROTOCOL IV Last administered on 10/14/24at 07:36; Start 10/12/24 at 12:00; Stop 10/14/24 at 19:02; Status DC Ampicillin Sodium 2 gm Q6H IV; Start 10/12/24 at 15:30; Stop 10/12/24 at 15:19; Status DC Erythromycin Lactobionate 250 mg/Sodium Chloride 100 ml @ 100 mls/hr Q6H IV Last administered on 10/14/24at 08:47; Start 10/12/24 at 15:30; Stop 10/14/24 at 15:29; Status DC Morphine Sulfate 10 mg ONCE ONCE SQ Last administered on 10/12/24at 16:02; Start 10/12/24 at 15:30; Stop 10/12/24 at 15:31; Status DC Acetaminophen 1,000 mg Q6H PRN PO Last administered on 10/18/24at 14:54; Start 10/12/24 at 15:30; Stop 10/19/24 at 12:41; Status DC Ampicillin Sodium 2 gm Q6H IV Last administered on 10/13/24at 04:40; Start 10/12/24 at 15:30; Stop 10/13/24 at 06:20; Status DC Ampicillin Sodium 100 ml @ As Directed STK-MED ONCE IV; Start 10/12/24 at 16:29; Stop 10/12/24 at 16:30; Status DC Meperidine HCl 50 mg ONCE ONCE IVP Last administered on 10/12/24at 20:21; Start 10/12/24 at 20:00; Stop 10/12/24 at 20:02; Status DC Promethazine HCl 25 mg ONCE ONCE IM Last administered on 10/12/24at 20:20; Start 10/12/24 at 20:00; Stop 10/12/24 at 20:02; Status DC Morphine Sulfate 10 mg ONCE ONCE SQ Last administered on 10/13/24at 08:52; Start 10/13/24 at 00:00; Stop 10/13/24 at 00:01; Status DC Ampicillin Sodium 100 ml @ As Directed STK-MED ONCE IV; Start 10/12/24 at 22:34; Stop 10/12/24 at 22:35; Status DC Ampicillin Sodium 100 ml @ 200 mls/hr Q6H IV Last administered on 10/14/24at 12:13; Start 10/13/24 at 11:00; Stop 10/14/24 at 10:59; Status DC Morphine Sulfate 10 mg STK-MED ONCE .ROUTE; Start 10/13/24 at 08:45; Stop 10/13/24 at 08:45; Status DC Erythromycin 250 mg Q8H6 PO; Start 10/14/24 at 23:30; Stop 10/15/24 at 00:48; Status DC Amoxicillin 250 mg Q8H PO; Start 10/14/24 at 23:00; Stop 10/14/24 at 19:05; Status DC Meperidine HCl 50 mg ONCE ONCE IM Last administered on 10/13/24at 14:32; Start 10/13/24 at 14:30; Stop 10/13/24 at 14:31; Status DC Promethazine HCl 25 mg ONCE ONCE IM Last administered on 10/13/24at 14:33; Start 10/13/24 at 14:30; Stop 10/13/24 at 14:31; Status DC Morphine Sulfate 10 mg ONCE ONCE IM; Start 10/13/24 at 19:00; Stop 10/13/24 at 19:01; Status DC Morphine Sulfate 10 mg STK-MED ONCE .ROUTE Last administered on 10/13/24at 18:57; Start 10/13/24 at 18:53; Stop 10/13/24 at 18:53; Status DC Promethazine HCl 25 mg Q6H PRN IM Last administered on 10/15/24at 21:34; Start 10/13/24 at 22:00; Stop 11/12/24 at 21:59 Morphine Sulfate 10 mg QID PRN IVP; Start 10/13/24 at 22:00; Stop 10/13/24 at 22:00; Status DC Morphine Sulfate 10 mg Q8H6 PRN IVP; Start 10/13/24 at 22:00; Stop 10/13/24 at 22:13; Status DC Meperidine HCl 50 mg Q4H PRN IM Last administered on 10/15/24at 05:10; Start 10/13/24 at 22:30; Stop 10/15/24 at 14:55; Status DC Meperidine HCl 50 mg Q4H PRN IM; Start 10/13/24 at 22:30; Stop 10/13/24 at 22:23; Status DC Ondansetron HCl 4 mg Q6H IVP Last administered on 10/20/24at 17:20; Start at 08:35; Stop 11/13/24 at 08:34 Ampicillin Sodium 100 ml @ As Directed STK-MED ONCE IV; Start 10/14/24 at 12:11; Stop 10/14/24 at 12:12; Status DC Fentanyl Citrate 100 mcg STK-MED ONCE .ROUTE; Start 10/14/24 at 16:30; Stop 10/14/24 at 16:30; Status DC Midazolam HCl 2 mg STK-MED ONCE .ROUTE; Start 10/14/24 at 16:32; Stop 10/14/24 at 16:32; Status DC Ephedrine Sulfate 10 mg Q2M PRN IVP; Start 10/14/24 at 18:00; Stop 10/19/24 at 12:41; Status DC Lactated Ringer's 500 ml @ 1,000 mls/hr AD PRN IV; Start 10/14/24 at 18:00; Stop 10/19/24 at 12:41; Status DC Naloxone HCl 0.1 mg Q10M PRN IV; Start 10/14/24 at 18:00; Stop 10/19/24 at 12:41; Status DC Ropivacaine 200 mg PROTOCOL EP; Start 10/14/24 at 18:00; Stop 10/19/24 at 12:41; Status DC Lactated Ringer's 1,000 ml @ 150 mls/hr Q6H40M IV Last administered on 10/15/24at 10:31; Start 10/14/24 at 19:00; Stop 10/15/24 at 14:53; Status DC Piperacillin Sod/ Tazobactam Sod 3.375 gm Q8H IVPB Last administered on 10/15/24at 06:02; Start 10/14/24 at 19:00; Stop 10/15/24 at 06:07; Status DC Sodium Chloride 50 ml AD IV; Start 10/14/24 at 19:00; Stop 10/14/24 at 19:03; Status DC Vancomycin HCl 1 gm Q12H IV Last administered on 10/15/24at 17:32; Start 10/14/24 at 19:00; Stop 10/16/24 at 08:07; Status DC Norepinephrine 250 ml @ 0 mls/hr PROTOCOL IV Last administered on 10/15/24at 17:30; Start 10/14/24 at 20:00; Stop 10/15/24 at 18:20; Status DC Norepinephrine 250 ml @ As Directed STK-MED ONCE IV; Start 10/14/24 at 20:03; Stop 10/14/24 at 20:04; Status DC Oxytocin/Lactated Ringer's 500 ml @ 0 mls/hr AD IV Last administered on 10/14/24at 21:37; Start 10/14/24 at 20:30; Stop 10/19/24 at 12:41; Status DC Oxytocin/Lactated Ringer's 500 ml @ As Directed STK-MED ONCE IV Last administered on 10/14/24at 23:11; Start 10/14/24 at 20:05; Stop 10/14/24 at 20:06; Status DC Magnesium Sulfate 50 ml @ 0 mls/hr PROTOCOL PRN IV Last administered on 10/14/24at 22:27; Start 10/14/24 at 21:00; Stop 10/14/24 at 22:38; Status DC Potassium Chloride 100 ml @ 50 mls/hr AD PRN IV; Start 10/14/24 at 21:00; Stop 10/14/24 at 20:58; Status DC Potassium Chloride 200 ml @ As Directed STK-MED ONCE IV Last administered on 10/14/24at 23:13; Start 10/14/24 at 20:47; Stop 10/14/24 at 20:47; Status DC Misoprostol 200 mcg STK-MED ONCE .ROUTE; Start 10/14/24 at 20:49; Stop 10/14/24 at 20:49; Status DC Dextrose 50 ml AD PRN IV; Start 10/14/24 at 21:00; Stop 11/13/24 at 20:59 Glucagon 1 mg AD PRN IM; Start 10/14/24 at 21:00; Stop 11/13/24 at 20:59 Potassium Chloride 100 ml @ 100 mls/hr AD PRN IV; Start 10/14/24 at 21:00; Stop 11/13/24 at 20:59 Misoprostol 1,000 mcg STAT ONCE OK Last administered on 10/14/24at 21:34; Start 10/14/24 at 21:30; Stop 10/14/24 at 21:31; Status DC Fentanyl Citrate 100 mcg STK-MED ONCE .ROUTE Last administered on 10/14/24at 21:20; Start 10/14/24 at 21:14; Stop 10/14/24 at 21:14; Status DC Lidocaine HCl 1 ml STK-MED ONCE .ROUTE Last administered on 10/14/24at 21:20; Start 10/14/24 at 21:16; Stop 10/14/24 at 21:16; Status DC Sodium Chloride 1,000 ml ONCE ONCE IR; Start 10/14/24 at 22:00; Stop 10/14/24 at 22:05; Status DC Sodium Chloride 1,000 ml @ 100 mls/hr Q10H IV Last administered on 10/14/24at 22:47; Start 10/14/24 at 22:30; Stop 10/15/24 at 14:53; Status DC Sodium Chloride 1,000 ml @ 0 mls/hr Q0M IV Last administered on 10/14/24at 22:47; Start 10/14/24 at 22:30; Stop 10/16/24 at 22:53; Status DC Famotidine 20 mg BID IV Last administered on 10/19/24at 09:05; Start 10/15/24 at 09:00; Stop 10/19/24 at 12:41; Status DC Magnesium Sulfate 50 ml @ 0 mls/hr PROTOCOL IV Last administered on 10/15/24at 02:52; Start 10/14/24 at 22:30; Stop 10/18/24 at 16:18; Status DC Acetaminophen 1,000 mg ONCE ONCE IVPB Last administered on 10/15/24at 00:47; Start 10/15/24 at 01:00; Stop 10/15/24 at 09:10; Status DC Potassium Chloride 20 meq AD PRN PO Last administered on 10/19/24at 06:06; Start 10/15/24 at 01:00; Stop 11/14/24 at 00:59 Potassium Chloride 20 meq AD PRN PO Last administered on 10/17/24at 08:10; Start 10/15/24 at 01:00; Stop 11/14/24 at 00:59 Sodium Chloride 1,000 ml @ 0 mls/hr Q0M ONCE IV; Start 10/15/24 at 02:00; Stop 10/15/24 at 02:56; Status DC Sodium Chloride 500 ml @ 0 mls/hr Q0M IV Last administered on 10/15/24at 03:49; Start 10/15/24 at 03:30; Stop 10/15/24 at 14:53; Status DC Cefepime HCl 1 gm Q8H IVPB Last administered on 10/15/24at 06:16; Start 10/15/24 at 06:15; Stop 10/15/24 at 08:34; Status DC Sodium Chloride 1,000 ml @ 0 mls/hr Q0M IV Last administered on 10/15/24at 06:19; Start 10/15/24 at 06:30; Stop 10/15/24 at 09:11; Status DC Sodium Bicarbonate 150 meq ONCE STAT IV Last administered on 10/15/24at 08:25; Start 10/15/24 at 08:14; Stop 10/15/24 at 09:10; Status DC Meropenem 1 gm/ Sodium Chloride 100 ml @ 33.333 mls/ hr Q8H IVPB; Start 10/15/24 at 08:30; Stop 10/15/24 at 08:53; Status DC Albuterol 1 udvial [id number] IH Last administered on 10/18/24at 18:23; Start 10/15/24 at 12:00; Stop 10/20/24 at 08:19; Status DC Meropenem 1 gm Q8H IVPB Last administered on 10/16/24at 11:36; Start 10/15/24 at 09:00; Stop 10/16/24 at 13:54; Status DC Morphine Sulfate 2 mg Q4H PRN IVP Last administered on 10/15/24at 20:08; Start 10/15/24 at 11:00; Stop 10/15/24 at 20:34; Status DC Dexmedetomidine/ Sodium Chloride 400 mcg PROTOCOL IV Last administered on 10/15/24at 11:50; Start 10/15/24 at 11:00; Stop 10/16/24 at 08:46; Status DC Acetylcysteine 400 mg BID IH; Start 10/15/24 at 13:00; Stop 10/15/24 at 14:54; Status DC Furosemide 20 mg Q12H IV Last administered on 10/16/24at 02:01; Start 10/15/24 at 15:00; Stop 10/16/24 at 13:54; Status DC Hydromorphone HCl 1 mg Q4H PRN IVP; Start 10/15/24 at 15:00; Stop 10/15/24 at 14:55; Status DC Hydromorphone HCl 0.5 mg Q4H PRN IVP Last administered on 10/19/24at 06:20; Start 10/15/24 at 15:00; Stop 10/19/24 at 12:41; Status DC Norepinephrine Bitartrate 32 mg/ Sodium Chloride 250 ml @ 0 mls/hr PROTOCOL IV Last administered on 10/15/24at 19:47; Start 10/15/24 at 18:30; Stop 10/19/24 at 12:41; Status DC Acetaminophen/ Butalbital/ Caffeine 1 each Q6H6 PO; Start 10/16/24 at 06:00; Stop 10/16/24 at 01:06; Status DC Magnesium Sulfate 50 ml @ 0 mls/hr PROTOCOL ONCE IV Last administered on 10/16/24at 01:11; Start 10/16/24 at 01:00; Stop 10/16/24 at 01:02; Status DC Acetaminophen/ Butalbital/ Caffeine 1 each Q6H PO Last administered on 10/19/24at 05:28; Start 10/16/24 at 01:30; Stop 10/19/24 at 12:41; Status DC Topiramate 25 mg ONCE ONCE PO Last administered on 10/16/24at 04:39; Start 10/16/24 at 05:00; Stop 10/16/24 at 05:01; Status DC Ketorolac Tromethamine 15 mg ONCE STAT IV Last administered on 10/16/24at 08:09; Start 10/16/24 at 07:51; Stop 10/16/24 at 07:59; Status DC Metoclopramide HCl 10 mg ONCE STAT PO Last administered on 10/16/24at 08:09; Start 10/16/24 at 07:51; Stop 10/16/24 at 07:59; Status DC Vancomycin HCl 250 ml @ 125 mls/hr Q12H IV; Start 10/16/24 at 21:00; Stop 10/16/24 at 13:54; Status DC Acetylcysteine 600mg = 3ml [id number] IH; Start 10/16/24 at 10:00; Stop 10/16/24 at 10:29; Status DC Acetylcysteine 600mg = 3ml [id number] IH Last administered on 10/18/24at 18:22; Start 10/16/24 at 12:00; Stop 10/20/24 at 08:19; Status DC Acetylcysteine 800 mg STK-MED ONCE .ROUTE; Start 10/16/24 at 10:50; Stop 10/16/24 at 10:51; Status DC Enoxaparin Sodium 40 mg BID SQ; Start 10/16/24 at 21:00; Stop 10/16/24 at 13:55; Status DC Enoxaparin Sodium 40 mg ONCE ONCE SQ Last administered on 10/16/24at 11:36; Start 10/16/24 at 11:00; Stop 10/16/24 at 11:01; Status DC Midodrine 10 mg TID PO Last administered on 10/21/24at 08:42; Start 10/16/24 at 11:00; Stop 11/15/24 at 10:59 Levofloxacin/ Dextrose 750 mg Q24H IV; Start 10/16/24 at 14:00; Stop 10/16/24 at 14:47; Status DC Enoxaparin Sodium 30 mg BID SQ Last administered on 10/22/24at 08:49; Start 10/16/24 at 21:00; Stop 11/15/24 at 20:59 Ceftriaxone Sodium 2 gm Q24H IVPB Last administered on 10/16/24at 15:27; Start 10/16/24 at 15:00; Stop 10/17/24 at 15:52; Status DC Sodium Chloride 1,000 ml @ 75 mls/hr [id number] IV Last administered on 10/17/24at 00:02; Start 10/16/24 at 23:00; Stop 10/17/24 at 10:23; Status DC Vitamin B Complex 1,000 mcg DAILY PO Last administered on 10/22/24at 08:47; Start 10/17/24 at 11:30; Stop 11/16/24 at 11:29 Folic Acid 1 mg DAILY PO Last administered on 10/22/24at 08:47; Start 10/17/24 at 11:30; Stop 11/16/24 at 11:29 Ceftriaxone Sodium 2 gm Q24H IVPB Last administered on 10/21/24at 16:57; Start 10/17/24 at 17:00; Stop 10/27/24 at 16:59 Simethicone 80 mg PCHS PRN PO Last administered on 10/18/24at 21:59; Start 10/17/24 at 20:00; Stop 11/16/24 at 19:59 Acetaminophen/ Hydrocodone Bitart 1 tab Q4H PRN PO Last administered on 10/18/24at 15:55; Start 10/18/24 at 15:30; Stop 10/19/24 at 12:41; Status DC Magnesium Sulfate 50 ml @ As Directed STK-MED ONCE IV; Start 10/18/24 at 16:14; Stop 10/18/24 at 16:14; Status DC Magnesium Sulfate 50 ml @ 0 mls/hr PROTOCOL PRN IV Last administered on 10/21/24at 06:24; Start 10/18/24 at 16:30; Stop 11/17/24 at 16:29 Lidocaine 1 each ONCE ONCE TP Last administered on 10/18/24at 21:35; Start 10/18/24 at 21:30; Stop 10/18/24 at 21:31; Status DC Topiramate 25 mg BID PO; Start 10/19/24 at 21:00; Stop 10/20/24 at 08:09; Status DC Home Med (Topiramate (Topiramate ER) 50 MG) BID PO; Start 10/19/24 at 21:00; Stop 10/20/24 at 08:09; Status DC Topiramate 50 mg ONCE ONCE PO Last administered on 10/19/24at 18:11; Start 10/19/24 at 18:00; Stop 10/19/24 at 18:01; Status DC Potassium Chloride 40 meq NOW ONCE PO; Start 10/19/24 at 20:00; Stop 10/19/24 at 19:52; Status DC Potassium Chloride 40 meq ONCE ONCE PO Last administered on 10/19/24at 20:01; Start 10/19/24 at 20:00; Stop 10/19/24 at 20:01; Status DC Acetaminophen/ Codeine Phosphate 1 tab ONCE ONCE PO Last administered on 10/19/24at 21:45; Start 10/19/24 at 21:30; Stop 10/19/24 at 21:31; Status DC Acetaminophen/ Codeine Phosphate 1 tab Q4H PRN PO Last administered on 10/21/24at 20:45; Start 10/20/24 at 08:30; Stop 11/19/24 at 08:29 Topiramate 50 mg BID PO Last administered on 10/22/24at 08:46; Start 10/20/24 at 09:00; Stop 11/19/24 at 08:59 Magnesium Oxide 400 mg ONCE ONCE PO Last administered on 10/20/24at 19:39; Start 10/20/24 at 19:00; Stop 10/20/24 at 19:01; Status DC KAVITHA FLEMING MD Oct 22, 2024 12:46
[2024-10-22] MEDS ORDERED: LIDOCAINE PF 100MG/5ML (2%) SYRINGE 5ML ONE (14:59)
[2024-10-22] MEDS ORDERED: dexaMETHasone SOD PHOSPHATE 10MG/ML 1ML VIAL ONE (14:59)
[2024-10-22] MEDS ORDERED: proPOFol 10 MG/ML 20ML VIAL IV ONE (15:00)
[2024-10-22] MEDS ORDERED: GLYCOPYRROLATE 0.2 MG/ML 5 ML VIAL ONE (15:00)
[2024-10-22] MEDS ORDERED: SUCCINYLCHOLINE CHLORIDE 20 MG/ML 10 ML VIAL ONE (15:00)
[2024-10-22] MEDS ORDERED: NEOSTIGMINE METHYLSULFATE 1MG/ML IV ONE (15:00)
[2024-10-22] MEDS ORDERED: ondanSETRON 4MG INJ ONE (15:00)
[2024-10-22] MEDS ORDERED: FENTanyl CITRate PF 50 MCG/1 ML 2ML VIAL ONE ×2 (15:01→15:23)
[2024-10-22] MEDS ORDERED: MIDAZOLAM HCL 1 MG/ML 2ML VIAL ONE (15:01)
[2024-10-22] MEDS ORDERED: rocuRONium bROMide 10MG/1ML 5ML VL ONE (15:01)
--- NOTE | 2024-10-22 16:00 | PN ---
[facility] PROGRESS NOTE Date of Service: Oct 22, 2024 Time of Service: 15:52 SUBJECTIVE: [ ] The patient has been seen and examined today during my rounding, she is alert and oriented x3, remains on Levophed for blood pressure support, also on Precedex. She is getting IV antibiotics. She remains on supplemental oxygen via nasal cannula 4 L, currently saturating 97%. Multiple family members at bedside during my visit. 10/16 the patient has been seen and examined today during my rounding, she remains comfortably in bed, on supplemental oxygen via nasal cannula at 3 L, saturating 98%. She is alert oriented x3, remains on low-dose Levophed, off Precedex. Denied chest pain, no shortness a breath, nausea, no vomiting. Multiple family members at bedside during my visit. Updated. 10/18 the patient has been seen and examined during my rounding, successfully downgraded to the progressive care unit from the ICU, during my visit she is comfortably in bed, alert oriented x3, hemodynamically stable, afebrile, she is saturating normal on room air. Denied chest pain, shortness shortness for breath, no nausea, no vomiting, no abdominal discomfort. Patient has been updated on results of blood test. Family members bedside. 10/19 the patient has been seen and examined during my rounding, downgraded to the medical floor, during my visit she is sitting comfortable in the bed, hemodynamically stable, alert oriented x3, saturating normal on room air. Patient was having bloody vaginal spotting yesterday, she past a few cm blood c lot yesterday. No more spotting after that. Denies nausea, no vomiting, no abdominal pain. Tolerating diet. Family at bedside, updated. All questions answered. 10/20 patient has been seen and examined earlier this morning during my rounding, eating breakfast, tolerating well, no nausea, vomiting, no abdominal discomfort, BP 101/63, afebrile, saturating normal on room air, denied chest, no shortness a breath. Results of blood work reviewed, discussed in detail with the patient. No family members bedside during my visit. 10/21/24 patient was seen and examined. Case discussed with RN and family by the bedside. Patient was sitting up in chair slightly feeling better. She was concerned about feeling feverish at night times with sweating. He is concerned about retained products from her loosing the baby. She also some cough. We will order pelvic ultrasound as well as a chest x-ray 10/22 patient seen at bedside, no acute events overnight. Patient pending D and C with OBGYN later today, we will follow up postprocedure. Vitals and labs are relatively unremarkable. REVIEW OF SYSTEMS 12 point review of systems negative unless noted in HPI PHYSICAL EXAM GENERAL APPEARANCE: The patient is awake, alert, and oriented, in no acute cardiopulmonary distress. NEUROLOGICAL: Cranial nerves II-XII grossly intact. Motor is 5/5 in bilateral upper and lower extremities proximal to distal. No sensory deficits. HEENT: Face is symmetric. Pupils are equal and reactive. Extraocular movements are intact. NECK: Supple. No JVD. No thyromegaly. No submental, submandibular, pre- /postauricular, occipital or supraclavicular lymphadenopathy. CHEST: Normal chest expansion. No Telemetry. LUNGS: Clear lungs bilaterally, no wheezing, no rhonchi, no rales CARDIOVASCULAR: Tachycardic Regular. S1 and S2 normal. No appreciable rubs, murmurs or gallops. ABDOMEN: Soft, nontender, and nondistended. There is no rebound, voluntary guarding, or rigidity. : Deferred. No Gonsalez. EXTREMITIES: Non-edematous and not cyanotic. No clubbing. Good capillary refill. SKIN: No skin breakdown. Vital Signs (last 8hr) Date Time Temp Pulse Resp B/P (MAP) Pulse Ox O2 Delivery O2 Flow Rate FiO2 10/22/24 12:00 81 18 111/66 96 Room Air 10/22/24 08:00 98.4 93 18 119/72 96 Room Air LABS: Laboratory: Test 10/21/24 15:15 10/21/24 04:37 10/20/24 17:15 Range/Units Whole Blood Glucose 90 70-110 MG/DL White Blood Count 12.3 H 4.8-10.8 K/uL Red Blood Count 4.20 4.00-5.50 MIL/uL Hemoglobin 13.1 12.0-16.0 g/dL Hematocrit 39.2 36-48 % Mean Corpuscular Volume 93.3 79-99 fL Mean Corpuscular Hemoglobin 31.2 27.0-33.0 pg Mean Corpuscular Hemoglobin Concent 33.4 32.0-36.0 g/dL Red Cell Distribution Width 13.1 11.0-15.5 % Platelet Count 201 130-400 K/uL Mean Platelet Volume 10.9 H 7.5-10.5 fL Nucleated Red Blood Cells 0.2 H 0.0-0.19 % Sodium Level 138 136-145 mmol/L Potassium Level 3.9 3.5-5.1 mmol/L Chloride Level 104 101-111 mmol/L Carbon Dioxide Level 23 21-32 mmol/L Blood Urea Nitrogen 18 7-18 mg/dL Creatinine 0.9 0.5-1.0 mg/dL Glomerular Filtration Rate Calc 89 >90 mL/min Random Glucose 79 70-105 mg/dL Total Calcium 9.5 8.5-10.1 mg/dL Magnesium Level 1.90 1.80-2.40 mg/dL Total Bilirubin 0.2 0.2-1.0 mg/dL Aspartate Amino Transf (AST/SGOT) 44 H 10-37 U/L Alanine Aminotransferase (ALT/SGPT) 49 # 12-78 U/L Alkaline Phosphatase 99 50-136 U/L Total Protein 7.2 6.0-8.3 g/dL Albumin 3.1 L 3.5-5.0 g/dL Phosphorus Level 5.0 H 2.5-4.9 mg/dL Current Medications Medications (Trade) Dose Ordered Sig/Rosendo Route PRN Reason Start Time Stop Time Status Last Admin Dose Admin Acetaminophen (TYLenol 500MG TAB) 1,000 mg Q6H PRN PO MILD PAIN (1-3) 10/12/24 15:30 10/19/24 12:41 DC 10/18/24 14:54 1,000 MG Acetaminophen/ Butalbital/ Caffeine (Pqnxzadm-Dwycrvohcijmi-Ivvh Tb) 1 each Q6H PO 10/16/24 01:30 10/19/24 12:41 DC 10/19/24 05:28 1 EACH Acetaminophen/ Butalbital/ Caffeine (Nwciqcyr-Pcejbsgdzgnep-Aljy Tb) 1 each Q6H6 PO 10/16/24 06:00 10/16/24 01:06 DC Acetaminophen/ Codeine Phosphate (TYLenol-coDEINE TAB) 1 tab Q4H PRN PO MODERATE PAIN (4-6) 10/20/24 08:30 11/19/24 08:29 10/21/24 20:45 1 TAB Acetaminophen/ Hydrocodone Bitart (NORco 5/325MG) 1 tab Q4H PRN PO MODERATE PAIN (4-6) 10/18/24 15:30 10/19/24 12:41 DC 10/18/24 15:55 1 TAB Acetylcysteine (MUComyst 10% 4ML) 400 mg BID IH 10/15/24 13:00 10/15/24 14:54 DC Acetylcysteine (MUComyst 20% 4ML) 600mg = 3ml [id number] IH 10/16/24 10:00 10/16/24 10:29 DC Acetylcysteine (MUComyst 20% 4ML) 600mg = 3ml [id number] IH 10/16/24 12:00 10/20/24 08:19 DC 10/18/24 18:22 800 MG Albuterol (DUOneb) 1 udvial [id number] 10/15/24 12:00 10/20/24 08:19 DC 10/18/24 18:23 1 UDVIAL Amoxicillin (Amoxicillin 250mg Cap) 250 mg Q8H PO 10/14/24 23:00 10/14/24 19:05 DC Ampicillin Sodium 100 ml @ 200 mls/hr Q6H IV 10/13/24 11:00 10/14/24 10:59 DC 10/14/24 12:13 200 MLS/HR Ampicillin Sodium (Ampicillin 2gm Vial) 2 gm Q6H IV 10/12/24 15:30 10/12/24 15:19 DC Ampicillin Sodium (Ampicillin 2gm Vial) 2 gm Q6H IV 10/12/24 15:30 10/13/24 06:20 DC 10/13/24 04:40 2 GM Cefepime HCl (MAXipime 1 GM vial) 1 gm Q8H IVPB 10/15/24 06:15 10/15/24 08:34 DC 10/15/24 06:16 1 GM Ceftriaxone Sodium (Rocephin 2gm Inj) 2 gm Q24H IVPB 10/16/24 15:00 10/17/24 15:52 DC 10/16/24 15:27 2 GM Ceftriaxone Sodium (Rocephin 2gm Inj) 2 gm Q24H IVPB 10/17/24 17:00 10/27/24 16:59 10/21/24 16:57 2 GM Dexmedetomidine/ Sodium Chloride (PRECEdex 400MCG/ 100ML-NS) 400 mcg PROTOCOL IV 10/15/24 11:00 10/16/24 08:46 DC 10/15/24 11:50 400 MCG Dextrose (D50w) 50 ml AD PRN IV HYPOGLYCEMIA PROTOCOL 10/14/24 21:00 11/13/24 20:59 Enoxaparin Sodium (Lovenox) 30 mg BID SQ 10/16/24 21:00 11/15/24 20:59 10/22/24 08:49 30 MG Enoxaparin Sodium (Lovenox) 40 mg BID SQ 10/16/24 21:00 10/16/24 13:55 DC Ephedrine Sulfate (ePHEDrine SULFate 50 MG/ML AMPULE) 10 mg Q2M PRN IVP FOR SBP BELOW 90 10/14/24 18:00 10/19/24 12:41 DC Erythromycin (Erythromycin) 250 mg Q8H6 PO 10/14/24 23:30 10/15/24 00:48 DC Erythromycin Lactobionate 250 mg/Sodium Chloride 100 ml @ 100 mls/hr Q6H IV 10/12/24 15:30 10/14/24 15:29 DC 10/14/24 08:47 100 MLS/HR Famotidine (Pepcid 20mg Vial) 20 mg BID IV 10/15/24 09:00 10/19/24 12:41 DC 10/19/24 09:05 20 MG Folic Acid (FOLic ACID 1 MG TABLET) 1 mg DAILY PO 10/17/24 11:30 11/16/24 11:29 10/22/24 08:47 1 MG Furosemide (LASix 20MG VIAL) 20 mg Q12H IV 10/15/24 15:00 10/16/24 13:54 DC 10/16/24 02:01 20 MG Glucagon (Glucagon 1mg Kit) 1 mg AD PRN IM HYPOGLYCEMIA PROTOCOL 10/14/24 21:00 11/13/24 20:59 Home Med (Home Medication) (Topiramate (Topiramate ER) 50 MG) BID PO 10/19/24 21:00 10/20/24 08:09 DC Hydromorphone HCl (DiLAUDid 0.5MG INJ) 0.5 mg Q4H PRN IVP SEVERE PAIN (7-10) 10/15/24 15:00 10/19/24 12:41 DC 10/19/24 06:20 0.5 MG Hydromorphone HCl (DiLAUDid 1MG INJ) 1 mg Q4H PRN IVP SEVERE PAIN (7-10) 10/15/24 15:00 10/15/24 14:55 DC Ketorolac Tromethamine (toRADol) 15 mg ONCE STAT IV 10/16/24 07:51 10/16/24 07:59 DC 10/16/24 08:09 15 MG Lactated Ringer's 500 ml @ 1,000 mls/hr AD PRN IV EPIDURAL PROTOCOL 10/14/24 18:00 10/19/24 12:41 DC Lactated Ringer's 1,000 ml @ 0 mls/hr PROTOCOL IV 10/12/24 12:00 10/14/24 19:02 DC 10/14/24 07:36 125 MLS/HR Lactated Ringer's 1,000 ml @ 150 mls/hr Q6H40M IV 10/14/24 19:00 10/15/24 14:53 DC 10/15/24 10:31 150 MLS/HR Levofloxacin/ Dextrose (LEvaquIN 750 MG/ D5W 150 ML) 750 mg Q24H IV 10/16/24 14:00 10/16/24 14:47 DC Magnesium Sulfate 50 ml @ 0 mls/hr PROTOCOL IV 10/14/24 22:30 10/18/24 16:18 DC 10/15/24 02:52 25 MLS/HR Magnesium Sulfate 50 ml @ 0 mls/hr PROTOCOL PRN IV OTHER [SEE ORDER COMMENTS] 10/14/24 21:00 10/14/24 22:38 DC 10/14/24 22:27 25 MLS/HR Magnesium Sulfate 50 ml @ 0 mls/hr PROTOCOL PRN IV MAGNESIUM 10/18/24 16:30 11/17/24 16:29 10/21/24 06:24 25 MLS/HR Meperidine HCl (Demerol-Pf) 50 mg Q4H PRN IM SEVERE PAIN (7-10) 10/13/24 22:30 10/13/24 22:23 DC Meperidine HCl (Demerol-Pf) 50 mg Q4H PRN IM SEVERE PAIN (7-10) 10/13/24 22:30 10/15/24 14:55 DC 10/15/24 05:10 50 MG Meropenem (Merrem) 1 gm Q8H IVPB 10/15/24 09:00 10/16/24 13:54 DC 10/16/24 11:36 1 GM Meropenem 1 gm/ Sodium Chloride 100 ml @ 33.333 mls/ hr Q8H IVPB 10/15/24 08:30 10/15/24 08:53 DC Metoclopramide HCl (regLAN 10 MG TAB) 10 mg ONCE STAT PO 10/16/24 07:51 10/16/24 07:59 DC 10/16/24 08:09 10 MG Midodrine (PROAMatine 5 MG TABLET) 10 mg TID PO 10/16/24 11:00 11/15/24 10:59 10/21/24 08:42 10 MG Morphine Sulfate (morPHINE 10MG SYG) 10 mg Q8H6 PRN IVP SEVERE PAIN (7-10) 10/13/24 22:00 10/13/24 22:13 DC Morphine Sulfate (morPHINE 10MG SYG) 10 mg QID PRN IVP SEVERE PAIN (7-10) 10/13/24 22:00 10/13/24 22:00 DC Morphine Sulfate (morPHINE 2MG SYG) 2 mg Q4H PRN IVP MODERATE PAIN (4-6) 10/15/24 11:00 10/15/24 20:34 DC 10/15/24 20:08 2 MG Naloxone HCl (NARcan 0.4mg/1 mL) 0.1 mg Q10M PRN IV ITCHING OR URINARY RETENTION 10/14/24 18:00 10/19/24 12:41 DC Norepinephrine 250 ml @ 0 mls/hr PROTOCOL IV 10/14/24 20:00 10/15/24 18:20 DC 10/15/24 17:30 45 MLS/HR Norepinephrine Bitartrate 32 mg/ Sodium Chloride 250 ml @ 0 mls/hr PROTOCOL IV 10/15/24 18:30 10/19/24 12:41 DC 10/15/24 19:47 11.05 MLS/HR Ondansetron HCl (zoFRAN 4MG INJ) 4 mg Q6H IVP 10/14/24 08:35 11/13/24 08:34 10/20/24 17:20 4 MG Oxytocin/Lactated Ringer's 500 ml @ 0 mls/hr AD IV 10/14/24 20:30 10/19/24 12:41 DC 10/14/24 21:37 4 MLS/HR Piperacillin Sod/ Tazobactam Sod (Zosyn 3.375gm+NS 50ml) 3.375 gm Q8H IVPB 10/14/24 19:00 10/15/24 06:07 DC 10/15/24 06:02 3.375 GM Potassium Chloride 100 ml @ 50 mls/hr AD PRN IV POTASSIUM PROTOCOL 10/14/24 21:00 10/14/24 20:58 DC Potassium Chloride 100 ml @ 100 mls/hr AD PRN IV POTASSIUM PROTOCOL 10/14/24 21:00 11/13/24 20:59 Potassium Chloride (K-Dur/Klor-Con 20meq) 20 meq AD PRN PO POTASSIUM PROTOCOL 10/15/24 01:00 11/14/24 00:59 10/17/24 08:10 20 MEQ Potassium Chloride (KCl 10% Elixir 20meq/15ml) 20 meq AD PRN PO POTASSIUM PROTOCOL 10/15/24 01:00 11/14/24 00:59 10/19/24 06:06 20 MEQ Promethazine HCl (Phenergan) 25 mg Q6H PRN IM NAUSEA/VOMITING 10/13/24 22:00 11/12/24 21:59 10/15/24 21:34 25 MG Ropivacaine (NARopin) 200 mg PROTOCOL EP 10/14/24 18:00 10/19/24 12:41 DC Simethicone (Mylicon) 80 mg PCHS PRN PO GI GAS 10/17/24 20:00 11/16/24 19:59 10/18/24 21:59 80 MG Sodium Bicarbonate (Sodium Bicarb 50meq 50ml Vial) 150 meq ONCE STAT IV 10/15/24 08:14 10/15/24 09:10 DC 10/15/24 08:25 150 MEQ Sodium Chloride 500 ml @ 0 mls/hr Q0M IV 10/15/24 03:30 10/15/24 14:53 DC 10/15/24 03:49 999 MLS/HR Sodium Chloride 1,000 ml @ 0 mls/hr Q0M IV 10/14/24 22:30 10/16/24 22:53 DC 10/14/24 22:47 999 MLS/HR Sodium Chloride 1,000 ml @ 0 mls/hr Q0M IV 10/15/24 06:30 10/15/24 09:11 DC 10/15/24 06:19 999 MLS/HR Sodium Chloride 1,000 ml @ 75 mls/hr [id number] IV 10/16/24 23:00 10/17/24 10:23 DC 10/17/24 00:02 75 MLS/HR Sodium Chloride 1,000 ml @ 100 mls/hr Q10H IV 10/14/24 22:30 10/15/24 14:53 DC 10/14/24 22:47 100 MLS/HR Sodium Chloride (NS 50ml) 50 ml AD IV 10/14/24 19:00 10/14/24 19:03 DC Topiramate (TopaMAX) 25 mg BID PO 10/19/24 21:00 10/20/24 08:09 DC Topiramate (TopaMAX) 50 mg BID PO 10/20/24 09:00 11/19/24 08:59 10/22/24 08:46 50 MG Vancomycin HCl 250 ml @ 125 mls/hr Q12H IV 10/16/24 21:00 10/16/24 13:54 DC Vancomycin HCl (Vancomycin 1g/ 250ml Kit) 1 gm Q12H IV 10/14/24 19:00 10/16/24 08:07 DC 10/15/24 17:32 1 GM Vitamin B Complex (Vitamin B-12) 1,000 mcg DAILY PO 10/17/24 11:30 11/16/24 11:29 10/22/24 08:47 1,000 MCG DIAGNOSTICS / RADIOLOGY: [ ] ASSESSMENT: Septic shock, POA Gram-negative bacteremia secondary to E coli, POA Acute hypoxemic respiratory failure, POA s/p Miscarriage at 19 week gestation and two days on 10/14/24 s/p vaginal delivery of demise on 10/14/2024 at 2038 s/p placenta retention after delivery Acute urinary tract infection POA Hypokalemia POA Hypocalcemia Hypomagnesemia Hyponatremia Anemia Lactic acidosis Elevated procalcitonin level Elevated D-dimer Morbid obesity with BMI 44.6 Elevated fibrinogen level Thrombocytopenia PLAN: Patient has been downgraded to the medical floor Continue the patient on broad-spectrum IV antibiotics Continue to follow infectious disease input and recommendation Continue to monitor WBC in a.m. Continue to follow CBC and transfuse as needed Continue to monitor platelet count in a.m. Continue to follow Hematology input and recommendation Continue folic acid 1 mg p.o. daily and vitamin B12 1000 mcg p.o. daily Continue to follow up procalcitonin level in a.m. Replace electrolytes IV per protocol Follow a.m. labs GI and DVT prophylaxis Disposition: Pending D&C today, OBGYN recommendations STEPHENIE ORTIZ MD Oct 22, 2024 16:00
--- NOTE | 2024-10-22 16:16 | PN ---
INFECTIOUS DISEASE PROGRESS NOTE Date of Service: Oct 22, 2024 SUBJECTIVE: This is a 29-year-old female patient who was admitted to the hospital for active abdominal cramping. An obstetrics ultrasound showed single fetus gestational age of 18 weeks and no amniotic fluid present which is consistent with premature rupture of membranes. On 10/14/2024 Patient developed fever and hypotension and was transferred to the ICU. Patient was started on vancomycin and Zosyn IV. An obstetric ultrasound was repeated on 10/14/2024 with findings of demise. Patient was seen and examined at bedside in room 319. Patient is resting comfortably in bed. Vaginal ultrasound done yesterday showed small amount of fluid in the endometrium which may be hemorrhage versus retained products of conception. Patient is scheduled for a D&C procedure for today. No fever this morning, temperature is 98.4 and the WBC is 12.3. Patient Continues on cef triaxone 2 g IV. Family members visiting at bedside. Will continue to follow patient's care. PHYSICAL EXAM EYES: Anicteric. Pupils equal and reactive. HENT: No oral thrush seen, moist Oral mucosa. NECK: Supple, no JVD or thyromegaly. LUNGS: Good air entry. No rales, no rhonchi. CARDIOVASCULAR: S1, S2 regular. No murmur heard. ABDOMEN: Soft, non tender, bowel sounds present, no organomegaly. CENTRAL NERVOUS SYSTEM: Awake, alert, oriented x 3. SKIN: No rashes, no swelling. LYMPHATICS: No peripheral lymphadenopathy. MUSCULOSKELETAL: No joint swelling, erythema or tenderness. EXTREMITIES: No cyanosis or clubbing. BACK: No deformity, no pressure ulcer. GENITOURINARY: No dysuria or hematuria. Vital Sign (Last 12 Hours) 10/22/24 10/22/24 10/22/24 10/22/24 08:00 12:00 15:50 15:50 Temp 98.4 97.9 97.9 Pulse 93 81 106 108 Resp 18 18 19 18 B/P (MAP) 119/72 111/66 127/66 127/65 Pulse Ox 96 96 97 97 O2 Delivery Room Air Room Air Nasal Cannula Nasal Cannula O2 Flow Rate 3.0 3.0 FiO2 28 28 10/22/24 10/22/24 10/22/24 15:55 16:00 16:05 Temp 97.9 97.9 97.9 Pulse 103 98 92 Resp 19 18 19 B/P (MAP) 124/73 129/77 117/69 Pulse Ox 97 97 97 O2 Delivery Nasal Cannula Nasal Cannula Nasal Cannula O2 Flow Rate 3.0 3.0 3.0 FiO2 28 Intake & Output (last 24hrs) 10/21/24 10/21/24 10/22/24 15:00 23:00 07:00 Intake Total 500 ml Balance 500 ml LABS: Laboratory: Test 10/21/24 15:15 10/21/24 04:37 10/20/24 17:15 Range/Units Whole Blood Glucose 90 70-110 MG/DL White Blood Count 12.3 H 4.8-10.8 K/uL Red Blood Count 4.20 4.00-5.50 MIL/uL Hemoglobin 13.1 12.0-16.0 g/dL Hematocrit 39.2 36-48 % Mean Corpuscular Volume 93.3 79-99 fL Mean Corpuscular Hemoglobin 31.2 27.0-33.0 pg Mean Corpuscular Hemoglobin Concent 33.4 32.0-36.0 g/dL Red Cell Distribution Width 13.1 11.0-15.5 % Platelet Count 201 130-400 K/uL Mean Platelet Volume 10.9 H 7.5-10.5 fL Nucleated Red Blood Cells 0.2 H 0.0-0.19 % Sodium Level 138 136-145 mmol/L Potassium Level 3.9 3.5-5.1 mmol/L Chloride Level 104 101-111 mmol/L Carbon Dioxide Level 23 21-32 mmol/L Blood Urea Nitrogen 18 7-18 mg/dL Creatinine 0.9 0.5-1.0 mg/dL Glomerular Filtration Rate Calc 89 >90 mL/min Random Glucose 79 70-105 mg/dL Total Calcium 9.5 8.5-10.1 mg/dL Magnesium Level 1.90 1.80-2.40 mg/dL Total Bilirubin 0.2 0.2-1.0 mg/dL Aspartate Amino Transf (AST/SGOT) 44 H 10-37 U/L Alanine Aminotransferase (ALT/SGPT) 49 # 12-78 U/L Alkaline Phosphatase 99 50-136 U/L Total Protein 7.2 6.0-8.3 g/dL Albumin 3.1 L 3.5-5.0 g/dL Phosphorus Level 5.0 H 2.5-4.9 mg/dL ASSESSMENT: E coli bacteremia. Chorioamnionitis. Septic shock. Leukocytosis. Miscarriage at 19 wks gestation on 10/14/24 PLAN: Continue ceftriaxone IV. Continue GI prophylaxis. Continue pain management. Continue with oral vasopressor support. We will monitor electrolytes. Patient is scheduled for a D&C procedure for today. This case was reviewed and discussed with my supervising physician and the above assessment and plan was formulated and agreed upon. ATTESTATION BY PHYSICIAN I have seen and examined the patient. I reviewed the documentation, medical decision making, and treatment plan as noted by the mid-level provider above. I agree with the findings and plan of care. MARISEL RAZA MD, [facility]TA L [facility] Oct 22, 2024 16:16
--- NOTE | 2024-10-22 16:29 | OP ---
DATE OF PROCEDURE: 10/22/2024 PREOPERATIVE DIAGNOSIS: Retained products of conceptions. POSTOPERATIVE DIAGNOSIS: Retained products of conceptions. PROCEDURE: D and C. SURGEON: Jose Pretty MD ANESTHESIA: General. COUNTS: Complete. COMPLICATIONS: None. DRAINS: None. SPECIMENS: Endometrial curettings. ESTIMATED BLOOD LOSS: Less than 100 mL. FINDINGS: Examination under anesthesia showed a normal external genitalia, vagina. The cervix was open and oozing a slight amount of blood consistent with a normal lochia. DESCRIPTION OF PROCEDURE: Under general anesthesia, the patient was scrubbed and draped in the usual dorsal lithotomy position. A weighted speculum was placed in the vagina and the cervix secured with a sponge forceps. Using a large sharp curette, an endometrial curettage was initiated. Some clots were obtained, but no obvious evidence of placental tissue. The curettage was continued until the entire uterine cavity had been explored. The tactile feel was consistent with that of an empty uterus. At this point, there was no bleeding per the cervical os. The patient tolerated the procedure well and without evidence of any complications. She was transferred to recovery following extubation. TID: [id number] RECEIPT: [id number]
--- NOTE | 2024-10-22 19:45 | NUR ---
DISCHARGE PT VERBALIZED UNDERSTANDING OF DISCHARGE INSTRUCTIONS PT GATHERED AND TOOK ALL BELONGINGS PT HAD NO FURTHER QUESTIONS AT TIME OF DISCHARGE
--- NOTE | 2024-10-22 19:53 | NUR ---
Midline to patient's left upper arm removed at this time. Tip intact. Length of midline measures 15cm. Patient's arm circumference measures 38cm in diameter. No reports of pain or discomfort voiced by patient to left arm. 2x2 gauzes placed firmly on venipuncture site and taped securely.
--- NOTE | 2024-10-24 01:19 | PN ---
INFECTIOUS DISEASE FOLLOWUP NOTE DATE OF SERVICE: 10/21/2024 SUBJECTIVE: The patient is seen and examined at bedside. The patient has no fever, but has chills and diaphoresis at night. The patient has been passing large amount of clot per vagina. A transvaginal sonogram has been ordered. No dysuria, no frequency. Tolerating antibiotic . OBJECTIVE: VITAL SIGNS: Temperature 98.9. EYES: No icterus. Pupils equal and reactive. HEENT: No oral thrush seen. Moist oral mucosa. NECK: Supple. No JVD or thyromegaly. LUNGS: Good air entry. No rales, no rhonchi. CARDIOVASCULAR: S1, S2 regular. No murmur heard. ABDOMEN: Obese, soft, nontender. Bowel sounds present. CENTRAL NERVOUS SYSTEM: Awake, alert, oriented x 3. No focal deficits. SKIN: No rashes, no itchiness. LYMPHATIC: No peripheral lymphadenopathy. BACK: No deformity, no pressure ulcer. HEMATOLOGIC: No bleeding or peripheral lesions seen. MUSCULOSKELETAL: No joint swelling. No erythema or tenderness. ASSESSMENT: A 29-year-old female with: * . * Escherichia coli bacteremia. * Chorioamnionitis. * Anemia. * Obesity. * . * Miscarriage. PLAN: * Continue ceftriaxone. * Continue pain management. * Continue antiemetic. * Continue nutritional support. * Continue GI prophylaxis. * Monitor electrolytes. * The patient will follow up closely. TID: [id number] RECEIPT: [id number]
== END 2024-10-22 20:22 | disposition home or self-care (01) | DRG 770 ==
LOC: EDH 11:29 → LDH 11:30 → OBSVTOIN 11:30 → WSH 17:37 → LDH 10-14 16:18 → 2CV 10-14 20:26 → 2BH 10-15 08:53 → 2DH 10-17 14:29 → 3CH 10-18 13:55
PROVIDERS: ADMIT Obstetrics & Gynecology; ATTEND Obstetrics & Gynecology
PROC: 02HV33Z Insertion of Infusion Device into Superior Vena Cava, Percutaneous Approach (ICD-10-PCS; principal; 2024-10-15)
PROC: 10D17ZZ Extraction of Products of Conception, Retained, Via Natural or Artificial Opening (ICD-10-PCS; 2024-10-22)
DX: O03.87 Sepsis following complete or unspecified spontaneous abortion (principal); J96.01 Acute respiratory failure with hypoxia; R65.21 Severe sepsis with septic shock; O41.1220 Chorioamnionitis, second trimester, not applicable or unspecified; E87.1 Hypo-osmolality and hyponatremia; E87.20 Acidosis, unspecified; Z20.822 Contact with and (suspected) exposure to COVID-19; O03.83 Metabolic disorder following complete or unspecified spontaneous abortion; O03.88 Urinary tract infection following complete or unspecified spontaneous abortion; Z3A.19 19 weeks gestation of pregnancy; E87.6 Hypokalemia; D69.6 Thrombocytopenia, unspecified; E83.42 Hypomagnesemia; E83.51 Hypocalcemia; Z80.3 Family history of malignant neoplasm of breast; Z82.49 Family history of ischemic heart disease and other diseases of the circulatory system; Z83.3 Family history of diabetes mellitus
CPT/HCPCS: 36415; 36556; 36600; 70450; 71045; 76705; 76805; 76815; 76830; 76856; 80048; 80053; 80202; 80305; 81001; 82010; 82120; 82435; 82803; 82947; 82948; 83605; 83735; 83880; 84100; 84132; 84145; 84295; 85014; 85018; 85025; 85027; 85378; 85384; 85610; 85730; 86592; 86701; 86850; 86900; 86901; 87040; 87086; 87186; 87340; 87390; 87491; 87591; 87635; 87641; 87802; 87804; 88305; 93005; 93306; 93970; 94640; 94664; A4351; C1894; G0378; J0290; J0330; J0692; J0696; J1100; J1171; J1364; J1650; J1885; J1940; J2003; J2175; J2185; J2250; J2270; J2405; J2543; J2550; J2704; J2710; J3010; J3370; J3475; J3480; J3490; J7030; J7050; J7120; 3370; A4510; A4600; C1750